=== PATIENT | female | born 1940 | race Caucasian/White ===

== ENCOUNTER → 2017-04-01 | Outpatient (CLI) | payer MEDICARE, BC ==
--- NOTE | 2017-04-01 12:46 | CT ---
EXAMINATION TYPE: CT chest wo con DATE OF EXAM: 04/01/2017 COMPARISON: NONE HISTORY: Interstitial lung disease per order. CT DLP: 749.7 mGycm. Automated Exposure Control for Dose Reduction was Utilized. TECHNIQUE: CT scan of the thorax is performed without IV contrast. High-resolution protocol with 10 mm sequences obtained in supine and prone technique. FINDINGS: LUNGS: There is peripheral reticulation and/or fibrosis bilaterally involving upper and lower lungs. Slightly more pronounced fibrotic changes are seen in the bases with additional linear fibrosis evide nt. Mosaic appearance is seen inferiorly in bilateral lungs. No pleural effusion or pneumothorax is s een. No suspicious bronchiectasis is identified. No worrisome focal groundglass opacity or consolidat ion is seen. Areas of subcentimeter nodularity are suspected, for reference 5 x 3 mm nodule and axial image 9 series 8. No suspicious pulmonary masses are identified. MEDIASTINUM: Lack of IV contrast is noted to limit evaluation for mediastinal and especially hilar ad enopathy. There are no definitive greater than 1 cm hilar or mediastinal lymph nodes. No pericardia l effusion is seen. Cardiomegaly is present. OTHER: Lateral left breast scar is noted on image 6 series 7. Multilevel spurring in the spine is see n. Cholecystectomy clips are noted. IMPRESSION: Moderate fibrotic changes bilaterally most pronounced in the lower lobes as detailed shama e. Consider IPF.
== END | disposition home or self-care (01) ==
LOC: RADCTMAIN 12:17
PROVIDERS: ATTEND Internal Medicine Critical Care Medicine
DX: J84.10 Pulmonary fibrosis, unspecified (principal); Z88.5 Allergy status to narcotic agent; Z88.2 Allergy status to sulfonamides
CPT/HCPCS: 71250

== ENCOUNTER → 2017-07-14 | Outpatient (CLI) | payer MEDICARE, BC ==
[2017-07-14 09:58] LABS: Anisocytosis Slight; CH 37.1; CHCM 32.8; HCT 38.1 % (34.0-46.0); HDW 3.24; HGB 12.9 gm/dL (11.4-16.0); Hypochromasia Slight; MCH 38.4 pg (25.0-35.0); MCHC 33.9 g/dL (31.0-37.0); MCV 113.5 fL (80.0-100.0); Macrocytosis Marked; Mean Platelet Volume 9.7; RBC 3.36 m/uL (3.80-5.40); WBC 7.8 k/uL (3.8-10.6)
[2017-07-14 10:31] LABS: ALT 38 U/L (9-52); AST 27 U/L (14-36); Alkaline Phosphatase 75 U/L (38-126); Anion Gap 11 mmol/L; Blood Urea Nitrogen 15 mg/dL (7-17); Calcium 9.6 mg/dL (8.4-10.2); Carbon Dioxide 26 mmol/L (22-30); Chloride 106 mmol/L (98-107); Glucose 101 mg/dL (74-99); Non-African American GFR(MDRD) 56 (>60 ml/min/1.73 sqM); Potassium 4.2 mmol/L (3.5-5.1); Sodium 143 mmol/L (137-145); Total Bilirubin 1.8 mg/dL (0.2-1.3); Total Protein 6.7 g/dL (6.3-8.2)
[2017-07-26 12:50] LABS: Large VLDL Particle Number,NMR 2.4 nmol/L (<=2.7)
== END | disposition home or self-care (01) ==
LOC: LABWHC1 09:17
PROVIDERS: ATTEND Internal Medicine Cardiovascular Disease
DX: I10 Essential (primary) hypertension (principal)
CPT/HCPCS: 36415; 80053; 83704; 85027

== ENCOUNTER → 2017-10-28 | Outpatient (CLI) | payer MEDICARE, BC ==
[2017-10-28 12:17] LABS: Anisocytosis Slight; Basophils # (A) 0.1 k/uL (0-0.2); Basophils % (A) 0 %; Eosinophils # (A) 0.1 k/uL (0-0.7); Eosinophils % (A) 1 %; HCT 41.1 % (34.0-46.0); Lymphocytes # (A) 1.9 k/uL (1.0-4.8); Lymphocytes % (A) 10 %; MCH 35.7 pg (25.0-35.0); MCHC 31.7 g/dL (31.0-37.0); MCV 112.7 fL (80.0-100.0); Macrocytosis Marked; Mean Platelet Volume 10.2; Monocytes # (A) 1.6 k/uL (0-1.0); Monocytes % (A) 8 %; Neutrophils # (A) 16.1 k/uL (1.3-7.7); Neutrophils % (A) 80 %; Platelet Count 232 k/uL (150-450); RBC 3.64 m/uL (3.80-5.40); RDW 17.5 % (11.5-15.5); WBC 20.1 k/uL (3.8-10.6)
[2017-10-28 12:24] LABS: Appearance,Urine Clear (Clear); Bilirubin,Urine Negative (Negative); Blood,Urine Negative (Negative); Color,Urine Yellow; Glucose,Urine (UA) Negative (Negative); Ketones,Urine Negative (Negative); Leukocyte Esterase,Urine Negative (Negative); Nitrite,Urine Negative (Negative); PH, Urine 6.5 (5.0-8.0); Protein,Urine Negative (Negative); Urobilinogen,Urine <2.0 mg/dL (<2.0)
[2017-10-28 12:45] LABS: Anion Gap 12 mmol/L; Blood Urea Nitrogen 26 mg/dL (7-17); Carbon Dioxide 30 mmol/L (22-30); Chloride 99 mmol/L (98-107); Potassium 4.6 mmol/L (3.5-5.1); Sodium 141 mmol/L (137-145)
== END | disposition home or self-care (01) ==
LOC: LABPAT 11:48
PROVIDERS: ATTEND Thoracic Surgery (Cardiothoracic Vascular Surgery)
DX: Z01.812 Encounter for preprocedural laboratory examination (principal); J84.9 Interstitial pulmonary disease, unspecified
CPT/HCPCS: 36415; 80051; 81003; 82565; 84520; 85025; 99204

== ENCOUNTER → 2017-11-01 | Outpatient (CLI) | payer MEDICARE, BC ==
[2017-11-01 15:21] LABS: Anisocytosis Slight; Basophils % (A) 0 %; Eosinophils % (A) 0 %; HCT 40.9 % (34.0-46.0); HGB 13.5 gm/dL (11.4-16.0); Lymphocytes # (A) 1.4 k/uL (1.0-4.8); Lymphocytes % (A) 8 %; MCH 37.4 pg (25.0-35.0); MCV 113.4 fL (80.0-100.0); Macrocytosis Marked; Mean Platelet Volume 9.8; Monocytes # (A) 1.1 k/uL (0-1.0); Monocytes % (A) 6 %; Neutrophils # (A) 14.7 k/uL (1.3-7.7); Neutrophils % (A) 84 %; Platelet Count 209 k/uL (150-450); WBC 17.5 k/uL (3.8-10.6)
[2017-11-01 15:28] LABS: Appearance,Urine Clear (Clear); Bacteria,Urine Rare /hpf; Bilirubin,Urine Negative (Negative); Blood,Urine Negative (Negative); Color,Urine Light Yellow; Glucose,Urine (UA) Negative (Negative); Ketones,Urine Negative (Negative); Leukocyte Esterase,Urine Trace (Negative); Nitrite,Urine Negative (Negative); PH, Urine 6.5 (5.0-8.0); Protein,Urine Negative (Negative); Specific Gravity,Urine 1.008 (1.001-1.035); Squamous Epithelial Cell,Urine 1 /hpf (0-4); Urobilinogen,Urine <2.0 mg/dL (<2.0); WBC,Urine 2 /hpf (0-5)
[2017-11-01 16:08] LABS: Polychromasia Present
== END | disposition home or self-care (01) ==
LOC: LABWHC1 14:19
PROVIDERS: ATTEND Nurse Practitioner Acute Care
DX: D72.829 Elevated white blood cell count, unspecified (principal)
CPT/HCPCS: 36415; 81001; 85025; 87077; 87086; 87186

== ENCOUNTER 2017-11-04 07:18 | Inpatient (IN) | payer MEDICARE, BC ==
[~2017-11-04 07:18] MED LIST: DEXAMETHASONE SOD PHOSPHATE 10 MG/ML 1 ML VIAL IV ONE; FAMOTIDINE 20 MG/2 ML VIAL IV PRN; HYDROmorphone 0.5 MG/0.5 ML SYRINGE IVP PRN; LACTATED RINGERS 1,000 ML IV SCH; LIDOCAINE 1% 20 ML VIAL (10MG/ML) FOR IV START INTRADERMA PRN; ONDANSETRON 4 MG/2 ML VIAL IVP PRN; Pre Op ABX Message 1 EACH MISC MISCELLANE ONE
[2017-11-04 08:02] LABS: Glucose,Whole Blood 109 mg/dL (75-99)
[2017-11-04] MEDS ORDERED: IPRATROPIUM-ALBUTEROL 3 ML NEB INHALATION STA (08:47)
[2017-11-04] MEDS ORDERED: HYDROCORTISONE SUCCINATE 100 MG/2 ML VIAL IV ONE (08:47)
[2017-11-04] MEDS ORDERED: SUCCINYLCHOLINE CHLORIDE 100 MG/5 ML SYR IV ONE (09:11)
[2017-11-04] MEDS ORDERED: NEOSTIGMINE 1 MG/ML 10 ML VIAL ONE (09:11)
[2017-11-04] MEDS ORDERED: LIDOCAINE 1% INJ 10MG/ML (20 ML MDV) ONE (09:11)
[2017-11-04] MEDS ORDERED: ePHEDrine SULFATE/0.9% NACL/PF 50 MG/5 ML SYRINGE IV ONE (09:11)
[2017-11-04] MEDS ORDERED: MIDAZOLAM 2 MG/2 ML VIAL ONE (09:11)
[2017-11-04] MEDS ORDERED: ROCURONIUM BROMIDE 10 MG/ML 10 ML VIAL IV ONE (09:11)
[2017-11-04] MEDS ORDERED: GLYCOPYRROLATE 0.2 MG/ML 2 ML VIAL ONE (09:11)
[2017-11-04] MEDS ORDERED: fentaNYL (PF) 50 MCG/ML 2 ML AMP ONE (09:11)
[2017-11-04] MEDS ORDERED: PHENYLEPHRINE-0.9% NACL SYG 1 MG/10 ML SYRINGE ONE (09:11)
[2017-11-04] MEDS ORDERED: SODIUM CHLORIDE 0.9% 50 ML with ceFAZolin 2,000 MG IV ONE ×2 (09:45)
[2017-11-04] MEDS ORDERED: BUPIVACAINE (PF) 0.5% 30 ML VIAL SQ ONE ×2 (09:45)
[2017-11-04] MEDS ORDERED: METOCLOPRAMIDE 5 MG/ML 2 ML VIAL IVP PRN (10:24)
[2017-11-04] MEDS ORDERED: DEXTROSE 5%-0.45% NACL 1,000 ML IV SCH (10:30)
[2017-11-04] MEDS ORDERED: traMADol-ACETAMINOP 37.5-325MG 1 EACH TAB PO PRN (10:31)
[2017-11-04] MEDS ORDERED: ALBUTEROL NEBULIZED 2.5 MG/3 ML INHALATION PRN (10:34)
[2017-11-04] MEDS ORDERED: HYDROmorphone 2 MG/ML 1 ML SYRINGE IVP ONE ×2 (10:37→10:57)
[2017-11-04] MEDS ORDERED: LACTATED RINGERS 1,000 ML IV ONE (11:06)
--- NOTE | 2017-11-04 11:07 | XR ---
EXAMINATION TYPE: XR chest 1V DATE OF EXAM: 11/04/2017 HISTORY: Postop right VATS with lung biopsy COMPARISON: 09/26/2017 TECHNIQUE: Single view of the chest is submitted. FINDINGS: Right-sided chest tube without pneumothorax. Scattered parenchymal infiltrates. Underlying fibrosis s uspected. Nodular density right midlung zone. The heart is stable. Hilar and mediastinal structures are within normal limits. Degenerative changes are seen of the dorsal spine. IMPRESSION: 1. Postoperative changes as discussed.
--- NOTE | 2017-11-04 11:31 | P.OP ---
Date of Procedure: 11/04/17 Preoperative Diagnosis: Bilateral pulmonary infiltrates Postoperative Diagnosis: Same Procedure(s) Performed: Right thoracoscopic lung biopsy Anesthesia: MARCUS Surgeon: Bryan Vega Lead Database Developer #1: Juan Banks Estimated Blood Loss (ml): 25 IV fluids (ml): 300 Urine output (ml): 0 Pathology: other (Biopsies of right upper, middle and lower lobes of the right long were sent for pathology, routine culture, acid-fast culture, fungal culture.) Condition: stable Disposition: PACU Indications for Procedure: 76-year-old female with progressive dyspnea and bilateral pulmonary interstitial infiltrates. Operative Findings: There were no intrapleural adhesions. The lung was pink with good compliance. There was a somewhat fibrotic and gritty consistency to the lung tissue in areas. Description of Procedure: The patient was brought to the operating room, placed supine on the operating table, anesthetized and intubated with a double-lumen endotracheal tube. Tube was positioned with fiberoptic bronchoscopy and secured. Patient was turned in the left lateral decubitus position and the right chest sterilely prepped and draped. 3 one-inch incisions were made in the right chest and carried down into the right pleural space. Single lung ventilation was initiated. The pleural space was explored with findings as noted above. Biopsies of the upper middle and lower lobe were obtained with multiple firings of the Endo NATIVID[place] stapler. Biopsy specimens were cut on the back table and a portion was sent for culture and the majority of each specimen was sent for pathology. A 28- Khmer chest tube was placed through separate stab incision anteriorly and positioned posterior apically. Was secured with 0 Ethibond suture. Rib blocks were performed at the level of the incisions. The lung was inflated under thoracoscopic guidance and the incisions closed with layers of Vicryl suture. Sterile dressings were applied the patient was turned supine and extubated and transferred to recovery in stable condition.
--- NOTE | 2017-11-04 12:59 | P.CNPUL ---
History of Present Illness Consult date: 11/04/17 Requesting physician: Bryan Vega Reason for consult: abnormal CXR/CT Chief complaint: Shortness of breath History of present illness: This is a very pleasant 76-year-old female patient who follows with Dr. Jovita Diaz as her primary care physician. She has a history of hypothyroidism, hyperlipidemia, hypertension, gastroesophageal reflux disease, degenerative joint disease, breast cancer status post lumpectomy and radiation. She also has a history of chronic bronchial asthma and suspected interstitial lung disease. She follows with Dr. Mujica in our office for the same. She has been maintained on Singulair, Advair, albuterol. She had been referred to Dr. Vega for a open lung biopsy to determine if she truly has interstitial lung disease. He was brought in today for the procedure. He is seen postoperatively on the selective care unit. She is currently awake and alert in no acute distress. Her pain is well controlled at this time. She is maintaining good O2 saturations in the upper 90s on 3 L/m per nasal cannula. She's been afebrile. Hemodynamically stable. Right-sided chest tube remains in place with minimal drainage at this point. As x-ray reveals no pneumothorax. Suspected underlying fibrosis. Review of Systems 14 point review of systems was conducted. All negative other than as mentioned in HPI. Past Medical History Past Medical History: Asthma, Cancer, GERD/Reflux, Hyperlipidemia, Hypertension , Thyroid Disorder Additional Past Medical History / Comment(s): Breast cancer WITH RADIATION. DO NOT USE LEFT Side, neuropathy History of Any Multi-Drug Resistant Organisms: None Reported Past Surgical History: Back Surgery, Breast Surgery, Cholecystectomy, Joint Replacement, Orthopedic Surgery Past Anesthesia/Blood Transfusion Reactions: Postoperative Nausea & Vomiting ( PONV) Past Psychological History: No Psychological Hx Reported Smoking Status: Never smoker Past Alcohol Use History: None Reported Past Drug Use History: None Reported - Past Family History Mother Family Medical History: No Reported History Medications and Allergies Home Medications Medication Instructions Recorded Confirmed Type Albuterol Inhaler [Ventolin Hfa 1 - 2 puff INHALATION RT-Q6H PRN 09/26/17 History Inhaler] Aspirin [Adult Low Dose Aspirin EC] 81 mg PO DAILY 09/26/17 11/04/17 History Atorvastatin [Lipitor] 10 mg PO HS 09/26/17 11/04/17 History Calcium Polycarbophil [Fiber-Lax] 625 mg PO DAILY 09/26/17 11/04/17 History Celecoxib [CeleBREX] 200 mg PO QAM 09/26/17 11/04/17 History Fluticasone/Salmeterol [Advair 1 puff INHALATION RT-BID 09/26/17 11/04/17 History 500-50 Diskus] Gabapentin 800 mg PO QID 09/26/17 11/04/17 History Levothyroxine Sodium [Synthroid] 175 mcg PO QAM 09/26/17 11/04/17 History Montelukast Sodium [Singulair] 10 mg PO HS 09/26/17 11/04/17 History Multivitamins, Thera [Multivitamin 1 tab PO DAILY 09/26/17 11/04/17 History (formulary)] Omeprazole 20 mg PO QAM 09/26/17 11/04/17 History amLODIPine BESYLATE/BENAZEPRIL 1 cap PO QAM 09/26/17 11/04/17 History [Lotrel 5-40 mg Capsule] Hydrochlorothiazide 25 mg PO QAM 10/29/17 11/04/17 History predniSONE [predniSONE] 1 tab PO DIRECTED 10/29/17 11/04/17 History Allergies Allergy/AdvReac Type Severity Reaction Status Date / Time meperidine [From Demerol] Allergy Unknown Verified 11/04/17 08:00 Childhood morphine Allergy Unknown Verified 11/04/17 08:00 Childhood Sulfa (Sulfonamide Allergy Unknown Verified 11/04/17 08:00 Antibiotics) Childhood Physical Exam Vitals: Vital Signs Temp Pulse Pulse Resp BP Pulse Ox 11/04/17 11:47 97.1 F L 51 L 16 104/53 99 11/04/17 11:15 62 16 112/54 97 11/04/17 11:00 56 L 16 103/50 11/04/17 10:45 62 16 106/53 98 11/04/17 10:30 80 16 100/57 95 11/04/17 10:22 97.1 F L 74 16 108/54 98 11/04/17 08:56 68 11/04/17 08:50 68 11/04/17 07:48 97 F L 67 16 113/57 98 Intake and Output 11/03/17 11/04/17 11/04/17 22:59 06:59 14:59 Intake Total 1250 Output Total 10 Balance 1240 Intake: IV 1250 Output: Estimated Blood Loss 10 GENERAL EXAM: Alert, active, comfortable in no apparent distress. HEAD: Normocephalic. EYES: Normal reaction of pupils, equal size. NOSE: Clear with pink turbinates. THROAT: No erythema or exudates. NECK: No masses, no JVD. CHEST: No chest wall deformity. Right sided chest tube in place. LUNGS: Equal air entry with crackles in the right lung base. CVS: S1 and S2 normal with no audible murmur, regular rhythm. ABDOMEN: No hepatosplenomegaly, normal bowel sounds, no guarding or rigidity. SPINE: No scoliosis or deformity SKIN: No rashes CENTRAL NERVOUS SYSTEM: No focal deficits, tone is normal in all 4 extremities. EXTREMITIES: There is no peripheral edema. No clubbing, no cyanosis. Peripheral pulses are intact. Results - Laboratory Findings Abnormal lab findings: Abnormal Labs 11/04/17 08:00 POC Glucose (mg/dL) 109 H - Diagnostic Findings Chest x-ray: image reviewed Assessment and Plan Assessment: Impression: #1 Bilateral pulmonary infiltrates, suspect interstitial lung disease, status post right thorascopic lung biopsy. Postoperative day #0. #2 Chronic moderate persistent bronchial asthma, currently inactive and stable. #3 Hypothyroidism. #4 Hyperlipidemia. #5 Hypertension. #6 Gastroesophageal reflux disease. #7 Degenerative joint disease with previous laminectomy and knee replacement. #8 History of lung breast cancer status post lumpectomy and radiation. Plan: The patient was seen and evaluated by Dr. Mujica. Her chest x-ray was reviewed. She is currently stable from the pulmonary standpoint. We will assure she utilizes the incentive spirometer and encourage cough and deep breathing exercises. We'll continue with her current pulmonary medications care will be Symbicort, Singulair and albuterol. We will increase her activity as tolerated. She remains on heparin for DVT prophylaxis. Protonix for GI prophylaxis. We'll continue to follow and make further recommendations based on her clinical status. I, the cosigning physician, performed a history & physical examination of the patient. Lungs sounds crackles in the right posterior base. Right-sided chest tube in place. Maintaining good O2 saturations in the 90s on 3 L/m per nasal cannula. I discussed the assessment and plan of care with my nurse practitioner , Barbara Wiggins. I attest to the above note as dictated by her. Time with Patient: Greater than 30
[2017-11-04] MEDS: KETOROLAC 30 MG/ML 1 ML VIAL IVP SCH ×2 (13:51→17:37)
[2017-11-04] MEDS: GABAPENTIN 400 MG CAP PO SCH ×3 (13:52→20:52)
[2017-11-04] MEDS: HEPARIN SODIUM,PORCINE 5,000 UNIT/ML 1 ML VIAL SQ SCH (17:37)
[2017-11-04] MEDS: SYMBICORT 160-4.5 MCG INHALER INHALATION SCH (20:20)
[2017-11-04] MEDS ORDERED: ATORVASTATIN 10 MG TAB PO SCH (21:00)
[2017-11-04] MEDS ORDERED: MONTELUKAST 10 MG TAB PO SCH (21:00)
--- NOTE | 2017-11-04 21:48 | P.CONS ---
History of Present Illness - Reason for Consult Consult date: 11/04/17 Medical management of hypertension and other multiple medical problems - Chief Complaint Admitted for lung biopsy due to worsening interstitial lung disease - History of Present Illness Patient is a 76-year-old female with a known history of hypertension, hyperlipidemia, hypothyroidism, GERD and history of breast cancer status post lumpectomy and radiation as well as chronic bronchial asthma both with worsening recent symptoms and suspected to have interstitial lung disease. Patient was seen by pulmonary and recommended lung biopsy. Patient had lung biopsy today by CT surgery. Currently patient denied any chest pain or worsening shortness of breath. No headache or dizziness or lightheadedness.She is currently awake and alert in no acute distress. Her pain is well controlled at this time. She is maintaining good O2 saturations in the upper 90s on 3 L/m per nasal cannula. She's been afebrile. Hemodynamically stable. Right-sided chest tube remains in place with minimal drainage at this point. Chest x-ray reveals no pneumothorax. Suspected underlying fibrosis. Review of Systems Constitutional: Patient denies any fever or chills . No generalized weakness or weight loss. Abdomen: Patient denied nausea vomiting and diarrhea and abdominal pain. Cardiovascular: Patient denies any chest pain or short of breath no palpitations. Respiratory: patient denied any cough is from production. No shortness of breath Neurologic: Patient denied any numbness or tingling headache. Musculoskeletal: Patient denies any complaints of joint swelling or deformity. Skin: Negative Psychiatric: Negative Endocrine: No heat or cold intolerance. No recent weight gain. Genitourinary: No dysuria or hematuria. All other 14 point ROS negative except the above Past Medical History Past Medical History: Asthma, Cancer, GERD/Reflux, Hyperlipidemia, Hypertension , Thyroid Disorder Additional Past Medical History / Comment(s): Breast cancer WITH RADIATION. DO NOT USE LEFT Side, neuropathy History of Any Multi-Drug Resistant Organisms: None Reported Past Surgical History: Back Surgery, Breast Surgery, Cholecystectomy, Joint Replacement, Orthopedic Surgery Past Anesthesia/Blood Transfusion Reactions: Postoperative Nausea & Vomiting ( PONV) Past Psychological History: No Psychological Hx Reported Smoking Status: Never smoker Past Alcohol Use History: None Reported Past Drug Use History: None Reported - Past Family History Mother Family Medical History: No Reported History Medications and Allergies Home Medications Medication Instructions Recorded Confirmed Type Albuterol Inhaler [Ventolin Hfa 1 - 2 puff INHALATION RT-Q6H PRN 09/26/17 History Inhaler] Aspirin [Adult Low Dose Aspirin EC] 81 mg PO DAILY 09/26/17 11/04/17 History Atorvastatin [Lipitor] 10 mg PO HS 09/26/17 11/04/17 History Calcium Polycarbophil [Fiber-Lax] 625 mg PO DAILY 09/26/17 11/04/17 History Celecoxib [CeleBREX] 200 mg PO QAM 09/26/17 11/04/17 History Fluticasone/Salmeterol [Advair 1 puff INHALATION RT-BID 09/26/17 11/04/17 History 500-50 Diskus] Gabapentin 800 mg PO QID 09/26/17 11/04/17 History Levothyroxine Sodium [Synthroid] 175 mcg PO QAM 09/26/17 11/04/17 History Montelukast Sodium [Singulair] 10 mg PO HS 09/26/17 11/04/17 History Multivitamins, Thera [Multivitamin 1 tab PO DAILY 09/26/17 11/04/17 History (formulary)] Omeprazole 20 mg PO QAM 09/26/17 11/04/17 History amLODIPine BESYLATE/BENAZEPRIL 1 cap PO QAM 09/26/17 11/04/17 History [Lotrel 5-40 mg Capsule] Hydrochlorothiazide 25 mg PO QAM 10/29/17 11/04/17 History predniSONE [predniSONE] 1 tab PO DIRECTED 10/29/17 11/04/17 History Allergies Allergy/AdvReac Type Severity Reaction Status Date / Time meperidine [From Demerol] Allergy Unknown Verified 11/04/17 08:00 Childhood morphine Allergy Unknown Verified 11/04/17 08:00 Childhood Sulfa (Sulfonamide Allergy Unknown Verified 11/04/17 08:00 Antibiotics) Childhood Physical Exam Vitals: Vital Signs Temp Pulse Pulse Resp BP Pulse Ox 11/04/17 11:47 97.1 F L 51 L 16 104/53 99 11/04/17 11:15 62 16 112/54 97 11/04/17 11:00 56 L 16 103/50 11/04/17 10:45 62 16 106/53 98 11/04/17 10:30 80 16 100/57 95 11/04/17 10:22 97.1 F L 74 16 108/54 98 11/04/17 08:56 68 11/04/17 08:50 68 11/04/17 07:48 97 F L 67 16 113/57 98 Intake and Output 11/03/17 11/04/17 11/04/17 22:59 06:59 14:59 Intake Total 1250 Output Total 10 Balance 1240 Intake: IV 1250 Output: Estimated Blood Loss 10 PHYSICAL EXAMINATION: Patient is lying in the bed comfortably, no acute distress, awake alert and oriented.. HEENT: Normocephalic. Neck is supple. Pupils reactive. Nostrils clear. Oral cavity is moist. Ears reveal no drainage. Neck reveals no JVD, carotid bruits, or thyromegaly. CHEST EXAMINATION: Trachea is central. Symmetrical expansion. Right-sided chest tube in place with right basal crackles positive. No wheezing CARDIAC: Normal S1, S2 with no gallops. No murmurs ABDOMEN: Soft. Bowel sounds normal. No organomegaly. No abdominal bruits. Extremities: reveal no edema. No clubbing or cyanosis Neurologically awake, alert, oriented x3 with well-coordinated movements. No focal deficits noted Skin: No rash or skin lesions. Psychiatric: Cooperative. Nonsuicidal Musculoskeletal: No joint swelling or deformity. Normal range of motion. Results Labs: Abnormal Lab Results - Last 24 Hours (Table) 11/04/17 Range/Units 08:00 POC Glucose (mg/dL) 109 H (75-99) mg/dL Assessment and Plan Assessment: Suspected interstitial lung disease due to chronic bilateral pulmonary infiltrates. Status post lung biopsy today on 11/04/2017 Chronic asthma stable Hypertension. Currently hypotensive Hyperlipidemia GERD Hypothyroidism Osteoarthritis of multiple joints History of breast cancer status post lumpectomy and radiation Plan: Patient be continued on breathing treatments with albuterol, Symbicort and Singulair. Oxygen therapy as needed. Continue the home medications. Blood pressure medications have been held due to hypotension. We'll start back as needed. Continue with GI and DVT prophylaxis. Further recommendations based on the clinical course. Pulmonary is on board. Thank you for your consult Time with Patient: Greater than 30
[2017-11-05] MEDS: HEPARIN SODIUM,PORCINE 5,000 UNIT/ML 1 ML VIAL SQ SCH ×2 (00:03→08:39)
[2017-11-05] MEDS: KETOROLAC 30 MG/ML 1 ML VIAL IVP SCH ×4 (04:16→12:20)
[2017-11-05 06:05] LABS: Anisocytosis Slight; Basophils # (A) 0.1 k/uL (0-0.2); Basophils % (A) 0 %; Eosinophils # (A) 0.2 k/uL (0-0.7); Eosinophils % (A) 2 %; HCT 34.8 % (34.0-46.0); HGB 11.3 gm/dL (11.4-16.0); Lymphocytes # (A) 2.3 k/uL (1.0-4.8); Lymphocytes % (A) 18 %; MCH 37.1 pg (25.0-35.0); MCHC 32.5 g/dL (31.0-37.0); Monocytes # (A) 1.1 k/uL (0-1.0); Monocytes % (A) 9 %; Neutrophils # (A) 8.8 k/uL (1.3-7.7); Neutrophils % (A) 70 %; Platelet Count 155 k/uL (150-450); RBC 3.05 m/uL (3.80-5.40); RDW 17.1 % (11.5-15.5); WBC 12.6 k/uL (3.8-10.6)
[2017-11-05 06:15] LABS: Macrocytosis Marked
[2017-11-05] MEDS: GABAPENTIN 400 MG CAP PO SCH ×2 (06:26→12:14)
[2017-11-05] MEDS ORDERED: LEVOTHYROXINE 75 MCG TAB PO SCH (06:30)
[2017-11-05] MEDS ORDERED: LEVOTHYROXINE 100 MCG TAB PO SCH (06:30)
[2017-11-05] MEDS ORDERED: PANTOPRAZOLE 40 MG TABLET PO SCH (07:30)
[2017-11-05] MEDS: SYMBICORT 160-4.5 MCG INHALER INHALATION SCH (07:30)
[2017-11-05 08:31] LABS: Calcium 9.5 mg/dL (8.4-10.2); Potassium 4.5 mmol/L (3.5-5.1); Total Bilirubin 2.5 mg/dL (0.2-1.3); Total Protein 5.3 g/dL (6.3-8.2)
--- NOTE | 2017-11-05 08:40 | XR ---
EXAMINATION TYPE: XR chest 1V portable DATE OF EXAM: 11/05/2017 Comparison: 11/04/2017 Clinical History: 76-year-old female post VATS with lung biopsy Findings: The heart is upper limits of normal in size. Patchy right basilar opacity. Right-sided chest tube in place with a trace lateral right-sided pneumothorax. Overall densities are unchanged. Impression: 1. Right-sided chest tube in place. There is a trace lateral right-sided pneumothorax. 2. Patchy right mid and lower lung consolidation is unchanged.
[2017-11-05] MEDS ORDERED: CALCIUM POLYCARBOPHIL 625 MG TAB PO SCH (09:00)
[2017-11-05] MEDS ORDERED: MELOXICAM 7.5 MG TAB PO SCH (09:00)
[2017-11-05] MEDS ORDERED: LISINOPRIL 20 MG TAB PO SCH (09:00)
[2017-11-05] MEDS ORDERED: amLODIPine 5 MG TAB PO SCH (09:00)
[2017-11-05] MEDS ORDERED: HYDROCHLOROTHIAZIDE 25 MG TAB PO SCH (09:00)
[2017-11-05] MEDS ORDERED: predniSONE 10 MG TAB PO SCH (09:00)
[2017-11-05] MEDS ORDERED: ASPIRIN 81 MG PO SCH (09:00)
[2017-11-05] MEDS ORDERED: MULTIVITAMINS, THERA 1 EACH TAB PO SCH (12:00)
--- NOTE | 2017-11-05 12:12 | XR ---
EXAMINATION TYPE: XR chest 2V DATE OF EXAM: 11/05/2017 COMPARISON: Earlier today HISTORY: 76 year-old female post chest tube removal TECHNIQUE: Frontal and lateral views FINDINGS: Patchy densities right mid and lower lung as well as peripheral left base are unchanged. Heart remain s upper limits of normal in size. Interval removal right-sided chest tube. Small right-sided pneumoth orax is redemonstrated with both apical and right lateral components, minimally larger but estimated at less than 10%. IMPRESSION: 1. Right-sided chest tube removal. The small right pneumothorax is minimally larger but still estimat ed at less than 10%. 2. Patchy infiltrates, right greater than left remain.
[2017-11-05 12:28] VITALS: BP 132/66; PULSE 85; RESP 18; TEMP 96.3
--- NOTE | 2017-11-05 14:02 | P.PN ---
Subjective Progress Note Date: 11/05/17 Principal diagnosis: Bilateral pulmonary infiltrates, interstitial lung disease with exertional dyspnea, hypertension, hypothyroidism, hypercholesterolemia, GERD, breast cancer and asthma. POD #1, right thoracoscopic lung biopsy. The patient is laying in bed with in no acute distress. She is alert and oriented 3. She rates her pain 4 out of 10 on the pain scale currently to her right chest tube insertion site. Her oxygen saturations are 96% on room air. Objective - Vital Signs Vital signs: Vital Signs Temp 96.3 F L 11/05/17 12:26 Pulse 85 11/05/17 12:26 Resp 18 11/05/17 12:26 BP 132/66 11/05/17 12:26 Pulse Ox 96 11/05/17 12:26 Intake & Output 11/04/17 11/05/17 11/05/17 18:59 06:59 18:59 Intake Total 1640 580 Output Total 30 162 Balance 1610 -162 580 Weight 104.7 kg Intake: IV 1250 Intake, IV Titration 50 Amount Lactated Ringers 1,000 ml 50 As IV .Appy Pie ONE Rx#: [id number] Oral 340 580 Output: Chest Tube Drainage 20 162 Chest Tube Right Lateral 20 162 Chest Estimated Blood Loss 10 Other: Voiding Method Toilet Toilet # Voids 1 1 - Constitutional General appearance: Present: cooperative, no acute distress, obese - EENT Eyes: Present: PERRLA ENT: Present: hearing grossly normal - Neck Details: No JVD, no lymphadenopathy. Neck is supple. Neck: Present: normal ROM - Respiratory Details: Lung sounds essentially clear to her bilateral upper lobes, few scattered crackles to her bilateral bases right greater than left. Respirations are symmetrical and nonlabored. Oxygen saturation are 96% on room air. Right pleural chest tube without air leak, 130 mL output in the last 8 hours, 300 mL output in the last 24 hours. Chest tube tube remains to low continuous wall suction at -20 cm H2O. Draining thin serosanguineous drainage. She is achieving 750 mL on her incentive spirometry. - Cardiovascular Details: Regular rhythm and rate. S1 and S2 present, negative for S3, gallop or murmur. Remote telemetry showing normal sinus rhythm heart rate 83. - Gastrointestinal Gastrointestinal Comment(s): Abdomen is soft, nontender nondistended. Active bowel sounds all 4 abdominal quadrants. Tolerating oral intake. No abdominal guarding or rigidity. - Genitourinary Genitourinary Comment(s): Adequate urine output. - Integumentary Integumentary Comment(s): Right lateral chest incisions clean dry and well approximated. No drainage noted. Skin is warm and dry. No clubbing or cyanosis. - Neurologic Neurologic: Present: CNII-XII intact - Musculoskeletal Musculoskeletal: Present: gait normal, strength equal bilaterally - Psychiatric Psychiatric: Present: A&O x's 3, appropriate affect, intact judgment & insight - Allied health notes Allied health notes reviewed: nursing - Labs CBC & Chem 7: 11/05/17 05:44 11/05/17 05:44 Labs: Abnormal Lab Results - Last 24 Hours (Table) 11/05/17 11/05/17 Range/Units 05:44 05:44 WBC 12.6 H (3.8-10.6) k/uL RBC 3.05 L (3.80-5.40) m/uL Hgb 11.3 L (11.4-16.0) gm/dL MCV 114.0 H (80.0-100.0) fL MCH 37.1 H (25.0-35.0) pg RDW 17.1 H (11.5-15.5) % Neutrophils # 8.8 H (1.3-7.7) k/uL Monocytes # 1.1 H (0-1.0) k/uL Carbon Dioxide 31 H (22-30) mmol/L BUN 27 H (7-17) mg/dL Creatinine 1.10 H (0.52-1.04) mg/dL Glucose 108 H (74-99) mg/dL Total Bilirubin 2.5 H (0.2-1.3) mg/dL Total Protein 5.3 L (6.3-8.2) g/dL Albumin 3.0 L (3.5-5.0) g/dL Microbiology - Last 24 Hours (Table) 11/04/17 10:16 Gram Stain - Preliminary Lung - Right Tissue Culture - Preliminary 11/04/17 10:16 Gram Stain - Preliminary Lung - Right Tissue Culture - Preliminary 11/04/17 10:16 Gram Stain - Preliminary Lung - Right Tissue Culture - Preliminary 11/04/17 10:16 Acid Fast Bacilli Smear - Final Lung - Right Acid Fast Bacilli Culture - Preliminary 11/04/17 10:16 Acid Fast Bacilli Smear - Final Lung - Right Acid Fast Bacilli Culture - Preliminary 11/04/17 10:16 Acid Fast Bacilli Smear - Final Lung - Right Acid Fast Bacilli Culture - Preliminary 11/04/17 10:16 Fungal Culture - Preliminary Lung - Right 11/04/17 10:16 Anaerobic Culture - Preliminary Lung - Right 11/04/17 10:16 Fungal Culture - Preliminary Lung - Right 11/04/17 10:16 Anaerobic Culture - Preliminary Lung - Right 11/04/17 10:16 Fungal Culture - Preliminary Lung - Right 11/04/17 10:16 Anaerobic Culture - Preliminary Lung - Right - Imaging and Cardiology Chest x-ray: report reviewed, image reviewed Assessment and Plan (1) Hypertension Current Visit: Yes Status: Acute Code(s): I10 - ESSENTIAL (PRIMARY) HYPERTENSION SNOMED Code(s): 38033266 (2) Hyperlipidemia Current Visit: Yes Status: Acute Code(s): E78.5 - HYPERLIPIDEMIA, UNSPECIFIED SNOMED Code(s): 12192292 (3) Hypothyroidism Current Visit: Yes Status: Acute Code(s): E03.9 - HYPOTHYROIDISM, UNSPECIFIED SNOMED Code(s): 20393439 (4) GERD (gastroesophageal reflux disease) Current Visit: Yes Status: Acute Code(s): K21.9 - GASTRO-ESOPHAGEAL REFLUX DISEASE WITHOUT ESOPHAGITIS SNOMED Code(s): 285441737 (5) Asthma Current Visit: Yes Status: Acute Code(s): J45.909 - UNSPECIFIED ASTHMA, UNCOMPLICATED SNOMED Code(s): 521962193 (6) Interstitial lung disease Current Visit: Yes Status: Acute Code(s): J84.9 - INTERSTITIAL PULMONARY DISEASE, UNSPECIFIED SNOMED Code(s): 539444989 Plan: 1. Her right pleural chest tube was removed without incident at 9:25 AM today. 2. Encourage use of her incentive spirometry every hour while awake. 3. Encourage ambulating as tolerated. 4. Discontinue IV fluids, saline lock IV. 5. Pathology results are pending and will be reviewed with the patient on postoperative follow-up in the office. 6. Discharge teaching completed with the patient and her and she will be discharged home today. Time with Patient: Greater than 30
--- NOTE | 2017-11-05 14:05 | P.PN ---
Subjective Progress Note Date: 11/05/17 Principal diagnosis: Bilateral pulmonary infiltrates, suspect interstitial lung disease, status post right thoracoscopic lung biopsy, postop day 1 This is a very pleasant 76-year-old female patient who follows with Dr. Jovita Diaz as her primary care physician. She has a history of hypothyroidism, hyperlipidemia, hypertension, gastroesophageal reflux disease, degenerative joint disease, breast cancer status post lumpectomy and radiation. She also has a history of chronic bronchial asthma and suspected interstitial lung disease. She follows with Dr. Mujica in our office for the same. She has been maintained on Singulair, Advair, albuterol. She had been referred to Dr. Vega for a open lung biopsy to determine if she truly has interstitial lung disease. He was brought in today for the procedure. He is seen postoperatively on the selective care unit. She is currently awake and alert in no acute distress. Her pain is well controlled at this time. She is maintaining good O2 saturations in the upper 90s on 3 L/m per nasal cannula. She's been afebrile. Hemodynamically stable. Right-sided chest tube remains in place with minimal drainage at this point. As x-ray reveals no pneumothorax. Suspected underlying fibrosis. On 11/05/2017 patient seen again on selective care unit. Sitting up on the edge of the bed, doing very well, her only complaint today is right posterior incisional pain, patient is receiving oral Ultracet for it. No acute distress. Denies any worsening shortness of breath, currently on room air with O2 sat at 96%. Afebrile, lung sounds are positive for crackles and rhonchi over right lower lobe, clear on the left. Incentive spirometer effort is 1000 today. Vital signs are stable. Today's chest x-ray shows right-sided chest tube removal, small right pneumothorax estimated at 10%, patchy infiltrates right greater than the left, stable from previous exams. Objective - Vital Signs Vital signs: Vital Signs Temp 96.3 F L 11/05/17 12:26 Pulse 85 11/05/17 12:26 Resp 18 11/05/17 12:26 BP 132/66 11/05/17 12:26 Pulse Ox 96 11/05/17 12:26 Intake & Output 11/04/17 11/05/17 11/05/17 18:59 06:59 18:59 Intake Total 1640 580 Output Total 30 162 Balance 1610 -162 580 Weight 104.7 kg Intake: IV 1250 Intake, IV Titration 50 Amount Lactated Ringers 1,000 ml 50 As IV .[facility] Rx#: [id number] Oral 340 580 Output: Chest Tube Drainage 20 162 Chest Tube Right Lateral 20 162 Chest Estimated Blood Loss 10 Other: Voiding Method Toilet Toilet # Voids 1 1 - Exam GENERAL EXAM: Alert, active, comfortable in no apparent distress. HEAD: Normocephalic. EYES: Normal reaction of pupils, equal size. NOSE: Clear with pink turbinates. THROAT: No erythema or exudates. NECK: No masses, no JVD. CHEST: No chest wall deformity. Right sided chest tube has been removed. The site is covered with a surgical dressing. LUNGS: Equal air entry with crackles in the right lung base. CVS: S1 and S2 normal with no audible murmur, regular rhythm. ABDOMEN: No hepatosplenomegaly, normal bowel sounds, no guarding or rigidity. SPINE: No scoliosis or deformity SKIN: No rashes CENTRAL NERVOUS SYSTEM: No focal deficits, tone is normal in all 4 extremities. EXTREMITIES: There is no peripheral edema. No clubbing, no cyanosis. Peripheral pulses are intact. - Labs CBC & Chem 7: 11/05/17 05:44 11/05/17 05:44 Labs: Abnormal Lab Results - Last 24 Hours (Table) 11/05/17 11/05/17 Range/Units 05:44 05:44 WBC 12.6 H (3.8-10.6) k/uL RBC 3.05 L (3.80-5.40) m/uL Hgb 11.3 L (11.4-16.0) gm/dL MCV 114.0 H (80.0-100.0) fL MCH 37.1 H (25.0-35.0) pg RDW 17.1 H (11.5-15.5) % Neutrophils # 8.8 H (1.3-7.7) k/uL Monocytes # 1.1 H (0-1.0) k/uL Carbon Dioxide 31 H (22-30) mmol/L BUN 27 H (7-17) mg/dL Creatinine 1.10 H (0.52-1.04) mg/dL Glucose 108 H (74-99) mg/dL Total Bilirubin 2.5 H (0.2-1.3) mg/dL Total Protein 5.3 L (6.3-8.2) g/dL Albumin 3.0 L (3.5-5.0) g/dL Microbiology - Last 24 Hours (Table) 11/04/17 10:16 Gram Stain - Preliminary Lung - Right Tissue Culture - Preliminary 11/04/17 10:16 Gram Stain - Preliminary Lung - Right Tissue Culture - Preliminary 11/04/17 10:16 Gram Stain - Preliminary Lung - Right Tissue Culture - Preliminary 11/04/17 10:16 Acid Fast Bacilli Smear - Final Lung - Right Acid Fast Bacilli Culture - Preliminary 11/04/17 10:16 Acid Fast Bacilli Smear - Final Lung - Right Acid Fast Bacilli Culture - Preliminary 11/04/17 10:16 Acid Fast Bacilli Smear - Final Lung - Right Acid Fast Bacilli Culture - Preliminary 11/04/17 10:16 Fungal Culture - Preliminary Lung - Right 11/04/17 10:16 Anaerobic Culture - Preliminary Lung - Right 11/04/17 10:16 Fungal Culture - Preliminary Lung - Right 11/04/17 10:16 Anaerobic Culture - Preliminary Lung - Right 11/04/17 10:16 Fungal Culture - Preliminary Lung - Right 11/04/17 10:16 Anaerobic Culture - Preliminary Lung - Right Assessment and Plan Plan: Assessment: #1 Bilateral pulmonary infiltrates, suspect interstitial lung disease, status post right thorascopic lung biopsy. Postoperative day #1. #2 Chronic moderate persistent bronchial asthma, currently inactive and stable. #3 Hypothyroidism. #4 Hyperlipidemia. #5 Hypertension. #6 Gastroesophageal reflux disease. #7 Degenerative joint disease with previous laminectomy and knee replacement. #8 History of lung breast cancer status post lumpectomy and radiation. Plan: Patient remains stable from pulmonary standpoint. Continue encouraging incentive spirometer, increase activity as tolerated. We discontinued prednisone, no evidence of any wheezing, there are some scattered rales and rhonchi over right posterior lower base. Denies any worsening dyspnea. Continue on current medical treatments. Patient is stable for discharge home today. She has a follow-up appointment with Dr. Mujica in the office on 2017. I performed a history & physical examination of the patient and discussed their management with my nurse practitioner, Claudia Catherine. I reviewed the nurse practitioner's note and agree with the documented findings and plan of care. Lung sounds are positive a few rales and rhonchi over right lower lobe . The findings and the impression was discussed with the patient. I attest to the documentation by the nurse practitioner. Time with Patient: Less than 30
--- NOTE | 2017-11-05 14:42 | P.DS ---
Providers Date of admission: 11/04/17 07:18 Expected date of discharge: 11/05/17 Attending physician: Bryan Vega Consults: 11/04/17 10:24 Consult Physician Routine Consulting Provider: Evie Morin Consult Reason/Comments: Medical management Do you want consulting provider notified?: Yes 11/04/17 10:30 Consult Physician Routine Consulting Provider: Ranjeet Mujica Consult Reason/Comments: Pulmonary management Do you want consulting provider notified?: Yes Primary care physician: Jovita Contreras - Discharge Diagnosis(es) (1) Hypertension Current Visit: Yes Status: Acute (2) Hyperlipidemia Current Visit: Yes Status: Acute (3) Hypothyroidism Current Visit: Yes Status: Acute (4) GERD (gastroesophageal reflux disease) Current Visit: Yes Status: Acute (5) Asthma Current Visit: Yes Status: Acute (6) Interstitial lung disease Current Visit: Yes Status: Acute Hospital Course: FINAL DIAGNOSIS: 1. Bilateral pulmonary infiltrates 2. Interstitial lung disease with exertional dyspnea 3. Hypertension 4. Hyperlipidemia 5. Hypothyroidism 6. Gastroesophageal reflux disorder 7. History of breast cancer 8. Asthma PRINCIPAL PROCEDURE: 1. Elective right thoracoscopic lung biopsy HISTORY OF PRESENT ILLNESS: This is 76-year-old female patient who is followed by Dr. Jovita contreras on a patient bases. Patient has a medical history significant for bilateral pulmonary infiltrates, interstitial lung disease with exertional dyspnea, hypertension, hyperlipidemia, hypothyroidism, GERD, and asthma. The patient has received complaints of progressive shortness of breath with multiple illnesses over the past several months and several courses of steroids. Subsequently the patient has had good response from steroid treatment , although once the steroids have been weaned off the patient's respiratory symptoms reoccur. The patient is followed by Dr. Mujica from pulmonary medicine and due to her progressive shortness of breath and symptomology a consult was placed for Dr. Bryan Vega from cardiothoracic surgery to evaluate the patient for possible thorascopic lung biopsy surgery. Dr. Vega met with the patient and her in his office and discussed the risks and benefits of surgery and the patient agreed and wanted to proceed with surgery. HOSPITAL COURSE: The patient was admitted to the hospital and after obtaining consent she was taken to the operating room where Dr. Vega performed an elective right thoracoscopic lung biopsy surgery. She was then transferred to recovery unit where she was hemodynamically monitored and subsequently transferred to [address] [place] [address] for further monitoring and rehabilitation. The patient's chest tube was discontinued, her oxygen was weaned off and she ambulated in the [facility] without difficulty. Verbal and written discharge instructions have been given to the patient and she will be discharged home today. COMPLICATIONS: There were no postoperative, locations. CONSULTATIONS: 1. Dr. Mujica for pulmonary management 2. Dr. Matute for medical management DISCHARGE INSTRUCTIONS: 1. No driving for 2 weeks, or until physician gives their ok. 2. The patient should sleep in their own bed, no medical bed needed. 3. Stairs are not an issue. If the bedroom is upstairs, it is advised that the patient go up at night and down in the morning for the first week. Go slowly, using handrail and take 1 step at a time. 4. TAVON hose are to be worn for 2 weeks or until physician discontinues. 5. Continue pain control per as needed orders. 6. Continue with incentive spirometry until otherwise directed by the physician. 7. She may remove her dressing to her chest tube site on 11/07/2017. She may shower and incision care with liquid antibacterial soap and clean white washcloth. 8. Please notify surgeon/nurse practitioner for temperature greater than 101F or purulent drainage from incision 9. Routine sternal incision care, no ointments, lotions or powders on the incisions. Plan - Discharge Summary Discharge Rx Participant: Yes New Discharge Prescriptions: New traMADol-ACETAMINOP 37.5-325MG [Ultracet] 1 each PO Q6HR PRN #30 tab PRN Reason: Pain Continue Fluticasone/Salmeterol [Advair 500-50 Diskus] 1 puff INHALATION RT-BID Celecoxib [CeleBREX] 200 mg PO QAM Omeprazole 20 mg PO QAM Albuterol Inhaler [Ventolin Hfa Inhaler] 1 - 2 puff INHALATION RT-Q6H PRN PRN Reason: Shortness Of Breath amLODIPine BESYLATE/BENAZEPRIL [Lotrel 5-40 mg Capsule] 1 cap PO QAM Multivitamins, Thera [Multivitamin (formulary)] 1 tab PO DAILY Levothyroxine Sodium [Synthroid] 175 mcg PO QAM Gabapentin 800 mg PO QID Calcium Polycarbophil [Fiber-Lax] 625 mg PO DAILY Aspirin [Adult Low Dose Aspirin EC] 81 mg PO DAILY Atorvastatin [Lipitor] 10 mg PO HS Montelukast Sodium [Singulair] 10 mg PO HS Hydrochlorothiazide 25 mg PO QAM Discontinued predniSONE [predniSONE] 1 tab PO DIRECTED Discharge Medication List Albuterol Inhaler [Ventolin Hfa Inhaler] 1 - 2 puff INHALATION RT-Q6H PRN [History] Aspirin [Adult Low Dose Aspirin EC] 81 mg PO DAILY 09/26/17 [History] Atorvastatin [Lipitor] 10 mg PO HS 09/26/17 [History] Calcium Polycarbophil [Fiber-Lax] 625 mg PO DAILY 09/26/17 [History] Celecoxib [CeleBREX] 200 mg PO QAM 09/26/17 [History] Fluticasone/Salmeterol [Advair 500-50 Diskus] 1 puff INHALATION RT-BID 09/26/17 [History] Gabapentin 800 mg PO QID 09/26/17 [History] Levothyroxine Sodium [Synthroid] 175 mcg PO QAM 09/26/17 [History] Montelukast Sodium [Singulair] 10 mg PO HS 09/26/17 [History] Multivitamins, Thera [Multivitamin (formulary)] 1 tab PO DAILY 09/26/17 [History ] Omeprazole 20 mg PO QAM 09/26/17 [History] amLODIPine BESYLATE/BENAZEPRIL [Lotrel 5-40 mg Capsule] 1 cap PO QAM 09/26/17 [ History] Hydrochlorothiazide 25 mg PO QAM 10/29/17 [History] traMADol-ACETAMINOP 37.5-325MG [Ultracet] 1 each PO Q6HR PRN #30 tab 11/05/17 [ Rx] Follow up Appointment(s)/Referral(s): Jovita Contreras MD [Primary Care Provider] - 11/09/17 1:00 pm Bryan Vega MD [STAFF PHYSICIAN] - 11/25/17 1:30 pm Ranjeet Mujica DO [Doctor of Osteopathic Medicine] - 11/16/17 10:15 am
--- NOTE | 2017-11-05 23:18 | P.PN ---
Subjective Progress Note Date: 11/05/17 Principal diagnosis: Status post lung biopsy suspected interstitial lung disease Patient is a 76-year-old female with a known history of hypertension, hyperlipidemia, hypothyroidism, GERD and history of breast cancer status post lumpectomy and radiation as well as chronic bronchial asthma both with worsening recent symptoms and suspected to have interstitial lung disease. Patient was seen by pulmonary and recommended lung biopsy. Patient had lung biopsy today by CT surgery. Currently patient denied any chest pain or worsening shortness of breath. No headache or dizziness or lightheadedness.She is currently awake and alert in no acute distress. Her pain is well controlled at this time. She is maintaining good O2 saturations in the upper 90s on 3 L/m per nasal cannula. She's been afebrile. Hemodynamically stable. Right-sided chest tube remains in place with minimal drainage at this point. Chest x-ray reveals no pneumothorax. Suspected underlying fibrosis. 11/05/2017 Patient denied any new complaints today. Chest tube was removed today. Repeat chest x-ray is being done now. Otherwise patient is stable to be discharged home and follow with pulmonary for biopsy reports. No other acute overnight issues. Current medications reviewed. Objective - Vital Signs Vital signs: Vital Signs Temp 96.3 F L 11/05/17 12:26 Pulse 85 11/05/17 12:26 Resp 18 11/05/17 12:26 BP 132/66 11/05/17 12:26 Pulse Ox 96 11/05/17 12:26 Intake & Output 11/04/17 11/05/17 11/05/17 18:59 06:59 18:59 Intake Total 1640 580 Output Total 30 162 Balance 1610 -162 580 Weight 104.7 kg Intake: IV 1250 Intake, IV Titration 50 Amount Lactated Ringers 1,000 ml 50 As IV .[facility] Rx#: [id number] Oral 340 580 Output: Chest Tube Drainage 20 162 Chest Tube Right Lateral 20 162 Chest Estimated Blood Loss 10 Other: Voiding Method Toilet Toilet # Voids 1 1 - Exam Patient is lying in the bed comfortably, no acute distress, awake alert and oriented.. HEENT: Normocephalic. Neck is supple. Pupils reactive. Nostrils clear. Oral cavity is moist. Ears reveal no drainage. Neck reveals no JVD, carotid bruits, or thyromegaly. CHEST EXAMINATION: Trachea is central. Symmetrical expansion. right basal crackles positive. No wheezing CARDIAC: Normal S1, S2 with no gallops. No murmurs ABDOMEN: Soft. Bowel sounds normal. No organomegaly. No abdominal bruits. Extremities: reveal no edema. No clubbing or cyanosis Neurologically awake, alert, oriented x3 with well-coordinated movements. No focal deficits noted Skin: No rash or skin lesions. Psychiatric: Cooperative. Nonsuicidal Musculoskeletal: No joint swelling or deformity. Normal range of motion. - Labs CBC & Chem 7: 11/05/17 05:44 11/05/17 05:44 Labs: Abnormal Lab Results - Last 24 Hours (Table) 11/05/17 11/05/17 Range/Units 05:44 05:44 WBC 12.6 H (3.8-10.6) k/uL RBC 3.05 L (3.80-5.40) m/uL Hgb 11.3 L (11.4-16.0) gm/dL MCV 114.0 H (80.0-100.0) fL MCH 37.1 H (25.0-35.0) pg RDW 17.1 H (11.5-15.5) % Neutrophils # 8.8 H (1.3-7.7) k/uL Monocytes # 1.1 H (0-1.0) k/uL Carbon Dioxide 31 H (22-30) mmol/L BUN 27 H (7-17) mg/dL Creatinine 1.10 H (0.52-1.04) mg/dL Glucose 108 H (74-99) mg/dL Total Bilirubin 2.5 H (0.2-1.3) mg/dL Total Protein 5.3 L (6.3-8.2) g/dL Albumin 3.0 L (3.5-5.0) g/dL Microbiology - Last 24 Hours (Table) 11/04/17 10:16 Gram Stain - Preliminary Lung - Right Tissue Culture - Preliminary 11/04/17 10:16 Gram Stain - Preliminary Lung - Right Tissue Culture - Preliminary 11/04/17 10:16 Gram Stain - Preliminary Lung - Right Tissue Culture - Preliminary 11/04/17 10:16 Acid Fast Bacilli Smear - Final Lung - Right Acid Fast Bacilli Culture - Preliminary 11/04/17 10:16 Acid Fast Bacilli Smear - Final Lung - Right Acid Fast Bacilli Culture - Preliminary 11/04/17 10:16 Acid Fast Bacilli Smear - Final Lung - Right Acid Fast Bacilli Culture - Preliminary 11/04/17 10:16 Fungal Culture - Preliminary Lung - Right 11/04/17 10:16 Anaerobic Culture - Preliminary Lung - Right 11/04/17 10:16 Fungal Culture - Preliminary Lung - Right 11/04/17 10:16 Anaerobic Culture - Preliminary Lung - Right 11/04/17 10:16 Fungal Culture - Preliminary Lung - Right 11/04/17 10:16 Anaerobic Culture - Preliminary Lung - Right Assessment and Plan Assessment: Suspected interstitial lung disease due to chronic bilateral pulmonary infiltrates. Status post lung biopsy on 11/04/2017 Chronic asthma stable Hypertension. Currently hypotensive Hyperlipidemia GERD Hypothyroidism Osteoarthritis of multiple joints History of breast cancer status post lumpectomy and radiation Plan: Patient be continued on breathing treatments with albuterol, Symbicort and Singulair. Oxygen therapy as needed. Continue the home medications. Blood pressure medications have been held due to hypotension. Can be started back up on discharge.. Continue with GI and DVT prophylaxis. Further recommendations based on the clinical course. Pulmonary is on board.
== END 2017-11-05 15:49 | disposition home or self-care (01) | DRG 168 ==
LOC: 2ORWHC 07:18 → 6SEL 10:20
PROVIDERS: ADMIT Thoracic Surgery (Cardiothoracic Vascular Surgery); ATTEND Thoracic Surgery (Cardiothoracic Vascular Surgery)
DX: J84.9 Interstitial pulmonary disease, unspecified (principal); E03.9 Hypothyroidism, unspecified; I10 Essential (primary) hypertension; Z96.659 Presence of unspecified artificial knee joint; K21.9 Gastro-esophageal reflux disease without esophagitis; J45.909 Unspecified asthma, uncomplicated; E78.00 Pure hypercholesterolemia, unspecified; R91.8 Other nonspecific abnormal finding of lung field; M15.9 Polyosteoarthritis, unspecified; Z79.51 Long term (current) use of inhaled steroids; Z82.49 Family history of ischemic heart disease and other diseases of the circulatory system; Z88.5 Allergy status to narcotic agent; Z88.2 Allergy status to sulfonamides; Z79.52 Long term (current) use of systemic steroids; Z79.899 Other long term (current) drug therapy; Z85.3 Personal history of malignant neoplasm of breast; Z92.3 Personal history of irradiation; Z79.82 Long term (current) use of aspirin
CPT/HCPCS: 36415; 71045; 71046; 80053; 81001; 85025; 87070; 87075; 87077; 87086; 87102; 87116; 87186; 87205; 87206; 88307; 94640; 94760

== ENCOUNTER → 2018-07-29 | Outpatient (CLI) | payer MEDICARE, BC ==
[2018-07-29 12:16] LABS: Albumin 3.9 g/dL (3.5-5.0); Calcium 9.8 mg/dL (8.4-10.2); Magnesium 1.7 mg/dL (1.6-2.3); Potassium 4.1 mmol/L (3.5-5.1); Total Bilirubin 2.4 mg/dL (0.2-1.3); Total Protein 6.8 g/dL (6.3-8.2)
== END | disposition home or self-care (01) ==
LOC: LABWHC1 11:21
PROVIDERS: ATTEND Internal Medicine Critical Care Medicine
DX: M62.89 Other specified disorders of muscle (principal); J84.112 Idiopathic pulmonary fibrosis
CPT/HCPCS: 36415; 80053; 83735

== ENCOUNTER → 2018-08-20 | Outpatient (CLI) | payer MEDICARE, BC ==
[2018-08-20 16:32] LABS: Albumin 4.2 g/dL (3.80-4.90); Albumin/Globulin Ratio 2.1 (1.20-2.10); Calcium 9.5 mg/dL (8.7-10.3); Potassium 4.2 mmol/L (3.5-5.5); Total Bilirubin 2.6 mg/dL (0.2-1.2); Total Protein 6.2 g/dL (6.2-8.2)
== END | disposition home or self-care (01) ==
LOC: LABWHC1 11:01
PROVIDERS: ATTEND Internal Medicine Critical Care Medicine
DX: K21.9 Gastro-esophageal reflux disease without esophagitis (principal); Z79.899 Other long term (current) drug therapy
CPT/HCPCS: 36415; 80053

== ENCOUNTER → 2018-09-22 | Outpatient (CLI) | payer MEDICARE, BC ==
[2018-09-22 17:44] LABS: Albumin 4.3 g/dL (3.80-4.90); Albumin/Globulin Ratio 2.39 (1.20-2.10); Bilirubin, Conjugated 0.8 mg/dL (0.20-0.40); Bilirubin,Unconjugated 1.6 mg/dL; Globulin 1.8 g/dL (2.1-3.7); Total Bilirubin 2.4 mg/dL (0.2-1.2); Total Protein 6.1 g/dL (6.2-8.2)
== END | disposition home or self-care (01) ==
LOC: LABWHC1 08:33
PROVIDERS: ATTEND Internal Medicine Critical Care Medicine
DX: E78.00 Pure hypercholesterolemia, unspecified (principal); E03.9 Hypothyroidism, unspecified; Z79.899 Other long term (current) drug therapy
CPT/HCPCS: 36415; 80061; 80076; 84443

== ENCOUNTER → 2018-11-28 | Outpatient (CLI) | payer MEDICARE, BC ==
[2018-11-28 22:02] LABS: Albumin/Globulin Ratio 2.35 (1.60-3.17); Bilirubin, Conjugated 0.7 mg/dL (0.20-0.40); Bilirubin,Unconjugated 1.8 mg/dL; Globulin 1.7 g/dL (1.6-3.3); Total Bilirubin 2.5 mg/dL (0.2-1.2); Total Protein 5.7 g/dL (6.2-8.2)
== END ==
LOC: LABWHC1 13:51
PROVIDERS: ATTEND Internal Medicine Critical Care Medicine
DX: Z51.81 Encounter for therapeutic drug level monitoring (principal); Z79.899 Other long term (current) drug therapy
CPT/HCPCS: 36415; 80076

== ENCOUNTER 2018-12-27 09:33 | Day surgery (SDC) | payer MEDICARE, BC ==
[2018-12-26 08:34] VITALS: BMI 35.6
[~2018-12-27 09:33] MED LIST changes: -DEXAMETHASONE SOD PHOSPHATE 10 MG/ML 1 ML VIAL IV ONE; -FAMOTIDINE 20 MG/2 ML VIAL IV PRN; -HYDROmorphone 0.5 MG/0.5 ML SYRINGE IVP PRN; -LIDOCAINE 1% 20 ML VIAL (10MG/ML) FOR IV START INTRADERMA PRN; -ONDANSETRON 4 MG/2 ML VIAL IVP PRN; -Pre Op ABX Message 1 EACH MISC MISCELLANE ONE
[2018-12-27 11:13] VITALS: TEMP 98.1
[2018-12-27] MEDS ORDERED: LIDOCAINE 1% 20 ML VIAL (10MG/ML) FOR IV START INTRADERMA ONE (11:22)
[2018-12-27] MEDS ORDERED: LIDOCAINE 1% INJ 10MG/ML (20 ML MDV) ONE (11:38)
[2018-12-27] MEDS ORDERED: PROPOFOL 10 MG/ML 20 ML VIAL IV ONE (11:38)
[2018-12-27 12:14] VITALS: RESP 16
--- NOTE | 2018-12-27 12:22 | P.PCN ---
Date of Procedure: 12/27/18 Procedure(s) Performed: Procedure: 1. Esophagogastroduodenoscopy and biopsy. 2. Colonoscopy and biopsy. Preoperative diagnosis: Chronic reflux and diarrhea. Postoperative diagnosis: 1. Eli esophagitis and mild gastritis. 2. Sigmoid diverticulosis. 3. Normal colon and terminal ileum. 4. Biopsies obtained from the duodenum, antrum, esophagus, terminal ileum and right colon. Preparation: HalfLytely prep. Sedation: Was provided by anesthesia. Brief clinical history: The patient is a 78-year-old female with history of pulmonary fibrosis who has been experiencing diarrhea for the last 2 years since she was started on ofev 150 mg capsules every 12 hours. She has diarrhea 3-4 times a day, 2-3 times a week. In addition, she has history of asthma and reflux and remote history of colitis. For the last 3 months she has been having issues with regurgitation and vomiting of small amounts. Procedure: With the patient on her left lateral decubitus position and after informed consent and adequate sedation, I passed the Olympus-GIF H 190 video upper endoscope through the cricopharyngeus down the esophagus. The esophagus with a background of erythema and there was numerous white sticky exudates consistent with Eli esophagitis. The endoscope was then passed into the stomach which was insufflated with air and inspected in detail including the retroflex view in the cardia. There was some mottling and erythema in the antrum but no ulcers or erosions. Pyloric channel, duodenal bulb, post bulbar area and descending duodenum appeared within normal limits. Because of her symptoms, I obtained biopsies from the duodenum, antrum and esophagus then the endoscope was withdrawn and I then proceeded to perform the colonoscopy. Perianal area did not show any fissures or fistulas. There were no masses felt on digital rectal examination. The Olympus CFH 190 L video colonoscope was then inserted in the rectum in the usual fashion and advanced to the cecum. I intubated the ileocecal valve and examined the terminal ileum. There were several diverticular orifices seen scattered in the sigmoid with no evidence of acute diverticulitis or strictures. The mucosa appeared healthy. No polyps or tumors were seen. I obtained biopsies from the terminal ileum and right colon then the endoscope was retroflexed in the rectum before it was withdrawn. The patient tolerated the procedure well. Plan: The patient was reassured. Will await biopsy results and make further recommendations regarding diarrhea. We will be starting her on Diflucan in the meantime for the Eli esophagitis. I will keep you updated on her progress.
[2018-12-27 13:15] VITALS: BP 121/70; PULSE 74
== END 2018-12-27 13:43 | disposition home or self-care (01) ==
LOC: ORWHC2ENDO 09:33
DX: B37.81 Candidal esophagitis (principal); J45.909 Unspecified asthma, uncomplicated; J84.10 Pulmonary fibrosis, unspecified; K29.50 Unspecified chronic gastritis without bleeding; K57.30 Diverticulosis of large intestine without perforation or abscess without bleeding; E07.9 Disorder of thyroid, unspecified; Z88.5 Allergy status to narcotic agent; Z88.2 Allergy status to sulfonamides; Z88.8 Allergy status to other drugs, medicaments and biological substances; I10 Essential (primary) hypertension; E78.5 Hyperlipidemia, unspecified; J84.112 Idiopathic pulmonary fibrosis; Z79.51 Long term (current) use of inhaled steroids; Z79.899 Other long term (current) drug therapy
CPT/HCPCS: 88305; 88312; 45378; 43239; J2001; J2704

== ENCOUNTER → 2018-12-29 | Outpatient (CLI) | payer MEDICARE, BC ==
[2018-12-29 18:05] LABS: Calcium 9.6 mg/dL (8.7-10.3); Magnesium 1.8 mg/dL (1.5-2.4)
== END | disposition home or self-care (01) ==
LOC: LABWHC1 14:39
PROVIDERS: ATTEND Psychiatry & Neurology Neurology
DX: E55.9 Vitamin D deficiency, unspecified (principal); Z87.81 Personal history of (healed) traumatic fracture
CPT/HCPCS: 36415; 82306; 82310; 83735

== ENCOUNTER 2019-03-12 11:56 | Observation (INO) | payer MEDICARE, BC ==
[2019-03-12] MEDS ORDERED: ALBUTEROL NEBULIZED 2.5 MG/3 ML INHALATION STA (12:07)
[2019-03-12] MEDS ORDERED: SODIUM CHLORIDE 0.9% 1,000 ML IV STA (12:07)
[2019-03-12] MEDS ORDERED: IPRATROPIUM 0.5 MG/2.5 ML NEBU INHALATION STA (12:07)
[2019-03-12] MEDS ORDERED: SODIUM CHLORIDE 0.9% 500 ML 500 ML IV STA (12:07)
[2019-03-12 12:36] LABS: Anisocytosis Slight; Basophils % (A) 0 %; Eosinophils # (A) 0.2 k/uL (0-0.7); Eosinophils % (A) 2 %; Lymphocytes % (A) 11 %; MCH 37.1 pg (25.0-35.0); MCHC 33.2 g/dL (31.0-37.0); MCV 111.6 fL (80.0-100.0); Macrocytosis Marked; Mean Platelet Volume 10.2; Monocytes # (A) 0.7 k/uL (0-1.0); Monocytes % (A) 8 %; Neutrophils # (A) 6.7 k/uL (1.3-7.7); Neutrophils % (A) 75 %; Platelet Count 162 k/uL (150-450); RDW 18.4 % (11.5-15.5); WBC 8.9 k/uL (3.8-10.6)
--- NOTE | 2019-03-12 12:38 | ED ---
SOB HPI - General Chief Complaint: Shortness of Breath Stated Complaint: POSS BRONCHITIS Time Seen by Provider: 03/12/19 12:07 Source: patient, RN notes reviewed, old records reviewed Mode of arrival: wheelchair Limitations: no limitations - History of Present Illness Initial Comments: This is a 78-year-old female the ER for evaluation. Patient has already fibrosis and COPD. No recent travel history, patient's has been sick denies fever or chest pain. Patient has not seen a geometry tutor recently, was playing all going on Wednesday but symptoms are progressively worsened. Patient having severe difficulty especially with exertion breathing today. Positive cough positive congestion MD Complaint: shortness of breath, cough -: days(s) Severity: moderate Consistency: constant Improves With: rest, bronchodilators Worsens With: movement Known History Of: COPD, asthma Context: recent URI Associated Symptoms: cough Treatments Prior to Arrival: none - Related Data Home Medications Medication Instructions Recorded Confirmed Albuterol Inhaler [Ventolin Hfa 1 - 2 puff INHALATION RT-Q6H PRN 09/26/17 12/26/18 Inhaler] Aspirin [Adult Low Dose Aspirin EC] 81 mg PO DAILY 09/26/17 12/26/18 Atorvastatin [Lipitor] 10 mg PO HS 09/26/17 12/26/18 Fluticasone/Salmeterol [Advair 1 puff INHALATION RT-BID 09/26/17 12/27/18 500-50 Diskus] Gabapentin 800 mg PO BID 09/26/17 12/27/18 Levothyroxine Sodium [Synthroid] 175 mcg PO QAM 09/26/17 12/27/18 Montelukast Sodium [Singulair] 10 mg PO HS 09/26/17 12/26/18 Multivitamins, Thera [Multivitamin 1 tab PO DAILY 09/26/17 12/26/18 (formulary)] Omeprazole 20 mg PO QAM PRN 09/26/17 12/27/18 amLODIPine BESYLATE/BENAZEPRIL 1 cap PO QAM 09/26/17 12/27/18 [Lotrel 5-40 MG] Hydrochlorothiazide 25 mg PO QAM 10/29/17 12/26/18 Acetaminophen [Tylenol Extra 1,000 mg PO BID PRN 12/26/18 12/27/18 Strength] Ascorbic Acid [Vitamin C] 500 mg PO DAILY 12/26/18 12/27/18 Cholecalciferol [Vitamin D3] 2,000 unit PO DAILY 12/26/18 12/27/18 Cyclobenzaprine HCl 5 mg PO HS PRN 12/26/18 12/27/18 Nintedanib Esylate [Ofev] 150 mg PO BID 12/26/18 12/26/18 Vitamin B Complex 1 each PO DAILY 12/26/18 12/27/18 Allergies Allergy/AdvReac Type Severity Reaction Status Date / Time meperidine [From Demerol] Allergy Unknown Verified 12/27/18 10:47 Childhood morphine Allergy Unknown Verified 12/27/18 10:47 Childhood Sulfa (Sulfonamide Allergy Unknown Verified 12/27/18 10:47 Antibiotics) Childhood Review of Systems ROS Statement: Those systems with pertinent positive or pertinent negative responses have been documented in the HPI. ROS Other: All systems not noted in ROS Statement are negative. Past Medical History Past Medical History: Asthma, Cancer, GERD/Reflux, Hyperlipidemia, Hypertension, Thyroid Disorder Additional Past Medical History / Comment(s): freq diarrhea-states "SE to Ofev", freq nausea,ideopathic pulmonary fibrosis,Predinisone December 2018,Breast cancer WITH 36 tx's RADIATION 2004-DO NOT USE LEFT Side, neuropathy maye legs and feet,chronic back pain History of Any Multi-Drug Resistant Organisms: None Reported Past Surgical History: Back Surgery, Breast Surgery, Cholecystectomy, Joint Replacement, Orthopedic Surgery Additional Past Surgical History / Comment(s): left breast lumpectomy,laminectomies x2,rt knee replaced lung biopsy Past Anesthesia/Blood Transfusion Reactions: Motion Sickness, Postoperative Nausea & Vomiting (PONV) Past Psychological History: No Psychological Hx Reported Smoking Status: Never smoker Past Alcohol Use History: None Reported Past Drug Use History: None Reported - Past Family History Mother Family Medical History: No Reported History General Exam Limitations: no limitations General appearance: alert, in no apparent distress Head exam: Present: atraumatic, normocephalic, normal inspection Eye exam: Present: normal appearance, PERRL, EOMI. Absent: scleral icterus, conjunctival injection, periorbital swelling ENT exam: Present: normal exam, mucous membranes moist Neck exam: Present: normal inspection. Absent: tenderness, meningismus, lymphadenopathy Respiratory exam: Present: respiratory distress, wheezes, accessory muscle use, decreased breath sounds, prolonged expiratory. Absent: rales, rhonchi, stridor Cardiovascular Exam: Present: regular rate, normal rhythm, normal heart sounds. Absent: systolic murmur, diastolic murmur, rubs, gallop, clicks GI/Abdominal exam: Present: soft, normal bowel sounds. Absent: distended, tende rness, guarding, rebound, rigid Extremities exam: Present: normal inspection, full ROM, normal capillary refill. Absent: tenderness, pedal edema, joint swelling, calf tenderness Back exam: Present: normal inspection Neurological exam: Present: alert, oriented X3, CN II-XII intact Psychiatric exam: Present: normal affect, normal mood Skin exam: Present: warm, dry, intact, normal color. Absent: rash Course Vital Signs 03/12/19 03/12/19 03/12/19 12:01 12:19 12:31 Temperature 99.4 F Pulse Rate 78 78 80 Respiratory 18 Rate Blood Pressure 115/75 O2 Sat by Pulse 100 Oximetry 03/12/19 12:42 Temperature Pulse Rate 88 Respiratory Rate Blood Pressure O2 Sat by Pulse Oximetry - Reevaluation(s) Reevaluation #1: 03/12/19 13:02 Medical record reviewed Reevaluation #2: 03/12/19 13:02 No improvement with breathing treatment Medical Decision Making - Medical Decision Making 78 showed female the ER for evaluation of COPD and acute bronchitis. Acute COPD exacerbation, no significant distress, patient be admitted for breathing treatments, fluid replacement steroids and monitoring of pulmonary status - Lab Data Result diagrams: 03/12/19 12:23 03/12/19 12:23 Lab Results 03/12/19 03/12/19 03/12/19 Range/Units 12:23 12:23 12:23 WBC 8.9 (3.8-10.6) k/uL RBC 3.50 L (3.80-5.40) m/uL Hgb 13.0 (11.4-16.0) gm/dL Hct 39.0 (34.0-46.0) % MCV 111.6 H (80.0-100.0) fL MCH 37.1 H (25.0-35.0) pg MCHC 33.2 (31.0-37.0) g/dL RDW 18.4 H (11.5-15.5) % Plt Count 162 (150-450) k/uL Anisocytosis Slight Macrocytosis Marked A PT 10.3 (9.0-12.0) sec INR 1.0 (<1.2) APTT 25.1 (22.0-30.0) sec Sodium 137 (137-145) mmol/L Potassium 4.1 (3.5-5.1) mmol/L Chloride 100 (98-107) mmol/L Carbon Dioxide 29 (22-30) mmol/L Anion Gap 8 mmol/L BUN 10 (7-17) mg/dL Creatinine 0.76 (0.52-1.04) mg/dL Est GFR (CKD-EPI)AfAm 89 (>60 ml/min/1.73 sqM) Est GFR (CKD-EPI)NonAf 77 (>60 ml/min/1.73 sqM) Glucose 104 H (74-99) mg/dL Calcium 9.8 (8.4-10.2) mg/dL Magnesium 1.6 (1.6-2.3) mg/dL Total Bilirubin 3.3 H (0.2-1.3) mg/dL AST 30 (14-36) U/L ALT 27 (9-52) U/L Alkaline Phosphatase 59 (38-126) U/L Total Protein 6.6 (6.3-8.2) g/dL Albumin 4.1 (3.5-5.0) g/dL - EKG Data -: EKG Interpreted by Me (EKG shows sinus rhythm rate of 86, MI 156, QRS 92, QTc 440) Interpretation: pericarditis - Radiology Data Radiology results: report reviewed (Chest x-rays negative for acute disease), image reviewed Disposition Clinical Impression: Acute exacerbation of chronic obstructive airways disease Disposition: ADMITTED IP TO THIS HOSP Condition: Fair Is patient prescribed a controlled substance at d/c from ED?: No Referrals: Jovita Diaz MD [Primary Care Provider] - 1-2 days
[2019-03-12 12:46] LABS: Albumin 4.1 g/dL (3.5-5.0); Calcium 9.8 mg/dL (8.4-10.2); Magnesium 1.6 mg/dL (1.6-2.3); Partial Thromboplastin Time 25.1 sec (22.0-30.0); Potassium 4.1 mmol/L (3.5-5.1); Prothrombin Time 10.3 sec (9.0-12.0); Total Bilirubin 3.3 mg/dL (0.2-1.3); Total Protein 6.6 g/dL (6.3-8.2)
[2019-03-12] MEDS ORDERED: methylPREDNISolone SOD SUCCI 125 MG/2 ML VIAL IV STA (13:00)
[2019-03-12] MEDS ORDERED: SODIUM CHLORIDE 0.9% 1,000 ML IV SCH (13:00)
[2019-03-12] MEDS ORDERED: ALBUTEROL NEBULIZED 2.5 MG/3 ML INHALATION PRN (13:00)
[2019-03-12 13:11] LABS: Poikilocytosis (M) Present
[2019-03-12] MEDS: LEVOFLOXACIN 500 MG TAB PO SCH (13:27)
--- NOTE | 2019-03-12 14:13 | XR ---
EXAMINATION TYPE: XR chest 2V DATE OF EXAM: 03/12/2019 COMPARISON: 11/05/2017 INDICATION: Difficulty breathing, short of breath TECHNIQUE: Frontal and lateral views of the chest are obtained. FINDINGS: The heart size is normal. The pulmonary vasculature is upper limits of normal. Some patchy infiltrate is at the lung bases, greater at the right. Correlate for atelectasis or pneum onia. Follow-up is recommended. IMPRESSION: 1. Mild bibasilar infiltrates greater at the right. Correlate for atelectasis and pneumonia. Follow-u p exams are recommended.
[2019-03-12 14:45] VITALS: BMI 31.4
--- NOTE | 2019-03-12 15:03 | P.HPIM ---
History of Present Illness Patient is a 76-year-old female with a known history of hypertension, hyperlipidemia, hypothyroidism, GERD and history of breast cancer status post lumpectomy and radiation, patient had lung biopsy on October 2018 which shows interstitial lung disease, and patient was diagnosed with idiopathic pulmonary fibrosis. He presents this time with cough and sore throat, of 2 days' duration. Her is sick with coming call for the last 2 weeks and she started getting some cough with greenish yellow phlegm that was severe enough to bother her and decided to come to the emergency room. She denies dyspnea, she has no chest pain except when coughing. No fever. Patient was not eating and drinking well for the last couple days. Also she got diarrhea all fully from 0FEV medicine for her idiopathic pulmonary fibrosis, last dose of ofev was yesterday, and the last bout of diarrhea was about 2 days ago. On the presentation vitals are stable and she is saturating 100%. Labs showing normal WBC, hemoglobin 13.0. INR 1.0. BMP was unremarkable Review of Systems CONSTITUTIONAL: No fever, no malaise, no fatigue. HEENT: No recent visual problems or hearing problems. Denied any sore throat. CARDIOVASCULAR: No orthopnea, PND, no palpitations, no syncope. PULMONARY: no hemoptysis. GASTROINTESTINAL: No diarrhea, no nausea, no vomiting, no abdominal pain. Normoactive bowel sounds. NEUROLOGICAL: No headaches, no weakness, no numbness. HEMATOLOGICAL: Denies any bleeding or petechiae. GENITOURINARY: Denies any burning micturition, frequency, or urgency. MUSCULOSKELETAL/RHEUMATOLOGICAL: Denies any joint pain, swelling, or any muscle pain. ENDOCRINE: Denies any polyuria or polydipsia. Past Medical History Past Medical History: Asthma, Cancer, GERD/Reflux, Hyperlipidemia, Hypertension, Thyroid Disorder Additional Past Medical History / Comment(s): freq diarrhea-states "SE to Ofev", freq nausea,ideopathic pulmonary fibrosis,Predinisone December 2018,Breast cancer WITH 36 tx's RADIATION 2004-DO NOT USE LEFT Side, neuropathy maye legs and feet,chronic back pain History of Any Multi-Drug Resistant Organisms: None Reported Past Surgical History: Back Surgery, Breast Surgery, Cholecystectomy, Joint Replacement, Orthopedic Surgery Additional Past Surgical History / Comment(s): left breast lumpectomy,laminectomies x2,rt knee replaced lung biopsy Past Anesthesia/Blood Transfusion Reactions: Motion Sickness, Postoperative Nausea & Vomiting (PONV) Past Psychological History: No Psychological Hx Reported Smoking Status: Never smoker Past Alcohol Use History: None Reported Past Drug Use History: None Reported - Past Family History Mother Family Medical History: No Reported History Medications and Allergies Home Medications Medication Instructions Recorded Confirmed Type Albuterol Inhaler [Ventolin Hfa 1 - 2 puff INHALATION RT-Q6H PRN 09/26/17 03/12/19 History Inhaler] Aspirin [Adult Low Dose Aspirin EC] 81 mg PO DAILY 09/26/17 03/12/19 History Atorvastatin [Lipitor] 10 mg PO HS 09/26/17 03/12/19 History Fluticasone/Salmeterol [Advair 1 puff INHALATION RT-BID 09/26/17 03/12/19 History 500-50 Diskus] Gabapentin 800 mg PO BID 09/26/17 03/12/19 History Montelukast Sodium [Singulair] 10 mg PO HS 09/26/17 03/12/19 History Multivitamins, Thera [Multivitamin 1 tab PO DAILY 09/26/17 03/12/19 History (formulary)] Omeprazole 20 mg PO QAM PRN 09/26/17 03/12/19 History amLODIPine BESYLATE/BENAZEPRIL 1 cap PO QAM 09/26/17 03/12/19 History [Lotrel 5-40 MG] Hydrochlorothiazide 25 mg PO QAM 10/29/17 03/12/19 History Ascorbic Acid [Vitamin C] 500 mg PO DAILY 12/26/18 03/12/19 History Cholecalciferol [Vitamin D3] 2,000 unit PO DAILY 12/26/18 03/12/19 History Vitamin B Complex 1 each PO DAILY 12/26/18 03/12/19 History Celecoxib [CeleBREX] 200 mg PO DAILY PRN 03/12/19 03/12/19 History Cyanocobalamin (Vitamin B-12) 1,000 mcg PO DAILY 03/12/19 03/12/19 History [Vitamin B-12] EPINEPHrine [Epipen 2-Shin] 0.3 mg IM DAILY PRN 03/12/19 03/12/19 History Levothyroxine Sodium [Synthroid] 150 mg PO DAILY 03/12/19 03/12/19 History Loperamide [Imodium] 2 mg PO QID PRN 03/12/19 03/12/19 History Nintedanib Esylate [Ofev] 100 mg PO DAILY 03/12/19 03/12/19 History Nintedanib Esylate [Ofev] 150 mg PO DAILY 03/12/19 03/12/19 History Allergies Allergy/AdvReac Type Severity Reaction Status Date / Time meperidine [From Demerol] Allergy Unknown Verified 03/12/19 13:57 Childhood morphine Allergy Unknown Verified 03/12/19 13:57 Childhood Sulfa (Sulfonamide Allergy Unknown Verified 03/12/19 13:57 Antibiotics) Childhood Physical Exam Vitals: Vital Signs Temp Pulse Resp BP Pulse Ox 03/12/19 13:30 98.2 F 86 20 127/68 98 03/12/19 13:00 22 135/78 97 03/12/19 12:42 88 03/12/19 12:31 80 03/12/19 12:19 78 03/12/19 12:01 99.4 F 78 18 115/75 100 Intake and Output 03/11/19 03/12/19 03/12/19 22:59 06:59 14:59 Other: Weight 79.379 kg GENERAL: The patient is alert and oriented x3, not in any acute distress. Well developed, well nourished. -HEENT: Pupils are round and equally reacting to light. EOMI. No scleral icterus. No conjunctival pallor. Normocephalic, atraumatic. No pharyngeal erythema. No thyromegaly. Mild pharyngitis. Dry mucous membrane CARDIOVASCULAR: S1 and S2 present. No murmurs, rubs, or gallops. PULMONARY: Chest is clear to auscultation, lateral scattered wheezing and crackles. ABDOMEN: Soft, nontender, nondistended, normoactive bowel sounds. No palpable organomegaly. MUSCULOSKELETAL: No joint swelling or deformity. EXTREMITIES: No cyanosis, clubbing, or pedal edema. NEUROLOGICAL: Gross neurological examination did not reveal any focal deficits. SKIN: No rashes. Results CBC & Chem 7: 03/12/19 12:23 03/12/19 12:23 Labs: Abnormal Lab Results - Last 24 Hours (Table) 03/12/19 03/12/19 Range/Units 12:23 12:23 RBC 3.50 L (3.80-5.40) m/uL MCV 111.6 H (80.0-100.0) fL MCH 37.1 H (25.0-35.0) pg RDW 18.4 H (11.5-15.5) % Macrocytosis Marked A Glucose 104 H (74-99) mg/dL Total Bilirubin 3.3 H (0.2-1.3) mg/dL Assessment and Plan Assessment: Signs of severe upper respiratory tract infection Dehydration History of Idiopathic pulmonary fibrosis Hypertension Hyperlipidemia Hypothyroidism history of breast cancer status post lumpectomy History of GERD Plan: This is a pleasant 78 years old female who presents with upper respiratory infection with sore throat and cough. Also she is dehydrated. Continue with breathing treatment, continue with parenteral hydration. Patient follow up with Dr. Mujica and she wants to see somebody from pulmonary team which will be consulted.Labs and medication were reviewed.. Continue same treatment. Continue with symptomatic treatment. Resume home medication. Monitor lytes and vitals. DVT and GI prophylaxis. Further recommendations of the clinical course of the patient DVT prophylaxis: Subcutaneous heparin GI Prophylaxis: Pepcid Prognosis is guarded
[2019-03-12] MEDS ORDERED: NICOTINE 21MG/24HR PATCH TRANSDERM SCH (15:15)
[2019-03-12] MEDS: IPRATROPIUM-ALBUTEROL 3 ML NEB INHALATION SCH ×2 (16:28→20:02)
[2019-03-12] MEDS: methylPREDNISolone SOD SUCCI 125 MG/2 ML VIAL IV SCH ×2 (17:48→23:45)
[2019-03-12] MEDS: SYMBICORT 160-4.5 MCG INHALER INHALATION SCH (20:03)
[2019-03-12] MEDS: GABAPENTIN 400 MG CAP PO SCH (22:08)
[2019-03-12] MEDS: ATORVASTATIN 10 MG TAB PO SCH (22:11)
[2019-03-12] MEDS: MONTELUKAST 10 MG TAB PO SCH (22:11)
[2019-03-13] MEDS: LEVOTHYROXINE 75 MCG TAB PO SCH (06:22)
[2019-03-13] MEDS: IPRATROPIUM-ALBUTEROL 3 ML NEB INHALATION SCH ×4 (07:09→19:22)
[2019-03-13] MEDS: SYMBICORT 160-4.5 MCG INHALER INHALATION SCH ×2 (07:10→19:22)
[2019-03-13 08:02] LABS: ALT 27 U/L (9-52); AST 33 U/L (14-36); Alkaline Phosphatase 57 U/L (38-126); Anion Gap 10 mmol/L; Blood Urea Nitrogen 14 mg/dL (7-17); Calcium 9.6 mg/dL (8.4-10.2); Carbon Dioxide 26 mmol/L (22-30); Chloride 105 mmol/L (98-107); Glucose 151 mg/dL (74-99); Potassium 4.5 mmol/L (3.5-5.1); Sodium 141 mmol/L (137-145); Total Bilirubin 2.3 mg/dL (0.2-1.3); Total Protein 6.7 g/dL (6.3-8.2)
[2019-03-13] MEDS ORDERED: amLODIPine 5 MG TAB PO SCH (09:00)
[2019-03-13] MEDS ORDERED: HYDROCHLOROTHIAZIDE 25 MG TAB PO SCH (09:00)
[2019-03-13] MEDS: CYANOCOBALAMIN 500 MCG TAB PO SCH (09:31)
[2019-03-13] MEDS: ASPIRIN 81 MG PO SCH (09:31)
[2019-03-13] MEDS: CHOLECALCIFEROL 1,000 UNIT TAB PO SCH (09:32)
[2019-03-13] MEDS: HEPARIN SODIUM,PORCINE 5,000 UNIT/ML 1 ML VIAL SQ SCH ×2 (09:32→21:23)
[2019-03-13] MEDS: GABAPENTIN 400 MG CAP PO SCH ×2 (09:32→21:23)
[2019-03-13] MEDS: FAMOTIDINE 20 MG/2 ML VIAL IV SCH ×2 (09:32→21:23)
[2019-03-13] MEDS: methylPREDNISolone SOD SUCCI 125 MG/2 ML VIAL IV SCH ×2 (09:43→21:24)
[2019-03-13] MEDS: LISINOPRIL 20 MG TAB PO SCH (11:08)
[2019-03-13] MEDS: LEVOFLOXACIN 500 MG TAB PO SCH (11:08)
--- NOTE | 2019-03-13 13:09 | P.CNPUL ---
History of Present Illness Consult date: 03/13/19 Reason for consult: dyspnea History of present illness: 77-year-old female with history of COPD, pulmonary fibrosis, GERD, hypothyroidism, hyperlipidemia, essential hypertension and mild chronic bronchial asthma. Her primary care physician is Dr. Jovita Diaz. She is currently on OFEV for her pulmonary fibrosis. She takes 150 mg twice a day. The patient has an FVC of 69% and TLC of 71% and DLCO of 39%. The patient came into the hospital because of increased dyspnea cough congestion and some increased shortness of breath. Apparently, her was having an upper respiratory tract infection. Subsequently she started getting ill. No fever. No chills. Chest x-ray showed pulmonary fibrosis with some limited infiltration of the righ t lung base. The patient was given Levaquin. The patient started on IV Solu- Medrol. Clinically feeling better today. She is currently on room air. He is ambulating. She is not fully recovered. She is on Symbicort regarding her COPD. She is taking DuoNeb nebulized treatments around the clock. She is on oral Levaquin. She is on IV Solu Medrol 40 mg every 12 hours. No altered mentation. No hemoptysis. No pleurisy. No chest pain. No leukocytosis. Review of Systems Constitutional: Denies chills, Denies fever Eyes: denies blurred vision, denies bulging eye, denies decreased vision Ears: deny: decreased hearing, ear discharge, earache, tinnitus Ears, nose, mouth and throat: Denies headache, Denies sore throat Cardiovascular: Reports decreased exercise tolerance, Reports dyspnea on exertion, Reports shortness of breath Respiratory: Reports as per HPI, Reports congestion, Reports cough, Reports dyspnea Gastrointestinal: Denies abdominal pain, Denies diarrhea, Denies nausea, Denies vomiting Genitourinary: Reports as per HPI Menstruation: Reports as per HPI Musculoskeletal: Reports as per HPI Musculoskeletal: absent: ankle pain, ankle stiffness, ankle swelling Integumentary: Reports as per HPI Neurological: Reports as per HPI Psychiatric: Reports as per HPI Endocrine: Reports as per HPI Hematologic/Lymphatic: Reports as per HPI Allergic/Immunologic: Reports as per HPI Past Medical History Past Medical History: Asthma, Cancer, GERD/Reflux, Hyperlipidemia, Hypertension, Thyroid Disorder Additional Past Medical History / Comment(s): COPD, IPF and the patient is curr ently on treatment with Ofev , freq diarrhea-states "SE to Ofev", freq nausea,idiopathic pulmonary fibrosis, Breast cancer WITH 36 tx's RADIATION 2004- DO NOT USE LEFT Side, neuropathy maye legs and feet,chronic back pain History of Any Multi-Drug Resistant Organisms: None Reported Past Surgical History: Back Surgery, Breast Surgery, Cholecystectomy, Joint Replacement, Orthopedic Surgery Additional Past Surgical History / Comment(s): left breast lumpectomy,laminectomies x2,rt knee replaced lung biopsy Past Anesthesia/Blood Transfusion Reactions: Motion Sickness, Postoperative Nausea & Vomiting (PONV) Past Psychological History: No Psychological Hx Reported Smoking Status: Never smoker Past Alcohol Use History: None Reported Past Drug Use History: None Reported - Past Family History Mother Family Medical History: No Reported History Medications and Allergies Home Medications Medication Instructions Recorded Confirmed Type Albuterol Inhaler [Ventolin Hfa 1 - 2 puff INHALATION RT-Q6H PRN 09/26/17 03/12/19 History Inhaler] Aspirin [Adult Low Dose Aspirin EC] 81 mg PO DAILY 09/26/17 03/12/19 History Atorvastatin [Lipitor] 10 mg PO HS 09/26/17 03/12/19 History Fluticasone/Salmeterol [Advair 1 puff INHALATION RT-BID 09/26/17 03/12/19 History 500-50 Diskus] Gabapentin 800 mg PO BID 09/26/17 03/12/19 History Montelukast Sodium [Singulair] 10 mg PO HS 09/26/17 03/12/19 History Multivitamins, Thera [Multivitamin 1 tab PO DAILY 09/26/17 03/12/19 History (formulary)] Omeprazole 20 mg PO QAM PRN 09/26/17 03/12/19 History amLODIPine BESYLATE/BENAZEPRIL 1 cap PO QAM 09/26/17 03/12/19 History [Lotrel 5-40 MG] Hydrochlorothiazide 25 mg PO QAM 10/29/17 03/12/19 History Ascorbic Acid [Vitamin C] 500 mg PO DAILY 12/26/18 03/12/19 History Cholecalciferol [Vitamin D3] 2,000 unit PO DAILY 12/26/18 03/12/19 History Vitamin B Complex 1 each PO DAILY 12/26/18 03/12/19 History Celecoxib [CeleBREX] 200 mg PO DAILY PRN 03/12/19 03/12/19 History Cyanocobalamin (Vitamin B-12) 1,000 mcg PO DAILY 03/12/19 03/12/19 History [Vitamin B-12] EPINEPHrine [Epipen 2-Shin] 0.3 mg IM DAILY PRN 03/12/19 03/12/19 History Levothyroxine Sodium [Synthroid] 150 mg PO DAILY 03/12/19 03/12/19 History Loperamide [Imodium] 2 mg PO QID PRN 03/12/19 03/12/19 History Nintedanib Esylate [Ofev] 100 mg PO DAILY 03/12/19 03/12/19 History Nintedanib Esylate [Ofev] 150 mg PO DAILY 03/12/19 03/12/19 History Allergies Allergy/AdvReac Type Severity Reaction Status Date / Time meperidine [From Demerol] Allergy Unknown Verified 03/12/19 13:57 Childhood morphine Allergy Unknown Verified 03/12/19 13:57 Childhood Sulfa (Sulfonamide Allergy Unknown Verified 03/12/19 13:57 Antibiotics) Childhood Physical Exam Vitals: Vital Signs Temp Pulse Pulse Resp BP BP Pulse Ox 03/13/19 07:20 66 03/13/19 07:10 66 03/13/19 05:00 98.2 F 69 16 104/59 94 L 03/12/19 21:00 98.1 F 82 18 119/68 96 03/12/19 20:14 72 16 03/12/19 20:03 77 16 03/12/19 16:43 74 16 03/12/19 16:31 75 16 94 L 03/12/19 15:15 17 03/12/19 14:37 98.9 F 90 22 92/55 96 03/12/19 13:30 98.2 F 86 20 127/68 98 03/12/19 13:00 22 135/78 97 03/12/19 12:42 88 03/12/19 12:31 80 03/12/19 12:19 78 03/12/19 12:01 99.4 F 78 18 115/75 100 Intake and Output 03/12/19 03/13/19 03/13/19 22:59 06:59 14:59 Intake Total 400 590 Balance 400 590 Intake: Oral 400 590 Other: Voiding Method Toilet # Voids 1 No acute distress, oriented 3. No respiratory distress. No use of accessory muscles. Head exam was generally normal. There was no scleral icterus or corneal arcus. Mucous membranes were moist. HEENT examination is grossly unremarkable. Posterior oropharynx is very erythema tous. Membranes are moist. No exudate. TMs and EACs are normal. Nasal mucosa is normal. Neck supple. Full range of motion. No adenopathy thyromegaly or neck vein distention. Cardiac exam revealed the PMI to be normally situated and sized. The rhythm was regular and no extrasystoles were noted during several minutes of auscultation. The first and second heart sounds were normal and physiologic splitting of the second heart sound was noted. There were no murmurs, rubs, clicks, or gallops. Lungs reveal bibasilar Velcro crackles. She is mildly restricted in her breathing. No rhonchi or wheezes. Breath sounds are equal bilaterally. Breath sounds are equal bilaterally. Abdomen soft bowel sounds are heard. No masses or tenderness. Extremities are intact. No cyanosis clubbing or edema. Skin is without rash or lesion.Examination of the skin revealed no evidence of significant rashes, suspicious appearing nevi or other concerning lesions. Neurologic examination is brief but nonfocal. Results - Laboratory Findings CBC and BMP: 03/12/19 12:23 03/13/19 06:51 PT/INR, D-dimer PT 10.3 sec (9.0-12.0) 03/12/19 12:23 INR 1.0 (<1.2) 03/12/19 12:23 Abnormal lab findings: Abnormal Labs 03/12/19 03/12/19 03/13/19 12:23 12:23 06:51 RBC 3.50 L MCV 111.6 H MCH 37.1 H RDW 18.4 H Macrocytosis Marked A Glucose 104 H 151 H Total Bilirubin 3.3 H 2.3 H - Diagnostic Findings Chest x-ray: image reviewed Assessment and Plan Plan: 1 acute dyspnea with suspected right lower lobe pneumonia 2 COPD 3 pulmonary fibrosis/IPF, treated with Ofev on outpatient basis 4 history of breast cancer, previous lumpectomy radiation therapy 5 chronic back pain Plan Agree on Levaquin. Repeat chest x-ray in the morning. Switch this patient a prednisone burst taper in a.m. Doing well. His emanating. She is on room air oxygen. No signs of any septicemia. We'll follow.
--- NOTE | 2019-03-13 14:12 | P.PN ---
Subjective Patient is a 76-year-old female with a known history of hypertension, hyperlipidemia, hypothyroidism, GERD and history of breast cancer status post lumpectomy and radiation, patient had lung biopsy on October 2018 which shows interstitial lung disease, and patient was diagnosed with idiopathic pulmonary fibrosis. He presents this time with cough and sore throat, of 2 days' duration. Her is sick with coming call for the last 2 weeks and she started getting some cough with greenish yellow phlegm that was severe enough to bother her and decided to come to the emergency room. She denies dyspnea, she has no chest pain except when coughing. No fever. Patient was not eating and drinking well for the last couple days. Also she got diarrhea all fully from 0FEV medicine for her idiopathic pulmonary fibrosis, last dose of ofev was ye , and the last bout of diarrhea was about 2 days ago. On the presentation vitals are stable and she is saturating 100%. Labs showing normal WBC, hemoglobin 13.0. INR 1.0. BMP was unremarkable 03/13/2019 She is fully awake and oriented, she feels comfortable. This is at times with bouts of cough. Patient today she still have coughing however its feels a little bit better with no phlegm area she says that her sore throat has gone now. Patient felt some exertional dyspnea when she walks. Also her blood pressure was on the low side probably in the view of the loose bowel movement she has it over the last few days, related to her medicine ofev. We going to hold Norvasc and hydrochlorothiazide. Continue with lisinopril. Patient on Levaquin also for possible pneumonia. We'll follow-up chest x-ray tomorrow morning. BMP looks normal., Bilirubin is coming down. review of systems CONSTITUTIONAL: No fever, no malaise, no fatigue. HEENT: No recent visual problems or hearing problems. Denied any sore throat. CARDIOVASCULAR: No orthopnea, PND, no palpitations, no syncope. PULMONARY: no hemoptysis. GASTROINTESTINAL: no nausea, no vomiting, no abdominal pain. Normoactive bowel sounds. NEUROLOGICAL: No headaches, no weakness, no numbness. HEMATOLOGICAL: Denies any bleeding or petechiae. GENITOURINARY: Denies any burning micturition, frequency, or urgency. MUSCULOSKELETAL/RHEUMATOLOGICAL: Denies any joint pain, swelling, or any muscle pain. ENDOCRINE: Denies any polyuria or polydipsia. Indication: Albuterol 2.5 mg, aspirin 81 mg Lipitor 10 mg Symbicort 2 puffs, vitamin D 2000 units, vitamin B12 1000 g, Pepcid 20 mg, Neurontin 800 mg, heparin 5000 units, Levaquin 500 mg, levothyroxine 150 g, lisinopril 40 mg, Solu-Medrol 40 mg, Singulair 10 mg. Objective - Vital Signs Vital signs: Vital Signs Temp 98 F 03/13/19 11:55 Pulse 83 03/13/19 11:55 Resp 20 03/13/19 11:55 BP 137/66 03/13/19 11:55 Pulse Ox 93 L 03/13/19 11:55 Intake & Output 03/12/19 03/13/19 03/13/19 18:59 06:59 18:59 Intake Total 450 990 Balance 450 990 Weight 79.379 kg Intake: Intake, IV Titration 150 Amount Sodium Chloride 0.9% 1, 150 000 ml @ 100 mls/hr IV . Q10H MARTHA Rx#:[id number] Oral 300 990 Other: Voiding Method Toilet Toilet # Voids 1 - Labs CBC & Chem 7: 03/12/19 12:23 03/13/19 06:51 Labs: Abnormal Lab Results - Last 24 Hours (Table) 03/13/19 Range/Units 06:51 Glucose 151 H (74-99) mg/dL Total Bilirubin 2.3 H (0.2-1.3) mg/dL Assessment and Plan Assessment: Signs of severe upper respiratory tract infection Community-acquired pneumonia. Dehydration History of Idiopathic pulmonary fibrosis Hypertension Hyperlipidemia Hypothyroidism history of breast cancer status post lumpectomy History of GERD Plan: This is a pleasant 78 years old female who presents with upper respiratory infection with sore throat and cough. Also she is dehydrated. Continue with breathing treatment, continue with parenteral hydration. Patient follow up with Dr. Mujica and she wants to see somebody from pulmonary team which will be consulted.Labs and medication were reviewed.. Continue same treatment. Continue with symptomatic treatment. Resume home medication. Monitor lytes and vitals. DVT and GI prophylaxis. Further recommendations of the clinical course of the patient DVT prophylaxis: Subcutaneous heparin GI Prophylaxis: Pepcid Prognosis is guarded
[2019-03-13] MEDS: ATORVASTATIN 10 MG TAB PO SCH (21:23)
[2019-03-13] MEDS: MONTELUKAST 10 MG TAB PO SCH (21:24)
[2019-03-14] MEDS: LEVOTHYROXINE 75 MCG TAB PO SCH (05:45)
[2019-03-14] MEDS: GABAPENTIN 400 MG CAP PO SCH (08:03)
[2019-03-14] MEDS: CYANOCOBALAMIN 500 MCG TAB PO SCH (08:04)
[2019-03-14] MEDS: FAMOTIDINE 20 MG/2 ML VIAL IV SCH (08:04)
[2019-03-14] MEDS: ASPIRIN 81 MG PO SCH (08:04)
[2019-03-14] MEDS: LISINOPRIL 20 MG TAB PO SCH (08:04)
[2019-03-14] MEDS: CHOLECALCIFEROL 1,000 UNIT TAB PO SCH (08:04)
[2019-03-14] MEDS: HEPARIN SODIUM,PORCINE 5,000 UNIT/ML 1 ML VIAL SQ SCH (08:05)
[2019-03-14] MEDS: LEVOFLOXACIN 500 MG TAB PO SCH (08:05)
[2019-03-14] MEDS: methylPREDNISolone SOD SUCCI 125 MG/2 ML VIAL IV SCH (08:06)
[2019-03-14 08:09] LABS: ALT 30 U/L (9-52); AST 35 U/L (14-36); Albumin 3.5 g/dL (3.5-5.0); Alkaline Phosphatase 50 U/L (38-126); Anion Gap 9 mmol/L; Blood Urea Nitrogen 20 mg/dL (7-17); Calcium 9.7 mg/dL (8.4-10.2); Carbon Dioxide 27 mmol/L (22-30); Chloride 106 mmol/L (98-107); Glucose 140 mg/dL (74-99); Potassium 4.5 mmol/L (3.5-5.1); Sodium 142 mmol/L (137-145); Total Bilirubin 1.4 mg/dL (0.2-1.3)
--- NOTE | 2019-03-14 08:33 | XR ---
EXAMINATION TYPE: XR chest 2V DATE OF EXAM: 03/14/2019 COMPARISON: Chest x-ray 2 days ago. HISTORY: History of bronchitis and pneumonia TECHNIQUE: Frontal and lateral views of the chest are obtained. FINDINGS: There is background chronic parenchymal change bilaterally most prominent in the periphery. There is no new suspicious focal air space opacity, pleural effusion, or pneumothorax seen. The car diac silhouette size is stable and upper limits of normal. The osseous structures are intact. IMPRESSION: Bilateral chronic peripheral fibrotic changes, suspect underlying pulmonary fibrosis suc h as IPF. No suspicious acute infiltrate.
[2019-03-14] MEDS: IPRATROPIUM-ALBUTEROL 3 ML NEB INHALATION SCH ×3 (09:20→15:26)
[2019-03-14] MEDS: SYMBICORT 160-4.5 MCG INHALER INHALATION SCH (09:20)
[2019-03-14 12:09] VITALS: BP 118/70; RESP 17; TEMP 97.6
[2019-03-14 12:57] VITALS: PULSE 76
--- NOTE | 2019-03-14 17:00 | P.PN ---
Subjective Progress Note Date: 03/14/19 Principal diagnosis: shortness of breath secondary to interstitial lung disease/primary fibrosis, COPD, and possible right lower lobe pneumonia community-acquired. 77-year-old female with history of COPD, pulmonary fibrosis, GERD, hypothyroidism, hyperlipidemia, essential hypertension and mild chronic bronchial asthma. Her primary care physician is Dr. Jovita Diaz. She is curr ently on OFEV for her pulmonary fibrosis. She takes 150 mg twice a day. The patient has an FVC of 69% and TLC of 71% and DLCO of 39%. The patient came into the hospital because of increased dyspnea cough congestion and some increased shortness of breath. Apparently, her was having an upper respiratory tract infection. Subsequently she started getting ill. No fever. No chills. Chest x-ray showed pulmonary fibrosis with some limited infiltration of the right lung base. The patient was given Levaquin. The patient started on IV Solu-Medrol. Clinically feeling better today. She is currently on room air. He is ambulating. She is not fully recovered. She is on Symbicort regarding her COPD. She is taking DuoNeb nebulized treatments around the clock. She is on oral Levaquin. She is on IV Solu Medrol 40 mg every 12 hours. No altered mentation. No hemoptysis. No pleurisy. No chest pain. No leukocytosis. Patient was reevaluated today on 03/14/2019, feeling much better, breathing a lot easier, patient is asking to be discharged home.follow-up chest x-ray today shows mostly fibrosis consistent with IPF, it is quite difficult to rule out underlying pneumonia. Nonetheless, patient is feeling better breathing easier and would like to be discharged home. Objective - Vital Signs Vital signs: Vital Signs Temp 97.6 F 03/14/19 11:30 Pulse 76 03/14/19 12:56 Resp 17 03/14/19 11:30 BP 118/70 03/14/19 11:30 Pulse Ox 95 03/14/19 11:30 Intake & Output 03/13/19 03/14/19 03/14/19 18:59 06:59 18:59 Intake Total 650 1080 1100 Balance 650 1080 1100 Intake: Oral 650 1080 1100 Other: Voiding Method Toilet Toilet Toilet # Voids 3 1 2 - Exam Physical Exam: Revealed a 78-year-old female in no distress. Head: Atraumatic, normocephalic. HEENT:[PERRLA, EOMI, neck supple, no neck masses, no JVD, no stridor. Moist mucous membranes Chest: [minimal fine crackles at the bases bilaterally, no rhonchi and no wheezes..] Cardiac Exam: [Normal S1 and S2, no S3 gallop, no murmur.] Abdomen: [Soft, nontender, no megaly, no rebound, no guarding, normal bowel sounds.] Extremities: [No clubbing, no edema, no cyanosis.] Neurological Exam: [No focal neurologic deficit.] psychiatric: Normal mood affect and mental status examination. Lymphatics: No lymphadenopathy. - Labs CBC & Chem 7: 03/12/19 12:23 03/14/19 07:12 Labs: Abnormal Lab Results - Last 24 Hours (Table) 03/14/19 Range/Units 07:12 BUN 20 H (7-17) mg/dL Glucose 140 H (74-99) mg/dL Total Bilirubin 1.4 H (0.2-1.3) mg/dL Total Protein 6.0 L (6.3-8.2) g/dL Assessment and Plan Assessment: impression: Acute dyspnea secondary to interstitial lung disease, idiopathic pulmonary fibrosis, COPD, and possible community-acquired right lower lobe pneumonia. History of interstitial lung disease/pulmonary fibrosis History of breast cancer and previous lumpectomy followed by radiation therapy. Chronic back pain Recommendation: Agree with discharge planning, continue the patient on prednisone burst and taper, continue antibiotics in the form of Levaquin, follow up with Dr. Mujica in 2 weeks. Cleared for discharge today. Time with Patient: Less than 30
== END 2019-03-14 15:53 | disposition home or self-care (01) ==
LOC: EC 11:56 → 3NMEDONC 13:00
PROVIDERS: ADMIT Hospitalist; ATTEND Hospitalist
DX: J84.112 Idiopathic pulmonary fibrosis (principal); J44.1 Chronic obstructive pulmonary disease with (acute) exacerbation; E86.0 Dehydration; K21.9 Gastro-esophageal reflux disease without esophagitis; E03.9 Hypothyroidism, unspecified; E78.5 Hyperlipidemia, unspecified; I10 Essential (primary) hypertension; Z85.3 Personal history of malignant neoplasm of breast; G62.9 Polyneuropathy, unspecified; M54.9 Dorsalgia, unspecified; G89.29 Other chronic pain; Z79.51 Long term (current) use of inhaled steroids; Z90.49 Acquired absence of other specified parts of digestive tract; Z79.82 Long term (current) use of aspirin; Z79.899 Other long term (current) drug therapy; Z79.890 Hormone replacement therapy; Z88.5 Allergy status to narcotic agent; Z88.2 Allergy status to sulfonamides; Z20.89 Contact with and (suspected) exposure to other communicable diseases; Z79.1 Long term (current) use of non-steroidal anti-inflammatories (NSAID); Z92.3 Personal history of irradiation
CPT/HCPCS: 96376 ×3; 96361 ×2; 96372; 96375; 96374; 99285; 36415; 94640 ×6; 94760; 94644; 93005; 83880; 80053 ×3; 83735; 84484; 85025; 85610; 85730; 87502; 71046 ×2; G0378 ×3; J2930 ×3

== ENCOUNTER → 2019-05-25 | Outpatient (CLI) | payer MEDICARE, BC ==
[2019-05-25 23:37] LABS: T4, Free (Free Thyroxine) 1.7 ng/dL (0.80-1.80)
== END | disposition home or self-care (01) ==
LOC: LABWHC1 14:41
PROVIDERS: ATTEND Internal Medicine
DX: E03.9 Hypothyroidism, unspecified (principal)
CPT/HCPCS: 36415; 84439; 84443

== ENCOUNTER → 2019-08-05 | Outpatient (CLI) | payer MEDICARE, BC ==
[2019-08-05 16:00] LABS: Albumin/Globulin Ratio 2.11 (1.60-3.17); Bilirubin, Conjugated 0.6 mg/dL (0.20-0.40); Bilirubin,Unconjugated 1.3 mg/dL; Globulin 1.9 g/dL (1.6-3.3); Total Bilirubin 1.9 mg/dL (0.3-1.2); Total Protein 5.9 g/dL (6.2-8.2)
== END | disposition home or self-care (01) ==
LOC: LABWHC1 10:34
PROVIDERS: ATTEND Internal Medicine Critical Care Medicine
DX: Z51.81 Encounter for therapeutic drug level monitoring (principal); Z79.899 Other long term (current) drug therapy
CPT/HCPCS: 36415; 80076

== ENCOUNTER → 2019-08-29 | Outpatient (CLI) | payer MEDICARE, BC | END | disposition home or self-care (01) | LOC: LABWHC1 15:31 | PROVIDERS: ATTEND Psychiatry & Neurology Pain Medicine | DX: Z51.81 Encounter for therapeutic drug level monitoring (principal); Z79.899 Other long term (current) drug therapy | CPT/HCPCS: 36415; 82310 ==

== ENCOUNTER → 2019-09-25 | Outpatient (CLI) | payer MEDICARE, BC ==
[2019-09-26 00:48] LABS: T4, Free (Free Thyroxine) 1.3 ng/dL (0.80-1.80)
== END | disposition home or self-care (01) ==
LOC: LABWHC1 16:05
PROVIDERS: ATTEND Internal Medicine
DX: E03.9 Hypothyroidism, unspecified (principal)
CPT/HCPCS: 36415; 84439; 84443

== ENCOUNTER → 2019-10-09 | Outpatient (CLI) | payer MEDICARE, BC ==
[2019-10-09 12:06] LABS: Anisocytosis Slight; Basophils % (A) 1 %; Eosinophils # (A) 0.3 k/uL (0-0.7); Eosinophils % (A) 4 %; HCT 39.4 % (34.0-46.0); HGB 12.9 gm/dL (11.4-16.0); Hypochromasia Slight; Lymphocytes # (A) 1.8 k/uL (1.0-4.8); Lymphocytes % (A) 23 %; MCH 36.9 pg (25.0-35.0); MCHC 32.8 g/dL (31.0-37.0); MCV 112.4 fL (80.0-100.0); Macrocytosis Marked; Monocytes # (A) 0.8 k/uL (0-1.0); Monocytes % (A) 10 %; Neutrophils # (A) 4.8 k/uL (1.3-7.7); Neutrophils % (A) 61 %; Platelet Count 177 k/uL (150-450); RBC 3.51 m/uL (3.80-5.40); RDW 18.2 % (11.5-15.5); WBC 7.8 k/uL (3.8-10.6)
[2019-10-09 12:29] LABS: Large Platelets Present; Poikilocytosis (M) Present
[2019-10-09 16:56] LABS: Albumin 3.7 g/dL (3.80-4.90); Albumin/Globulin Ratio 2.18 (1.60-3.17); Anion Gap 5.6 mmol/L (4.00-12.00); BUN/Creat Ratio 14.44 Ratio (12.00-20.00); Calcium 8.3 mg/dL (8.7-10.3); Carbon Dioxide 29.4 mmol/L (21.6-31.8); Chol/HDL Ratio 2.73; Globulin 1.7 g/dL (1.6-3.3); LDL Cholesterol,Calculated 74.8 mg/dL (0.0-131.0); Non-African American GFR(CKD) 62.1 (60.0-200.0); Potassium 4.4 mmol/L (3.5-5.5); Total Bilirubin 2.5 mg/dL (0.2-1.2); Total Protein 5.4 g/dL (6.2-8.2); VLDL Calculation 13.2 mg/dL (5.00-40.00)
== END ==
LOC: LABWHC1 09:48
PROVIDERS: ATTEND Family Medicine
DX: I10 Essential (primary) hypertension (principal); E78.00 Pure hypercholesterolemia, unspecified
CPT/HCPCS: 36415; 80053; 80061; 85025

== ENCOUNTER → 2019-12-26 | Outpatient (CLI) | payer MEDICARE ==
--- NOTE | 2019-12-26 13:49 | CT ---
EXAMINATION TYPE: CT chest wo con DATE OF EXAM: 12/26/2019 COMPARISON: 01/27/2018 HISTORY: Follow up for pulmonary fibrosis. Known interstitial lung disease. CT DLP: 741.9 mGycm. Automated Exposure Control for Dose Reduction was Utilized. TECHNIQUE: Contiguous high-resolution axial scanning of the chest without contrast. 1 mm slice thick ness with 1 cm gap was utilized. Both supine and prone imaging was performed per HRCT protocol. Limit ed evaluation for pulmonary nodule given noncontiguous slices. FINDINGS: LUNGS: The degree of subpleural reticulation predominating within the lower lobes in comparison the p rior of 01/27/2018 is unchanged. Scattered areas of mild honeycombing at the lung bases. No new focal consolidation or pleural effusion. Cylindrical bibasilar bronchiectasis is similar. Punctate granulom a at the right lung base on image 25 is benign. Other scattered punctate benign granulomas are also s een. Possible pulmonary nodule posteriorly in the right lower lobe on series 8 image 18 measuring 8 m m although partially obscured by surrounding fibrosis. This is not definitively seen on the prior alt stu noncontiguous slices limit evaluation for pulmonary nodule. Mild background centrilobular emphy sema. The main tracheobronchial tree is patent. MEDIASTINUM: Lack of IV contrast is noted to limit evaluation for mediastinal and especially hilar ad enopathy. There are no definitive greater than 1 cm hilar or mediastinal lymph nodes. The heart is ag ain upper limits of normal size with no gross evidence of pericardial. OTHER: Gallbladder is surgically absent. Moderate atheromatous changes of the visualized portions of the thoracic aorta. Left cervical rib fusing with the left first rib is again seen with mild to moder ate multilevel degenerative disc disease of the thoracic spine. Correlate for prior lumpectomy of the left breast. No prior mammograms done at this institution. IMPRESSION: 1. Similar degree of pulmonary fibrosis with possible 8 mm right basilar pulmonary nodule partially o bscured by surrounding fibrosis and seen on only one image given noncontiguous slices. CT thorax with contrast could be performed for further evaluation. 2. Correlate for left breast lumpectomy. No prior surgical intervention findings would represent a hi ghly suspicious left breast mass with retraction. No prior mammograms performed at this institution f or comparison. Ensure recent mammogram. 3. Stable bibasilar cylindrical bronchiectasis, most commonly postinfectious.
== END | disposition home or self-care (01) ==
LOC: RADCTMAIN 12:35
PROVIDERS: ATTEND Internal Medicine Critical Care Medicine
DX: J84.10 Pulmonary fibrosis, unspecified (principal); J47.9 Bronchiectasis, uncomplicated
CPT/HCPCS: 71250

== ENCOUNTER → 2020-04-09 | Outpatient (CLI) | payer MEDICARE ==
[2020-04-09 20:43] LABS: African American GFR (CKD) 71.5 (60.0-200.0); Albumin 3.9 g/dL (3.80-4.90); Albumin/Globulin Ratio 1.86 (1.60-3.17); Anion Gap 8.3 mmol/L (4.00-12.00); BUN/Creat Ratio 17.78 Ratio (12.00-20.00); Calcium 8.9 mg/dL (8.7-10.3); Carbon Dioxide 27.7 mmol/L (21.6-31.8); Globulin 2.1 g/dL (1.6-3.3); Non-African American GFR(CKD) 61.7 (60.0-200.0); Potassium 3.8 mmol/L (3.5-5.5); Total Bilirubin 1.4 mg/dL (0.3-1.2)
== END | disposition home or self-care (01) ==
LOC: LABWHC1 14:06
PROVIDERS: ATTEND Internal Medicine Critical Care Medicine
DX: J84.10 Pulmonary fibrosis, unspecified (principal)
CPT/HCPCS: 36415; 80053

== ENCOUNTER → 2020-04-10 | Outpatient (CLI) | payer MEDICARE | END | disposition home or self-care (01) | LOC: CPPFTMAIN 11:54 | PROVIDERS: ATTEND Internal Medicine Critical Care Medicine | DX: J44.9 Chronic obstructive pulmonary disease, unspecified (principal); R94.2 Abnormal results of pulmonary function studies | CPT/HCPCS: 94060; 94726; 94729 ==

== ENCOUNTER 2020-11-16 09:02 | Emergency (ER) | payer MEDICARE ==
[2020-11-16 09:11] VITALS: TEMP 99
[2020-11-16] MEDS ORDERED: SODIUM CHLORIDE 0.9% 1,000 ML IV STA (09:38)
--- NOTE | 2020-11-16 09:38 | ED ---
Headache HPI - General Chief Complaint: Headache Stated Complaint: Vision/face issues Time Seen by Provider: 11/16/20 09:16 Source: patient, RN notes reviewed, old records reviewed Mode of arrival: wheelchair Limitations: no limitations - History of Present Illness Initial Comments: This is a 79-year-old female who is being treated for an eye infection at this time for the past 2 weeks she currently is on prednisone drops 4 times a day who was sent in for evaluation because of persistent right-sided headache is been going on for the past 2 weeks also some tenderness to palpation she states over the lower jaw and neck line bilaterally more so on the right and she also states she started developing some double vision yesterday while reading only no double vision without reading with any type of eye movement and currently does not have any at this time. The headache is been unchanged it was suspected that she may have a sinus infection but has not been started on antibiotics at this point. Patient was sent over for evaluation. She denies any blurry vision at this time if called he was speech difficulty with cognition no focal deficits to the upper lower extremity she does have interstitial lung disease and states she was having a little bit of wheezing today. Also no fevers chills or sweats reported MD Complaint: headache - Related Data Home Medications Medication Instructions Recorded Confirmed Gabapentin 800 mg PO TID 09/26/17 11/16/20 Montelukast Sodium [Singulair] 10 mg PO HS 09/26/17 11/16/20 Multivitamins, Thera [Multivitamin 1 tab PO DAILY 09/26/17 11/16/20 (formulary)] Omeprazole 20 mg PO QAM 09/26/17 11/16/20 amLODIPine BESYLATE/BENAZEPRIL 1 cap PO HS 09/26/17 11/16/20 [Lotrel 5-40 MG] Cyanocobalamin (Vitamin B-12) 1,000 mcg PO DAILY 03/12/19 11/16/20 [Vitamin B-12] EPINEPHrine [Epipen 2-Shin] 0.3 mg IM ONCE PRN 03/12/19 11/16/20 Loperamide [Imodium] 2 mg PO QID PRN 03/12/19 11/16/20 Nintedanib Esylate [Ofev] 100 mg PO BID 03/12/19 11/16/20 Ascorbic Acid [Vitamin C] 1,000 mg PO DAILY 11/16/20 11/16/20 Aspirin EC [Ecotrin Low Dose] 81 mg PO DAILY 11/16/20 11/16/20 Biotin 10,000 mcg PO DAILY 11/16/20 11/16/20 Ergocalciferol (Vitamin D2) 1,250 mcg PO Q14D 11/16/20 11/16/20 [Drisdol (50,000 Iu)] Fluticasone Propion/Salmeterol 1 puff INHALATION RT-BID 11/16/20 11/16/20 [Fluticasone-Salmeterol 500-50] Levothyroxine Sodium [Synthroid] 175 mcg PO DAILY 11/16/20 11/16/20 Pravastatin Sodium [Pravachol] 20 mg PO DAILY 11/16/20 11/16/20 hydroCHLOROthiazide [Hydrodiuril] 25 mg PO DAILY 11/16/20 11/16/20 prednisoLONE ACETATE [Pred Forte 1 drop RIGHT EYE QID 11/16/20 11/16/20 1%] Previous Rx's Medication Instructions Recorded Amoxicillin/Potassium Clav 1 tab PO Q12HR 1 Days #20 tab 11/16/20 [Augmentin 875-125 Tablet] Ibuprofen [Motrin] 600 mg PO Q6HR PRN #20 tab 11/16/20 Allergies Allergy/AdvReac Type Severity Reaction Status Date / Time meperidine [From Demerol] Allergy Unknown Verified 11/16/20 09:11 Childhood morphine Allergy Unknown Verified 11/16/20 09:11 Childhood Sulfa (Sulfonamide Allergy Unknown Verified 11/16/20 09:11 Antibiotics) Childhood Review of Systems ROS Statement: Those systems with pertinent positive or pertinent negative responses have been documented in the HPI. ROS Other: All systems not noted in ROS Statement are negative. Past Medical History Past Medical History: Asthma, Cancer, GERD/Reflux, Hyperlipidemia, Hypertension, Thyroid Disorder Additional Past Medical History / Comment(s): COPD, IPF and the patient is currently on treatment with Ofev , freq diarrhea-states "SE to Ofev", freq nausea,idiopathic pulmonary fibrosis, Breast cancer WITH 36 tx's RADIATION 2004- DO NOT USE LEFT Side, neuropathy maye legs and feet,chronic back pain History of Any Multi-Drug Resistant Organisms: None Reported Past Surgical History: Back Surgery, Breast Surgery, Cholecystectomy, Joint Replacement, Orthopedic Surgery Additional Past Surgical History / Comment(s): left breast lumpectomy,laminectomies x2,rt knee replaced lung biopsy Past Anesthesia/Blood Transfusion Reactions: Motion Sickness, Postoperative Nausea & Vomiting (PONV) Past Psychological History: No Psychological Hx Reported Smoking Status: Never smoker Past Alcohol Use History: None Reported Past Drug Use History: None Reported - Past Family History Mother Family Medical History: No Reported History General Exam - General Exam Comments Initial Comments: This is a well-developed well-nourished awake alert oriented 3 female Limitations: no limitations General appearance: alert, in no apparent distress Head exam: Present: atraumatic, normocephalic, normal inspection Eye exam: Present: PERRL, EOMI, other (Eyegrounds poorly visualized). Absent: scleral icterus, conjunctival injection, periorbital swelling ENT exam: Present: mucous membranes dry, other (Some mild tenderness to percussion over the maxillary sinuses no overt nasal discharge at this time.) Neck exam: Present: normal inspection, full ROM, other (No stridor JVD or bruits). Absent: tenderness, meningismus, lymphadenopathy Respiratory exam: Present: other (Occasional crepitus in the bases consistent with interstitial lung disease no wheezes at this time). Absent: respiratory distress, wheezes, rales, rhonchi, stridor Cardiovascular Exam: Present: regular rate, normal rhythm, normal heart sounds. Absent: systolic murmur, diastolic murmur, rubs, gallop, clicks GI/Abdominal exam: Present: soft, normal bowel sounds. Absent: distended, tenderness, guarding, rebound, rigid Extremities exam: Present: normal inspection, full ROM, normal capillary refill. Absent: tenderness, pedal edema, joint swelling, calf tenderness Back exam: Present: normal inspection Neurological exam: Present: alert, oriented X3, CN II-XII intact Psychiatric exam: Present: normal affect, normal mood Skin exam: Present: warm, dry, intact, normal color. Absent: rash Course Vital Signs 11/16/20 11/16/20 11/16/20 09:06 10:11 11:00 Temperature 99 F Pulse Rate 83 75 71 Respiratory 16 18 18 Rate Blood Pressure 146/80 113/68 O2 Sat by Pulse 97 99 99 Oximetry 11/16/20 12:00 Temperature Pulse Rate 73 Respiratory 18 Rate Blood Pressure 133/87 O2 Sat by Pulse 99 Oximetry Medical Decision Making - Medical Decision Making I did discuss findings with the patient family patient will be discharged she will keep her follow-up with ophthalmology as planned currently she does them straight evidence of sinusitis will be placed on appropriate antibiotics.also no further evidence of double vision. - Lab Data Result diagrams: 11/16/20 09:50 11/16/20 09:50 Lab Results 11/16/20 11/16/20 11/16/20 Range/Units 09:50 09:50 09:50 WBC 13.7 H (3.8-10.6) k/uL RBC 3.38 L (3.80-5.40) m/uL Hgb 12.4 (11.4-16.0) gm/dL Hct 38.0 (34.0-46.0) % MCV 112.5 H (80.0-100.0) fL MCH 36.8 H (25.0-35.0) pg MCHC 32.7 (31.0-37.0) g/dL RDW 18.3 H (11.5-15.5) % Plt Count 250 (150-450) k/uL MPV 10.3 Neutrophils % 83 % Lymphocytes % 9 % Monocytes % 6 % Eosinophils % 1 % Basophils % 0 % Neutrophils # 11.3 H (1.3-7.7) k/uL Lymphocytes # 1.2 (1.0-4.8) k/uL Monocytes # 0.8 (0-1.0) k/uL Eosinophils # 0.2 (0-0.7) k/uL Basophils # 0.0 (0-0.2) k/uL Manual Slide Review Performed Toxic Granulation Present Anisocytosis Slight Macrocytosis Marked A PT 10.3 (9.0-12.0) sec INR 1.0 (<1.2) APTT 23.7 (22.0-30.0) sec Sodium 137 (137-145) mmol/L Potassium 3.6 (3.5-5.1) mmol/L Chloride 102 (98-107) mmol/L Carbon Dioxide 28 (22-30) mmol/L Anion Gap 7 mmol/L BUN 13 (7-17) mg/dL Creatinine 0.70 (0.52-1.04) mg/dL Est GFR (CKD-EPI)AfAm >90 (>60 ml/min/1.73 sqM) Est GFR (CKD-EPI)NonAf 84 (>60 ml/min/1.73 sqM) Glucose 127 H (74-99) mg/dL Calcium 9.1 (8.4-10.2) mg/dL Magnesium 1.6 (1.6-2.3) mg/dL Total Bilirubin 1.7 H (0.2-1.3) mg/dL AST 24 (14-36) U/L ALT 21 (4-34) U/L Alkaline Phosphatase 69 (38-126) U/L Creatine Kinase 28 L (30-135) U/L Troponin I (0.000-0.034) ng/mL C-Reactive Protein 30.9 H (<10.0) mg/L Total Protein 6.0 L (6.3-8.2) g/dL Albumin 3.2 L (3.5-5.0) g/dL 11/16/20 Range/Units 09:50 WBC (3.8-10.6) k/uL RBC (3.80-5.40) m/uL Hgb (11.4-16.0) gm/dL Hct (34.0-46.0) % MCV (80.0-100.0) fL MCH (25.0-35.0) pg MCHC (31.0-37.0) g/dL RDW (11.5-15.5) % Plt Count (150-450) k/uL MPV Neutrophils % % Lymphocytes % % Monocytes % % Eosinophils % % Basophils % % Neutrophils # (1.3-7.7) k/uL Lymphocytes # (1.0-4.8) k/uL Monocytes # (0-1.0) k/uL Eosinophils # (0-0.7) k/uL Basophils # (0-0.2) k/uL Manual Slide Review Toxic Granulation Anisocytosis Macrocytosis PT (9.0-12.0) sec INR (<1.2) APTT (22.0-30.0) sec Sodium (137-145) mmol/L Potassium (3.5-5.1) mmol/L Chloride (98-107) mmol/L Carbon Dioxide (22-30) mmol/L Anion Gap mmol/L BUN (7-17) mg/dL Creatinine (0.52-1.04) mg/dL Est GFR (CKD-EPI)AfAm (>60 ml/min/1.73 sqM) Est GFR (CKD-EPI)NonAf (>60 ml/min/1.73 sqM) Glucose (74-99) mg/dL Calcium (8.4-10.2) mg/dL Magnesium (1.6-2.3) mg/dL Total Bilirubin (0.2-1.3) mg/dL AST (14-36) U/L ALT (4-34) U/L Alkaline Phosphatase (38-126) U/L Creatine Kinase (30-135) U/L Troponin I <0.012 (0.000-0.034) ng/mL C-Reactive Protein (<10.0) mg/L Total Protein (6.3-8.2) g/dL Albumin (3.5-5.0) g/dL - EKG Data -: EKG Interpreted by Me EKG Comments: Sinus rhythm with sinus arrhythmia rate 85 WI interval 158 QRS 90 QT since QTC 362/4:30 moderate voltage criteria for LVH - Radiology Data Radiology results: report reviewed (I did review the imaging and reports derrick dence of sinusitis no acute findings otherwise. Please see the complete report), image reviewed Disposition Clinical Impression: Cephalgia, Sinusitis, Myofascial pain Disposition: HOME SELF-CARE Condition: Good Instructions (If sedation given, give patient instructions): Acute Headache (ED), Sinusitis (ED) Prescriptions: Amoxicillin/Potassium Clav [Augmentin 875-125 Tablet] 1 tab PO Q12HR 1 Days #20 tab Ibuprofen [Motrin] 600 mg PO Q6HR PRN #20 tab PRN Reason: Pain Is patient prescribed a controlled substance at d/c from ED?: No Referrals: Jovita Diaz MD [Primary Care Provider] - 1-2 days
--- NOTE | 2020-11-16 10:17 | XR ---
EXAMINATION TYPE: XR chest 2V DATE OF EXAM: 11/16/2020 COMPARISON: Chest x-ray 03/14/2019 CT chest 12/26/2019 HISTORY: Altered mental status TECHNIQUE: Frontal and lateral views of the chest are obtained. FINDINGS: Patient is rotated. Interstitium is increased. There is no evident pneumothorax or pleural effusion. Cardiac mediastinal silhouette is within normal limits. Thoracic spondylosis is present. IMPRESSION: Consistent with interstitial lung disease.
[2020-11-16 10:40] LABS: Anisocytosis Slight; Basophils % (A) 0 %; Eosinophils # (A) 0.2 k/uL (0-0.7); Eosinophils % (A) 1 %; HGB 12.4 gm/dL (11.4-16.0); Lymphocytes # (A) 1.2 k/uL (1.0-4.8); Lymphocytes % (A) 9 %; MCH 36.8 pg (25.0-35.0); MCHC 32.7 g/dL (31.0-37.0); MCV 112.5 fL (80.0-100.0); Macrocytosis Marked; Mean Platelet Volume 10.3; Monocytes # (A) 0.8 k/uL (0-1.0); Monocytes % (A) 6 %; Neutrophils # (A) 11.3 k/uL (1.3-7.7); Neutrophils % (A) 83 %; Platelet Count 250 k/uL (150-450); RBC 3.38 m/uL (3.80-5.40); RDW 18.3 % (11.5-15.5); WBC 13.7 k/uL (3.8-10.6)
[2020-11-16 10:42] VITALS: RESP 18
[2020-11-16 10:43] LABS: Partial Thromboplastin Time 23.7 sec (22.0-30.0); Prothrombin Time 10.3 sec (9.0-12.0)
[2020-11-16 10:48] LABS: ALT 21 U/L (4-34); AST 24 U/L (14-36); African American GFR (CKD) >90 (>60 ml/min/1.73 sqM); Albumin 3.2 g/dL (3.5-5.0); Alkaline Phosphatase 69 U/L (38-126); Anion Gap 7 mmol/L; Blood Urea Nitrogen 13 mg/dL (7-17); C Reactive Protein 30.9 mg/L (<10.0); Calcium 9.1 mg/dL (8.4-10.2); Carbon Dioxide 28 mmol/L (22-30); Chloride 102 mmol/L (98-107); Creatine Kinase 28 U/L (30-135); Glucose 127 mg/dL (74-99); Magnesium 1.6 mg/dL (1.6-2.3); Non-African American GFR(CKD) 84 (>60 ml/min/1.73 sqM); Potassium 3.6 mmol/L (3.5-5.1); Sodium 137 mmol/L (137-145); Total Bilirubin 1.7 mg/dL (0.2-1.3)
[2020-11-16 11:03] LABS: Toxic Granulation Present
--- NOTE | 2020-11-16 11:40 | CT ---
EXAMINATION TYPE: CT brain wo con DATE OF EXAM: 11/16/2020 COMPARISON: None HISTORY: patient complains of right side facial pain, sinus infection, right eye infection CT DLP: 1083 mGycm Automated exposure control for dose reduction was used. Helical imaging through the brain FINDINGS: There is opacification of right-sided ethmoid air cells, frontal sinus is atrophic. Brain shows corti reginaldo atrophy. Periventricular white matter shows patchy low attenuation. There is no hemorrhage or hyd rocephalus. Cerebral vascular calcifications are present. No mass effect. No midline shift. Calvarium is intact. Mastoid air cells are well aerated. Visualized portions of the orbits are symmetric. IMPRESSION: SINUS DISEASE, AGE-RELATED CHANGES OF ATROPHY AND CHRONIC SMALL VESSEL ISCHEMIA.
--- NOTE | 2020-11-16 11:59 | CT ---
EXAMINATION TYPE: CT angio head neck DATE OF EXAM: 11/16/2020 HISTORY: patient complains of right side facial pain, sinus infection, right eye infection COMPARISON: CT brain same date CT DLP: 504.3 mGycm. Automated Exposure Control for Dose Reduction was Utilized. TECHNIQUE: CTA scan of the neck is performed with IV Contrast, patient injected with 65 mL of Isovue 370, axial images are obtained, coronal and sagittal reformatted images are reviewed. Three-D recons tructed images are created on an independent workstation and reviewed. FINDINGS: Carotid/Vascular Structures: The transverse aorta, innominate artery, left and right common carotid a rtery, left and right subclavian arteries, left and right vertebral arteries are patent, vertebral ar teries are codominant. Some atheromatous change present in the proximal internal carotid artery on th e left, there is no significant stenosis evident by NASCET criteria of the internal carotid arteries, internal and external carotid arteries are patent. Within the brain the anterior posterior circulati on is intact. No evident aneurysm, dissection, or embolus. Other: Upper lobes of the lungs show interstitial changes. Thyroid gland is not seen with certainty. Dental amalgam causes some streak artifact over portions of the exam. Degenerative disc changes are p resent in the visualized spine, there is facet arthropathy. IMPRESSION: No significant abnormality is seen.
[2020-11-16] MEDS ORDERED: KETOROLAC 15 MG/ML 1 ML VIAL IVP STA (12:20)
[2020-11-16] MEDS ORDERED: cefTRIAXone IN SWFI 1,000 MG/10 ML SYRINGE IVP STA (12:21)
[2020-11-16 12:32] VITALS: BP 133/87; PULSE 73
--- NOTE | 2020-11-16 12:51 | ED ---
Medical Decision Making - Lab Data Result diagrams: 11/16/20 09:50 11/16/20 09:50 Lab Results 11/16/20 11/16/20 11/16/20 Range/Units 09:50 09:50 09:50 WBC 13.7 H (3.8-10.6) k/uL RBC 3.38 L (3.80-5.40) m/uL Hgb 12.4 (11.4-16.0) gm/dL Hct 38.0 (34.0-46.0) % MCV 112.5 H (80.0-100.0) fL MCH 36.8 H (25.0-35.0) pg MCHC 32.7 (31.0-37.0) g/dL RDW 18.3 H (11.5-15.5) % Plt Count 250 (150-450) k/uL MPV 10.3 Neutrophils % 83 % Lymphocytes % 9 % Monocytes % 6 % Eosinophils % 1 % Basophils % 0 % Neutrophils # 11.3 H (1.3-7.7) k/uL Lymphocytes # 1.2 (1.0-4.8) k/uL Monocytes # 0.8 (0-1.0) k/uL Eosinophils # 0.2 (0-0.7) k/uL Basophils # 0.0 (0-0.2) k/uL Manual Slide Review Performed Toxic Granulation Present Anisocytosis Slight Macrocytosis Marked A PT 10.3 (9.0-12.0) sec INR 1.0 (<1.2) APTT 23.7 (22.0-30.0) sec Sodium 137 (137-145) mmol/L Potassium 3.6 (3.5-5.1) mmol/L Chloride 102 (98-107) mmol/L Carbon Dioxide 28 (22-30) mmol/L Anion Gap 7 mmol/L BUN 13 (7-17) mg/dL Creatinine 0.70 (0.52-1.04) mg/dL Est GFR (CKD-EPI)AfAm >90 (>60 ml/min/1.73 sqM) Est GFR (CKD-EPI)NonAf 84 (>60 ml/min/1.73 sqM) Glucose 127 H (74-99) mg/dL Calcium 9.1 (8.4-10.2) mg/dL Magnesium 1.6 (1.6-2.3) mg/dL Total Bilirubin 1.7 H (0.2-1.3) mg/dL AST 24 (14-36) U/L ALT 21 (4-34) U/L Alkaline Phosphatase 69 (38-126) U/L Creatine Kinase 28 L (30-135) U/L Troponin I (0.000-0.034) ng/mL C-Reactive Protein 30.9 H (<10.0) mg/L Total Protein 6.0 L (6.3-8.2) g/dL Albumin 3.2 L (3.5-5.0) g/dL 11/16/20 Range/Units 09:50 WBC (3.8-10.6) k/uL RBC (3.80-5.40) m/uL Hgb (11.4-16.0) gm/dL Hct (34.0-46.0) % MCV (80.0-100.0) fL MCH (25.0-35.0) pg MCHC (31.0-37.0) g/dL RDW (11.5-15.5) % Plt Count (150-450) k/uL MPV Neutrophils % % Lymphocytes % % Monocytes % % Eosinophils % % Basophils % % Neutrophils # (1.3-7.7) k/uL Lymphocytes # (1.0-4.8) k/uL Monocytes # (0-1.0) k/uL Eosinophils # (0-0.7) k/uL Basophils # (0-0.2) k/uL Manual Slide Review Toxic Granulation Anisocytosis Macrocytosis PT (9.0-12.0) sec INR (<1.2) APTT (22.0-30.0) sec Sodium (137-145) mmol/L Potassium (3.5-5.1) mmol/L Chloride (98-107) mmol/L Carbon Dioxide (22-30) mmol/L Anion Gap mmol/L BUN (7-17) mg/dL Creatinine (0.52-1.04) mg/dL Est GFR (CKD-EPI)AfAm (>60 ml/min/1.73 sqM) Est GFR (CKD-EPI)NonAf (>60 ml/min/1.73 sqM) Glucose (74-99) mg/dL Calcium (8.4-10.2) mg/dL Magnesium (1.6-2.3) mg/dL Total Bilirubin (0.2-1.3) mg/dL AST (14-36) U/L ALT (4-34) U/L Alkaline Phosphatase (38-126) U/L Creatine Kinase (30-135) U/L Troponin I <0.012 (0.000-0.034) ng/mL C-Reactive Protein (<10.0) mg/L Total Protein (6.3-8.2) g/dL Albumin (3.5-5.0) g/dL Disposition Clinical Impression: Cephalgia, Sinusitis, Myofascial pain Disposition: HOME SELF-CARE Condition: Good Instructions (If sedation given, give patient instructions): Sinusitis (ED), Acute Headache (ED) Prescriptions: Amoxicillin/Potassium Clav [Augmentin 875-125 Tablet] 1 tab PO Q12HR 1 Days #20 tab predniSONE [Deltasone] 20 mg PO BID #10 tab Ibuprofen [Motrin] 600 mg PO Q6HR PRN #20 tab PRN Reason: Pain Is patient prescribed a controlled substance at d/c from ED?: No Referrals: Jovita Diaz MD [Primary Care Provider] - 1-2 days
== END 2020-11-16 12:52 | disposition home or self-care (01) ==
LOC: EC 09:02
DX: J32.9 Chronic sinusitis, unspecified (principal); M79.18 Myalgia, other site; K21.9 Gastro-esophageal reflux disease without esophagitis; E78.5 Hyperlipidemia, unspecified; I10 Essential (primary) hypertension; J44.9 Chronic obstructive pulmonary disease, unspecified; E07.9 Disorder of thyroid, unspecified; Z79.51 Long term (current) use of inhaled steroids; Z79.82 Long term (current) use of aspirin; Z79.890 Hormone replacement therapy; Z79.899 Other long term (current) drug therapy; Z88.2 Allergy status to sulfonamides; Z88.5 Allergy status to narcotic agent; Z85.3 Personal history of malignant neoplasm of breast; Z90.49 Acquired absence of other specified parts of digestive tract; Z92.3 Personal history of irradiation
CPT/HCPCS: 36415; 93005; 80053; 82550; 83735; 84484; 85025; 85610; 85730; 86140; 87040; 71046; 70496; 70450; 70498; 99285; 96374; 96375; 96361 ×3; J0696; J1885; Q9967

== ENCOUNTER 2021-02-19 12:51 | Inpatient (IN) | payer MEDICARE ==
[2021-02-19] MEDS ORDERED: IPRATROPIUM-ALBUTEROL 3 ML NEB INHALATION STA (13:20)
[2021-02-19] MEDS ORDERED: methylPREDNISolone SOD SUCCI 125 MG/2 ML VIAL IV STA (13:20)
--- NOTE | 2021-02-19 13:27 | ED ---
SOB HPI - General Chief Complaint: Shortness of Breath Stated Complaint: SOB Time Seen by Provider: 02/19/21 13:05 Source: patient, RN notes reviewed, old records reviewed Mode of arrival: wheelchair Limitations: no limitations - History of Present Illness Initial Comments: This is a 72-year-old female history of COPD and interstitial pulmonary fibrosis moan other medical issues who presents with complaints of shortness of breath which is gotten progressively worse over last month or so. She had some chills this morning he has exertional dyspnea which is got really bad over last couple days. No overt chest pain no phlegm production with cough. He has had Covid Vaccines with last one being in December of this year. MD Complaint: shortness of breath - Related Data Home Medications Medication Instructions Recorded Confirmed Gabapentin 800 mg PO TID 09/26/17 02/19/21 Montelukast Sodium [Singulair] 10 mg PO HS 09/26/17 02/19/21 Multivitamins, Thera [Multivitamin 1 tab PO DAILY 09/26/17 02/19/21 (formulary)] Omeprazole 20 mg PO DAILY 09/26/17 02/19/21 amLODIPine BESYLATE/BENAZEPRIL 1 cap PO HS 09/26/17 02/19/21 [Lotrel 5-40 MG] Cyanocobalamin (Vitamin B-12) 1,000 mcg PO DAILY 03/12/19 02/19/21 [Vitamin B-12] EPINEPHrine [Epipen 2-Shin] 0.3 mg IM ONCE PRN 03/12/19 02/19/21 Loperamide [Imodium] 2 mg PO QID PRN 03/12/19 02/19/21 Nintedanib Esylate [Ofev] 100 mg PO BID 03/12/19 02/19/21 Aspirin EC [Ecotrin Low Dose] 81 mg PO DAILY 11/16/20 02/19/21 Biotin 10,000 mcg PO DAILY 11/16/20 02/19/21 Ergocalciferol (Vitamin D2) 1,250 mcg PO Q14D 11/16/20 02/19/21 [Drisdol (50,000 Iu)] Fluticasone Propion/Salmeterol 1 puff INHALATION RT-BID 11/16/20 02/19/21 [Fluticasone-Salmeterol 500-50] Levothyroxine Sodium [Synthroid] 175 mcg PO DAILY 11/16/20 02/19/21 Pravastatin Sodium [Pravachol] 20 mg PO DAILY 11/16/20 02/19/21 hydroCHLOROthiazide [Hydrodiuril] 25 mg PO DAILY 11/16/20 02/19/21 Albuterol Nebulized [Ventolin 2.5 mg INHALATION RT-QID PRN 02/19/21 02/19/21 Nebulized] Albuterol Sulfate [Ventolin HFA] 2 puff INHALATION RT-QID PRN 02/19/21 02/19/21 Vitamin C 2500mcg 2,500 mcg PO DAILY 02/19/21 02/19/21 predniSONE 10 mg PO DAILY 02/19/21 02/19/21 Allergies Allergy/AdvReac Type Severity Reaction Status Date / Time meperidine [From Demerol] Allergy Unknown Verified 02/19/21 14:07 Childhood morphine Allergy Unknown Verified 02/19/21 14:07 Childhood Sulfa (Sulfonamide Allergy Unknown Verified 02/19/21 14:07 Antibiotics) Childhood Review of Systems ROS Statement: Those systems with pertinent positive or pertinent negative responses have been documented in the HPI. ROS Other: All systems not noted in ROS Statement are negative. Past Medical History Past Medical History: Asthma, Cancer, GERD/Reflux, Hyperlipidemia, Hypertension, Thyroid Disorder Additional Past Medical History / Comment(s): COPD, IPF and the patient is currently on treatment with Ofev , freq diarrhea-states "SE to Ofev", freq nausea,idiopathic pulmonary fibrosis, Breast cancer WITH 36 tx's RADIATION 2004- DO NOT USE LEFT Side, neuropathy maye legs and feet,chronic back pain History of Any Multi-Drug Resistant Organisms: None Reported Past Surgical History: Back Surgery, Breast Surgery, Cholecystectomy, Joint Replacement, Orthopedic Surgery Additional Past Surgical History / Comment(s): left breast lumpectomy,laminectomies x2,rt knee replaced lung biopsy Past Anesthesia/Blood Transfusion Reactions: Motion Sickness, Postoperative Nausea & Vomiting (PONV) Past Psychological History: No Psychological Hx Reported Smoking Status: Never smoker Past Alcohol Use History: None Reported Past Drug Use History: None Reported - Past Family History Mother Family Medical History: No Reported History General Exam - General Exam Comments Initial Comments: Is a well-developed well-nourished awake alert oriented 3 female Limitations: no limitations General appearance: alert, in no apparent distress Head exam: Present: atraumatic, normocephalic, normal inspection Eye exam: Present: normal appearance, PERRL, EOMI. Absent: scleral icterus, conjunctival injection, periorbital swelling ENT exam: Present: normal exam, mucous membranes moist Neck exam: Present: normal inspection. Absent: tenderness, meningismus, lymphadenopathy Respiratory exam: Present: rales, decreased breath sounds. Absent: respiratory distress, wheezes, rhonchi, stridor Cardiovascular Exam: Present: regular rate, normal rhythm, normal heart sounds. Absent: systolic murmur, diastolic murmur, rubs, gallop, clicks GI/Abdominal exam: Present: soft, normal bowel sounds. Absent: distended, tenderness, guarding, rebound, rigid Extremities exam: Present: normal inspection, full ROM, normal capillary refill. Absent: tenderness, pedal edema, joint swelling, calf tenderness Back exam: Present: normal inspection Neurological exam: Present: alert, oriented X3, CN II-XII intact Psychiatric exam: Present: normal affect, normal mood Skin exam: Present: warm, dry, intact, normal color. Absent: rash Course Vital Signs 02/19/21 02/19/21 02/19/21 13:00 14:03 14:14 Temperature 98.3 F Pulse Rate 97 96 92 Respiratory 22 Rate Blood Pressure 133/71 O2 Sat by Pulse 95 Oximetry - Reevaluation(s) Reevaluation #1: 02/19/21 16:10 I did reevaluate the patient she is feeling somewhat improved she does however show evidence of pneumonia and COPD exacerbation. She also does have elevated d-dimer CAT scans were ordered. I did discuss the case with Dr. Matute. Patient be admitted with pulmonology consultation also does have a hypomagnesemia. Medical Decision Making - Medical Decision Making Patient be admitted with consultation and pulmonary medicine. CT pending - Lab Data Result diagrams: 02/19/21 13:22 02/19/21 13:22 Lab Results 02/19/21 02/19/21 02/19/21 Range/Units 13:22 13:22 13:22 WBC 16.0 H (3.8-10.6) k/uL RBC 3.46 L (3.80-5.40) m/uL Hgb 12.5 (11.4-16.0) gm/dL Hct 37.5 (34.0-46.0) % MCV 108.5 H (80.0-100.0) fL MCH 36.2 H (25.0-35.0) pg MCHC 33.3 (31.0-37.0) g/dL RDW 18.2 H (11.5-15.5) % Plt Count 221 (150-450) k/uL MPV 9.7 Neutrophils % 85 % Lymphocytes % 7 % Monocytes % 5 % Eosinophils % 2 % Basophils % 1 % Neutrophils # 13.6 H (1.3-7.7) k/uL Lymphocytes # 1.1 (1.0-4.8) k/uL Monocytes # 0.8 (0-1.0) k/uL Eosinophils # 0.3 (0-0.7) k/uL Basophils # 0.1 (0-0.2) k/uL Manual Slide Review Performed Toxic Vacuolation Present Anisocytosis Slight Macrocytosis Marked A PT 10.7 (9.0-12.0) sec INR 1.0 (<1.2) APTT 22.5 (22.0-30.0) sec D-Dimer 0.72 H (<0.60) mg/L FEU Sodium 137 (137-145) mmol/L Potassium 4.0 (3.5-5.1) mmol/L Chloride 102 (98-107) mmol/L Carbon Dioxide 29 (22-30) mmol/L Anion Gap 6 mmol/L BUN 15 (7-17) mg/dL Creatinine 0.70 (0.52-1.04) mg/dL Est GFR (CKD-EPI)AfAm >90 (>60 ml/min/1.73 sqM) Est GFR (CKD-EPI)NonAf 83 (>60 ml/min/1.73 sqM) Glucose 102 H (74-99) mg/dL Lactic Ac Sepsis Rflx Plasma Lactic Acid Rodney (0.7-2.0) mmol/L Calcium 9.1 (8.4-10.2) mg/dL Magnesium 1.4 L (1.6-2.3) mg/dL Total Bilirubin 1.3 (0.2-1.3) mg/dL AST 32 (14-36) U/L ALT 23 (4-34) U/L Alkaline Phosphatase 77 (38-126) U/L Creatine Kinase 50 (30-135) U/L Troponin I (0.000-0.034) ng/mL NT-Pro-B Natriuret Pep pg/mL Total Protein 6.1 L (6.3-8.2) g/dL Albumin 3.3 L (3.5-5.0) g/dL 02/19/21 02/19/21 02/19/21 Range/Units 13:22 13:22 13:22 WBC (3.8-10.6) k/uL RBC (3.80-5.40) m/uL Hgb (11.4-16.0) gm/dL Hct (34.0-46.0) % MCV (80.0-100.0) fL MCH (25.0-35.0) pg MCHC (31.0-37.0) g/dL RDW (11.5-15.5) % Plt Count (150-450) k/uL MPV Neutrophils % % Lymphocytes % % Monocytes % % Eosinophils % % Basophils % % Neutrophils # (1.3-7.7) k/uL Lymphocytes # (1.0-4.8) k/uL Monocytes # (0-1.0) k/uL Eosinophils # (0-0.7) k/uL Basophils # (0-0.2) k/uL Manual Slide Review Toxic Vacuolation Anisocytosis Macrocytosis PT (9.0-12.0) sec INR (<1.2) APTT (22.0-30.0) sec D-Dimer (<0.60) mg/L FEU Sodium (137-145) mmol/L Potassium (3.5-5.1) mmol/L Chloride (98-107) mmol/L Carbon Dioxide (22-30) mmol/L Anion Gap mmol/L BUN (7-17) mg/dL Creatinine (0.52-1.04) mg/dL Est GFR (CKD-EPI)AfAm (>60 ml/min/1.73 sqM) Est GFR (CKD-EPI)NonAf (>60 ml/min/1.73 sqM) Glucose (74-99) mg/dL Lactic Ac Sepsis Rflx Plasma Lactic Acid Rodney 2.5 H* (0.7-2.0) mmol/L Calcium (8.4-10.2) mg/dL Magnesium (1.6-2.3) mg/dL Total Bilirubin (0.2-1.3) mg/dL AST (14-36) U/L ALT (4-34) U/L Alkaline Phosphatase (38-126) U/L Creatine Kinase (30-135) U/L Troponin I <0.012 (0.000-0.034) ng/mL NT-Pro-B Natriuret Pep 134 pg/mL Total Protein (6.3-8.2) g/dL Albumin (3.5-5.0) g/dL 02/19/21 Range/Units 14:09 WBC (3.8-10.6) k/uL RBC (3.80-5.40) m/uL Hgb (11.4-16.0) gm/dL Hct (34.0-46.0) % MCV (80.0-100.0) fL MCH (25.0-35.0) pg MCHC (31.0-37.0) g/dL RDW (11.5-15.5) % Plt Count (150-450) k/uL MPV Neutrophils % % Lymphocytes % % Monocytes % % Eosinophils % % Basophils % % Neutrophils # (1.3-7.7) k/uL Lymphocytes # (1.0-4.8) k/uL Monocytes # (0-1.0) k/uL Eosinophils # (0-0.7) k/uL Basophils # (0-0.2) k/uL Manual Slide Review Toxic Vacuolation Anisocytosis Macrocytosis PT (9.0-12.0) sec INR (<1.2) APTT (22.0-30.0) sec D-Dimer (<0.60) mg/L FEU Sodium (137-145) mmol/L Potassium (3.5-5.1) mmol/L Chloride (98-107) mmol/L Carbon Dioxide (22-30) mmol/L Anion Gap mmol/L BUN (7-17) mg/dL Creatinine (0.52-1.04) mg/dL Est GFR (CKD-EPI)AfAm (>60 ml/min/1.73 sqM) Est GFR (CKD-EPI)NonAf (>60 ml/min/1.73 sqM) Glucose (74-99) mg/dL Lactic Ac Sepsis Rflx Y Plasma Lactic Acid Rodney (0.7-2.0) mmol/L Calcium (8.4-10.2) mg/dL Magnesium (1.6-2.3) mg/dL Total Bilirubin (0.2-1.3) mg/dL AST (14-36) U/L ALT (4-34) U/L Alkaline Phosphatase (38-126) U/L Creatine Kinase (30-135) U/L Troponin I (0.000-0.034) ng/mL NT-Pro-B Natriuret Pep pg/mL Total Protein (6.3-8.2) g/dL Albumin (3.5-5.0) g/dL - EKG Data -: EKG Interpreted by Me EKG shows normal: sinus rhythm EKG Comments: EKG shows a sinus rhythm with sinus rhythm a rate 99. Interval 146 QRS duration 94 QT since QTC 338/433 - Radiology Data Radiology results: report reviewed (Initial imaging reviewed evidence of perihilar right basilar infiltrate.), image reviewed Critical Care Time Critical Care Time: Yes Total Critical Care Time: 31 Critical Care Time: Critical care time including initial presentation with history physical labs x- rays reevaluation the patient response to therapy review of old charts I will discuss with the patient and her regarding the findings discussed with the admitting physician admission orders and documentation of the above Disposition Clinical Impression: Acute exacerbation of chronic obstructive pulmonary disease, Acute respiratory distress syndrome in adult, Pneumonia, Hypomagnesemia syndrome, Dehydration, Elevated d-dimer Disposition: ADMITTED IP TO THIS HOSP Condition: Fair Referrals: Jovita Diaz MD [Primary Care Provider] - 1-2 days
[2021-02-19 13:51] LABS: Anisocytosis Slight; Basophils # (A) 0.1 k/uL (0-0.2); Basophils % (A) 1 %; Eosinophils # (A) 0.3 k/uL (0-0.7); Eosinophils % (A) 2 %; HCT 37.5 % (34.0-46.0); HGB 12.5 gm/dL (11.4-16.0); Lymphocytes # (A) 1.1 k/uL (1.0-4.8); Lymphocytes % (A) 7 %; MCH 36.2 pg (25.0-35.0); MCHC 33.3 g/dL (31.0-37.0); MCV 108.5 fL (80.0-100.0); Macrocytosis Marked; Mean Platelet Volume 9.7; Monocytes # (A) 0.8 k/uL (0-1.0); Monocytes % (A) 5 %; Neutrophils # (A) 13.6 k/uL (1.3-7.7); Neutrophils % (A) 85 %; Platelet Count 221 k/uL (150-450); RBC 3.46 m/uL (3.80-5.40); RDW 18.2 % (11.5-15.5)
[2021-02-19 14:02] LABS: ALT 23 U/L (4-34); AST 32 U/L (14-36); African American GFR (CKD) >90 (>60 ml/min/1.73 sqM); Albumin 3.3 g/dL (3.5-5.0); Alkaline Phosphatase 77 U/L (38-126); Anion Gap 6 mmol/L; Blood Urea Nitrogen 15 mg/dL (7-17); Calcium 9.1 mg/dL (8.4-10.2); Carbon Dioxide 29 mmol/L (22-30); Chloride 102 mmol/L (98-107); Creatine Kinase 50 U/L (30-135); Glucose 102 mg/dL (74-99); Magnesium 1.4 mg/dL (1.6-2.3); Non-African American GFR(CKD) 83 (>60 ml/min/1.73 sqM); Partial Thromboplastin Time 22.5 sec (22.0-30.0); Prothrombin Time 10.7 sec (9.0-12.0); Sodium 137 mmol/L (137-145); Total Bilirubin 1.3 mg/dL (0.2-1.3); Total Protein 6.1 g/dL (6.3-8.2)
--- NOTE | 2021-02-19 14:05 | XR ---
EXAMINATION TYPE: XR chest 2V DATE OF EXAM: 02/19/2021 COMPARISON: 11/16/2020 HISTORY: Shortness of breath TECHNIQUE: Frontal and lateral views of the chest are obtained. FINDINGS: Scattered senescent parenchymal changes noted. Hyperinflation compatible with COPD. There appears to be a component of underlying fibrosis. Patchy infiltrate right perihilar and right basilar region noted. Correlate for developing pneumonia. Heart size is stable. Mediastinal structures are stable and grossly unremarkable. No evidence for hilar prominence. Degenerative changes dorsal spine. IMPRESSION: 1. There appears to be a component of underlying fibrosis. Patchy infiltrate right perihilar and right basilar region noted. Correlate for developing pneumonia.
[2021-02-19 14:16] LABS: D-Dimer 0.72 mg/L FEU (<0.60)
[2021-02-19 14:33] LABS: Toxic Vacuolation Present
[2021-02-19] MEDS ORDERED: MAGNESIUM SULFATE-D5W PMX 1 GM in DEXTROSE/WATER 1 100ML.BAG IVPB ONE (15:22)
[2021-02-19] MEDS ORDERED: cefTRIAXone IN SWFI 1,000 MG/10 ML SYRINGE IVP STA (15:27)
[2021-02-19] MEDS ORDERED: LOPERAMIDE 2 MG CAP PO PRN (16:17)
[2021-02-19] MEDS ORDERED: ERGOCALCIFEROL 1,250 MCG (50,000 IU) CAPSULE PO SCH (16:30)
--- NOTE | 2021-02-19 17:22 | CT ---
EXAM: CT Angiography Chest With Intravenous Contrast CLINICAL HISTORY: ITS.REASON CT Reason: PE suspected, intermediate probability, positive d TECHNIQUE: Axial computed tomographic angiography images of the chest with intravenous contrast. CTDI is 12.07 mGy and DLP is 251.1 mGy-cm. This CT exam was performed using one or more of the following dose reduction techniques: automated exposure control, adjustment of the mA and/or kV according to patient size, and/or use of iterative reconstruction technique. MIP reconstructed images were created and reviewed. COMPARISON: Chest radiograph on 02/19/2021 FINDINGS: Pulmonary arteries: No definite pulmonary embolus identified. Aorta: Mild atherosclerotic changes of the aorta. No aortic aneurysm or dissection. Lungs: Peripherally predominant reticular densities and small cystic changes, concerning for chronic interstitial lung disease. Patchy groundglass opacities suggest superimposed component of infectious/inflammatory process and/or edema. Probable suture lines in the right lung. Pleural space: Unremarkable. No significant effusion. No pneumothorax. Heart: Mild cardiomegaly. No significant pericardial effusion. No evidence of RV dysfunction. Mediastinum: Nonspecific enlarged mediastinal and hilar lymph nodes. Bones/joints: Degenerative changes of the spine. No acute fracture. No dislocation. Soft tissues: Scarring and calcifications in the left breast. Lymph nodes: See above. Stomach and bowel: Evaluation of the stomach is limited by underdistention. IMPRESSION: 1. No definite pulmonary embolus identified. 2. Mild atherosclerotic changes of the aorta. No aortic aneurysm or dissection. 3. Peripherally predominant reticular densities and small cystic changes, concerning for chronic interstitial lung disease. Patchy groundglass opacities suggest superimposed component of infectious/inflammatory process and/or edema. 4. Nonspecific enlarged mediastinal and hilar lymph nodes.
[2021-02-19] MEDS: SODIUM CHLORIDE 0.9% 1,000 ML IV SCH (17:54)
[2021-02-19] MEDS: methylPREDNISolone SOD SUCCI 125 MG/2 ML VIAL IV SCH (18:27)
[2021-02-19] MEDS: lisinopriL 20 MG TAB PO SCH (21:06)
[2021-02-19] MEDS: MONTELUKAST 10 MG TAB PO SCH (21:06)
[2021-02-19] MEDS: amLODIPine 5 MG TAB PO SCH (21:06)
[2021-02-19] MEDS: GABAPENTIN 400 MG CAP PO SCH (21:06)
[2021-02-19] MEDS: IPRATROPIUM-ALBUTEROL 3 ML NEB INHALATION SCH (21:55)
[2021-02-19] MEDS: SYMBICORT 160-4.5 MCG INHALER INHALATION SCH (21:55)
[2021-02-19] MEDS: NINTEDANIB ESYLATE 100 MG PO SCH (22:44)
--- NOTE | 2021-02-19 23:33 | P.HPIM ---
History of Present Illness H&P Date: 02/19/21 Chief Complaint: SOB Patient is a 80-year-old male with a known history of idiopathic pulmonary fibrosis currently Ofev treatment, hypertension, hyperlipidemia, hypothyroidism, history of breast cancer status post radiation, bilateral peripheral neuropathy, chronic back pain presents to ER with complaints of worsening shortness of breath and cough for the past 1 to 2 days. Denies any fever. But patient felt chills and cold and clammy at home. Denies any sputum production. No complaints of chest pain. Chest x-ray showed appears to be a component of underlying fibrosis. Patchy infiltrate right perihilar and right basilar lesion noted. Correlate for developing pneumonia. EKG showed normal sinus rhythm with sinus arrhythmia CT angiogram of the chest showed no definitive pulmonary embolism identified. Mild induced lytic changes of the aorta. No aortic aneurysm or dissection. Peripherally predominant reticular densities and small cystic changes concerning for chronic interstitial lung disease. Patchy groundglass opacities suggest superimposed component of infectious/inflammatory process or edema Nonspecific enlarged mediastinal and hilar lymph nodes. Laboratory data showed WBC 16.0 hemoglobin 12.5 and MCV 108.5 platelets 221 D-dimer 0.72 Sodium 137 potassium 4.0 chloride 102 BUN 15 creatinine 0.7 proBNP 134 and troponin x1 - Coronavirus PCR not detected. Review of Systems Constitutional: Patient denies any fever. +chills . No generalized weakness or weight loss. Abdomen: Patient denied nausea vomiting and diarrhea and abdominal pain. Cardiovascular: Patient denies any chest pain or short of breath no palpitati ons. Respiratory: Patient does have cough without sputum production and shortness of breath Neurologic: Patient denied any numbness or tingling headache. Musculoskeletal: Patient denies any complaints of joint swelling or deformity. Skin: Negative Psychiatric: Negative Endocrine: No heat or cold intolerance. No recent weight gain. Genitourinary: No dysuria or hematuria. All other 14 point ROS negative except the above Past Medical History Past Medical History: Asthma, Cancer, GERD/Reflux, Hyperlipidemia, Hypertension, Thyroid Disorder Additional Past Medical History / Comment(s): COPD, IPF and the patient is currently on treatment with Ofev , freq diarrhea-states "SE to Ofev", freq nausea,idiopathic pulmonary fibrosis, Breast cancer WITH 36 tx's RADIATION 2004- DO NOT USE LEFT Side, neuropathy maye legs and feet,chronic back pain History of Any Multi-Drug Resistant Organisms: None Reported Past Surgical History: Back Surgery, Breast Surgery, Cholecystectomy, Joint Replacement, Orthopedic Surgery Additional Past Surgical History / Comment(s): left breast lumpectomy,laminectomies x2,rt knee replaced lung biopsy Past Anesthesia/Blood Transfusion Reactions: Motion Sickness, Postoperative Nausea & Vomiting (PONV) Past Psychological History: No Psychological Hx Reported Smoking Status: Never smoker Past Alcohol Use History: None Reported Past Drug Use History: None Reported - Past Family History Mother Family Medical History: No Reported History Medications and Allergies Home Medications Medication Instructions Recorded Confirmed Type Gabapentin 800 mg PO TID 09/26/17 02/19/21 History Montelukast Sodium [Singulair] 10 mg PO HS 09/26/17 02/19/21 History Multivitamins, Thera [Multivitamin 1 tab PO DAILY 09/26/17 02/19/21 History (formulary)] Omeprazole 20 mg PO DAILY 09/26/17 02/19/21 History amLODIPine BESYLATE/BENAZEPRIL 1 cap PO HS 09/26/17 02/19/21 History [Lotrel 5-40 MG] Cyanocobalamin (Vitamin B-12) 1,000 mcg PO DAILY 03/12/19 02/19/21 History [Vitamin B-12] EPINEPHrine [Epipen 2-Shin] 0.3 mg IM ONCE PRN 03/12/19 02/19/21 History Loperamide [Imodium] 2 mg PO QID PRN 03/12/19 02/19/21 History Nintedanib Esylate [Ofev] 100 mg PO BID 03/12/19 02/19/21 History Aspirin EC [Ecotrin Low Dose] 81 mg PO DAILY 11/16/20 02/19/21 History Biotin 10,000 mcg PO DAILY 11/16/20 02/19/21 History Ergocalciferol (Vitamin D2) 1,250 mcg PO Q14D 11/16/20 02/19/21 History [Drisdol (50,000 Iu)] Fluticasone Propion/Salmeterol 1 puff INHALATION RT-BID 11/16/20 02/19/21 History [Fluticasone-Salmeterol 500-50] Levothyroxine Sodium [Synthroid] 175 mcg PO DAILY 11/16/20 02/19/21 History Pravastatin Sodium [Pravachol] 20 mg PO DAILY 11/16/20 02/19/21 History hydroCHLOROthiazide [Hydrodiuril] 25 mg PO DAILY 11/16/20 02/19/21 History Albuterol Nebulized [Ventolin 2.5 mg INHALATION RT-QID PRN 02/19/21 02/19/21 History Nebulized] Albuterol Sulfate [Ventolin HFA] 2 puff INHALATION RT-QID PRN 02/19/21 02/19/21 History Vitamin C 2500mcg 2,500 mcg PO DAILY 02/19/21 02/19/21 History predniSONE 10 mg PO DAILY 02/19/21 02/19/21 History Allergies Allergy/AdvReac Type Severity Reaction Status Date / Time meperidine [From Demerol] Allergy Unknown Verified 02/19/21 14:07 Childhood morphine Allergy Unknown Verified 02/19/21 14:07 Childhood Sulfa (Sulfonamide Allergy Unknown Verified 02/19/21 14:07 Antibiotics) Childhood Physical Exam Vitals: Vital Signs Temp Pulse Resp BP BP Pulse Ox 02/19/21 19:28 98.1 F 18 110/60 97 02/19/21 17:50 82 18 112/63 95 02/19/21 16:53 81 18 121/56 94 L 02/19/21 14:14 92 02/19/21 14:03 96 02/19/21 13:00 98.3 F 97 22 133/71 95 Intake and Output 02/19/21 02/19/21 02/19/21 06:59 14:59 22:59 Other: Weight 79.379 kg PHYSICAL EXAMINATION: Patient is lying in the bed comfortably, no acute distress, awake alert and oriented.. HEENT: Normocephalic. Neck is supple. Pupils reactive. Nostrils clear. Oral cavity is moist. Ears reveal no drainage. Neck reveals no JVD, carotid bruits, or thyromegaly. CHEST EXAMINATION: Trachea is central. Symmetrical expansion. bilateral diffuse crackles and scattered coarse sounds. No wheezing. Nonlabored breathing.. CARDIAC: Normal S1, S2 with no gallops. No murmurs ABDOMEN: Soft. Bowel sounds normal. No organomegaly. No abdominal bruits. Extremities: reveal no edema. No clubbing or cyanosis Neurologically awake, alert, oriented x3 with well-coordinated movements. No focal deficits noted Skin: No rash or skin lesions. Psychiatric: Coperative. Nonsuicidal Musculoskeletal: No joint swelling or deformity. Normal range of motion. Results CBC & Chem 7: 02/19/21 13:22 02/19/21 13:22 Labs: Abnormal Lab Results - Last 24 Hours (Table) 02/19/21 02/19/21 02/19/21 Range/Units 13:22 13:22 13:22 WBC 16.0 H (3.8-10.6) k/uL RBC 3.46 L (3.80-5.40) m/uL MCV 108.5 H (80.0-100.0) fL MCH 36.2 H (25.0-35.0) pg RDW 18.2 H (11.5-15.5) % Neutrophils # 13.6 H (1.3-7.7) k/uL Macrocytosis Marked A D-Dimer 0.72 H (<0.60) mg/L FEU Glucose 102 H (74-99) mg/dL Plasma Lactic Acid Rodney (0.7-2.0) mmol/L Magnesium 1.4 L (1.6-2.3) mg/dL Total Protein 6.1 L (6.3-8.2) g/dL Albumin 3.3 L (3.5-5.0) g/dL 02/19/21 Range/Units 13:22 WBC (3.8-10.6) k/uL RBC (3.80-5.40) m/uL MCV (80.0-100.0) fL MCH (25.0-35.0) pg RDW (11.5-15.5) % Neutrophils # (1.3-7.7) k/uL Macrocytosis D-Dimer (<0.60) mg/L FEU Glucose (74-99) mg/dL Plasma Lactic Acid Rodney 2.5 H* (0.7-2.0) mmol/L Magnesium (1.6-2.3) mg/dL Total Protein (6.3-8.2) g/dL Albumin (3.5-5.0) g/dL Thrombosis Risk Factor Assmnt - DVT/VTE Prophylaxis DVT/VTE Prophylaxis: Pharmacologic Prophylaxis ordered Assessment and Plan Assessment: Worsening shortness of breath due to right perihilar/basilar infiltrate with pneumonia. Idiopathic pulmonary fibrosis. Currently on treatment withOfev Lactic acidosis Hypertension Hypothyroidism Hyperlipidemia GERD History of breast cancer status post radiation treatments Running back pain DVT prophylaxis with heparin subcu Plan: Patient will be continued antibiotics in the form of ceftriaxone and azithromycin. Continue with IV steroids methylprednisolone 60 mg every 6 hourly and oxygen supplementation as needed. Continue with her home medications and pulmonary will be consulted. Continue with duo nebs and Symbicort and follow-up closely. Time with Patient: Greater than 30
[2021-02-20] MEDS: HEPARIN SODIUM,PORCINE/PF 5,000 UNIT/0.5 ML SYRINGE SQ SCH ×3 (00:11→15:01)
[2021-02-20] MEDS: methylPREDNISolone SOD SUCCI 125 MG/2 ML VIAL IV SCH ×4 (00:11→16:33)
[2021-02-20] MEDS: IPRATROPIUM-ALBUTEROL 3 ML NEB INHALATION SCH ×7 (01:21→23:44)
[2021-02-20] MEDS: LEVOTHYROXINE 50 MCG TAB PO SCH (06:24)
[2021-02-20] MEDS: SODIUM CHLORIDE 0.9% 1,000 ML IV SCH ×2 (06:31→08:07)
[2021-02-20] MEDS: GABAPENTIN 400 MG CAP PO SCH ×3 (08:07→21:32)
[2021-02-20] MEDS: MULTIVITAMINS, THERA 1 EACH TAB PO SCH (08:07)
[2021-02-20] MEDS: NINTEDANIB ESYLATE 100 MG PO SCH ×2 (08:07→21:33)
[2021-02-20] MEDS: hydroCHLOROthiazide 25 MG TAB PO SCH (08:07)
[2021-02-20] MEDS: ASPIRIN 81 MG PO SCH (08:07)
[2021-02-20] MEDS: ASCORBIC ACID 500 MG TAB PO SCH (08:07)
[2021-02-20] MEDS: PRAVASTATIN SODIUM 20 MG TAB PO SCH (08:07)
[2021-02-20] MEDS: PANTOPRAZOLE 40 MG TABLET PO SCH (08:07)
[2021-02-20] MEDS: AZITHROMYCIN 500 MG TAB PO SCH (08:07)
[2021-02-20] MEDS: CYANOCOBALAMIN 500 MCG TAB PO SCH (08:07)
[2021-02-20] MEDS: SYMBICORT 160-4.5 MCG INHALER INHALATION SCH ×2 (08:23→19:24)
[2021-02-20] MEDS ORDERED: NON FORMULARY DRUG (Biotin [Biotin] 10,000 MCG Capsule) PO SCH (09:00)
[2021-02-20 09:20] LABS: Basophils # (A) 0 X 10*3/uL (0.00-0.10); Basophils % (A) 0 %; Eosinophils # (A) 0 X 10*3/uL (0.04-0.35); Eosinophils % (A) 0 %; HCT 33.9 % (37.2-46.3); Lymphocytes # (A) 0.58 X 10*3/uL (0.90-5.00); Lymphocytes % (A) 6.1 %; MCH 35.5 pg (27.0-32.0); MCHC 32.4 g/dL (32.0-37.0); MCV 109.4 fL (80.0-97.0); Mean Platelet Volume 12.7 fL (9.5-12.2); Monocytes # (A) 0.32 X 10*3/uL (0.20-1.00); Monocytes % (A) 3.4 %; Neutrophils # (A) 8.56 X 10*3/uL (1.80-7.70); Neutrophils % (A) 89.9 %; Platelet Count 224 X 10*3/uL (140-440); RDW 16.9 % (11.5-14.5); WBC 9.52 X 10*3/uL (4.50-10.00)
[2021-02-20 11:35] LABS: African American GFR (CKD) 96.2 (60.0-200.0); Anion Gap 8.6 mmol/L (4.00-12.00); BUN/Creat Ratio 21.43 Ratio (12.00-20.00); Calcium 8.5 mg/dL (8.7-10.3); Carbon Dioxide 26.4 mmol/L (21.6-31.8)
--- NOTE | 2021-02-20 15:17 | P.CNPUL ---
History of Present Illness Consult date: 02/20/21 Reason for consult: dyspnea History of present illness: 80-year-old female patient with known history of IPF [facility] for the past 23 years. Last PFT from 2018 showed an FVC of 69% of predicted, lung capacity of 71% of predicted, diffusion capacity of 39% of predicted. According to her, she has not been on oxygen. She also has obstructive sleep apnea. She has AHI of 18 and the patient is currently on a CPAP pressure of 8 cm of water. She has hypertension, hyperlipidemia, hypothyroidism. The patient is presenting to the hospital because of worsening shortness of breath. There is subacute worsening in her dyspnea. She had some cough. Most of his sputum production. No fever. No chills. No exposures COVID-19. Her COVID-19 testing by PCR came back negative. D-dimer is at 0.7. Lactic acid level was at 2.5 dropped down to 1.2. White cell count was 9.4 with a hemoglobin of 11 and a platelet count of 224. Electrolytes are all within normal limits. Chest x-ray was consistent with pulmonary fibrosis. CT angiogram showed no evidence of any pulmonary embolism. Nonspecific enlarged mediastinal and hilar lymph nodes. Interstitial fibrosis involving the peripheries in the lung bases along with patchy areas of groundglass pulmonary infiltrates suspicious for any superimposed infection/edema. She has a cardiac murmur. No previous history of cardio myopathy. No history of any coronary art tej disease and no history of any cardiac arrhythmias. The patient has been fully vaccinated for COVID-19 which completed the vaccination in November 2020. Review of Systems Constitutional: Reports fatigue Eyes: denies as per HPI, denies blurred vision, denies bulging eye, denies decreased vision, denies diplopia, denies discharge, denies dry eye, denies irritation, denies itching, denies pain, denies photophobia, denies loss of p eripheral vision, denies loss of vision, denies tunnel vision/blind spots Ears: deny: decreased hearing, ear discharge, earache, tinnitus Ears, nose, mouth and throat: Reports as per HPI Breasts: absent: as per HPI, change in shape, gynecomastia, masses, nipple discharge, pain, skin changes, swelling Cardiovascular: Reports decreased exercise tolerance, Reports dyspnea on exertion Respiratory: Reports cough, Reports dyspnea Gastrointestinal: Reports as per HPI Genitourinary: Reports as per HPI Menstruation: Reports as per HPI Musculoskeletal: Reports as per HPI Musculoskeletal: absent: ankle pain, ankle stiffness, ankle swelling, as per HPI, elbow pain, elbow stiffness, elbow swelling, foot pain, foot stiffness, foot swelling, hand pain, hand stiffness, hand swelling, hip pain, hip stiffness, hip swelling, knee pain, knee stiffness, knee swelling, shoulder pain, shoulder stiffness, shoulder swelling, wrist pain, wrist stiffness, wrist swelling Integumentary: Reports as per HPI Neurological: Reports as per HPI Psychiatric: Reports as per HPI Endocrine: Reports as per HPI Hematologic/Lymphatic: Reports as per HPI Allergic/Immunologic: Reports as per HPI Past Medical History Past Medical History: Asthma, Cancer, GERD/Reflux, Hyperlipidemia, Hypertension, Thyroid Disorder Additional Past Medical History / Comment(s): COPD, IPF and the patient is currently on treatment with Ofev , freq diarrhea-states "SE to Ofev", freq nausea,idiopathic pulmonary fibrosis, Breast cancer WITH 36 tx's RADIATION 2004- DO NOT USE LEFT Side, neuropathy maye legs and feet,chronic back pain History of Any Multi-Drug Resistant Organisms: None Reported Past Surgical History: Back Surgery, Breast Surgery, Cholecystectomy, Joint Replacement, Orthopedic Surgery Additional Past Surgical History / Comment(s): left breast lumpectomy,laminectomies x2,rt knee replaced lung biopsy Past Anesthesia/Blood Transfusion Reactions: Motion Sickness, Postoperative Nausea & Vomiting (PONV) Past Psychological History: No Psychological Hx Reported Smoking Status: Never smoker Past Alcohol Use History: None Reported Past Drug Use History: None Reported - Past Family History Mother Family Medical History: No Reported History Medications and Allergies Home Medications Medication Instructions Recorded Confirmed Type Gabapentin 800 mg PO TID 09/26/17 02/19/21 History Montelukast Sodium [Singulair] 10 mg PO HS 09/26/17 02/19/21 History Multivitamins, Thera [Multivitamin 1 tab PO DAILY 09/26/17 02/19/21 History (formulary)] Omeprazole 20 mg PO DAILY 09/26/17 02/19/21 History amLODIPine BESYLATE/BENAZEPRIL 1 cap PO HS 09/26/17 02/19/21 History [Lotrel 5-40 MG] Cyanocobalamin (Vitamin B-12) 1,000 mcg PO DAILY 03/12/19 02/19/21 History [Vitamin B-12] EPINEPHrine [Epipen 2-Shin] 0.3 mg IM ONCE PRN 03/12/19 02/19/21 History Loperamide [Imodium] 2 mg PO QID PRN 03/12/19 02/19/21 History Nintedanib Esylate [Ofev] 100 mg PO BID 03/12/19 02/19/21 History Aspirin EC [Ecotrin Low Dose] 81 mg PO DAILY 11/16/20 02/19/21 History Biotin 10,000 mcg PO DAILY 11/16/20 02/19/21 History Ergocalciferol (Vitamin D2) 1,250 mcg PO Q14D 11/16/20 02/19/21 History [Drisdol (50,000 Iu)] Fluticasone Propion/Salmeterol 1 puff INHALATION RT-BID 11/16/20 02/19/21 History [Fluticasone-Salmeterol 500-50] Levothyroxine Sodium [Synthroid] 175 mcg PO DAILY 11/16/20 02/19/21 History Pravastatin Sodium [Pravachol] 20 mg PO DAILY 11/16/20 02/19/21 History hydroCHLOROthiazide [Hydrodiuril] 25 mg PO DAILY 11/16/20 02/19/21 History Albuterol Nebulized [Ventolin 2.5 mg INHALATION RT-QID PRN 02/19/21 02/19/21 History Nebulized] Albuterol Sulfate [Ventolin HFA] 2 puff INHALATION RT-QID PRN 02/19/21 02/19/21 History Vitamin C 2500mcg 2,500 mcg PO DAILY 02/19/21 02/19/21 History predniSONE 10 mg PO DAILY 02/19/21 02/19/21 History Allergies Allergy/AdvReac Type Severity Reaction Status Date / Time meperidine [From Demerol] Allergy Unknown Verified 02/19/21 14:07 Childhood morphine Allergy Unknown Verified 02/19/21 14:07 Childhood Sulfa (Sulfonamide Allergy Unknown Verified 02/19/21 14:07 Antibiotics) Childhood Physical Exam Vitals: Vital Signs Temp Pulse Pulse Resp BP BP Pulse Ox 02/20/21 14:00 98.0 F 83 20 114/58 95 02/20/21 11:58 77 02/20/21 11:40 76 02/20/21 08:35 74 02/20/21 08:24 72 02/20/21 07:56 98.0 F 74 20 127/69 93 L 02/20/21 04:00 78 02/20/21 03:54 78 02/20/21 01:19 97.9 F 71 16 122/53 95 02/19/21 22:06 76 02/19/21 21:56 71 96 02/19/21 19:28 98.1 F 18 110/60 97 02/19/21 17:50 82 18 112/63 95 02/19/21 16:53 81 18 121/56 94 L Intake and Output 02/20/21 02/20/21 02/20/21 06:59 14:59 22:59 Other: # Voids 3 Gen. appearance the patient is calm and comfortable and currently she is on 3 L of oxygen nasal cannula. Not using excessive muscle breathing. Head exam was generally normal. There was no scleral icterus or corneal arcus. Mucous membranes were moist. Neck was supple and without jugular venous distension, thyromegaly, or carotid bruits. Carotids were easily palpable bilaterally. There was no adenopathy. Lungs sounds are diminished and the patient has coarse crackles in lung bases bilaterally. Cardiac exam revealed the PMI to be normally situated and sized. The rhythm was regular and no extrasystoles were noted during several minutes of auscultation. The first and second heart sounds were normal and physiologic splitting of the second heart sound was noted. There were systolic ejection murmur at the rate to over 6 murmurs, rubs, clicks, or gallops. Abdominal exam revealed normal bowel sounds. The abdomen was soft, non-tender, and without masses, organomegaly, or appreciable enlargement of the abdominal aorta. Examination of the extremities revealed easily palpable radial, femoral and pedal pulses. There was no cyanosis, clubbing or edema. Examination of the skin revealed no evidence of significant rashes, suspicious appearing nevi or other concerning lesions. Neurologically, the patient is awake and alert and the patient does not have any focal neurological deficit. Cranial nerves are essentially intact. Results - Laboratory Findings CBC and BMP: 02/20/21 05:54 02/20/21 05:54 PT/INR, D-dimer PT 10.7 sec (9.0-12.0) 02/19/21 13:22 INR 1.0 (<1.2) 02/19/21 13:22 D-Dimer 0.72 mg/L FEU (<0.60) H 02/19/21 13:22 Abnormal lab findings: Abnormal Labs 02/19/21 02/19/21 02/19/21 13:22 13:22 13:22 WBC 16.0 H RBC 3.46 L Hgb Hct MCV 108.5 H MCH 36.2 H RDW 18.2 H MPV Absolute Nucleated RBC Immature Gran # Neutrophils # 13.6 H Lymphocytes # Eosinophils # NRBC/100 WBC Diff Macrocytosis Marked A D-Dimer 0.72 H BUN/Creatinine Ratio Glucose 102 H Plasma Lactic Acid Rodney Calcium Magnesium 1.4 L Total Protein 6.1 L Albumin 3.3 L 02/19/21 02/20/21 02/20/21 13:22 05:54 05:54 WBC RBC 3.10 L Hgb 11.0 L Hct 33.9 L MCV 109.4 H MCH 35.5 H RDW 16.9 H MPV 12.7 H Absolute Nucleated RBC 0.02 H Immature Gran # 0.06 H Neutrophils # 8.56 H Lymphocytes # 0.58 L Eosinophils # 0 L NRBC/100 WBC Diff 0.2 H Macrocytosis D-Dimer BUN/Creatinine Ratio 21.43 H Glucose 179 H Plasma Lactic Acid Rodney 2.5 H* Calcium 8.5 L Magnesium Total Protein Albumin - Diagnostic Findings Chest x-ray: image reviewed CT scan - chest: image reviewed Assessment and Plan Plan: 1 acute exacerbation of IPF likely. Consider other possibilities including superinfection/interstitial edema contiguity to her shortness of breath. The patient is subacute worsening in her chronic dyspnea. She is currently under investigation. 2 IPF with mild to moderate restrictive lung disease and FVC of 69% of predicted based on a previous spirometry that was done in 2019. The patient has been maintained on Ofev over the past few years regarding her IPF. 3 shortness of breath secondary to above 4 acute hypoxic respiratory failure secondary to above contemplated about 2 by nasal cannula. COVID-19 is been essentially ruled out and the patient is fully vaccinated 5 history of breast cancer with a previous lumpectomy followed by radiation therapy back in 2014 and the patient is been disease-free 6 hypertension 7 hypothyroidism 8 hyperlipidemia 9 chronic acid reflux 10 chronic back pain Plan Check pro calcitonin level Check proBNP level Obtain a 2-D echocardiogram Continue Rocephin and Zithromax as an empiric antibiotic coverage Continue IV Solu-Medrol Monitor oxygenation and titrate the flow to maintain a saturation above 90% We'll continue to follow.
[2021-02-20] MEDS: MONTELUKAST 10 MG TAB PO SCH (21:33)
[2021-02-20] MEDS: lisinopriL 20 MG TAB PO SCH (21:33)
[2021-02-20] MEDS: amLODIPine 5 MG TAB PO SCH (21:33)
[2021-02-21] MEDS: SODIUM CHLORIDE 0.9% 1,000 ML IV SCH ×2 (01:12→07:56)
[2021-02-21] MEDS: HEPARIN SODIUM,PORCINE/PF 5,000 UNIT/0.5 ML SYRINGE SQ SCH ×4 (01:12→23:01)
[2021-02-21] MEDS: methylPREDNISolone SOD SUCCI 125 MG/2 ML VIAL IV SCH ×5 (01:15→23:01)
[2021-02-21 02:49] LABS: Anisocytosis Slight; Basophils % (A) 0 %; Eosinophils % (A) 0 %; HCT 33.5 % (34.0-46.0); HGB 11.2 gm/dL (11.4-16.0); Hypochromasia Slight; Lymphocytes # (A) 0.8 k/uL (1.0-4.8); Lymphocytes % (A) 3 %; MCH 36.7 pg (25.0-35.0); MCHC 33.5 g/dL (31.0-37.0); Macrocytosis Marked; Mean Platelet Volume 9.7; Monocytes # (A) 0.9 k/uL (0-1.0); Monocytes % (A) 3 %; Neutrophils # (A) 28.7 k/uL (1.3-7.7); Neutrophils % (A) 94 %; Platelet Count 237 k/uL (150-450); RBC 3.06 m/uL (3.80-5.40); WBC 30.6 k/uL (3.8-10.6)
[2021-02-21 02:52] LABS: MCV 109.6 fL (80.0-100.0)
[2021-02-21] MEDS: IPRATROPIUM-ALBUTEROL 3 ML NEB INHALATION SCH ×6 (05:29→23:52)
[2021-02-21] MEDS: LEVOTHYROXINE 50 MCG TAB PO SCH (06:08)
[2021-02-21] MEDS: SYMBICORT 160-4.5 MCG INHALER INHALATION SCH ×2 (07:40→19:08)
[2021-02-21] MEDS: PRAVASTATIN SODIUM 20 MG TAB PO SCH (07:52)
[2021-02-21] MEDS: MULTIVITAMINS, THERA 1 EACH TAB PO SCH (07:52)
[2021-02-21] MEDS: hydroCHLOROthiazide 25 MG TAB PO SCH (07:52)
[2021-02-21] MEDS: GABAPENTIN 400 MG CAP PO SCH ×3 (07:52→20:34)
[2021-02-21] MEDS: PANTOPRAZOLE 40 MG TABLET PO SCH (07:52)
[2021-02-21] MEDS: ASPIRIN 81 MG PO SCH (07:52)
[2021-02-21] MEDS: AZITHROMYCIN 500 MG TAB PO SCH (07:53)
[2021-02-21] MEDS: CYANOCOBALAMIN 500 MCG TAB PO SCH (07:53)
[2021-02-21] MEDS: ASCORBIC ACID 500 MG TAB PO SCH (07:53)
[2021-02-21] MEDS: NINTEDANIB ESYLATE 100 MG PO SCH ×2 (07:56→20:34)
--- NOTE | 2021-02-21 09:04 | ECHOF ---
Referral Reason:dyspnea MEASUREMENTS -------- HEIGHT: 157.5 cm WEIGHT: 79.4 kg BP: 133/70 RVIDd: 3.1 cm (< 3.3) IVSd: 1.0 cm (0.6 - 1.1) LVIDd: 4.2 cm (3.9 - 5.3) LVPWd: 1.1 cm (0.6 - 1.1) IVSs: 2.0 cm LVIDs: 1.7 cm LVPWs: 1.6 cm LAESV Index (A-L): 41.22 ml/m Ao Diam: 2.2 cm (2.0 - 3.7) AV Cusp: 1.9 cm (1.5 - 2.6) MV EXCURSION: 13.117 mm (> 18.000) MV EF SLOPE: 88 mm/s (70 - 150) EPSS: 0.1 cm MV E Jose: 0.99 m/s MV DecT: 167 ms MV A Jose: 1.27 m/s MV E/A Ratio: 0.78 AR PHT: 441 ms RAP: 5.00 mmHg RVSP: 57.14 mmHg FINDINGS -------- Sinus rhythm. This was a technically adequate study. The left ventricular size is normal. Left ventricular wall thickness is normal. Overall left vent ricular systolic function is normal with, an EF between 55 - 60 %. Diastolic function is indetermin ate. The right ventricle is normal in size. LA is moderately dilated 34-39 ml/m2 The right atrial size is normal. Interatrial and interventricular septum intact. The aortic valve is trileaflet and appears structurally normal. There is mild to moderate aortic va lve sclerosis. There is mild aortic regurgitation. Mild mitral regurgitation is present. Moderate tricuspid regurgitation present. There is moderate to severe pulmonary hypertension. The right ventricular systolic pressure, as measured by Doppler, is 57.14mmHg. There is no pulmonic regurgitation present. The aortic root size is normal. The inferior vena cava is mildly dilated. There is no pericardial effusion. CONCLUSIONS -------- 1. The left ventricular size is normal. 2. Left ventricular wall thickness is normal. 3. Overall left ventricular systolic function is normal with, an EF between 55 - 60 %. 4. LA is moderately dilated 34-39 ml/m2 5. There is mild to moderate aortic valve sclerosis. 6. There is mild aortic regurgitation. 7. Mild mitral regurgitation is present. 8. Moderate tricuspid regurgitation present. 9. There is moderate to severe pulmonary hypertension. 10. The right ventricular systolic pressure, as measured by Doppler, is 57.14mmHg. COATING MANAGER: Maral Donald RDCS
[2021-02-21] MEDS ORDERED: FUROSEMIDE 10 MG/ML 4 ML VIAL IV STA (15:59)
--- NOTE | 2021-02-21 16:18 | P.PN ---
Subjective Progress Note Date: 02/21/21 Principal diagnosis: dyspnea, hypoxia 80-year-old female patient with known history of IPF currently on [facility] [facility] no treatment for the past 23 years. Last PFT from 2019 showed an FVC of 69% of predicted, lung capacity of 71% of predicted, diffusion capacity of 39% of predicted. According to her, she has not been on oxygen. She also has obstructive sleep apnea. She has AHI of 18 and the patient is currently on a CPAP pressure of 8 cm of water. She has hypertension, hyperlipidemia, hypothyroidism. The patient is presenting to the hospital because of worsening shortness of breath. There is subacute worsening in her dyspnea. She had some cough. Most of his sputum production. No fever. No chills. No exposures COVID-19. Her COVID-19 testing by PCR came back negative. D-dimer is at 0.7. Lactic acid level was at 2.5 dropped down to 1.2. White cell count was 9.4 with a hemoglobin of 11 and a platelet count of 224. Electrolytes are all within normal limits. Chest x-ray was consistent with pulmonary fibrosis. CT angiogram showed no evidence of any pulmonary embolism. Nonspecific enlarged mediastinal and hilar lymph nodes. Interstitial fibrosis involving the peripheries in the lung bases along with patchy areas of groundglass pulmonary infiltrates suspicious for any superimposed infection/edema. She has a cardiac murmur. No previous history of cardio myopathy. No history of any coronary artery disease and no history of any cardiac arrhythmias. The patient has been fully vaccinated for COVID-19 which completed the vaccination in November 2020. On 02/21/2021 patient seen in follow-up on medical surgical floor, last night she was up to the bathroom, and desaturated quite low, she was placed on 15 L high flow and currently her pulse ox is 96%, she states that she had an episode of cough, which was mostly dry, but subsequently she started coughing up some small amount of phlegm with some blood-tinged material. No massive hemoptysis, no complaints of chest pain, no fever overnight, vital signs have been stable she continues on Solu-Medrol at 60 mg every 6 hours, she continues on IV azithromycin and Rocephin. The signs otherwise have been stable other than requiring more oxygen on today's exam, her CTA chest did not show evidence of pulmonary embolism, and show predominant reticular densities and small cystic changes characteristic of chronic interstitial lung disease with patchy groundglass opacities superimposed, with the consideration of infectious/inflammatory etiology or pulmonary edema, echocardiogram shows preserved LV function with EF of 55-60%, mild to moderate aortic valve sclerosis, mitral regurgitation, severe tricuspid regurgitation and severe pulmonary hypertension with right-sided pressure of 57.1 mmHg. Today's lab show acute elevation of white blood cell count and white blood cell count is up to 30.6, hemoglobin is 11.2, d-dimer is 0.65, Pro calcitonin level was negative at 0.10, and patient tested negative for influenza, coronavirus, and RSV. Currently she is sitting up in the bed, remains on high flow oxygen which can probably be weaned back down. She feels more short of breath on today's e valuation. Objective - Vital Signs Vital signs: Vital Signs Temp 98.3 F 02/21/21 06:30 Pulse 95 02/21/21 11:42 Resp 24 02/21/21 06:30 BP 145/68 02/21/21 06:30 Pulse Ox 96 02/21/21 07:40 Intake & Output 02/20/21 02/21/21 02/21/21 18:59 06:59 18:59 Other: Voiding Method Toilet Toilet # Voids 2 3 - Exam GENERAL EXAM: Alert, a pleasant, 80-year-old white female, currently on 15 L of oxygen satting 91% patient is more dyspneic on today's evaluation but is in no acute distress HEAD: Normocephalic/atraumatic. EYES: Normal reaction of pupils, equal size. Conjunctiva pink, sclera white. NOSE: Clear with pink turbinates. THROAT: No erythema or exudates. NECK: No masses, no JVD, no thyroid enlargement, no adenopathy. CHEST: No chest wall deformity. Symmetrical expansion. LUNGS: Equal air entry with coarse bibasilar crackles CVS: Regular rate and rhythm, normal S1 and S2, no gallops, no murmurs, no rubs ABDOMEN: Soft, nontender. No hepatosplenomegaly, normal bowel sounds, no guarding or rigidity. EXTREMITIES: No clubbing, no edema, no cyanosis, 2+ pulses and upper and lower extremities. MUSCULOSKELETAL: Muscle strength and tone normal. SPINE: No scoliosis or deformity SKIN: No rashes CENTRAL NERVOUS SYSTEM: Alert and oriented -3. No focal deficits, tone is normal in all 4 extremities. PSYCHIATRIC: Alert and oriented -3. Appropriate affect. Intact judgment and insight. - Labs CBC & Chem 7: 02/21/21 02:23 02/20/21 05:54 Labs: Abnormal Lab Results - Last 24 Hours (Table) 02/20/21 02/21/21 02/21/21 Range/Units 05:54 02:23 02:23 WBC 30.6 H (3.8-10.6) k/uL RBC 3.06 L (3.80-5.40) m/uL Hgb 11.2 L (11.4-16.0) gm/dL Hct 33.5 L (34.0-46.0) % MCV 109.6 H (80.0-100.0) fL MCH 36.7 H (25.0-35.0) pg RDW 18.0 H (11.5-15.5) % Neutrophils # 28.7 H (1.3-7.7) k/uL Lymphocytes # 0.8 L (1.0-4.8) k/uL Macrocytosis Marked A D-Dimer 0.65 H (<0.60) mg/L FEU Procalcitonin 0.10 H (0.02-0.09) ng/mL Assessment and Plan Plan: Assessment: 1 acute exacerbation of IPF likely. Consider other possibilities including superinfection/interstitial edema contiguity to her shortness of breath. The patient is subacute worsening in her chronic dyspnea. She is currently under investigation.Pro calcitonin level was low at 0.10 making possibility of infection less likely 2 IPF with mild to moderate restrictive lung disease and FVC of 69% of predicted based on a previous spirometry that was done in 2019. The patient has been maintained on Ofev over the past few years regarding her IPF. 3 shortness of breath secondary to above 4 acute hypoxic respiratory failure secondary to above contemplated about 2 by nasal cannula. COVID-19 is been essentially ruled out and the patient is fully vaccinated 5 history of breast cancer with a previous lumpectomy followed by radiation therapy back in 2014 and the patient is been disease-free 6 hypertension 7 hypothyroidism 8 hyperlipidemia 9 chronic acid reflux 10 chronic back pain 11 severe pulmonary hypertension, with severe tricuspid regurgitation 12 Leucocytosis, rule out possibility of underlying pulmonary infection, antibiotics will be switched to cefepime and Levaquin plan: Continue antibiotics Continue with steroids Procalcitonin level is low, however her white blood cell count is increased, we will switch the antibiotics to cefepime and Levaquin Send sputum culture Add Mucinex Echoardiogram was noted showing preserved LV function but severe pulmonary hypertension with tricuspid regurgitation IV fluids to KVO We'll get a dose of diuretics, follow-up chest x-ray and lab work tomorrow I performed a history & physical examination of the patient and discussed their management with my nurse practitioner, Claudia Catherine. I reviewed the nurse practitioner's note and agree with the documented findings and plan of care. Lung sounds are positive for diminished breath sounds. The findings and the impression was discussed with the patient. I attest to the documentation by the nurse practitioner. Time with Patient: Less than 30
[2021-02-21] MEDS: LEVOFLOXACIN 500 MG TAB PO SCH (17:09)
[2021-02-21] MEDS: CEFEPIME 1 GM in SODIUM CHLORIDE 0.9% 50 ML IVPB SCH (20:34)
[2021-02-21] MEDS: guaiFENesin-DM 600/30MG 1 EACH TAB.ER.12H PO SCH (20:34)
[2021-02-21] MEDS: amLODIPine 5 MG TAB PO SCH (20:34)
[2021-02-21] MEDS: lisinopriL 20 MG TAB PO SCH (20:34)
[2021-02-21] MEDS: MONTELUKAST 10 MG TAB PO SCH (20:36)
[2021-02-22] MEDS: IPRATROPIUM-ALBUTEROL 3 ML NEB INHALATION SCH ×6 (03:48→23:32)
[2021-02-22] MEDS: LEVOTHYROXINE 50 MCG TAB PO SCH (05:32)
[2021-02-22] MEDS: methylPREDNISolone SOD SUCCI 125 MG/2 ML VIAL IV SCH ×4 (05:32→23:33)
[2021-02-22] MEDS: SYMBICORT 160-4.5 MCG INHALER INHALATION SCH ×2 (07:46→19:22)
--- NOTE | 2021-02-22 08:46 | XR ---
EXAMINATION TYPE: XR chest 1V portable DATE OF EXAM: 02/22/2021 COMPARISON: 02/19/2021 INDICATION: Dyspnea TECHNIQUE: Single frontal view of the chest is obtained. FINDINGS: The heart size is mildly prominent. The pulmonary vasculature is indistinct. Diffuse increased lung markings are present bilaterally. Findings the worsened over the interval. IMPRESSION: 1. Worsening diffuse increased lung markings bilaterally. Correlate for ARDS and atypical pneumonia.
[2021-02-22] MEDS: PRAVASTATIN SODIUM 20 MG TAB PO SCH (09:21)
[2021-02-22] MEDS: ASPIRIN 81 MG PO SCH (09:21)
[2021-02-22] MEDS: CYANOCOBALAMIN 500 MCG TAB PO SCH (09:21)
[2021-02-22] MEDS: GABAPENTIN 400 MG CAP PO SCH ×3 (09:21→20:28)
[2021-02-22] MEDS: hydroCHLOROthiazide 25 MG TAB PO SCH (09:21)
[2021-02-22] MEDS: MULTIVITAMINS, THERA 1 EACH TAB PO SCH (09:21)
[2021-02-22] MEDS: CEFEPIME 1 GM in SODIUM CHLORIDE 0.9% 50 ML IVPB SCH ×2 (09:22→20:28)
[2021-02-22] MEDS: ASCORBIC ACID 500 MG TAB PO SCH (09:22)
[2021-02-22] MEDS: HEPARIN SODIUM,PORCINE/PF 5,000 UNIT/0.5 ML SYRINGE SQ SCH ×3 (09:22→23:33)
[2021-02-22] MEDS: PANTOPRAZOLE 40 MG TABLET PO SCH (09:22)
[2021-02-22] MEDS: NINTEDANIB ESYLATE 100 MG PO SCH ×2 (09:23→20:28)
[2021-02-22] MEDS: guaiFENesin-DM 600/30MG 1 EACH TAB.ER.12H PO SCH ×2 (09:23→20:30)
[2021-02-22] MEDS ORDERED: ALPRAZolam 0.25 MG TAB PO STA (09:39)
[2021-02-22] MEDS ORDERED: FUROSEMIDE 10 MG/ML 4 ML VIAL IV STA (11:09)
--- NOTE | 2021-02-22 11:09 | P.PN ---
Subjective Progress Note Date: 02/22/21 80-year-old female patient with known history of IPF currently on [facility] no treatment for the past 23 years. Last PFT from 2019 showed an FVC of 69% of predicted, lung capacity of 71% of predicted, diffusion capacity of 39% of predicted. According to her, she has not been on oxygen. She also has obstructive sleep apnea. She has AHI of 18 and the patient is currently on a CPAP pressure of 8 cm of water. She has hypertension, hyperlipidemia, hypothyroidism. The patient is presenting to the hospital because of worsening shortness of breath. There is subacute worsening in her dyspnea. She had some cough. Most of his sputum production. No fever. No chills. No exposures COVID-19. Her COVID-19 testing by PCR came back negative. D-dimer is at 0.7. Lactic acid level was at 2.5 dropped down to 1.2. White cell count was 9.4 with a hemoglobin of 11 and a platelet count of 224. Electrolytes are all within normal limits. Chest x-ray was consistent with pulmonary fibrosis. CT martina ogram showed no evidence of any pulmonary embolism. Nonspecific enlarged mediastinal and hilar lymph nodes. Interstitial fibrosis involving the peripheries in the lung bases along with patchy areas of groundglass pulmonary infiltrates suspicious for any superimposed infection/edema. She has a cardiac murmur. No previous history of cardio myopathy. No history of any coronary artery disease and no history of any cardiac arrhythmias. The patient has been fully vaccinated for COVID-19 which completed the vaccination in November 2020. On 02/21/2021 patient seen in follow-up on medical surgical floor, last night she was up to the bathroom, and desaturated quite low, she was placed on 15 L h igh flow and currently her pulse ox is 96%, she states that she had an episode of cough, which was mostly dry, but subsequently she started coughing up some small amount of phlegm with some blood-tinged material. No massive hemoptysis, no complaints of chest pain, no fever overnight, vital signs have been stable she continues on Solu-Medrol at 60 mg every 6 hours, she continues on IV azithromycin and Rocephin. The signs otherwise have been stable other than requiring more oxygen on today's exam, her CTA chest did not show evidence of pulmonary embolism, and show predominant reticular densities and small cystic changes characteristic of chronic interstitial lung disease with patchy groundgl ass opacities superimposed, with the consideration of infectious/inflammatory etiology or pulmonary edema, echocardiogram shows preserved LV function with EF of 55-60%, mild to moderate aortic valve sclerosis, mitral regurgitation, severe tricuspid regurgitation and severe pulmonary hypertension with right-sided pressure of 57.1 mmHg. Today's lab show acute elevation of white blood cell count and white blood cell count is up to 30.6, hemoglobin is 11.2, d-dimer is 0.65, Pro calcitonin level was negative at 0.10, and patient tested negative for influenza, coronavirus, and RSV. Currently she is sitting up in the bed, remains on high flow oxygen which can probably be weaned back down. She feels more short of breath on today's evaluation. On 02/22/2021, the patient remains on 15 L oxygen high flow with a pulse ox of 90%. Her oxygen requirements went up progressively yesterday. Based on that, repeat chest x-ray was done and showed new infiltration of the left upper lobe and some interval worsening in the right. She has underlying baseline pulmonary fibrosis. 2 that was concerned about the superinfection. There was a rise in her white cell count up to 30.6. That hemoglobin was 11.2. Cipro calcitonin level was at 0.1 and the lactic acid level was 1.2. D-dimer was at 0.65. As mentioned earlier, COVID-19 testing was negative. She was kept on IV Solu- Medrol and I will broaden her antibiotic coverage to include a combination of cefepime and Levaquin. She remains on IV Solu Medrol 60 mg every 6 hours features on DuoNeb nebulized treatments around the clock. Received a dose of Lasix 40 mg IV push 1 4:00 yesterday. On today's evaluation of her breathing remains labored. She did reduce good amount of urine output following Lasix administration. No chest pain. No fever. No chills. No other complaints otherwise for now. Objective - Vital Signs Vital signs: Vital Signs Temp 98.0 F 02/22/21 07:15 Pulse 95 02/22/21 07:59 Resp 18 02/22/21 07:59 BP 161/77 02/22/21 07:15 Pulse Ox 90 L 02/22/21 07:58 Intake & Output 02/21/21 02/22/2102/22/21 18:59 06:59 18:59 Intake Total 200 Balance 200 Intake: Oral 200 Other: Voiding Method Toilet Toilet # Voids 5 2 # Bowel Movements 1 1 - Exam Gen. appearance the patient is calm and comfortable and currently she is on 15 L of oxygen nasal cannula. Not using excessive muscle breathing. Head exam was generally normal. There was no scleral icterus or corneal arcus. Mucous membranes were moist. Neck was supple and without jugular venous distension, thyromegaly, or carotid bruits. Carotids were easily palpable bilaterally. There was no adenopathy. Lungs sounds are diminished and the patient has coarse crackles in lung bases bilaterally. Cardiac exam revealed the PMI to be normally situated and sized. The rhythm was regular and no extrasystoles were noted during several minutes of auscultation. The first and second heart sounds were normal and physiologic splitting of the second heart sound was noted. There were systolic ejection murmur at the rate to over 6 murmurs, rubs, clicks, or gallops. Abdominal exam revealed normal bowel sounds. The abdomen was soft, non-tender, and without masses, organomegaly, or appreciable enlargement of the abdominal aorta. Examination of the extremities revealed easily palpable radial, femoral and pedal pulses. There was no cyanosis, clubbing or edema. Examination of the skin revealed no evidence of significant rashes, suspicious appearing nevi or other concerning lesions. Neurologically, the patient is awake and alert and the patient does not have any focal neurological deficit. Cranial nerves are essentially intact. - Labs CBC & Chem 7: 02/21/21 02:23 02/20/21 05:54 Assessment and Plan Plan: 1 acute exacerbation of IPF likely. The possibility of a superinfection is felt to be less likely. Interstitial edema/CHF, is felt to be less likely. For calcitonin level has been low. The patient is oxygen requirements went up as high as 15 L per minute nasal cannula. Based on some increase in the white cell count, and based on the abnormalities seen on chest x-ray with worsening diffuse interstitial markings, I proceeded with closing the patient antibiotic coverage. 2 IPF with mild to moderate restrictive lung disease and FVC of 69% of predicted based on a previous spirometry that was done in 2019. The patient has been maintained on Ofev over the past few years regarding her IPF. 3 shortness of breath secondary to above 4 acute hypoxic respiratory failure secondary to above contemplated about 2 by nasal cannula. COVID-19 is been essentially ruled out and the patient is fully vaccinated 5 history of breast cancer with a previous lumpectomy followed by radiation therapy back in 2014 and the patient is been disease-free 6 hypertension 7 hypothyroidism 8 hyperlipidemia 9 chronic acid reflux 10 chronic back pain Plan Repeat COVID-19 testings by PCR Legionella urine antigen Recheck pro calcitonin level Check proBNP level Obtain a 2-D echocardiogram Continue Levaquin and cefepime Echocardiogram shows a preserved LV function Given another dose of Lasix 40 mg IV Repeat chest x-ray in the morning Continue IV Solu-Medrol Monitor oxygenation and titrate the flow to maintain a saturation above 90% We'll continue to follow.
[2021-02-22 12:08] LABS: HCT 34.2 % (37.2-46.3); HGB 11.1 g/dL (12.0-15.0); MCH 35.9 pg (27.0-32.0); MCHC 32.5 g/dL (32.0-37.0); MCV 110.7 fL (80.0-97.0); Mean Platelet Volume 12.7 fL (9.5-12.2); Platelet Count 241 X 10*3/uL (140-440); RBC 3.09 X 10*6/uL (4.10-5.20); RDW 17.2 % (11.5-14.5)
[2021-02-22 12:27] LABS: African American GFR (CKD) 101.2 (60.0-200.0); Anion Gap 10.5 mmol/L (4.00-12.00); BUN/Creat Ratio 36.67 Ratio (12.00-20.00); Calcium 8.4 mg/dL (8.7-10.3); Carbon Dioxide 27.5 mmol/L (21.6-31.8); Non-African American GFR(CKD) 87.3 (60.0-200.0); Potassium 3.6 mmol/L (3.5-5.5)
[2021-02-22 13:59] LABS: Basophils # (A) 0.04 X 10*3/uL (0.00-0.10); Basophils % (A) 0.2 %; Eosinophils # (A) 0 X 10*3/uL (0.04-0.35); Eosinophils % (A) 0 %; Lymphocytes # (A) 0.81 X 10*3/uL (0.90-5.00); Lymphocytes % (A) 3.1 %; Macrocytosis (M) 2+; Monocytes # (A) 0.99 X 10*3/uL (0.20-1.00); Monocytes % (A) 3.8 %; Neutrophils # (A) 23.97 X 10*3/uL (1.80-7.70); Neutrophils % (A) 90.7 %
--- NOTE | 2021-02-22 15:06 | P.PN ---
Subjective Progress Note Date: 02/20/21 Principal diagnosis: right perihilar/basilar infiltrate with pneumonia. IPF Patient is a 80-year-old male with a known history of idiopathic pulmonary fibrosis currently Ofev treatment, hypertension, hyperlipidemia, hypothyroidism, history of breast cancer status post radiation, bilateral peripheral neuropathy, chronic back pain presents to ER with complaints of worsening shortness of breath and cough for the past 1 to 2 days. Denies any fever. But patient felt chills and cold and clammy at home. Denies any sputum production. No complaints of chest pain. Chest x-ray showed appears to be a component of underlying fibrosis. Patchy infiltrate right perihilar and right basilar lesion noted. Correlate for developing pneumonia. EKG showed normal sinus rhythm with sinus arrhythmia CT angiogram of the chest showed no definitive pulmonary embolism identified. Mild induced lytic changes of the aorta. No aortic aneurysm or dissection. Peripherally predominant reticular densities and small cystic changes concerning for chronic interstitial lung disease. Patchy groundglass opacities suggest superimposed component of infectious/inflammatory process or edema Nonspecific enlarged mediastinal and hilar lymph nodes. Laboratory data showed WBC 16.0 hemoglobin 12.5 and MCV 108.5 platelets 221 D-dimer 0.72 Sodium 137 potassium 4.0 chloride 102 BUN 15 creatinine 0.7 proBNP 134 and troponin x1 - Coronavirus PCR not detected. 02/20/2021 Patient is currently resting in the bed. Awake alert oriented 3. On oxygen with another cannula, requiring 4 L and saturating at 94%. Patient is on room air at home. Patient is being continued on antibiotics and IV steroids and breathing treatments. Pulmonary is following. Patient has been afebrile. No sputum production or cough. No nausea vomiting or abdominal pain or diarrhea. No dysuria or hematuria. Current medications reviewed. Objective - Vital Signs Vital signs: Vital Signs Temp 98.0 F 02/20/21 07:56 Pulse 77 02/20/21 11:58 Resp 20 02/20/21 07:56 BP 127/69 02/20/21 07:56 Pulse Ox 93 L 02/20/21 07:56 Intake & Output 02/19/21 02/20/21 02/20/21 18:59 06:59 18:59 Weight 79.379 kg Other: # Voids 3 - Exam PHYSICAL EXAMINATION: Patient is lying in the bed comfortably, no acute distress, awake alert and oriented.. HEENT: Normocephalic. Neck is supple. Pupils reactive. Nostrils clear. Oral cavity is moist. Ears reveal no drainage. Neck reveals no JVD, carotid bruits, or thyromegaly. CHEST EXAMINATION: Trachea is central. Symmetrical expansion. bilateral diffuse crackles and scattered coarse sounds. No wheezing. Nonlabored breathing.. CARDIAC: Normal S1, S2 with no gallops. No murmurs ABDOMEN: Soft. Bowel sounds normal. No organomegaly. No abdominal bruits. Extremities: reveal no edema. No clubbing or cyanosis Neurologically awake, alert, oriented x3 with well-coordinated movements. No focal deficits noted Skin: No rash or skin lesions. Psychiatric: Coperative. Nonsuicidal Musculoskeletal: No joint swelling or deformity. Normal range of motion. - Labs CBC & Chem 7: 02/22/21 06:25 02/22/21 06:25 Labs: Abnormal Lab Results - Last 24 Hours (Table) 02/19/21 02/19/21 02/19/21 Range/Units 13:22 13:22 13:22 WBC 16.0 H (3.8-10.6) k/uL RBC 3.46 L (3.80-5.40) m/uL Hgb (12.0-15.0) g/dL Hct (37.2-46.3) % MCV 108.5 H (80.0-100.0) fL MCH 36.2 H (25.0-35.0) pg RDW 18.2 H (11.5-15.5) % MPV (9.5-12.2) fL Absolute Nucleated RBC (0.00-0.00) X 10*3/uL Immature Gran # (0.00-0.04) X 10*3/uL Neutrophils # 13.6 H (1.3-7.7) k/uL Lymphocytes # (0.90-5.00) X 10*3/uL Eosinophils # (0.04-0.35) X 10*3/uL NRBC/100 WBC Diff (0.0-0.0) /100 WBCS Macrocytosis Marked A D-Dimer 0.72 H (<0.60) mg/L FEU BUN/Creatinine Ratio (12.00-20.00) Ratio Glucose 102 H (74-99) mg/dL Plasma Lactic Acid Rodney (0.7-2.0) mmol/L Calcium (8.7-10.3) mg/dL Magnesium 1.4 L (1.6-2.3) mg/dL Total Protein 6.1 L (6.3-8.2) g/dL Albumin 3.3 L (3.5-5.0) g/dL 02/19/21 02/20/21 02/20/21 Range/Units 13:22 05:54 05:54 WBC (3.8-10.6) k/uL RBC 3.10 L (3.80-5.40) m/uL Hgb 11.0 L (12.0-15.0) g/dL Hct 33.9 L (37.2-46.3) % MCV 109.4 H (80.0-100.0) fL MCH 35.5 H (25.0-35.0) pg RDW 16.9 H (11.5-15.5) % MPV 12.7 H (9.5-12.2) fL Absolute Nucleated RBC 0.02 H (0.00-0.00) X 10*3/uL Immature Gran # 0.06 H (0.00-0.04) X 10*3/uL Neutrophils # 8.56 H (1.3-7.7) k/uL Lymphocytes # 0.58 L (0.90-5.00) X 10*3/uL Eosinophils # 0 L (0.04-0.35) X 10*3/uL NRBC/100 WBC Diff 0.2 H (0.0-0.0) /100 WBCS Macrocytosis D-Dimer (<0.60) mg/L FEU BUN/Creatinine Ratio 21.43 H (12.00-20.00) Ratio Glucose 179 H (74-99) mg/dL Plasma Lactic Acid Rodney 2.5 H* (0.7-2.0) mmol/L Calcium 8.5 L (8.7-10.3) mg/dL Magnesium (1.6-2.3) mg/dL Total Protein (6.3-8.2) g/dL Albumin (3.5-5.0) g/dL Assessment and Plan Assessment: Worsening shortness of breath due to right perihilar/basilar infiltrate with pneumonia. Acute exacerbation of Idiopathic pulmonary fibrosis. Continue with IV steroids.on treatment with Ofev Lactic acidosis Hypertension Hypothyroidism Hyperlipidemia GERD History of breast cancer status post radiation treatments Running back pain DVT prophylaxis with heparin subcu Plan: Patient will be continued antibiotics in the form of ceftriaxone and a zithromycin. Continue with IV steroids methylprednisolone 60 mg every 6 hourly and oxygen supplementation as needed. Continue with her home medications and pulmonary is on board. Continue with duo nebs and Symbicort and follow-up closely. Time with Patient: Greater than 30
--- NOTE | 2021-02-22 15:11 | P.PN ---
Subjective Progress Note Date: 02/21/21 Principal diagnosis: right perihilar/basilar infiltrate with pneumonia. IPF Patient is a 80-year-old male with a known history of idiopathic pulmonary fibrosis currently Ofev treatment, hypertension, hyperlipidemia, hypothyroidism, history of breast cancer status post radiation, bilateral peripheral neuropathy, chronic back pain presents to ER with complaints of worsening shortness of breath and cough for the past 1 to 2 days. Denies any fever. But patient felt chills and cold and clammy at home. Denies any sputum production. No complaints of chest pain. Chest x-ray showed appears to be a component of underlying fibrosis. Patchy infiltrate right perihilar and right basilar lesion noted. Correlate for developing pneumonia. EKG showed normal sinus rhythm with sinus arrhythmia CT angiogram of the chest showed no definitive pulmonary embolism identified. Mild induced lytic changes of the aorta. No aortic aneurysm or dissection. Peripherally predominant reticular densities and small cystic changes concerning for chronic interstitial lung disease. Patchy groundglass opacities suggest superimposed component of infectious/inflammatory process or edema Nonspecific enlarged mediastinal and hilar lymph nodes. Laboratory data showed WBC 16.0 hemoglobin 12.5 and MCV 108.5 platelets 221 D-dimer 0.72 Sodium 137 potassium 4.0 chloride 102 BUN 15 creatinine 0.7 proBNP 134 and troponin x1 - Coronavirus PCR not detected. 02/20/2021 Patient is currently resting in the bed. Awake alert oriented 3. On oxygen with another cannula, requiring 4 L and saturating at 94%. Patient is on room air at home. Patient is being continued on antibiotics and IV steroids and breathing treatments. Pulmonary is following. Patient has been afebrile. No sputum production or cough. No nausea vomiting or abdominal pain or diarrhea. No dysuria or hematuria. 02/21/2021 Patient is currently resting in the bed. Awake alert and oriented 3. Patient says that she did cough up blood clot last night. also desaturating while she was walking to the bathroom. Patient was placed on 15 L high flow oxygen with bubbler. Patient Antivert and form of ceftriaxone and azithromycin. On IV steroids with a prednisone every 6 hourly. 2-D echocardiogram showed ejection fraction 55-60%, LAD is moderately dilated and moderate TR and moderate to severe pulmonary hypertension with RVSP 57.14 mmHg. Patient has been afebrile. Laboratory data showed WBC 30.6, hemoglobin 11.2 and platelets 237 D-dimer 0.65. Patient is more congested today. IV fluids on hold and patient was given a dose of IV Lasix. Pulmonary is on board. Antibiotics were changed to cefepime and Levaquin. Current medications reviewed. Objective - Vital Signs Vital signs: Vital Signs Temp 98.8 F 02/21/21 19:12 Pulse 84 02/21/21 19:32 Resp 18 02/21/21 19:12 BP 122/74 02/21/21 19:12 Pulse Ox 96 02/21/21 19:21 Intake & Output 02/21/21 02/21/21 02/22/21 06:59 18:59 06:59 Other: Voiding Method Toilet Toilet Toilet # Voids 3 5 # Bowel Movements 1 - Exam PHYSICAL EXAMINATION: Patient is lying in the bed comfortably, no acute distress, awake alert and or iented.. HEENT: Normocephalic. Neck is supple. Pupils reactive. Nostrils clear. Oral cavity is moist. Ears reveal no drainage. Neck reveals no JVD, carotid bruits, or thyromegaly. CHEST EXAMINATION: Trachea is central. Symmetrical expansion. bilateral diffuse crackles and scattered coarse sounds. No wheezing. Nonlabored breathing.. CARDIAC: Normal S1, S2 with no gallops. No murmurs ABDOMEN: Soft. Bowel sounds normal. No organomegaly. No abdominal bruits. Extremities: reveal no edema. No clubbing or cyanosis Neurologically awake, alert, oriented x3 with well-coordinated movements. No focal deficits noted Skin: No rash or skin lesions. Psychiatric: Coperative. Nonsuicidal Musculoskeletal: No joint swelling or deformity. Normal range of motion. - Labs CBC & Chem 7: 02/22/21 06:25 02/22/21 06:25 Labs: Abnormal Lab Results - Last 24 Hours (Table) 02/21/21 02/21/21 Range/Units 02:23 02:23 WBC 30.6 H (3.8-10.6) k/uL RBC 3.06 L (3.80-5.40) m/uL Hgb 11.2 L (11.4-16.0) gm/dL Hct 33.5 L (34.0-46.0) % MCV 109.6 H (80.0-100.0) fL MCH 36.7 H (25.0-35.0) pg RDW 18.0 H (11.5-15.5) % Neutrophils # 28.7 H (1.3-7.7) k/uL Lymphocytes # 0.8 L (1.0-4.8) k/uL Macrocytosis Marked A D-Dimer 0.65 H (<0.60) mg/L FEU Assessment and Plan Assessment: Worsening shortness of breath due to right perihilar/basilar infiltrate with pneumonia. Acute exacerbation of Idiopathic pulmonary fibrosis. Continue with IV steroids.on treatment with Ofev Lactic acidosis . Improved Hypertension Hypothyroidism Hyperlipidemia GERD History of breast cancer status post radiation treatments Running back pain DVT prophylaxis with heparin subcu Plan: Patient will be continued on high proximal and with Sudafed. Antibiotics were changed to cefepime and Levaquin.. Continue with IV steroids methylprednisolone 60 mg every 6 hourly and oxygen supplementation as needed. Continue with her home medications and pulmonary is on board. IV fluids on hold and patient was given a dose of Lasix. Continue with duo nebs and Symbicort and follow-up closely. Prognosis is guarded at this time. Time with Patient: Greater than 30
--- NOTE | 2021-02-22 15:18 | P.PN ---
Subjective Progress Note Date: 02/22/21 Principal diagnosis: right perihilar/basilar infiltrate with pneumonia. IPF Patient is a 80-year-old male with a known history of idiopathic pulmonary fibrosis currently Ofev treatment, hypertension, hyperlipidemia, hypothyroidism, history of breast cancer status post radiation, bilateral peripheral neuropathy, chronic back pain presents to ER with complaints of worsening shortness of breath and cough for the past 1 to 2 days. Denies any fever. But patient felt chills and cold and clammy at home. Denies any sputum production. No complaints of chest pain. Chest x-ray showed appears to be a component of underlying fibrosis. Patchy infiltrate right perihilar and right basilar lesion noted. Correlate for developing pneumonia. EKG showed normal sinus rhythm with sinus arrhythmia CT angiogram of the chest showed no definitive pulmonary embolism identified. Mild induced lytic changes of the aorta. No aortic aneurysm or dissection. Peripherally predominant reticular densities and small cystic changes concerning for chronic interstitial lung disease. Patchy groundglass opacities suggest superimposed component of infectious/inflammatory process or edema Nonspecific enlarged mediastinal and hilar lymph nodes. Laboratory data showed WBC 16.0 hemoglobin 12.5 and MCV 108.5 platelets 221 D-dimer 0.72 Sodium 137 potassium 4.0 chloride 102 BUN 15 creatinine 0.7 proBNP 134 and troponin x1 - Coronavirus PCR not detected. 02/20/2021 Patient is currently resting in the bed. Awake alert oriented 3. On oxygen with another cannula, requiring 4 L and saturating at 94%. Patient is on room air at home. Patient is being continued on antibiotics and IV steroids and breathing treatments. Pulmonary is following. Patient has been afebrile. No sputum production or cough. No nausea vomiting or abdominal pain or diarrhea. No dysuria or hematuria. 02/21/2021 Patient is currently resting in the bed. Awake alert and oriented 3. Patient says that she did cough up blood clot last night. also desaturating while she was walking to the bathroom. Patient was placed on 15 L high flow oxygen with bubbler. Patient Antivert and form of ceftriaxone and azithromycin. On IV steroids with a prednisone every 6 hourly. 2-D echocardiogram showed ejection fraction 55-60%, LAD is moderately dilated and moderate TR and moderate to severe pulmonary hypertension with RVSP 57.14 mmHg. Patient has been afebrile. Laboratory data showed WBC 30.6, hemoglobin 11.2 and platelets 237 D-dimer 0.65. Patient is more congested today. IV fluids on hold and patient was given a dose of IV Lasix. Pulmonary is on board. Antibiotics were changed to cefepime and Levaquin. 02/22/2021 Patient is on medical floor. Awake alert and oriented. Patient was very anxious and is requiring 15 L oxygen via nasal cannula. Continued on antibiotics in the form of cefepime and Levaquin. Continued on IV steroids. Patient was given a dose of Xanax. Anxiety. Chest x-ray showed new infiltrate of the left upper lobe and some interval worsening in the right. Suspected superimposed infection. Pro-calcitonin was 0.1 Patient was given an extra dose of IV Lasix 40 mg as once. Laboratory data showed WBC count 6.4, hemoglobin 11.1 and platelets 241, sodium 144 potassium 3.6 chloride 106 BUN 22 and creatinine 0.6 Current medications reviewed. Objective - Vital Signs Vital signs: Vital Signs Temp 98.4 F 02/22/21 14:00 Pulse 91 02/22/21 14:00 Resp 22 02/22/21 14:00 BP 135/79 02/22/21 14:00 Pulse Ox 86 L 02/22/21 14:00 Intake & Output 02/21/21 02/22/21 02/22/21 18:59 06:59 18:59 Intake Total 200 Balance 200 Intake: Oral 200 Other: Voiding Method Toilet Toilet # Voids 5 2 # Bowel Movements 1 1 - Exam PHYSICAL EXAMINATION: Patient is lying in the bed comfortably, no acute distress, awake alert and oriented.. HEENT: Normocephalic. Neck is supple. Pupils reactive. Nostrils clear. Oral cavity is moist. Ears reveal no drainage. Neck reveals no JVD, carotid bruits, or thyromegaly. CHEST EXAMINATION: Trachea is central. Symmetrical expansion. bilateral diffuse crackles and scattered coarse sounds. No wheezing. Nonlabored breathing.. CARDIAC: Normal S1, S2 with no gallops. No murmurs ABDOMEN: Soft. Bowel sounds normal. No organomegaly. No abdominal bruits. Extremities: reveal no edema. No clubbing or cyanosis Neurologically awake, alert, oriented x3 with well-coordinated movements. No focal deficits noted Skin: No rash or skin lesions. Psychiatric: Coperative. Nonsuicidal Musculoskeletal: No joint swelling or deformity. Normal range of motion. - Labs CBC & Chem 7: 02/22/21 06:25 02/22/21 06:25 Labs: Abnormal Lab Results - Last 24 Hours (Table) 02/22/21 02/22/21 Range/Units 06:25 06:25 WBC 26.40 H (4.50-10.00) X 10*3/uL RBC 3.09 L (4.10-5.20) X 10*6/uL Hgb 11.1 L (12.0-15.0) g/dL Hct 34.2 L (37.2-46.3) % MCV 110.7 H (80.0-97.0) fL MCH 35.9 H (27.0-32.0) pg RDW 17.2 H (11.5-14.5) % MPV 12.7 H (9.5-12.2) fL Absolute Nucleated RBC 0.04 H (0.00-0.00) X 10*3/uL Immature Gran # 0.59 H (0.00-0.04) X 10*3/uL Neutrophils # 23.97 H (1.80-7.70) X 10*3/uL Lymphocytes # 0.81 L (0.90-5.00) X 10*3/uL Eosinophils # 0 L (0.04-0.35) X 10*3/uL NRBC/100 WBC Diff 0.2 H (0.0-0.0) /100 WBCS BUN/Creatinine Ratio 36.67 H (12.00-20.00) Ratio Glucose 118 H (70-110) mg/dL Calcium 8.4 L (8.7-10.3) mg/dL Assessment and Plan Assessment: Worsening shortness of breath due to right perihilar/basilar infiltrate with pneumonia. Acute exacerbation of Idiopathic pulmonary fibrosis. Continue with IV steroids.on treatment with Ofev Lactic acidosis . Improved Hypertension Hypothyroidism Hyperlipidemia GERD History of breast cancer status post radiation treatments Running back pain DVT prophylaxis with heparin subcu Plan: Patient will be continued on high proximal and with Sudafed. Antibiotics were changed to cefepime and Levaquin.. Continue with IV steroids methylprednisolone 60 mg every 6 hourly and oxygen supplementation as needed. Continue with her home medications and pulmonary is on board. IV fluids on hold and patient was given a dose of Lasix. Repeat COVID-19 testings by PCR Legionella urine antigen was ordered. Continue with duo nebs and Symbicort and follow-up closely. Prognosis is guarded at this time. Time with Patient: Greater than 30
[2021-02-22] MEDS: LEVOFLOXACIN 500 MG TAB PO SCH (16:51)
[2021-02-22] MEDS: MONTELUKAST 10 MG TAB PO SCH (20:27)
[2021-02-22] MEDS: lisinopriL 20 MG TAB PO SCH (20:28)
[2021-02-22] MEDS: amLODIPine 5 MG TAB PO SCH (20:28)
[2021-02-23] MEDS: IPRATROPIUM-ALBUTEROL 3 ML NEB INHALATION SCH ×5 (04:06→20:20)
[2021-02-23] MEDS: LEVOTHYROXINE 50 MCG TAB PO SCH (05:26)
[2021-02-23] MEDS: methylPREDNISolone SOD SUCCI 125 MG/2 ML VIAL IV SCH ×4 (05:28→23:28)
[2021-02-23] MEDS: SYMBICORT 160-4.5 MCG INHALER INHALATION SCH ×2 (07:20→20:20)
[2021-02-23] MEDS: HEPARIN SODIUM,PORCINE/PF 5,000 UNIT/0.5 ML SYRINGE SQ SCH ×3 (07:45→23:28)
[2021-02-23] MEDS: CEFEPIME 1 GM in SODIUM CHLORIDE 0.9% 50 ML IVPB SCH ×2 (07:45→20:18)
[2021-02-23] MEDS: hydroCHLOROthiazide 25 MG TAB PO SCH (07:46)
[2021-02-23] MEDS: CYANOCOBALAMIN 500 MCG TAB PO SCH (07:46)
[2021-02-23] MEDS: ALPRAZolam 0.25 MG TAB PO PRN ×2 (07:46→20:18)
[2021-02-23] MEDS: GABAPENTIN 400 MG CAP PO SCH ×3 (07:46→20:18)
[2021-02-23] MEDS: PRAVASTATIN SODIUM 20 MG TAB PO SCH (07:46)
[2021-02-23] MEDS: ASPIRIN 81 MG PO SCH (07:46)
[2021-02-23] MEDS: PANTOPRAZOLE 40 MG TABLET PO SCH (07:46)
[2021-02-23] MEDS: MULTIVITAMINS, THERA 1 EACH TAB PO SCH (07:46)
[2021-02-23] MEDS: NINTEDANIB ESYLATE 100 MG PO SCH ×2 (07:46→20:18)
[2021-02-23] MEDS: ASCORBIC ACID 500 MG TAB PO SCH (07:46)
[2021-02-23] MEDS: guaiFENesin-DM 600/30MG 1 EACH TAB.ER.12H PO SCH ×2 (07:47→20:18)
--- NOTE | 2021-02-23 08:10 | XR ---
EXAMINATION TYPE: XR chest 1V portable DATE OF EXAM: 02/23/2021 COMPARISON: 02/22/2021 INDICATION: Idiopathic lung disease, pneumonia TECHNIQUE: Single frontal view of the chest is obtained. FINDINGS: The heart size is mildly prominent. The pulmonary vasculature is indistinct. There is diffuse increased lung markings bilaterally. Findings are nonspecific. Consider atypical pne umonia. On the lordosis through the thoracic spine. IMPRESSION: 1. Diffuse increased lung markings which are nonspecific. Consider atypical pneumonia.
[2021-02-23 09:04] LABS: Basophils # (A) 0.08 X 10*3/uL (0.00-0.10); Basophils % (A) 0.4 %; Eosinophils # (A) 0 X 10*3/uL (0.04-0.35); Eosinophils % (A) 0 %; HCT 35.5 % (37.2-46.3); HGB 11.6 g/dL (12.0-15.0); Lymphocytes # (A) 0.98 X 10*3/uL (0.90-5.00); Lymphocytes % (A) 4.8 %; MCH 35.9 pg (27.0-32.0); MCHC 32.7 g/dL (32.0-37.0); MCV 109.9 fL (80.0-97.0); Mean Platelet Volume 12.4 fL (9.5-12.2); Monocytes # (A) 1.12 X 10*3/uL (0.20-1.00); Monocytes % (A) 5.5 %; Neutrophils # (A) 17.46 X 10*3/uL (1.80-7.70); Platelet Count 245 X 10*3/uL (140-440); RBC 3.23 X 10*6/uL (4.10-5.20); RDW 16.6 % (11.5-14.5); WBC 20.52 X 10*3/uL (4.50-10.00)
[2021-02-23 09:46] LABS: African American GFR (CKD) 96.2 (60.0-200.0); Albumin 3.5 g/dL (3.80-4.90); Albumin/Globulin Ratio 1.84 (1.60-3.17); Anion Gap 12.4 mmol/L (4.00-12.00); BUN/Creat Ratio 41.43 Ratio (12.00-20.00); Calcium 8.6 mg/dL (8.7-10.3); Carbon Dioxide 27.6 mmol/L (21.6-31.8); Globulin 1.9 g/dL (1.6-3.3); Potassium 3.4 mmol/L (3.5-5.5); Total Bilirubin 1.6 mg/dL (0.2-1.2); Total Protein 5.4 g/dL (6.2-8.2)
[2021-02-23] MEDS ORDERED: FUROSEMIDE 10 MG/ML 4 ML VIAL IV STA (10:28)
--- NOTE | 2021-02-23 10:32 | P.PN ---
Subjective Progress Note Date: 02/23/21 80-year-old female patient with known history of IPF currently on [id number] [facility] no treatment for the past 23 years. Last PFT from 2019 showed an FVC of 69% of predicted, lung capacity of 71% of predicted, diffusion capacity of 39% of predicted. According to her, she has not been on oxygen. She also has obstructive sleep apnea. She has AHI of 18 and the patient is currently on a CPAP pressure of 8 cm of water. She has hypertension, hyperlipidemia, hypothyroidism. The patient is presenting to the hospital because of worsening shortness of breath. There is subacute worsening in her dyspnea. She had some cough. Most of his sputum production. No fever. No chills. No exposures COVID-19. Her COVID-19 testing by PCR came back negative. D-dimer is at 0.7. Lactic acid level was at 2.5 dropped down to 1.2. White cell count was 9.4 with a hemoglobin of 11 and a platelet count of 224. Electrolytes are all within normal limits. Chest x-ray was consistent with pulmonary fibrosis. CT martina ogram showed no evidence of any pulmonary embolism. Nonspecific enlarged mediastinal and hilar lymph nodes. Interstitial fibrosis involving the peripheries in the lung bases along with patchy areas of groundglass pulmonary infiltrates suspicious for any superimposed infection/edema. She has a cardiac murmur. No previous history of cardio myopathy. No history of any coronary artery disease and no history of any cardiac arrhythmias. The patient has been fully vaccinated for COVID-19 which completed the vaccination in November 2020. On 02/21/2021 patient seen in follow-up on medical surgical floor, last night she was up to the bathroom, and desaturated quite low, she was placed on 15 L h igh flow and currently her pulse ox is 96%, she states that she had an episode of cough, which was mostly dry, but subsequently she started coughing up some small amount of phlegm with some blood-tinged material. No massive hemoptysis, no complaints of chest pain, no fever overnight, vital signs have been stable she continues on Solu-Medrol at 60 mg every 6 hours, she continues on IV azithromycin and Rocephin. The signs otherwise have been stable other than requiring more oxygen on today's exam, her CTA chest did not show evidence of pulmonary embolism, and show predominant reticular densities and small cystic changes characteristic of chronic interstitial lung disease with patchy groundgl ass opacities superimposed, with the consideration of infectious/inflammatory etiology or pulmonary edema, echocardiogram shows preserved LV function with EF of 55-60%, mild to moderate aortic valve sclerosis, mitral regurgitation, severe tricuspid regurgitation and severe pulmonary hypertension with right-sided pressure of 57.1 mmHg. Today's lab show acute elevation of white blood cell count and white blood cell count is up to 30.6, hemoglobin is 11.2, d-dimer is 0.65, Pro calcitonin level was negative at 0.10, and patient tested negative for influenza, coronavirus, and RSV. Currently she is sitting up in the bed, remains on high flow oxygen which can probably be weaned back down. She feels more short of breath on today's evaluation. On 02/22/2021, the patient remains on 15 L oxygen high flow with a pulse ox of 90%. Her oxygen requirements went up progressively yesterday. Based on that, repeat chest x-ray was done and showed new infiltration of the left upper lobe and some interval worsening in the right. She has underlying baseline pulmonary fibrosis. 2 that was concerned about the superinfection. There was a rise in her white cell count up to 30.6. That hemoglobin was 11.2. Cipro calcitonin level was at 0.1 and the lactic acid level was 1.2. D-dimer was at 0.65. As mentioned earlier, COVID-19 testing was negative. She was kept on IV Solu- Medrol and I will broaden her antibiotic coverage to include a combination of cefepime and Levaquin. She remains on IV Solu Medrol 60 mg every 6 hours features on DuoNeb nebulized treatments around the clock. Received a dose of Lasix 40 mg IV push 1 4:00 yesterday. On today's evaluation of her breathing remains labored. She did reduce good amount of urine output following Lasix administration. No chest pain. No fever. No chills. No other complaints otherwise for now. 2020, the patient is feeling slightly better and she is currently down to 13 L of oxygen by nasal cannula. We will provide much concerned about this situation yesterday. She was having more trouble breathing. She was investigated furth er. She was given a broader antibiotic coverage and she was given a combination of cefepime and Levaquin. The white cell count dropped down to 20 and a repeat chest x-ray was done that showed essentially stable pulmonary fibrosis with diffuse but the pulmonary infiltrates. Findings are essentially stable. The superinfection is hard to rule out at this point in time. Nevertheless, her white cell count has dropped. Pro calcitonin level was at 0.1. Legionella urine antigen was negative. COVID-19 testing was negative. Electrolytes were normal. She was given a dose of Lasix 40 mg IV push and she produced excellent urine output following that. She is currently in a negative fluid balance. She remains on bronchodilators. She remains on IV Solu Medrol 60 mg every 6 hours. No other changes in her medications for now. Objective - Vital Signs Vital signs: Vital Signs Temp 98.0 F 02/23/21 07:33 Pulse 82 02/23/21 07:34 Resp 20 02/23/21 07:33 BP 153/82 02/23/21 07:33 Pulse Ox 89 L 02/23/21 07:33 Intake & Output 02/22/21 02/23/21 02/23/21 18:59 06:59 18:59 Intake Total 550 Output Total 1000 Balance -1000 550 Intake: Intake, IV Titration 50 Amount Cefepime 1 gm In Sodium 50 Chloride 0.9% 50 ml @ 12. 5 mls/hr IVPB Q12HR [facility] Rx#:[id number] Oral 500 Output: Urine 1000 Other: Voiding Method Toilet - Exam Gen. appearance the patient is calm and comfortable and currently she is on 15 L of oxygen nasal cannula. Not using excessive muscle breathing. Head exam was generally normal. There was no scleral icterus or corneal arcus. Mucous membranes were moist. Neck was supple and without jugular venous distension, thyromegaly, or carotid bruits. Carotids were easily palpable bilaterally. There was no adenopathy. Lungs sounds are diminished and the patient has coarse crackles in lung bases bilaterally. Cardiac exam revealed the PMI to be normally situated and sized. The rhythm was regular and no extrasystoles were noted during several minutes of auscultation. The first and second heart sounds were normal and physiologic splitting of the second heart sound was noted. There were systolic ejection murmur at the rate to over 6 murmurs, rubs, clicks, or gallops. Abdominal exam revealed normal bowel sounds. The abdomen was soft, non-tender, and without masses, organomegaly, or appreciable enlargement of the abdominal aorta. Examination of the extremities revealed easily palpable radial, femoral and pedal pulses. There was no cyanosis, clubbing or edema. Examination of the skin revealed no evidence of significant rashes, suspicious appearing nevi or other concerning lesions. Neurologically, the patient is awake and alert and the patient does not have any focal neurological deficit. Cranial nerves are essentially intact. - Labs CBC & Chem 7: 02/23/21 05:48 02/23/21 05:48 Labs: Abnormal Lab Results - Last 24 Hours (Table) 02/22/21 02/22/21 02/23/21 Range/Units 06:25 06:25 05:48 WBC 26.40 H 20.52 H (4.50-10.00) X 10*3/uL RBC 3.09 L 3.23 L (4.10-5.20) X 10*6/uL Hgb 11.1 L 11.6 L (12.0-15.0) g/dL Hct 34.2 L 35.5 L (37.2-46.3) % MCV 110.7 H 109.9 H (80.0-97.0) fL MCH 35.9 H 35.9 H (27.0-32.0) pg RDW 17.2 H 16.6 H (11.5-14.5) % MPV 12.7 H 12.4 H (9.5-12.2) fL Absolute Nucleated RBC 0.04 H 0.07 H (0.00-0.00) X 10*3/uL Immature Gran # 0.59 H 0.88 H (0.00-0.04) X 10*3/uL Neutrophils # 23.97 H 17.46 H (1.80-7.70) X 10*3/uL Lymphocytes # 0.81 L (0.90-5.00) X 10*3/uL Monocytes # 1.12 H (0.20-1.00) X 10*3/uL Eosinophils # 0 L 0 L (0.04-0.35) X 10*3/uL NRBC/100 WBC Diff 0.2 H 0.3 H (0.0-0.0) /100 WBCS Potassium (3.5-5.5) mmol/L Anion Gap (4.00-12.00) mmol/L BUN (9.0-27.0) mg/dL BUN/Creatinine Ratio 36.67 H (12.00-20.00) Ratio Glucose 118 H (70-110) mg/dL Calcium 8.4 L (8.7-10.3) mg/dL Total Bilirubin (0.2-1.2) mg/dL AST (13-35) U/L Total Protein (6.2-8.2) g/dL Albumin (3.80-4.90) g/dL 02/23/21 Range/Units 05:48 WBC (4.50-10.00) X 10*3/uL RBC (4.10-5.20) X 10*6/uL Hgb (12.0-15.0) g/dL Hct (37.2-46.3) % MCV (80.0-97.0) fL MCH (27.0-32.0) pg RDW (11.5-14.5) % MPV (9.5-12.2) fL Absolute Nucleated RBC (0.00-0.00) X 10*3/uL Immature Gran # (0.00-0.04) X 10*3/uL Neutrophils # (1.80-7.70) X 10*3/uL Lymphocytes # (0.90-5.00) X 10*3/uL Monocytes # (0.20-1.00) X 10*3/uL Eosinophils # (0.04-0.35) X 10*3/uL NRBC/100 WBC Diff (0.0-0.0) /100 WBCS Potassium 3.4 L (3.5-5.5) mmol/L Anion Gap 12.40 H (4.00-12.00) mmol/L BUN 29.0 H (9.0-27.0) mg/dL BUN/Creatinine Ratio 41.43 H (12.00-20.00) Ratio Glucose 131 H (70-110) mg/dL Calcium 8.6 L (8.7-10.3) mg/dL Total Bilirubin 1.6 H (0.2-1.2) mg/dL AST 37 H (13-35) U/L Total Protein 5.4 L (6.2-8.2) g/dL Albumin 3.50 L (3.80-4.90) g/dL Assessment and Plan Plan: 1 acute exacerbation of IPF likely. The possibility of a superinfection is felt to be less likely. Interstitial edema/CHF, is felt to be less likely. For calcitonin level has been low. The patient is oxygen requirements went up as high as 15 L per minute nasal cannula. Based on some increase in the white cell count, and based on the abnormalities seen on chest x-ray with worsening diffuse interstitial markings, I proceeded with broad antibiotic coverage. The patient is feeling slightly better on today's evaluation. She is currently down to 13 L by nasal cannula. Her white cell count is down to 20. Chest x-ray findings and essentially unchanged and stable. Superinfection is possible although doubtful in my opinion. We'll continue to follow. The COVID-19 by PCR was negative. Legionella urine antigen was negative. The pro calcitonin level is at 0.08 and infection is off at this stage. 2 IPF with mild to moderate restrictive lung disease and FVC of 69% of predicted based on a previous spirometry that was done in 2019. The patient has been maintained on Ofev over the past few years regarding her IPF. 3 shortness of breath secondary to above 4 acute hypoxic respiratory failure secondary to above contemplated about 2 by nasal cannula. COVID-19 is been essentially ruled out and the patient is fully vaccinated 5 history of breast cancer with a previous lumpectomy followed by radiation therapy back in 2014 and the patient is been disease-free 6 hypertension 7 hypothyroidism 8 hyperlipidemia 9 chronic acid reflux 10 chronic back pain Plan Continue Levaquin and cefepime Echocardiogram shows a preserved LV function Given another dose of Lasix 40 mg IV Repeat chest x-ray in the morning Continue IV Solu-Medrol Monitor oxygenation and titrate the flow to maintain a saturation above 90% We'll continue to follow.
[2021-02-23] MEDS: LEVOFLOXACIN 500 MG TAB PO SCH (17:39)
[2021-02-23] MEDS: MONTELUKAST 10 MG TAB PO SCH (20:18)
[2021-02-23] MEDS: lisinopriL 20 MG TAB PO SCH (20:18)
[2021-02-23] MEDS: amLODIPine 5 MG TAB PO SCH (20:19)
--- NOTE | 2021-02-24 00:29 | P.PN ---
Subjective Progress Note Date: 02/23/21 Principal diagnosis: right perihilar/basilar infiltrate with pneumonia. IPF Patient is a 80-year-old male with a known history of idiopathic pulmonary fibrosis currently Ofev treatment, hypertension, hyperlipidemia, hypothyroidism, history of breast cancer status post radiation, bilateral peripheral neuropathy, chronic back pain presents to ER with complaints of worsening shortness of breath and cough for the past 1 to 2 days. Denies any fever. But patient felt chills and cold and clammy at home. Denies any sputum production. No complaints of chest pain. Chest x-ray showed appears to be a component of underlying fibrosis. Patchy infiltrate right perihilar and right basilar lesion noted. Correlate for developing pneumonia. EKG showed normal sinus rhythm with sinus arrhythmia CT angiogram of the chest showed no definitive pulmonary embolism identified. Mild induced lytic changes of the aorta. No aortic aneurysm or dissection. Peripherally predominant reticular densities and small cystic changes concerning for chronic interstitial lung disease. Patchy groundglass opacities suggest superimposed component of infectious/inflammatory process or edema Nonspecific enlarged mediastinal and hilar lymph nodes. Laboratory data showed WBC 16.0 hemoglobin 12.5 and MCV 108.5 platelets 221 D-dimer 0.72 Sodium 137 potassium 4.0 chloride 102 BUN 15 creatinine 0.7 proBNP 134 and troponin x1 - Coronavirus PCR not detected. 02/20/2021 Patient is currently resting in the bed. Awake alert oriented 3. On oxygen with another cannula, requiring 4 L and saturating at 94%. Patient is on room air at home. Patient is being continued on antibiotics and IV steroids and breathing treatments. Pulmonary is following. Patient has been afebrile. No sputum production or cough. No nausea vomiting or abdominal pain or diarrhea. No dysuria or hematuria. 02/21/2021 Patient is currently resting in the bed. Awake alert and oriented 3. Patient says that she did cough up blood clot last night. also desaturating while she was walking to the bathroom. Patient was placed on 15 L high flow oxygen with bubbler. Patient Antivert and form of ceftriaxone and azithromycin. On IV steroids with a prednisone every 6 hourly. 2-D echocardiogram showed ejection fraction 55-60%, LAD is moderately dilated and moderate TR and moderate to severe pulmonary hypertension with RVSP 57.14 mmHg. Patient has been afebrile. Laboratory data showed WBC 30.6, hemoglobin 11.2 and platelets 237 D-dimer 0.65. Patient is more congested today. IV fluids on hold and patient was given a dose of IV Lasix. Pulmonary is on board. Antibiotics were changed to cefepime and Levaquin. 02/22/2021 Patient is on medical floor. Awake alert and oriented. Patient was very anxious and is requiring 15 L oxygen via nasal cannula. Continued on antibiotics in the form of cefepime and Levaquin. Continued on IV steroids. Patient was given a dose of Xanax. Anxiety. Chest x-ray showed new infiltrate of the left upper lobe and some interval worsening in the right. Suspected superimposed infection. Pro-calcitonin was 0.1 Patient was given an extra dose of IV Lasix 40 mg as once. Laboratory data showed WBC count 6.4, hemoglobin 11.1 and platelets 241, sodium 144 potassium 3.6 chloride 106 BUN 22 and creatinine 0.6 02/23/2021 Patient states that she is feeling better today. Anxiety is also much improved with Xanax. Currently on high flow oxygen 30 L via nasal cannula. Patient is less anxious while walking to the bathroom. Otherwise patient is being continued antibiotics in the form of cefepime and Levaquin. Patient was given a dose of IV Lasix today. Also on IV Solu-Medrol 60 mg every 6 hourly. Laboratory data showed WBC trending down to 20.52, hemoglobin 11.6 and platelets 245 sodium 143 potassium 3.4 BUN 29 creatinine 0.7 calcium 8.6 procalcitonin level was 0.08 Pulmonary is on board. Urine Legionella antigen is negative. Repeat COVID-19 PCR is also negative. Current medications reviewed. Objective - Vital Signs Vital signs: Vital Signs Temp 98.0 F 02/23/21 19:59 Pulse 84 02/23/21 20:37 Resp 19 02/23/21 19:59 BP 129/69 02/23/21 19:59 Pulse Ox 93 L 02/23/21 19:59 Intake & Output 02/23/21 02/23/21 02/24/21 06:59 18:59 06:59 Intake Total 550 300 Balance 550 300 Intake: Intake, IV Titration 50 Amount Cefepime 1 gm In Sodium 50 Chloride 0.9% 50 ml @ 12. 5 mls/hr IVPB Q12HR [facility] Rx#:[id number] Oral 500 300 Other: Voiding Method Toilet Toilet # Voids 5 # Bowel Movements 1 - Exam PHYSICAL EXAMINATION: Patient is lying in the bed comfortably, no acute distress, awake alert and oriented.. HEENT: Normocephalic. Neck is supple. Pupils reactive. Nostrils clear. Oral cavity is moist. Ears reveal no drainage. Neck reveals no JVD, carotid bruits, or thyromegaly. CHEST EXAMINATION: Trachea is central. Symmetrical expansion. bilateral diffuse crackles and scattered coarse sounds. No wheezing. Nonlabored breathing.. CARDIAC: Normal S1, S2 with no gallops. No murmurs ABDOMEN: Soft. Bowel sounds normal. No organomegaly. No abdominal bruits. Extremities: reveal no edema. No clubbing or cyanosis Neurologically awake, alert, oriented x3 with well-coordinated movements. No focal deficits noted Skin: No rash or skin lesions. Psychiatric: Coperative. Nonsuicidal Musculoskeletal: No joint swelling or deformity. Normal range of motion. - Labs CBC & Chem 7: 02/23/21 05:48 02/23/21 05:48 Labs: Abnormal Lab Results - Last 24 Hours (Table) 02/23/21 02/23/21 Range/Units 05:48 05:48 WBC 20.52 H (4.50-10.00) X 10*3/uL RBC 3.23 L (4.10-5.20) X 10*6/uL Hgb 11.6 L (12.0-15.0) g/dL Hct 35.5 L (37.2-46.3) % MCV 109.9 H (80.0-97.0) fL MCH 35.9 H (27.0-32.0) pg RDW 16.6 H (11.5-14.5) % MPV 12.4 H (9.5-12.2) fL Absolute Nucleated RBC 0.07 H (0.00-0.00) X 10*3/uL Immature Gran # 0.88 H (0.00-0.04) X 10*3/uL Neutrophils # 17.46 H (1.80-7.70) X 10*3/uL Monocytes # 1.12 H (0.20-1.00) X 10*3/uL Eosinophils # 0 L (0.04-0.35) X 10*3/uL NRBC/100 WBC Diff 0.3 H (0.0-0.0) /100 WBCS Potassium 3.4 L (3.5-5.5) mmol/L Anion Gap 12.40 H (4.00-12.00) mmol/L BUN 29.0 H (9.0-27.0) mg/dL BUN/Creatinine Ratio 41.43 H (12.00-20.00) Ratio Glucose 131 H (70-110) mg/dL Calcium 8.6 L (8.7-10.3) mg/dL Total Bilirubin 1.6 H (0.2-1.2) mg/dL AST 37 H (13-35) U/L Total Protein 5.4 L (6.2-8.2) g/dL Albumin 3.50 L (3.80-4.90) g/dL Assessment and Plan Assessment: Worsening shortness of breath due to right perihilar/basilar infiltrate with pneumonia. Acute exacerbation of Idiopathic pulmonary fibrosis. Continue with IV steroids.on treatment with Ofev Acute hypoxic respiratory failure secondary to above. Currently requiring 13 L oxygen via nasal cannula. Lactic acidosis . Improved Hypertension Hypothyroidism Hyperlipidemia GERD History of breast cancer status post radiation treatments Running back pain Anxiety DVT prophylaxis with heparin subcu Plan: Patient will be continued on cough syrupl and with Sudafed. Antibiotics were changed to cefepime and Levaquin.. Continue with IV steroids methylprednisolone 60 mg every 6 hourly and oxygen supplementation as needed. Continue with her home medications and pulmonary is on board. IV fluids on hold and patient was given a dose of Lasix. Repeat COVID-19 testings by PCR Legionella urine antigen was ordered. Continue with duo nebs and Symbicort and follow-up closely. Prognosis is guarded at this time. Time with Patient: Greater than 30
[2021-02-24] MEDS: IPRATROPIUM-ALBUTEROL 3 ML NEB INHALATION SCH ×6 (02:00→19:54)
[2021-02-24] MEDS: methylPREDNISolone SOD SUCCI 125 MG/2 ML VIAL IV SCH ×4 (05:59→23:34)
[2021-02-24] MEDS: LEVOTHYROXINE 50 MCG TAB PO SCH (05:59)
[2021-02-24] MEDS: SYMBICORT 160-4.5 MCG INHALER INHALATION SCH ×2 (07:38→19:54)
[2021-02-24] MEDS: PANTOPRAZOLE 40 MG TABLET PO SCH (08:10)
[2021-02-24] MEDS: ASPIRIN 81 MG PO SCH (08:10)
[2021-02-24] MEDS: GABAPENTIN 400 MG CAP PO SCH ×3 (08:10→19:45)
[2021-02-24] MEDS: ASCORBIC ACID 500 MG TAB PO SCH (08:10)
[2021-02-24] MEDS: HEPARIN SODIUM,PORCINE/PF 5,000 UNIT/0.5 ML SYRINGE SQ SCH ×3 (08:10→23:34)
[2021-02-24] MEDS: MULTIVITAMINS, THERA 1 EACH TAB PO SCH (08:11)
[2021-02-24] MEDS: CYANOCOBALAMIN 500 MCG TAB PO SCH (08:11)
[2021-02-24] MEDS: PRAVASTATIN SODIUM 20 MG TAB PO SCH (08:11)
[2021-02-24] MEDS: hydroCHLOROthiazide 25 MG TAB PO SCH (08:12)
[2021-02-24] MEDS: CEFEPIME 1 GM in SODIUM CHLORIDE 0.9% 50 ML IVPB SCH ×2 (08:13→19:44)
[2021-02-24] MEDS: NINTEDANIB ESYLATE 100 MG PO SCH ×2 (08:14→19:45)
[2021-02-24] MEDS: guaiFENesin-DM 600/30MG 1 EACH TAB.ER.12H PO SCH ×2 (08:16→19:47)
[2021-02-24 09:08] LABS: HCT 34.5 % (37.2-46.3); HGB 11.1 g/dL (12.0-15.0); MCH 35.5 pg (27.0-32.0); MCHC 32.2 g/dL (32.0-37.0); MCV 110.2 fL (80.0-97.0); Mean Platelet Volume 12.7 fL (9.5-12.2); Platelet Count 230 X 10*3/uL (140-440); RBC 3.13 X 10*6/uL (4.10-5.20); RDW 16.6 % (11.5-14.5); WBC 15.06 X 10*3/uL (4.50-10.00)
[2021-02-24 09:23] LABS: African American GFR (CKD) 96.2 (60.0-200.0); Anion Gap 8.7 mmol/L (4.00-12.00); BUN/Creat Ratio 45.71 Ratio (12.00-20.00); Calcium 8.4 mg/dL (8.7-10.3); Carbon Dioxide 33.3 mmol/L (21.6-31.8); Potassium 3.5 mmol/L (3.5-5.5)
[2021-02-24 10:19] LABS: Basophils # (M) 0 X 10*3/uL (0.00-0.10); Eosinophils # (M) 0 X 10*3/uL (0.04-0.35); Macrocytosis (M) 2+; Metamyelocytes % 2 % (0-0); Monocytes # (M) 0.75 X 10*3/uL (0.20-1.00); Myelocytes % 2 % (0-0); Neutrophils % (M) 89 %
[2021-02-24] MEDS: LEVOFLOXACIN 500 MG TAB PO SCH (16:21)
--- NOTE | 2021-02-24 18:39 | P.PN ---
Subjective Progress Note Date: 02/24/21 Principal diagnosis: Acute exacerbation of IPF and acute hypoxic respiratory failure secondary to IPF exacerbation. 80-year-old female patient with known history of IPF currently on Ofev ridges no treatment for the past 23 years. Last PFT from 2018 showed an FVC of 69% of predicted, lung capacity of 71% of predicted, diffusion capacity of 39% of predicted. According to her, she has not been on oxygen. She also has obstructive sleep apnea. She has AHI of 18 and the patient is currently on a CPAP pressure of 8 cm of water. She has hypertension, hyperlipidemia, hypothyro idism. The patient is presenting to the hospital because of worsening shortness of breath. There is subacute worsening in her dyspnea. She had some cough. Most of his sputum production. No fever. No chills. No exposures COVID-19. Her COVID-19 testing by PCR came back negative. D-dimer is at 0.7. Lactic acid level was at 2.5 dropped down to 1.2. White cell count was 9.4 with a hemoglobin of 11 and a platelet count of 224. Electrolytes are all within normal limits. Chest x-ray was consistent with pulmonary fibrosis. CT angiogram showed no evidence of any pulmonary embolism. Nonspecific enlarged mediastinal and hilar lymph nodes. Interstitial fibrosis involving the peripheries in the lung bases along with patchy areas of groundglass pulmonary infiltrates suspicious for any superimposed infection/edema. She has a cardiac murmur. No previous history of cardio myopathy. No history of any coronary artery disease and no history of any cardiac arrhythmias. The patient has been fully vaccinated for COVID-19 which completed the vaccination in November 2020. On 02/21/2021 patient seen in follow-up on medical surgical floor, last night she was up to the bathroom, and desaturated quite low, she was placed on 15 L high flow and currently her pulse ox is 96%, she states that she had an episode of cough, which was mostly dry, but subsequently she started coughing up some sm all amount of phlegm with some blood-tinged material. No massive hemoptysis, no complaints of chest pain, no fever overnight, vital signs have been stable she continues on Solu-Medrol at 60 mg every 6 hours, she continues on IV azithromycin and Rocephin. The signs otherwise have been stable other than requiring more oxygen on today's exam, her CTA chest did not show evidence of pulmonary embolism, and show predominant reticular densities and small cystic changes characteristic of chronic interstitial lung disease with patchy groundglass opacities superimposed, with the consideration of infec tious/inflammatory etiology or pulmonary edema, echocardiogram shows preserved LV function with EF of 55-60%, mild to moderate aortic valve sclerosis, mitral regurgitation, severe tricuspid regurgitation and severe pulmonary hypertension with right-sided pressure of 57.1 mmHg. Today's lab show acute elevation of white blood cell count and white blood cell count is up to 30.6, hemoglobin is 11.2, d-dimer is 0.65, Pro calcitonin level was negative at 0.10, and patient tested negative for influenza, coronavirus, and RSV. Currently she is sitting up in the bed, remains on high flow oxygen which can probably be weaned back down. She feels more short of breath on today's evaluation. On 02/22/2021, the patient remains on 15 L oxygen high flow with a pulse ox of 90%. Her oxygen requirements went up progressively yesterday. Based on that, repeat chest x-ray was done and showed new infiltration of the left upper lobe and some interval worsening in the right. She has underlying baseline pulmonary fibrosis. 2 that was concerned about the superinfection. There was a rise in her white cell count up to 30.6. That hemoglobin was 11.2. Cipro calcitonin level was at 0.1 and the lactic acid level was 1.2. D-dimer was at 0.65. As mentioned earlier, COVID-19 testing was negative. She was kept on IV Solu- Medrol and I will broaden her antibiotic coverage to include a combination of cefepime and Levaquin. She remains on IV Solu Medrol 60 mg every 6 hours features on DuoNeb nebulized treatments around the clock. Received a dose of Lasix 40 mg IV push 1 4:00 yesterday. On today's evaluation of her breathing remains labored. She did reduce good amount of urine output following Lasix administration. No chest pain. No fever. No chills. No other complaints otherwise for now. 2020, the patient is feeling slightly better and she is currently down to 13 L of oxygen by nasal cannula. We will provide much concerned about this situation yesterday. She was having more trouble breathing. She was investigated further. She was given a broader antibiotic coverage and she was given a combination of cefepime and Levaquin. The white cell count dropped down to 20 and a repeat chest x-ray was done that showed essentially stable pulmonary fibrosis with diffuse but the pulmonary infiltrates. Findings are essentially stable. The superinfection is hard to rule out at this point in time. Nevertheless, her white cell count has dropped. Pro calcitonin level was at 0.1. Legionella urine antigen was negative. COVID-19 testing was negative. Electrolytes were normal. She was given a dose of Lasix 40 mg IV push and she produced excellent urine output following that. She is currently in a negative fluid balance. She remains on bronchodilators. She remains on IV Solu Medrol 60 mg every 6 hours. No other changes in her medications for now. Patient was reevaluated today on 02/24/2021, remains on high flow oxygen, she is presently anywhere between 9-10 L, O2 sats saturation is in the low 90s. Overall however the patient is feeling better, breathing easier, remains empirically on antibiotics, remains empirically on steroids. Patient had pulmonary fibrosis for the last 3 years, based on her chest x-ray, this is consistent with IPF. Pro calcitonin was noted to be low, Legionella antigen was negative, COVID-19 testing was negative. Hence my recommendation is to continue bronchodilators, antibiotics, and steroids until we are able to cut down her oxygen level requirement to 5 L or less, and then she could be discharged home. Labs and chest x-ray were all reviewed. Objective - Vital Signs Vital signs: Vital Signs Temp 97.8 F 02/24/21 14:00 Pulse 79 02/24/21 16:20 Resp 18 02/24/21 14:00 BP 135/76 02/24/21 14:00 Pulse Ox 91 L 02/24/21 16:09 Intake & Output 02/23/21 02/24/21 02/24/21 18:59 06:59 18:59 Intake Total 800 200 Balance 800 200 Intake: Oral 800 200 Other: Voiding Method Toilet Toilet # Voids 5 2 2 # Bowel Movements 1 - Exam Physical Exam: Revealed a 80-year-old female on high flow oxygen, in no distress, very pleasant. is at bedside. Head: Atraumatic, normocephalic HEENT:[Neck is supple.] [No neck masses.] [No thyromegaly.] [No JVD.] Chest: [Symmetrical chest expansion, Velcro crackles and rales noted at the bases bilaterally. Cardiac Exam: [Normal S1 and S2, no S3 gallop, no murmur.] Abdomen: [Soft, nontender, no megaly, no rebound, no guarding, normal bowel sounds.] Extremities: [No clubbing, no edema, no cyanosis.] Neurological Exam: [No focal neurologic deficit.] Alert and oriented 3. Psychiatric: Normal mood affect and normal mental status examination. Musculoskeletal: No limitation in range of motion no deformities - Labs CBC & Chem 7: 02/24/21 05:36 02/24/21 05:36 Labs: Abnormal Lab Results - Last 24 Hours (Table) 02/24/21 02/24/21 Range/Units 05:36 05:36 WBC 15.06 H (4.50-10.00) X 10*3/uL RBC 3.13 L (4.10-5.20) X 10*6/uL Hgb 11.1 L (12.0-15.0) g/dL Hct 34.5 L (37.2-46.3) % MCV 110.2 H (80.0-97.0) fL MCH 35.5 H (27.0-32.0) pg RDW 16.6 H (11.5-14.5) % MPV 12.7 H (9.5-12.2) fL Absolute Nucleated RBC 0.05 H (0.00-0.00) X 10*3/uL Metamyelocytes % 2 H (0-0) % Myelocytes % 2 H (0-0) % Neutrophils # (Manual) 13.40 H (2.00-8.90) X 10*3/uL Lymphocytes # (Manual) 0.30 L (0.90-5.00) X 10*3/uL Eosinophils # (Manual) 0 L (0.04-0.35) X 10*3/uL NRBC/100 WBC Diff 0.3 H (0.0-0.0) /100 WBCS Carbon Dioxide 33.3 H (21.6-31.8) mmol/L BUN 32.0 H (9.0-27.0) mg/dL BUN/Creatinine Ratio 45.71 H (12.00-20.00) Ratio Glucose 128 H (70-110) mg/dL Calcium 8.4 L (8.7-10.3) mg/dL Assessment and Plan Assessment: Impression: Acute hypoxic respiratory failure secondary to acute exacerbation of idiopathic pulmonary fibrosis. Underlying infection is not entirely ruled out but felt to be less likely Moderate restrictive lung disease, secondary to IPF. Shortness of breath secondary to above. History of breast cancer and previous lumpectomy followed by radiation in 2015. Hypothyroidism. Hypertension. Dyslipidemia. GERD without esophagitis. Chronic back pain. Recommendation: Continue present course of treatment including antibiotics, steroids, Gentle diuresis although this is a picture of IPF not picture of congestive heart failure. Continue IV Solu-Medrol. Continue to titrate oxygen as tolerated and maintain O2 session of 90%. We'll continue to follow. Prognosis in the long run is definitely poor and guarded. I had a long discussion with the patient and her as what to expect in the jail and prognosis of IPF patients. Time with Patient: Less than 30
[2021-02-24] MEDS: MONTELUKAST 10 MG TAB PO SCH (19:46)
[2021-02-24] MEDS: amLODIPine 5 MG TAB PO SCH (19:46)
[2021-02-24] MEDS: lisinopriL 20 MG TAB PO SCH (19:46)
[2021-02-24 19:49] LABS: Glucose,Whole Blood 146 mg/dL (75-99)
[2021-02-25] MEDS: IPRATROPIUM-ALBUTEROL 3 ML NEB INHALATION SCH ×6 (01:41→19:44)
[2021-02-25] MEDS: LEVOTHYROXINE 50 MCG TAB PO SCH (05:43)
[2021-02-25] MEDS: methylPREDNISolone SOD SUCCI 125 MG/2 ML VIAL IV SCH ×4 (05:44→23:22)
[2021-02-25] MEDS: SYMBICORT 160-4.5 MCG INHALER INHALATION SCH ×2 (07:30→19:44)
[2021-02-25] MEDS: ALPRAZolam 0.25 MG TAB PO PRN (08:35)
[2021-02-25] MEDS: NINTEDANIB ESYLATE 100 MG PO SCH ×2 (08:35→20:18)
[2021-02-25] MEDS: guaiFENesin-DM 600/30MG 1 EACH TAB.ER.12H PO SCH ×2 (08:36→20:18)
[2021-02-25] MEDS: hydroCHLOROthiazide 25 MG TAB PO SCH (08:36)
[2021-02-25] MEDS: HEPARIN SODIUM,PORCINE/PF 5,000 UNIT/0.5 ML SYRINGE SQ SCH ×3 (08:36→23:22)
[2021-02-25] MEDS: ASPIRIN 81 MG PO SCH (08:36)
[2021-02-25] MEDS: PANTOPRAZOLE 40 MG TABLET PO SCH (08:36)
[2021-02-25] MEDS: MULTIVITAMINS, THERA 1 EACH TAB PO SCH (08:36)
[2021-02-25] MEDS: CYANOCOBALAMIN 500 MCG TAB PO SCH (08:36)
[2021-02-25] MEDS: GABAPENTIN 400 MG CAP PO SCH ×3 (08:36→20:17)
[2021-02-25] MEDS: ASCORBIC ACID 500 MG TAB PO SCH (08:36)
[2021-02-25] MEDS: PRAVASTATIN SODIUM 20 MG TAB PO SCH (08:36)
[2021-02-25] MEDS: CEFEPIME 1 GM in SODIUM CHLORIDE 0.9% 50 ML IVPB SCH ×2 (12:44→20:17)
[2021-02-25 13:36] VITALS: BMI 32.0
[2021-02-25] MEDS: NYSTATIN 100,000 UNIT/ML SUSP 500,000 UNIT/5 ML CUP PO SCH ×2 (14:54→20:18)
[2021-02-25] MEDS: LEVOFLOXACIN 500 MG TAB PO SCH (15:17)
--- NOTE | 2021-02-25 15:57 | P.PN ---
Subjective Progress Note Date: 02/25/21 Principal diagnosis: Acute exacerbation of IPF and acute hypoxic respiratory failure secondary to IPF exacerbation. 80-year-old female patient with known history of IPF currently on Ofev ridges no treatment for the past 23 years. Last PFT from 2019 showed an FVC of 69% of predicted, lung capacity of 71% of predicted, diffusion capacity of 39% of predicted. According to her, she has not been on oxygen. She also has obstructive sleep apnea. She has AHI of 18 and the patient is currently on a CPAP pressure of 8 cm of water. She has hypertension, hyperlipidemia, hypothyro idism. The patient is presenting to the hospital because of worsening shortness of breath. There is subacute worsening in her dyspnea. She had some cough. Most of his sputum production. No fever. No chills. No exposures COVID-19. Her COVID-19 testing by PCR came back negative. D-dimer is at 0.7. Lactic acid level was at 2.5 dropped down to 1.2. White cell count was 9.4 with a hemoglobin of 11 and a platelet count of 224. Electrolytes are all within normal limits. Chest x-ray was consistent with pulmonary fibrosis. CT angiogram showed no evidence of any pulmonary embolism. Nonspecific enlarged mediastinal and hilar lymph nodes. Interstitial fibrosis involving the peripheries in the lung bases along with patchy areas of groundglass pulmonary infiltrates suspicious for any superimposed infection/edema. She has a cardiac murmur. No previous history of cardio myopathy. No history of any coronary artery disease and no history of any cardiac arrhythmias. The patient has been fully vaccinated for COVID-19 which completed the vaccination in November 2020. On 02/21/2021 patient seen in follow-up on medical surgical floor, last night she was up to the bathroom, and desaturated quite low, she was placed on 15 L high flow and currently her pulse ox is 96%, she states that she had an episode of cough, which was mostly dry, but subsequently she started coughing up some sm all amount of phlegm with some blood-tinged material. No massive hemoptysis, no complaints of chest pain, no fever overnight, vital signs have been stable she continues on Solu-Medrol at 60 mg every 6 hours, she continues on IV azithromycin and Rocephin. The signs otherwise have been stable other than requiring more oxygen on today's exam, her CTA chest did not show evidence of pulmonary embolism, and show predominant reticular densities and small cystic changes characteristic of chronic interstitial lung disease with patchy groundglass opacities superimposed, with the consideration of infec tious/inflammatory etiology or pulmonary edema, echocardiogram shows preserved LV function with EF of 55-60%, mild to moderate aortic valve sclerosis, mitral regurgitation, severe tricuspid regurgitation and severe pulmonary hypertension with right-sided pressure of 57.1 mmHg. Today's lab show acute elevation of white blood cell count and white blood cell count is up to 30.6, hemoglobin is 11.2, d-dimer is 0.65, Pro calcitonin level was negative at 0.10, and patient tested negative for influenza, coronavirus, and RSV. Currently she is sitting up in the bed, remains on high flow oxygen which can probably be weaned back down. She feels more short of breath on today's evaluation. On 02/22/2021, the patient remains on 15 L oxygen high flow with a pulse ox of 90%. Her oxygen requirements went up progressively yesterday. Based on that, repeat chest x-ray was done and showed new infiltration of the left upper lobe and some interval worsening in the right. She has underlying baseline pulmonary fibrosis. 2 that was concerned about the superinfection. There was a rise in her white cell count up to 30.6. That hemoglobin was 11.2. Cipro calcitonin level was at 0.1 and the lactic acid level was 1.2. D-dimer was at 0.65. As mentioned earlier, COVID-19 testing was negative. She was kept on IV Solu- Medrol and I will broaden her antibiotic coverage to include a combination of cefepime and Levaquin. She remains on IV Solu Medrol 60 mg every 6 hours features on DuoNeb nebulized treatments around the clock. Received a dose of Lasix 40 mg IV push 1 4:00 yesterday. On today's evaluation of her breathing remains labored. She did reduce good amount of urine output following Lasix administration. No chest pain. No fever. No chills. No other complaints otherwise for now. 2020, the patient is feeling slightly better and she is currently down to 13 L of oxygen by nasal cannula. We will provide much concerned about this situation yesterday. She was having more trouble breathing. She was investigated further. She was given a broader antibiotic coverage and she was given a combination of cefepime and Levaquin. The white cell count dropped down to 20 and a repeat chest x-ray was done that showed essentially stable pulmonary fibrosis with diffuse but the pulmonary infiltrates. Findings are essentially stable. The superinfection is hard to rule out at this point in time. Nevertheless, her white cell count has dropped. Pro calcitonin level was at 0.1. Legionella urine antigen was negative. COVID-19 testing was negative. Electrolytes were normal. She was given a dose of Lasix 40 mg IV push and she produced excellent urine output following that. She is currently in a negative fluid balance. She remains on bronchodilators. She remains on IV Solu Medrol 60 mg every 6 hours. No other changes in her medications for now. Patient was reevaluated today on 02/24/2021, remains on high flow oxygen, she is presently anywhere between 9-10 L, O2 sats saturation is in the low 90s. Overall however the patient is feeling better, breathing easier, remains empirically on antibiotics, remains empirically on steroids. Patient had pulmonary fibrosis for the last 3 years, based on her chest x-ray, this is consistent with IPF. Pro calcitonin was noted to be low, Legionella antigen was negative, COVID-19 testing was negative. Hence my recommendation is to continue bronchodilators, antibiotics, and steroids until we are able to cut down her oxygen level requirement to 5 L or less, and then she could be discharged home. Labs and chest x-ray were all reviewed. Patient was reevaluated today on 02/25/2021, remains on high flow oxygen, she is now on 7 L/m, feeling a bit better, breathing easier, O2 saturation is in the low 90s intermittent cough, no shortness of breath, but dyspnea with any exertion. Her WBC count is improving, down to 15.06. Patient remains on antibiotics and steroids. Objective - Vital Signs Vital signs: Vital Signs Temp 97.8 F 02/25/21 14:00 Pulse 72 02/25/21 15:43 Resp 16 02/25/21 14:00 BP 102/73 02/25/21 14:00 Pulse Ox 94 L 02/25/21 14:00 Intake & Output 02/24/21 02/25/21 02/25/21 18:59 06:59 18:59 Intake Total 200 550 Balance 200 550 Weight 79.379 kg Intake: Intake, IV Titration 50 Amount Cefepime 1 gm In Sodium 50 Chloride 0.9% 50 ml @ 12. 5 mls/hr IVPB Q12HR [facility] Rx#:[id number] Oral 200 500 Other: Voiding Method Toilet Toilet # Voids 2 3 - Exam Physical Exam: Revealed a 80-year-old female on high flow oxygen, in no distress Head: Atraumatic, normocephalic HEENT:[Neck is supple.] [No neck masses.] [No thyromegaly.] [No JVD.] Chest: [Symmetrical chest expansion, Velcro crackles and rales noted at the bases bilaterally. Cardiac Exam: [Normal S1 and S2, no S3 gallop, no murmur.] Abdomen: [Soft, nontender, no megaly, no rebound, no guarding, normal bowel sounds.] Extremities: [No clubbing, no edema, no cyanosis.] Neurological Exam: [No focal neurologic deficit.] Alert and oriented 3. Psychiatric: Normal mood affect and normal mental status examination. Musculoskeletal: No limitation in range of motion no deformities - Labs CBC & Chem 7: 02/24/21 05:36 02/24/21 05:36 Labs: Abnormal Lab Results - Last 24 Hours (Table) 02/24/21 Range/Units 19:47 POC Glucose (mg/dL) 146 H (75-99) mg/dL Assessment and Plan Assessment: Impression: Acute hypoxic respiratory failure secondary to acute exacerbation of idiopathic pulmonary fibrosis. Underlying infection is not entirely ruled out but felt to be less likely Moderate restrictive lung disease, secondary to IPF. Shortness of breath secondary to above. History of breast cancer and previous lumpectomy followed by radiation in 2015. Hypothyroidism. Hypertension. Dyslipidemia. GERD without esophagitis. Chronic back pain. Recommendation: Will order a d-dimer, and if elevated may consider a CT angiogram of the chest on this patient. Continue present course of treatment including antibiotics, steroids, Continue IV Solu-Medrol. Continue to titrate oxygen as tolerated and maintain O2 session of 90%. Prognosis in the long run is definitely poor and guarded. We'll continue to follow Time with Patient: Less than 30
[2021-02-25] MEDS: lisinopriL 20 MG TAB PO SCH (20:17)
[2021-02-25] MEDS: amLODIPine 5 MG TAB PO SCH (20:17)
[2021-02-25] MEDS: MONTELUKAST 10 MG TAB PO SCH (20:17)
--- NOTE | 2021-02-26 00:33 | P.PN ---
Subjective Progress Note Date: 02/25/21 Principal diagnosis: right perihilar/basilar infiltrate with pneumonia. IPF Patient is a 80-year-old male with a known history of idiopathic pulmonary fibrosis currently Ofev treatment, hypertension, hyperlipidemia, hypothyroidism, history of breast cancer status post radiation, bilateral peripheral neuropathy, chronic back pain presents to ER with complaints of worsening shortness of breath and cough for the past 1 to 2 days. Denies any fever. But patient felt chills and cold and clammy at home. Denies any sputum production. No complaints of chest pain. Chest x-ray showed appears to be a component of underlying fibrosis. Patchy infiltrate right perihilar and right basilar lesion noted. Correlate for developing pneumonia. EKG showed normal sinus rhythm with sinus arrhythmia CT angiogram of the chest showed no definitive pulmonary embolism identified. Mild induced lytic changes of the aorta. No aortic aneurysm or dissection. Peripherally predominant reticular densities and small cystic changes concerning for chronic interstitial lung disease. Patchy groundglass opacities suggest superimposed component of infectious/inflammatory process or edema Nonspecific enlarged mediastinal and hilar lymph nodes. Laboratory data showed WBC 16.0 hemoglobin 12.5 and MCV 108.5 platelets 221 D-dimer 0.72 Sodium 137 potassium 4.0 chloride 102 BUN 15 creatinine 0.7 proBNP 134 and troponin x1 - Coronavirus PCR not detected. 02/20/2021 Patient is currently resting in the bed. Awake alert oriented 3. On oxygen with another cannula, requiring 4 L and saturating at 94%. Patient is on room air at home. Patient is being continued on antibiotics and IV steroids and breathing treatments. Pulmonary is following. Patient has been afebrile. No sputum production or cough. No nausea vomiting or abdominal pain or diarrhea. No dysuria or hematuria. 02/21/2021 Patient is currently resting in the bed. Awake alert and oriented 3. Patient says that she did cough up blood clot last night. also desaturating while she was walking to the bathroom. Patient was placed on 15 L high flow oxygen with bubbler. Patient Antivert and form of ceftriaxone and azithromycin. On IV steroids with a prednisone every 6 hourly. 2-D echocardiogram showed ejection fraction 55-60%, LAD is moderately dilated and moderate TR and moderate to severe pulmonary hypertension with RVSP 57.14 mmHg. Patient has been afebrile. Laboratory data showed WBC 30.6, hemoglobin 11.2 and platelets 237 D-dimer 0.65. Patient is more congested today. IV fluids on hold and patient was given a dose of IV Lasix. Pulmonary is on board. Antibiotics were changed to cefepime and Levaquin. 02/24/2021 Patient is currently resting in the bed comfortably. Breathing status is improving. Currently on 8 L oxygen via nasal cannula. Patient states that she is feeling much better. Continued on IV steroids and antibiotics in the form of cefepime and Levaquin. Laboratory data showed WBC trending down to 15.06, hemoglobin 11.1 and platelets 230 Sodium 143 potassium 3.5 BUN 32 and creatinine 0.7 Urine Legionella antigen is negative. Pulmonary is on board. 02/25/2021 Patient is currently resting in the bed comfortably. Awake alert oriented x3. Oxygen requirement is trending down to 7 L via nasal cannula now. No complaints of chest pain or shortness of breath. Patient states that she is feeling better. Continue to titrate down oxygen. Continue IV steroids and antibiotics the form of Levaquin and cefepime. No fever no chills. No nausea vomiting abdominal pain or diarrhea. Anxiety is improved with Xanax. Current medications reviewed. Objective - Vital Signs Vital signs: Vital Signs Temp 97.7 F 02/25/21 19:25 Pulse 74 02/25/21 20:00 Resp 18 02/25/21 19:25 BP 113/66 02/25/21 19:25 Pulse Ox 96 02/25/21 19:25 Intake & Output 02/25/21 02/25/21 02/26/21 06:59 18:59 06:59 Intake Total 550 Balance 550 Weight 79.379 kg Intake: Intake, IV Titration 50 Amount Cefepime 1 gm In Sodium 50 Chloride 0.9% 50 ml @ 12. 5 mls/hr IVPB Q12HR [facility] Rx#:[id number] Oral 500 Other: Voiding Method Toilet # Voids 3 2 - Exam PHYSICAL EXAMINATION: Patient is lying in the bed comfortably, no acute distress, awake alert and oriented.. HEENT: Normocephalic. Neck is supple. Pupils reactive. Nostrils clear. Oral cavity is moist. Ears reveal no drainage. Neck reveals no JVD, carotid bruits, or thyromegaly. CHEST EXAMINATION: Trachea is central. Symmetrical expansion. bilateral diffuse crackles and scattered coarse sounds. No wheezing. Nonlabored breathing.. CARDIAC: Normal S1, S2 with no gallops. No murmurs ABDOMEN: Soft. Bowel sounds normal. No organomegaly. No abdominal bruits. Extremities: reveal no edema. No clubbing or cyanosis Neurologically awake, alert, oriented x3 with well-coordinated movements. No focal deficits noted Skin: No rash or skin lesions. Psychiatric: Coperative. Nonsuicidal Musculoskeletal: No joint swelling or deformity. Normal range of motion. - Labs CBC & Chem 7: 02/24/21 05:36 02/24/21 05:36 Labs: Abnormal Lab Results - Last 24 Hours (Table) 02/25/21 Range/Units 16:03 D-Dimer 0.61 H (<0.60) mg/L FEU Assessment and Plan Assessment: Worsening shortness of breath due to right perihilar/basilar infiltrate with pneumonia. Acute exacerbation of Idiopathic pulmonary fibrosis. Continue with IV steroids .on treatment with Ofev Acute hypoxic respiratory failure secondary to above. Lactic acidosis . Improved Hypertension Hypothyroidism Hyperlipidemia GERD History of breast cancer status post radiation treatments Running back pain DVT prophylaxis with heparin subcu Plan: Patient will be continued on high proximal and with Sudafed. Antibiotics were changed to cefepime and Levaquin.. Continue with IV steroids methylprednisolone 60 mg every 6 hourly and oxygen supplementation as needed. Continue with her home medications and pulmonary is on board. IV fluids on hold and patient was given a dose of Lasix. Continue with duo nebs and Symbicort and follow-up closely. Prognosis is guarded at this time. Time with Patient: Greater than 30
[2021-02-26] MEDS: IPRATROPIUM-ALBUTEROL 3 ML NEB INHALATION SCH ×6 (01:20→19:33)
[2021-02-26] MEDS: methylPREDNISolone SOD SUCCI 125 MG/2 ML VIAL IV SCH ×4 (05:46→23:05)
[2021-02-26] MEDS: LEVOTHYROXINE 50 MCG TAB PO SCH (05:46)
[2021-02-26 07:12] LABS: Anisocytosis Slight; Basophils % (A) 0 %; Eosinophils % (A) 0 %; HCT 36.2 % (34.0-46.0); HGB 11.6 gm/dL (11.4-16.0); Lymphocytes # (A) 0.5 k/uL (1.0-4.8); Lymphocytes % (A) 3 %; MCH 35.4 pg (25.0-35.0); MCHC 32.1 g/dL (31.0-37.0); MCV 110.3 fL (80.0-100.0); Macrocytosis Marked; Mean Platelet Volume 10.7; Monocytes # (A) 0.7 k/uL (0-1.0); Monocytes % (A) 4 %; Neutrophils # (A) 16.9 k/uL (1.3-7.7); Neutrophils % (A) 93 %; Platelet Count 200 k/uL (150-450); RBC 3.28 m/uL (3.80-5.40); RDW 17.7 % (11.5-15.5); WBC 18.3 k/uL (3.8-10.6)
[2021-02-26 07:52] LABS: African American GFR (CKD) 88 (>60 ml/min/1.73 sqM); Anion Gap 5 mmol/L; Blood Urea Nitrogen 29 mg/dL (7-17); Calcium 8.4 mg/dL (8.4-10.2); Carbon Dioxide 33 mmol/L (22-30); Chloride 101 mmol/L (98-107); Glucose 172 mg/dL (74-99); Non-African American GFR(CKD) 77 (>60 ml/min/1.73 sqM); Potassium 3.9 mmol/L (3.5-5.1); Sodium 139 mmol/L (137-145)
[2021-02-26] MEDS: ASCORBIC ACID 500 MG TAB PO SCH (08:25)
[2021-02-26] MEDS: ASPIRIN 81 MG PO SCH (08:25)
[2021-02-26] MEDS: hydroCHLOROthiazide 25 MG TAB PO SCH (08:25)
[2021-02-26] MEDS: CYANOCOBALAMIN 500 MCG TAB PO SCH (08:25)
[2021-02-26] MEDS: MULTIVITAMINS, THERA 1 EACH TAB PO SCH (08:25)
[2021-02-26] MEDS: GABAPENTIN 400 MG CAP PO SCH ×3 (08:25→20:00)
[2021-02-26] MEDS: PRAVASTATIN SODIUM 20 MG TAB PO SCH (08:25)
[2021-02-26] MEDS: HEPARIN SODIUM,PORCINE/PF 5,000 UNIT/0.5 ML SYRINGE SQ SCH ×3 (08:26→23:05)
[2021-02-26] MEDS: PANTOPRAZOLE 40 MG TABLET PO SCH (08:26)
[2021-02-26] MEDS: NINTEDANIB ESYLATE 100 MG PO SCH ×2 (08:26→20:00)
[2021-02-26] MEDS: NYSTATIN 100,000 UNIT/ML SUSP 500,000 UNIT/5 ML CUP PO SCH ×4 (08:27→20:00)
[2021-02-26] MEDS: guaiFENesin-DM 600/30MG 1 EACH TAB.ER.12H PO SCH ×2 (08:27→20:00)
[2021-02-26] MEDS: CEFEPIME 1 GM in SODIUM CHLORIDE 0.9% 50 ML IVPB SCH ×2 (10:14→19:59)
[2021-02-26] MEDS: SYMBICORT 160-4.5 MCG INHALER INHALATION SCH ×2 (10:51→19:33)
--- NOTE | 2021-02-26 14:18 | P.PN ---
Subjective Progress Note Date: 02/26/21 Principal diagnosis: dyspnea, hypoxia 80-year-old female patient with known history of IPF currently on OfShoppilot ridges no treatment for the past 23 years. Last PFT from 2019 showed an FVC of 69% of predicted, lung capacity of 71% of predicted, diffusion capacity of 39% of predicted. According to her, she has not been on oxygen. She also has obstructive sleep apnea. She has AHI of 18 and the patient is currently on a CPAP pressure of 8 cm of water. She has hypertension, hyperlipidemia, hypothyroidism. The patient is presenting to the hospital because of worsening shortness of breath. There is subacute worsening in her dyspnea. She had some cough. Most of his sputum production. No fever. No chills. No exposures COVID-19. Her COVID-19 testing by PCR came back negative. D-dimer is at 0.7. Lactic acid level was at 2.5 dropped down to 1.2. White cell count was 9.4 with a hemoglobin of 11 and a platelet count of 224. Electrolytes are all within normal limits. Chest x-ray was consistent with pulmonary fibrosis. CT angiogram showed no evidence of any pulmonary embolism. Nonspecific enlarged mediastinal and hilar lymph nodes. Interstitial fibrosis involving the peripheries in the lung bases along with patchy areas of groundglass pulmonary infiltrates suspicious for any superimposed infection/edema. She has a cardiac murmur. No previous history of cardio myopathy. No history of any coronary artery disease and no history of any cardiac arrhythmias. The patient has been fully vaccinated for COVID-19 which completed the vaccination in November 2020. On 02/21/2021 patient seen in follow-up on medical surgical floor, last night she was up to the bathroom, and desaturated quite low, she was placed on 15 L high flow and currently her pulse ox is 96%, she states that she had an episode of cough, which was mostly dry, but subsequently she started coughing up some small amount of phlegm with some blood-tinged material. No massive hemoptysis, no complaints of chest pain, no fever overnight, vital signs have been stable she continues on Solu-Medrol at 60 mg every 6 hours, she continues on IV azithromycin and Rocephin. The signs otherwise have been stable other than requiring more oxygen on today's exam, her CTA chest did not show evidence of pulmonary embolism, and show predominant reticular densities and small cystic changes characteristic of chronic interstitial lung disease with patchy groundglass opacities superimposed, with the consideration of infectious/inflammatory etiology or pulmonary edema, echocardiogram shows preserved LV function with EF of 55-60%, mild to moderate aortic valve sclerosis, mitral regurgitation, severe tricuspid regurgitation and severe pulmonary hypertension with right-sided pressure of 57.1 mmHg. Today's lab show acute elevation of white blood cell count and white blood cell count is up to 30.6, hemoglobin is 11.2, d-dimer is 0.65, Pro calcitonin level was negative at 0.10, and patient tested negative for influenza, coronavirus, and RSV. Currently she is sitting up in the bed, remains on high flow oxygen which can probably be weaned back down. She feels more short of breath on today's e valuation. 02/26/2021 patient seen in follow-up on medical surgical floor, she is currently down to 6 L of oxygen her pulse ox is 92-94%, she states she is doing better, breathing easier, appears to be in no acute distress, her vital signs have been stable overnight, no fever or chills, denies chest discomfort, vital signs have been stable, hemoptysis. Remains on antibiotics and steroids, her labs today have been reviewed showing white blood cell count of 18.3, hemoglobin of 11.6, d-dimer of 0.61, sodium of 139, potassium is 3.9, chloride is 101, CO2 is 33, BUN of 29, creatinine 0.75. Patient remains on cefepime and Levaquin for empiric antibody coverage, she is on Solu-Medrol 60 mg every 6 hours. Objective - Vital Signs Vital signs: Vital Signs Temp 98.2 F 02/26/21 14:00 Pulse 83 02/26/21 14:00 Resp 18 02/26/21 14:00 BP 156/75 02/26/21 14:00 Pulse Ox 91 L 02/26/21 14:00 Intake & Output 02/25/21 02/26/21 02/26/21 18:59 06:59 18:59 Weight 79.379 kg Other: Voiding Method Toilet # Voids 2 3 - Exam GENERAL EXAM: Alert, a pleasant, 80-year-old white female, currently on 6 L of oxygen satting 92% patient is in no acute distress HEAD: Normocephalic/atraumatic. EYES: Normal reaction of pupils, equal size. Conjunctiva pink, sclera white. NOSE: Clear with pink turbinates. THROAT: No erythema or exudates. NECK: No masses, no JVD, no thyroid enlargement, no adenopathy. CHEST: No chest wall deformity. Symmetrical expansion. LUNGS: Equal air entry with coarse bibasilar crackles CVS: Regular rate and rhythm, normal S1 and S2, no gallops, no murmurs, no rubs ABDOMEN: Soft, nontender. No hepatosplenomegaly, normal bowel sounds, no guarding or rigidity. EXTREMITIES: No clubbing, no edema, no cyanosis, 2+ pulses and upper and lower extremities. MUSCULOSKELETAL: Muscle strength and tone normal. SPINE: No scoliosis or deformity SKIN: No rashes CENTRAL NERVOUS SYSTEM: Alert and oriented -3. No focal deficits, tone is normal in all 4 extremities. PSYCHIATRIC: Alert and oriented -3. Appropriate affect. Intact judgment and i nsight. - Labs CBC & Chem 7: 02/26/21 05:33 02/26/21 05:33 Labs: Abnormal Lab Results - Last 24 Hours (Table) 02/25/21 02/26/21 02/26/21 Range/Units 16:03 05:33 05:33 WBC 18.3 H (3.8-10.6) k/uL RBC 3.28 L (3.80-5.40) m/uL MCV 110.3 H (80.0-100.0) fL MCH 35.4 H (25.0-35.0) pg RDW 17.7 H (11.5-15.5) % Neutrophils # 16.9 H (1.3-7.7) k/uL Lymphocytes # 0.5 L (1.0-4.8) k/uL Macrocytosis Marked A D-Dimer 0.61 H (<0.60) mg/L FEU Carbon Dioxide 33 H (22-30) mmol/L BUN 29 H (7-17) mg/dL Glucose 172 H (74-99) mg/dL Assessment and Plan Plan: Assessment: 1 acute exacerbation of IPF likely. Consider other possibilities including superinfection/interstitial edema contiguity to her shortness of breath. The patient is subacute worsening in her chronic dyspnea. She is currently under investigation.Pro calcitonin level was low at 0.10 making possibility of infection less likely 2 IPF with mild to moderate restrictive lung disease and FVC of 69% of predicted based on a previous spirometry that was done in 2019. The patient has been maintained on Ofev over the past few years regarding her IPF. 3 shortness of breath secondary to above 4 acute hypoxic respiratory failure secondary to above contemplated about 2 by nasal cannula. COVID-19 is been essentially ruled out and the patient is fully vaccinated 5 history of breast cancer with a previous lumpectomy [facility] and the patient is been disease-free 6 hypertension 7 hypothyroidism 8 hyperlipidemia 9 chronic acid reflux 10 chronic back pain 11 severe pulmonary hypertension, with severe tricuspid regurgitation 12 Leucocytosis, rule out possibility of underlying pulmonary infection, ant ibiotics will be switched to cefepime and Levaquin plan: Continue weaning FiO2 to keep O2 sats ration is at 89% and above, patient is currently down to 5 L Continue antibiotics and steroids Today's labs have been noted Continue Mucinex Continue breathing treatments and inhalers Patient seems to be improving, if continues to be stable and continues to come down on FiO2 she may be considered for discharge home in the next 24-48 hours on home oxygen Follow-up chest x-ray in the morning, Follow-up Pro calcitonin I performed a history & physical examination of the patient and discussed their management with my nurse practitioner, Claudia Catherine. I reviewed the nurse practitioner's note and agree with the documented findings and plan of care. Lung sounds are positive for diminished breath sounds. The findings and the impression was discussed with the patient. I attest to the documentation by the nurse practitioner. Time with Patient: Less than 30
[2021-02-26] MEDS: LEVOFLOXACIN 500 MG TAB PO SCH (17:04)
[2021-02-26] MEDS: MONTELUKAST 10 MG TAB PO SCH (20:00)
[2021-02-26] MEDS: amLODIPine 5 MG TAB PO SCH (20:00)
[2021-02-26] MEDS: lisinopriL 20 MG TAB PO SCH (20:00)
[2021-02-27] MEDS: IPRATROPIUM-ALBUTEROL 3 ML NEB INHALATION SCH ×5 (01:36→16:21)
[2021-02-27] MEDS: ALPRAZolam 0.25 MG TAB PO PRN (01:45)
[2021-02-27] MEDS: methylPREDNISolone SOD SUCCI 125 MG/2 ML VIAL IV SCH ×2 (05:36→12:33)
[2021-02-27] MEDS: LEVOTHYROXINE 50 MCG TAB PO SCH (05:36)
--- NOTE | 2021-02-27 06:49 | XR ---
EXAMINATION TYPE: XR chest 1V portable DATE OF EXAM: 02/27/2021 COMPARISON: 02/23/2021 HISTORY: Shortness of breath. TECHNIQUE: Single frontal view of the chest is obtained. FINDINGS: There is redemonstration of multifocal airspace opacities. Interstitial markings bilateral ly. The appearance is slightly improved particularly on the left side compared to prior examination. There is no large pleural effusion. There is minor atelectasis at the right lung base. Heart and mediastinum appear prominent as seen before. IMPRESSION: Slight improvement compared to few days ago.
[2021-02-27] MEDS: SYMBICORT 160-4.5 MCG INHALER INHALATION SCH (07:25)
[2021-02-27] MEDS: ASPIRIN 81 MG PO SCH (07:53)
[2021-02-27] MEDS: MULTIVITAMINS, THERA 1 EACH TAB PO SCH (07:53)
[2021-02-27] MEDS: ASCORBIC ACID 500 MG TAB PO SCH (07:53)
[2021-02-27] MEDS: GABAPENTIN 400 MG CAP PO SCH (07:53)
[2021-02-27] MEDS: hydroCHLOROthiazide 25 MG TAB PO SCH (07:53)
[2021-02-27] MEDS: guaiFENesin-DM 600/30MG 1 EACH TAB.ER.12H PO SCH (07:54)
[2021-02-27] MEDS: CYANOCOBALAMIN 500 MCG TAB PO SCH (07:54)
[2021-02-27] MEDS: PRAVASTATIN SODIUM 20 MG TAB PO SCH (07:54)
[2021-02-27] MEDS: NYSTATIN 100,000 UNIT/ML SUSP 500,000 UNIT/5 ML CUP PO SCH ×2 (07:54→12:35)
[2021-02-27] MEDS: HEPARIN SODIUM,PORCINE/PF 5,000 UNIT/0.5 ML SYRINGE SQ SCH (07:54)
[2021-02-27] MEDS: NINTEDANIB ESYLATE 100 MG PO SCH (07:54)
[2021-02-27] MEDS: PANTOPRAZOLE 40 MG TABLET PO SCH (07:54)
[2021-02-27 08:08] VITALS: BP 134/76; TEMP 97.8
[2021-02-27 09:37] VITALS: RESP 20
[2021-02-27] MEDS: CEFEPIME 1 GM in SODIUM CHLORIDE 0.9% 50 ML IVPB SCH (09:44)
[2021-02-27 11:34] VITALS: PULSE 82
--- NOTE | 2021-02-27 13:11 | P.PN ---
Subjective Progress Note Date: 02/27/21 80-year-old female patient with known history of IPF currently on [place] no treatment for the past 23 years. Last PFT from 2019 showed an FVC of 69% of predicted, lung capacity of 71% of predicted, diffusion capacity of 39% of predicted. According to her, she has not been on oxygen. She also has o bstructive sleep apnea. She has AHI of 18 and the patient is currently on a CPAP pressure of 8 cm of water. She has hypertension, hyperlipidemia, hypothyroidism. The patient is presenting to the hospital because of worsening shortness of breath. There is subacute worsening in her dyspnea. She had some cough. Most of his sputum production. No fever. No chills. No exposures COVID-19. Her COVID-19 testing by PCR came back negative. D-dimer is at 0.7. Lactic acid level was at 2.5 dropped down to 1.2. White cell count was 9.4 with a hemoglobin of 11 and a platelet count of 224. Electrolytes are all within normal limits. Chest x-ray was consistent with pulmonary fibrosis. CT angiog adelina showed no evidence of any pulmonary embolism. Nonspecific enlarged mediastinal and hilar lymph nodes. Interstitial fibrosis involving the peripheries in the lung bases along with patchy areas of groundglass pulmonary infiltrates suspicious for any superimposed infection/edema. She has a cardiac murmur. No previous history of cardio myopathy. No history of any coronary artery disease and no history of any cardiac arrhythmias. The patient has been fully vaccinated for COVID-19 which completed the vaccination in November 2020. On 02/21/2021 patient seen in follow-up on medical surgical floor, last night she was up to the bathroom, and desaturated quite low, she was placed on 15 L high flow and currently her pulse ox is 96%, she states that she had an episode of cough, which was mostly dry, but subsequently she started coughing up some small amount of phlegm with some blood-tinged material. No massive hemoptysis, no complaints of chest pain, no fever overnight, vital signs have been stable she continues on Solu-Medrol at 60 mg every 6 hours, she continues on IV azithromycin and Rocephin. The signs otherwise have been stable other than requiring more oxygen on today's exam, her CTA chest did not show evidence of pulmonary embolism, and show predominant reticular densities and small cystic changes characteristic of chronic interstitial lung disease with patchy groundglass opacities superimposed, with the consideration of infectious/inflammatory etiology or pulmonary edema, echocardiogram shows preserved LV function with EF of 55-60%, mild to moderate aortic valve scl erosis, mitral regurgitation, severe tricuspid regurgitation and severe pulmonary hypertension with right-sided pressure of 57.1 mmHg. Today's lab show acute elevation of white blood cell count and white blood cell count is up to 30.6, hemoglobin is 11.2, d-dimer is 0.65, Pro calcitonin level was negative at 0.10, and patient tested negative for influenza, coronavirus, and RSV. Currently she is sitting up in the bed, remains on high flow oxygen which can probably be weaned back down. She feels more short of breath on today's evaluation. 02/26/2021 patient seen in follow-up on medical surgical floor, she is currently down to 6 L of oxygen her pulse ox is 92-94%, she states she is doing better, breathing easier, appears to be in no acute distress, her vital signs have been stable overnight, no fever or chills, denies chest discomfort, vital signs have been stable, hemoptysis. Remains on antibiotics and steroids, her labs today have been reviewed showing white blood cell count of 18.3, hemoglobin of 11.6, d-dimer of 0.61, sodium of 139, potassium is 3.9, chloride is 101, CO2 is 33, BUN of 29, creatinine 0.75. Patient remains on cefepime and Levaquin for empiric antibody coverage, she is on Solu-Medrol 60 mg every 6 hours. Patient is seen today 02/27/2021 in follow-up on the regular medical floor. She is currently sitting up in bed. Awake and alert in no acute distress. Breathing quite a bit easier today compared to yesterday. Nearly back to her baseline. She is down to 4 L high flow nasal cannula to maintain O2 saturation 93%. O2 saturation 77% on room air. She continues with coarse Velcro crackles in the posterior bases. Pro calcitonin 0.06. She is continued on Symbicort, Singulair, DuoNeb inhalations in the IV Solu-Medrol. Empiric antibiotics in form of Levaquin and cefepime. She remains on her Ofev. Objective - Vital Signs Vital signs: Vital Signs Temp 97.8 F 05/13/21 07:07 Pulse 82 02/27/21 11:43 Resp 20 02/27/21 09:38 BP 134/76 02/27/21 07:07 Pulse Ox 93 L 02/27/21 09:38 Intake & Output 02/26/21 02/27/21 02/27/21 18:59 06:59 18:59 Other: Voiding Method Toilet Bedside Commode # Voids 4 1 - Exam GENERAL EXAM: Alert, very pleasant 80-year-old female patient, on 4 L nasal cannula with O2 saturation 93%, comfortable in no apparent distress. HEAD: Normocephalic. EYES: Normal reaction of pupils, equal size. NOSE: Clear with pink turbinates. THROAT: No erythema or exudates. NECK: No masses, no JVD. CHEST: No chest wall deformity. LUNGS: Equal air entry with coarse Velcro crackles in the bilateral bases. CVS: S1 and S2 normal with no audible murmur, regular rhythm. ABDOMEN: No hepatosplenomegaly, normal bowel sounds, no guarding or rigidity. SPINE: No scoliosis or deformity SKIN: No rashes CENTRAL NERVOUS SYSTEM: No focal deficits, tone is normal in all 4 extremities. EXTREMITIES: There is no peripheral edema. No clubbing, no cyanosis. Peripheral pulses are intact. - Labs CBC & Chem 7: 02/26/21 05:33 02/26/21 05:33 Assessment and Plan Assessment: 1 Acute exacerbation of IPF likely. Consider other possibilities including superinfection/interstitial edema contributing to her shortness of breath. 2 IPF with mild to moderate restrictive lung disease and FVC of 69% of predicted based on a previous spirometry that was done in 2019. The patient has been maintained on Ofev over the past few years regarding her IPF. 3 Shortness of breath secondary to above 4 Acute hypoxic respiratory failure secondary to above currently on 4 Liters by nasal cannula. COVID-19 is been essentially ruled out and the patient is fully vaccinated 5 History of breast cancer with a previous lumpectomy followed by radiation therapy back in 2014 and the patient is been disease-free 6 Hypertension 7 Hypothyroidism 8 Hyperlipidemia 9 Gastroesophageal reflux disease 10 Chronic back pain 11 Severe pulmonary hypertension, with severe tricuspid regurgitation 12 Leucocytosis, rule out possibility of underlying pulmonary infection, antibiotics include cefepime and Levaquin Plan: The patient was seen and evaluated by Dr. Ford Chest x-ray showing slight improvement in the multifocal airspace opacities Cleared for discharge from the pulmonary standpoint Complete a prednisone taper No need for further antibiotics, Pro calcitonin 0.06 Will require home oxygen, possibly for life Follow up with Dr. Mujiac in our office in 1-2 weeks Encouraged to call sooner with any recurrence of symptoms or other questions or concerns I, the cosigning physician, performed a history & physical examination of the patient. Lungs sounds are coarse Velcro crackles in the bilateral bases. Maintaining good O2 saturations in the 90s on 4 L/m per nasal cannula. I discussed the assessment and plan of care with my nurse practitioner, Barbara Wiggins. I attest to the above note as dictated by her.
[2021-02-27] MEDS ORDERED: predniSONE 50 MG TAB PO STA (14:02)
== END 2021-02-27 16:32 | disposition home health service (06) | DRG 193 ==
LOC: EC 12:51 → 4SSUR 16:27
PROVIDERS: ADMIT Internal Medicine; ATTEND Internal Medicine
PROC: 5A0945A Assistance with Respiratory Ventilation, 24-96 Consecutive Hours, High Flow/Velocity Cannula (ICD-10-PCS; principal; 2021-02-21)
DX: J18.9 Pneumonia, unspecified organism (principal); J80 Acute respiratory distress syndrome; J44.1 Chronic obstructive pulmonary disease with (acute) exacerbation; J44.0 Chronic obstructive pulmonary disease with (acute) lower respiratory infection; E87.2 Acidosis; J84.112 Idiopathic pulmonary fibrosis; Z20.822 Contact with and (suspected) exposure to COVID-19; E86.0 Dehydration; E83.42 Hypomagnesemia; E78.5 Hyperlipidemia, unspecified; I10 Essential (primary) hypertension; G47.33 Obstructive sleep apnea (adult) (pediatric); R01.1 Cardiac murmur, unspecified; K21.9 Gastro-esophageal reflux disease without esophagitis; M54.9 Dorsalgia, unspecified; G89.29 Other chronic pain; G62.9 Polyneuropathy, unspecified; E03.9 Hypothyroidism, unspecified; Z90.49 Acquired absence of other specified parts of digestive tract; Z98.890 Other specified postprocedural states; Z96.651 Presence of right artificial knee joint; Z88.5 Allergy status to narcotic agent; Z88.2 Allergy status to sulfonamides; Z88.8 Allergy status to other drugs, medicaments and biological substances; Z79.899 Other long term (current) drug therapy; Z79.82 Long term (current) use of aspirin; Z79.890 Hormone replacement therapy; Z79.51 Long term (current) use of inhaled steroids; Z79.52 Long term (current) use of systemic steroids; Z85.3 Personal history of malignant neoplasm of breast; Z92.3 Personal history of irradiation; I27.20 Pulmonary hypertension, unspecified; F41.9 Anxiety disorder, unspecified; I07.1 Rheumatic tricuspid insufficiency; J98.4 Other disorders of lung
CPT/HCPCS: 36410; 36415; 71045; 71046; 71275; 76937; 80048; 80053; 82550; 83605; 83735; 83880; 84145; 84484; 85025; 85379; 85610; 85730; 87449; 87635; 87636; 93005; 93306; 94640; 94760; 96374; 99285; 99291

== ENCOUNTER 2021-03-16 15:18 | Inpatient (IN) | payer MEDICARE ==
[2021-03-16 16:58] LABS: Anisocytosis Slight; Basophils % (A) 0 %; Eosinophils # (A) 0.1 k/uL (0-0.7); Eosinophils % (A) 0 %; HGB 12.4 gm/dL (11.4-16.0); Lymphocytes # (A) 0.4 k/uL (1.0-4.8); Lymphocytes % (A) 2 %; MCH 34.6 pg (25.0-35.0); MCV 111.6 fL (80.0-100.0); Macrocytosis Marked; Monocytes # (A) 0.7 k/uL (0-1.0); Monocytes % (A) 4 %; Neutrophils # (A) 16.4 k/uL (1.3-7.7); Neutrophils % (A) 92 %; Platelet Count 251 k/uL (150-450); RBC 3.58 m/uL (3.80-5.40); WBC 17.7 k/uL (3.8-10.6)
[2021-03-16 17:08] LABS: ALT 27 U/L (4-34); AST 31 U/L (14-36); African American GFR (CKD) >90 (>60 ml/min/1.73 sqM); Albumin 3.8 g/dL (3.5-5.0); Alkaline Phosphatase 81 U/L (38-126); Anion Gap 9 mmol/L; Blood Urea Nitrogen 24 mg/dL (7-17); Calcium 10.2 mg/dL (8.4-10.2); Carbon Dioxide 29 mmol/L (22-30); Chloride 98 mmol/L (98-107); Glucose 196 mg/dL (74-99); Magnesium 1.6 mg/dL (1.6-2.3); Non-African American GFR(CKD) 79 (>60 ml/min/1.73 sqM); Potassium 4.4 mmol/L (3.5-5.1); Sodium 136 mmol/L (137-145); Total Bilirubin 2.7 mg/dL (0.2-1.3); Total Protein 6.5 g/dL (6.3-8.2)
--- NOTE | 2021-03-16 17:09 | XR ---
EXAMINATION TYPE: XR chest 2V DATE OF EXAM: 03/16/2021 COMPARISON: 02/27/2021 HISTORY: Short of breath TECHNIQUE: 2 views FINDINGS: There is extensive interstitial infiltrates throughout both lungs. There is some coalescent density and some degree of airspace disease also. There are chest leads. Heart is enlarged. There is no pleural effusion. IMPRESSION: Extensive chronic pulmonary infiltrates consistent with advanced pulmonary fibrosis. No p leural fluid seen to suggest heart failure. Heart and lungs overall not significantly different than last exam.
[2021-03-16 17:13] LABS: INR 0.9 (<1.2); Partial Thromboplastin Time 20.6 sec (22.0-30.0); Prothrombin Time 10.1 sec (9.0-12.0)
[2021-03-16] MEDS ORDERED: SODIUM CHLORIDE 0.9% 500 ML 500 ML IV STA (17:25)
[2021-03-16 17:34] LABS: D-Dimer 0.85 mg/L FEU (<0.60)
[2021-03-16] MEDS ORDERED: LOPERAMIDE 2 MG CAP PO PRN (18:24)
[2021-03-16] MEDS ORDERED: ALBUTEROL HFA INHALER INHALATION PRN (18:24)
[2021-03-16] MEDS ORDERED: ALBUTEROL NEBULIZED 2.5 MG/3 ML INHALATION PRN (18:24)
[2021-03-16] MEDS: SYMBICORT 160-4.5 MCG INHALER INHALATION SCH (19:51)
[2021-03-16] MEDS: SODIUM CHLORIDE 0.9% 1,000 ML IV SCH (20:46)
[2021-03-16] MEDS: lisinopriL 20 MG TAB PO SCH (20:48)
[2021-03-16] MEDS ORDERED: IPRATROPIUM-ALBUTEROL 3 ML NEB INHALATION PRN (20:48)
[2021-03-16] MEDS: amLODIPine 5 MG TAB PO SCH (20:48)
[2021-03-16] MEDS: GABAPENTIN 400 MG CAP PO SCH (20:49)
[2021-03-16] MEDS: MONTELUKAST 10 MG TAB PO SCH (20:49)
[2021-03-16] MEDS: NINTEDANIB ESYLATE 100 MG PO SCH (20:52)
[2021-03-16] MEDS ORDERED: BENZONATATE 100 MG CAP PO PRN (21:00)
[2021-03-16 21:05] LABS: Glucose,Whole Blood 115 mg/dL (75-99)
[2021-03-16] MEDS: INSULIN ASPART (NovoLOG) 100 UNIT/ML VIAL SQ SCH (21:06)
[2021-03-16] MEDS: methylPREDNISolone SOD SUCCI 125 MG/2 ML VIAL IV SCH (21:07)
[2021-03-16] MEDS: HEPARIN SODIUM,PORCINE/PF 5,000 UNIT/0.5 ML SYRINGE SQ SCH (21:07)
--- NOTE | 2021-03-16 23:12 | HP ---
HISTORY AND PHYSICAL DATE OF SERVICE: 03/16/2021 CHIEF COMPLAINT: Shortness of breath. HISTORY OF PRESENT ILLNESS: This 80-year-old woman with a past medical history of multiple medical problems, including interstitial pulmonary fibrosis, history of asthma, COPD, GERD, hypertension, hyperlipidemia, was recently admitted with shortness of breath and possible suppurative pneumonia. The patient treated with antibiotics. Patient sent home. Currently the patient has increased shortness of breath and because of increasing difficulty, the patient came to [facility] and was admitted for evaluation and treatment. A chest x-ray showed extensive bilateral shadows and the patient is saturating on room air. There is no history of fever, rigors, chills. No history of headache, loss of consciousness, seizures. The patient followed by Dr. Jovita Diaz in the outpatient setting. PAST MEDICAL HISTORY: History of recent pneumonia, asthma, COPD, GERD, hypertension, hyperlipidemia. History of back surgery. MEDICATIONS: Prior to admission, home medications are: Singulair, Drisdol, EpiPen, Tessalon, Ventolin, Xanax, prednisone, multivitamins, B12, Norvasc. ALLERGIES: MEPERIDINE, MORPHINE, SULFA. FAMILY HISTORY: No history of heart disease or strokes in the family. SOCIAL HISTORY: No history of smoking. No history of alcohol. REVIEW OF SYSTEMS: ENT: No diminished vision. No diminished hearing. CARDIOVASCULAR: No angina. RESPIRATORY: As mentioned earlier. GI as mentioned earlier. no dysuria. NERVOUS SYSTEM: No numbness, weakness. ALLERGY/IMMUNOLOGY: No asthma, hayfever. MUSCULOSKELETAL: As mentioned earlier. HEMATOLOGY/ONCOLOGY: No history of anemia. ENDOCRINE: No history of diabetes or hypothyroid. CONSTITUTIONAL: As mentioned earlier. DERMATOLOGY: Negative. RHEUMATOLOGY: Negative. PSYCHIATRY as mentioned earlier. PHYSICAL EXAMINATION: Alert and oriented times three. Pulse 89, blood pressure 110/65, respiration 18. Temperature 97.4, pulse ox 92% on 6 L. HEENT: Conjunctivae normal. NECK: No JVD. CARDIOVASCULAR: S1, S2 muffled. RESPIRATION: Breath sounds diminished in the bases. A few scattered rhonchi and coarse crackles in the bases. Also suggestive of idiopathic pulmonary fibrosis. ABDOMEN: Soft, nontender. No mass palpable. LEGS: No edema. No swelling. NERVOUS SYSTEM: Higher functions as mentioned earlier. Moves all 4 limbs. No focal motor or sensory deficits. LYMPHATICS: No lymph nodes palpable in the neck, axilla or groin. JOINTS: No active deforming arthropathy. LABS: WBC 17.7 and sodium is 136 and lactic acid is 3.6. ASSESSMENT: 1. Possible asthma, chronic obstructive pulmonary disease acute exacerbation as well as idiopathic pulmonary fibrosis acute exacerbation. 2. Rule out pneumonia. 3. History of recent pneumonia. 4. History of gastroesophageal reflux disease. 5. Hypertension. 6. Hyperlipidemia. 7. Hypothyroidism. 8. History of frequent diarrhea. 9. History of back surgery, degenerative joint disease. 10.History of cholecystectomy. 11.History of postoperative nausea, vomiting. 12.Increased WBC. 13.Elevated D-dimer. 14.Hyponatremia. 15.Elevated plasma lactic acid. RECOMMENDATIONS AND DISCUSSION: In this 80-year-old woman who presented with multiple complex medical issues, we will monitor the patient closely. Continue the current medications, management and symptomatic treatment. We will initiate broad-spectrum IV antibiotics. I would also recommend bronchodilators and short course of steroids as well. Cultures will be obtained. Dr. Myers will be consulted. The prognosis guarded because of multiple complex medical issues. Further recommendations to follow. A copy of dictation being forwarded to Dr. Jovita Diaz who is the primary physician. MMODL / IJN: [id number] /
[2021-03-17] MEDS: methylPREDNISolone SOD SUCCI 125 MG/2 ML VIAL IV SCH ×4 (03:28→20:54)
[2021-03-17] MEDS: LEVOTHYROXINE 100 MCG TAB PO SCH (05:26)
[2021-03-17] MEDS: LEVOTHYROXINE 75 MCG TAB PO SCH (05:26)
[2021-03-17 05:45] LABS: Appearance,Urine Clear (Clear); Bilirubin,Urine Negative (Negative); Blood,Urine Negative (Negative); Color,Urine Yellow; Glucose,Urine (UA) Negative (Negative); Ketones,Urine Negative (Negative); Leukocyte Esterase,Urine Negative (Negative); Nitrite,Urine Negative (Negative); PH, Urine 6.5 (5.0-8.0); Protein,Urine Negative (Negative); Specific Gravity,Urine 1.012 (1.001-1.035)
[2021-03-17 07:11] LABS: Glucose,Whole Blood 155 mg/dL (75-99)
[2021-03-17] MEDS: IPRATROPIUM-ALBUTEROL 3 ML NEB INHALATION SCH ×3 (08:03→18:58)
[2021-03-17] MEDS: SYMBICORT 160-4.5 MCG INHALER INHALATION SCH ×2 (08:03→18:58)
[2021-03-17] MEDS: INSULIN ASPART (NovoLOG) 100 UNIT/ML VIAL SQ SCH ×4 (08:47→20:56)
[2021-03-17] MEDS: PANTOPRAZOLE 40 MG TABLET PO SCH (08:49)
[2021-03-17] MEDS: ASPIRIN 81 MG PO SCH (08:49)
[2021-03-17] MEDS: hydroCHLOROthiazide 25 MG TAB PO SCH (08:49)
[2021-03-17] MEDS: HEPARIN SODIUM,PORCINE/PF 5,000 UNIT/0.5 ML SYRINGE SQ SCH ×2 (08:49→20:54)
[2021-03-17] MEDS: MULTIVITAMINS, THERA 1 EACH TAB PO SCH (08:49)
[2021-03-17] MEDS: GABAPENTIN 400 MG CAP PO SCH ×3 (08:50→20:55)
[2021-03-17] MEDS: NINTEDANIB ESYLATE 100 MG PO SCH ×2 (08:51→20:56)
[2021-03-17] MEDS ORDERED: VITAMIN C PO SCH (09:00)
[2021-03-17] MEDS ORDERED: NON FORMULARY DRUG (Biotin [Biotin] 10,000 MCG Capsule) PO SCH (09:00)
[2021-03-17 09:32] LABS: Basophils # (A) 0.01 X 10*3/uL (0.00-0.10); Basophils % (A) 0.1 %; Eosinophils # (A) 0 X 10*3/uL (0.04-0.35); Eosinophils % (A) 0 %; HCT 33.8 % (37.2-46.3); Lymphocytes # (A) 0.41 X 10*3/uL (0.90-5.00); MCH 36.1 pg (27.0-32.0); MCHC 32.5 g/dL (32.0-37.0); MCV 110.8 fL (80.0-97.0); Mean Platelet Volume 12.3 fL (9.5-12.2); Monocytes # (A) 0.13 X 10*3/uL (0.20-1.00); Monocytes % (A) 1.6 %; Neutrophils # (A) 7.63 X 10*3/uL (1.80-7.70); Neutrophils % (A) 92.7 %; Platelet Count 185 X 10*3/uL (140-440); RBC 3.05 X 10*6/uL (4.10-5.20); WBC 8.23 X 10*3/uL (4.50-10.00)
[2021-03-17 09:52] LABS: African American GFR (CKD) 107.4 (60.0-200.0); Anion Gap 11.1 mmol/L (4.00-12.00); Calcium 8.9 mg/dL (8.7-10.3); Carbon Dioxide 25.9 mmol/L (21.6-31.8); Non-African American GFR(CKD) 92.7 (60.0-200.0); Potassium 4.3 mmol/L (3.5-5.5)
[2021-03-17] MEDS: PRAVASTATIN SODIUM 20 MG TAB PO SCH (11:13)
--- NOTE | 2021-03-17 11:16 | P.CNPUL ---
History of Present Illness Consult date: 03/17/21 Reason for consult: dyspnea, pulmonary fibrosis History of present illness: This is a 80-year-old female patient with known history of pulmonary fibrosis was just hospitalized for acute exacerbation of chronic IPF and the patient is worsening her oxygenation with progression of fibrosis. She was treated and she was discharged home to be readmitted within 2-3 weeks for the same. He is having worsening shortness of breath and currently is on 6 L of oxygen by nasal cannula just x-ray showing diffuse but the pulmonary fibrotic changes. The patient with known history of IPF currently on Ofev . Last PFT from 2019 showed an FVC of 69% of predicted, lung capacity of 71% of predicted, diffusion capacity of 39% of predicted. She ended up being on 02 recently. She also has obstructive sleep apnea. She has AHI of 18 and the patient is currently on a CPAP pressure of 8 cm of water. She has hypertension, hyperlipidemia, hypothyroidism. The patient is presenting to the hospital because of worsening shortness of breath. She has cough. Most of his sputum production. No fever. No chills. No exposures COVID-19. Her COVID-19 testing by PCR came back negative. Chest x-ray was consistent with pulmonary fibrosis. CT angiogram that was done during early February 2021 showed no evidence of any pulmonary embolism. Nonspecific enlarged mediastinal and hilar lymph nodes. Interstitial fibrosis involving the peripheries in the lung bases along with patchy areas of groundglass pulmonary infiltrates suspicious for any superimposed infection/edema. She has a cardiac murmur. No previous history of cardio myopathy. No history of any coronary artery disease and no history of any cardiac arrhythmias. The patient has been fully vaccinated for COVID-19 which completed the vaccination in November 2020. Review of Systems Constitutional: Reports fatigue Eyes: denies as per HPI, denies blurred vision, denies bulging eye, denies decreased vision, denies diplopia, denies discharge, denies dry eye, denies irritation, denies itching, denies pain, denies photophobia, denies loss of peripheral vision, denies loss of vision, denies tunnel vision/blind spots Ears: deny: decreased hearing, ear discharge, earache, tinnitus Ears, nose, mouth and throat: Reports as per HPI Breasts: absent: as per HPI, change in shape, gynecomastia, masses, nipple discharge, pain, skin changes, swelling Cardiovascular: Reports decreased exercise tolerance, Reports dyspnea on exertion Respiratory: Reports cough, Reports dyspnea Gastrointestinal: Reports as per HPI Genitourinary: Reports as per HPI Menstruation: Reports as per HPI Musculoskeletal: Reports as per HPI Musculoskeletal: absent: ankle pain, ankle stiffness, ankle swelling, as per HPI, elbow pain, elbow stiffness, elbow swelling, foot pain, foot stiffness, foot swelling, hand pain, hand stiffness, hand swelling, hip pain, hip stiffness, hip swelling, knee pain, knee stiffness, knee swelling, shoulder pain, shoulder stiffness, shoulder swelling, wrist pain, wrist stiffness, wrist swelling Integumentary: Reports as per HPI Neurological: Reports as per HPI Psychiatric: Reports as per HPI Endocrine: Reports as per HPI Hematologic/Lymphatic: Reports as per HPI Allergic/Immunologic: Reports as per HPI Past Medical History Past Medical History: Asthma, Cancer, COPD, GERD/Reflux, Hyperlipidemia, Hypertension, Thyroid Disorder Additional Past Medical History / Comment(s): COPD, IPF and the patient is currently on treatment with Ofev , freq diarrhea-states "SE to Ofev", freq nausea,idiopathic pulmonary fibrosis, Breast cancer WITH 36 tx's RADIATION 2004- DO NOT USE LEFT Side, neuropathy maye legs and feet,chronic back pain History of Any Multi-Drug Resistant Organisms: None Reported Past Surgical History: Back Surgery, Breast Surgery, Cholecystectomy, Joint Replacement, Orthopedic Surgery Additional Past Surgical History / Comment(s): left breast lumpectomy,laminectomies x2,rt knee replaced lung biopsy Past Anesthesia/Blood Transfusion Reactions: Motion Sickness, Postoperative Nausea & Vomiting (PONV) Past Psychological History: No Psychological Hx Reported Smoking Status: Never smoker Past Alcohol Use History: None Reported Past Drug Use History: None Reported - Past Family History Mother Family Medical History: No Reported History Medications and Allergies Home Medications Medication Instructions Recorded Confirmed Type Gabapentin 800 mg PO TID 09/26/17 03/16/21 History Montelukast Sodium [Singulair] 10 mg PO HS 09/26/17 03/16/21 History Multivitamins, Thera [Multivitamin 1 tab PO DAILY 09/26/17 03/16/21 History (formulary)] Omeprazole 20 mg PO DAILY 09/26/17 03/16/21 History amLODIPine BESYLATE/BENAZEPRIL 1 cap PO DAILY 09/26/17 03/16/21 History [Lotrel 5-40 MG] Cyanocobalamin (Vitamin B-12) 1,000 mcg PO DAILY 03/12/19 03/16/21 History [Vitamin B-12] EPINEPHrine [Epipen 2-Shin] 0.3 mg IM ONCE PRN 03/12/19 03/16/21 History Loperamide [Imodium] 2 mg PO QID PRN 03/12/19 03/16/21 History Nintedanib Esylate [Ofev] 100 mg PO BID 03/12/19 03/16/21 History Aspirin EC [Ecotrin Low Dose] 81 mg PO DAILY 11/16/20 03/16/21 History Biotin 10,000 mcg PO DAILY 11/16/20 03/16/21 History Ergocalciferol (Vitamin D2) 1,250 mcg PO Q14D 11/16/20 03/16/21 History [Drisdol (50,000 Iu)] Fluticasone Propion/Salmeterol 1 puff INHALATION RT-BID 11/16/20 03/16/21 History [Fluticasone-Salmeterol 500-50] Levothyroxine Sodium [Synthroid] 175 mcg PO DAILY 11/16/20 03/16/21 History Pravastatin Sodium [Pravachol] 20 mg PO DAILY 11/16/20 03/16/21 History hydroCHLOROthiazide [Hydrodiuril] 25 mg PO DAILY 11/16/20 03/16/21 History Albuterol Sulfate [Ventolin HFA] 2 puff INHALATION RT-QID PRN 02/19/21 03/16/21 History Vitamin C 2500mcg 2,500 mcg PO DAILY 02/19/21 03/16/21 History predniSONE 10 mg PO DIRECTED 02/19/21 03/16/21 History ALPRAZolam [Xanax] 0.25 mg PO TID PRN #12 tab 02/27/21 03/16/21 Rx predniSONE See Taper PO DIRECTED #55 tab 02/27/21 03/16/21 Rx Benzonatate [Tessalon Perles] 200 mg PO TID PRN 03/16/21 03/16/21 History Budesonide/Formoterol Fumarate 2 puff INHALATION RT-BID 03/16/21 03/16/21 History [Symbicort 160-4.5 Mcg Inhaler] Allergies Allergy/AdvReac Type Severity Reaction Status Date / Time meperidine [From Demerol] Allergy Unknown Verified 03/16/21 18:51 Childhood morphine Allergy Unknown Verified 03/16/21 18:51 Childhood Sulfa (Sulfonamide Allergy Unknown Verified 03/16/21 18:51 Antibiotics) Childhood Physical Exam Vitals: Vital Signs Temp Pulse Pulse Resp BP BP Pulse Ox 03/17/21 08:18 97 03/17/21 08:05 95 95 03/17/21 07:00 97.6 F 84 16 120/76 94 L 03/17/21 05:49 84 03/17/21 05:39 80 03/17/21 02:00 97.6 F 78 17 123/72 96 03/16/21 20:20 89 03/16/21 20:00 97.9 F 89 18 110/65 92 L 03/16/21 19:38 93 L 03/16/21 18:33 87 22 118/65 95 03/16/21 17:50 98.4 F 92 18 112/70 92 L 03/16/21 15:40 30 H 03/16/21 15:21 98.3 F 102 H 25 H 104/59 90 L Intake and Output 03/16/21 03/17/21 03/17/21 22:59 06:59 14:59 Output Total 425 Balance -425 Output: Urine 425 Other: Voiding Method Bedside Commode Bedside Commode Bedside Commode Diaper Diaper Diaper Incontinent Incontinent Incontinent # Voids 1 1 # Bowel Movements 1 Weight 76.657 kg Gen. appearance the patient is calm and comfortable and currently she is on 6L of oxygen nasal cannula. Not using excessive muscle breathing. Head exam was generally normal. There was no scleral icterus or corneal arcus. Mucous membranes were moist. Neck was supple and without jugular venous distension, thyromegaly, or carotid bruits. Carotids were easily palpable bilaterally. There was no adenopathy. Lungs sounds are diminished and the patient has coarse crackles in lung bases bilaterally. Cardiac exam revealed the PMI to be normally situated and sized. The rhythm was regular and no extrasystoles were noted during several minutes of auscultation. The first and second heart sounds were normal and physiologic splitting of the second heart sound was noted. There were systolic ejection murmur at the rate to over 6 murmurs, rubs, clicks, or gallops. Abdominal exam revealed normal bowel sounds. The abdomen was soft, non-tender, and without masses, organomegaly, or appreciable enlargement of the abdominal aorta. Examination of the extremities revealed easily palpable radial, femoral and pedal pulses. There was no cyanosis, clubbing or edema. Examination of the skin revealed no evidence of significant rashes, suspicious appearing nevi or other concerning lesions. Neurologically, the patient is awake and alert and the patient does not have any focal neurological deficit. Cranial nerves are essentially intact. Results - Laboratory Findings CBC and BMP: 03/17/21 05:36 03/17/21 05:36 PT/INR, D-dimer PT 10.1 sec (9.0-12.0) 03/16/21 16:45 INR 0.9 (<1.2) 03/16/21 16:45 D-Dimer 0.85 mg/L FEU (<0.60) H 03/16/21 16:45 Abnormal lab findings: Abnormal Labs 03/16/21 03/16/21 03/16/21 16:45 16:45 16:45 WBC 17.7 H RBC 3.58 L Hgb Hct MCV 111.6 H MCH RDW 19.0 H MPV Absolute Nucleated RBC Immature Gran # Neutrophils # 16.4 H Lymphocytes # 0.4 L Monocytes # Eosinophils # NRBC/100 WBC Diff Macrocytosis Marked A APTT 20.6 L D-Dimer 0.85 H Sodium 136 L BUN 24 H Creatinine BUN/Creatinine Ratio Glucose 196 H POC Glucose (mg/dL) Plasma Lactic Acid Rodney Total Bilirubin 2.7 H Procalcitonin 03/16/21 03/16/21 03/16/21 16:45 17:35 21:04 WBC RBC Hgb Hct MCV MCH RDW MPV Absolute Nucleated RBC Immature Gran # Neutrophils # Lymphocytes # Monocytes # Eosinophils # NRBC/100 WBC Diff Macrocytosis APTT D-Dimer Sodium BUN Creatinine BUN/Creatinine Ratio Glucose POC Glucose (mg/dL) 115 H Plasma Lactic Acid Rodney 3.6 H* Total Bilirubin Procalcitonin 0.13 H 03/17/21 03/17/21 03/17/21 05:36 05:36 07:00 WBC RBC 3.05 L Hgb 11.0 L Hct 33.8 L MCV 110.8 H MCH 36.1 H RDW 17.0 H MPV 12.3 H Absolute Nucleated RBC 0.02 H Immature Gran # 0.05 H Neutrophils # Lymphocytes # 0.41 L Monocytes # 0.13 L Eosinophils # 0 L NRBC/100 WBC Diff 0.2 H Macrocytosis APTT D-Dimer Sodium BUN Creatinine 0.5 L BUN/Creatinine Ratio 34.00 H Glucose 160 H POC Glucose (mg/dL) 155 H Plasma Lactic Acid Rodney Total Bilirubin Procalcitonin - Diagnostic Findings Chest x-ray: image reviewed Assessment and Plan Plan: 1 shortness of breaths with secondary hypoxic respiratory failure currently on 6 L of oxygen by nasal cannula. Presentation is consistent with progression of IPF with development of diffuse but the fibrotic changes. Superinfection is felt to be unlikely. So his other cardiac possibilities. Patient was in the hospital about 3 weeks ago and she was discharged home on oxygen and she is coming in for the same. Chest x-ray showing diffuse bilateral pulmonary fibrotic changes. 2 IPF with mild to moderate restrictive lung disease and FVC of 69% of predicted based on a previous spirometry that was done in 2019. The patient has been maintained on Ofev over the past few years regarding her IPF. 3 shortness of breath secondary to above 4 acute hypoxic respiratory failure secondary to above 5 history of breast cancer with a previous lumpectomy followed by radiation therapy back in 2015 and the patient is been disease-free 6 hypertension 7 hypothyroidism 8 hyperlipidemia 9 chronic acid reflux 10 chronic back pain Plan Check pro calcitonin level to make sure there is no infectious complications Repeat a CT angiogram of the chest to rule out any other possibilities contributing to hypoxic respiratory failure Restart there are therapy also evaluated the steroid therapy is questionable and this case Oxygen therapy Prognosis poor baseline above-mentioned comorbidities
[2021-03-17 11:58] LABS: Glucose,Whole Blood 161 mg/dL (75-99)
[2021-03-17 17:20] LABS: Glucose,Whole Blood 151 mg/dL (75-99)
[2021-03-17] MEDS: SODIUM CHLORIDE 0.9% 1,000 ML IV SCH (17:43)
--- NOTE | 2021-03-17 18:57 | PN ---
PROGRESS NOTE DATE OF SERVICE: 03/17/2021 INTERVAL HISTORY: This is a 80-year-old woman who was admitted with shortness of breath and asthma, COPD exacerbation, also being evaluated for possible pneumonia. Dr. Myers has seen the patient and thought superinfection to be unlikely. No chest pain. No palpitations. No fever. PHYSICAL EXAMINATION: GENERAL: Patient is alert and oriented times two. VITAL SIGNS: Pulse 101, blood pressure 130/68, respirations 16, temperature 97.6, pulse ox 93% on 6 liters. HEENT: Conjunctivae normal. . NECK: No jugular venous distention. RESPIRATORY: Breath sounds diminished at the bases. Bilateral scattered rhonchi and basal crackles. HEART: S1 and S2, muffled. ABDOMEN: Soft, no tenderness. No masses palpable. EXTREMITIES: No edema, no swelling. NERVOUS: No focal deficits. LABS: Hemoglobin 11, MCV 110, and glucose is 160. ASSESSMENT: 1. Possible asthma and chronic obstructive pulmonary disease acute exacerbation as well as idiopathic pulmonary fibrosis acute exacerbation with acute on chronic hypoxic respiratory failure. 2. Superinfection unlikely per Pulmonary. 3. History of recent pneumonia. 4. Gastroesophageal reflux disease. 5. Hypertension. 6. Hyperlipidemia. 7. Hypothyroidism. 8. History of frequent diarrhea. 9. History of back surgery. 10.Degenerative joint disease. 11.History of cholecystectomy. 12.History of postoperative nausea and vomiting. 13.Increased WBC. 14.Elevated D-dimer. 15.Hyponatremia. 16.Elevated plasma lactic acid. 17.Elevated serum for procalcitonin. RECOMMENDATIONS AND DISCUSSION: I recommend to continue current management and continue symptomatic treatment. Otherwise at this time I would recommend continue the current medications including bronchodilators and steroids. His serum procalcitonin is slightly elevated. We will employ a short course of antibiotics and further recommendations to follow. MMODL / IJN: [id number] /
[2021-03-17 20:45] LABS: Glucose,Whole Blood 175 mg/dL (75-99)
[2021-03-17] MEDS: amLODIPine 5 MG TAB PO SCH (20:55)
[2021-03-17] MEDS: MONTELUKAST 10 MG TAB PO SCH (20:55)
[2021-03-17] MEDS: lisinopriL 20 MG TAB PO SCH (20:55)
[2021-03-18] MEDS: methylPREDNISolone SOD SUCCI 125 MG/2 ML VIAL IV SCH ×4 (03:29→20:19)
[2021-03-18] MEDS: LEVOTHYROXINE 75 MCG TAB PO SCH (05:40)
[2021-03-18] MEDS: LEVOTHYROXINE 100 MCG TAB PO SCH (05:40)
[2021-03-18 07:19] LABS: Glucose,Whole Blood 153 mg/dL (75-99)
[2021-03-18] MEDS: IPRATROPIUM-ALBUTEROL 3 ML NEB INHALATION SCH ×3 (07:53→19:23)
[2021-03-18] MEDS: SYMBICORT 160-4.5 MCG INHALER INHALATION SCH ×2 (07:53→19:23)
[2021-03-18] MEDS: ASPIRIN 81 MG PO SCH (08:53)
[2021-03-18] MEDS: PANTOPRAZOLE 40 MG TABLET PO SCH (08:53)
[2021-03-18] MEDS: INSULIN ASPART (NovoLOG) 100 UNIT/ML VIAL SQ SCH ×4 (08:53→21:04)
[2021-03-18] MEDS: hydroCHLOROthiazide 25 MG TAB PO SCH (08:53)
[2021-03-18] MEDS: MULTIVITAMINS, THERA 1 EACH TAB PO SCH (08:53)
[2021-03-18] MEDS: PRAVASTATIN SODIUM 20 MG TAB PO SCH (08:55)
[2021-03-18] MEDS: HEPARIN SODIUM,PORCINE/PF 5,000 UNIT/0.5 ML SYRINGE SQ SCH ×2 (08:55→20:19)
[2021-03-18] MEDS: NINTEDANIB ESYLATE 100 MG PO SCH ×2 (08:59→20:20)
[2021-03-18] MEDS ORDERED: ERGOCALCIFEROL 1,250 MCG (50,000 IU) CAPSULE PO SCH (09:00)
[2021-03-18] MEDS: GABAPENTIN 400 MG CAP PO SCH ×3 (09:04→20:18)
[2021-03-18 10:20] LABS: Basophils # (A) 0.01 X 10*3/uL (0.00-0.10); Basophils % (A) 0.1 %; Eosinophils # (A) 0 X 10*3/uL (0.04-0.35); Eosinophils % (A) 0 %; HCT 31.1 % (37.2-46.3); HGB 10.2 g/dL (12.0-15.0); Lymphocytes % (A) 4.3 %; MCH 36.2 pg (27.0-32.0); MCHC 32.8 g/dL (32.0-37.0); MCV 110.3 fL (80.0-97.0); Mean Platelet Volume 12.2 fL (9.5-12.2); Monocytes # (A) 0.52 X 10*3/uL (0.20-1.00); Monocytes % (A) 3.2 %; Neutrophils # (A) 15.05 X 10*3/uL (1.80-7.70); Neutrophils % (A) 91.7 %; Platelet Count 210 X 10*3/uL (140-440); RBC 2.82 X 10*6/uL (4.10-5.20); RDW 16.7 % (11.5-14.5)
[2021-03-18 10:35] VITALS: BMI 30.9
[2021-03-18 10:51] LABS: African American GFR (CKD) 81.8 (60.0-200.0); Anion Gap 9.6 mmol/L (4.00-12.00); Calcium 8.9 mg/dL (8.7-10.3); Carbon Dioxide 26.4 mmol/L (21.6-31.8); Non-African American GFR(CKD) 70.6 (60.0-200.0)
[2021-03-18 12:21] LABS: Glucose,Whole Blood 158 mg/dL (75-99)
--- NOTE | 2021-03-18 13:39 | P.PN ---
Subjective Progress Note Date: 03/18/21 Principal diagnosis: Dyspnea, pulmonary fibrosis This is a 80-year-old female patient with known history of pulmonary fibrosis was just hospitalized for acute exacerbation of chronic IPF and the patient is worsening her oxygenation with progression of fibrosis. She was treated and she was discharged home to be readmitted within 2-3 weeks for the same. He is having worsening shortness of breath and currently is on 6 L of oxygen by nasal cannula just x-ray showing diffuse but the pulmonary fibrotic changes. The patient with known history of IPF currently on Ofev . Last PFT from 2019 showed an FVC of 69% of predicted, lung capacity of 71% of predicted, diffusion capacit y of 39% of predicted. She ended up being on 02 recently. She also has obstructive sleep apnea. She has AHI of 18 and the patient is currently on a CPAP pressure of 8 cm of water. She has hypertension, hyperlipidemia, hypothyroidism. The patient is presenting to the hospital because of worsening shortness of breath. She has cough. Most of his sputum production. No fever. No chills. No exposures COVID-19. Her COVID-19 testing by PCR came back negative. Chest x-ray was consistent with pulmonary fibrosis. CT angiogram that was done during early February 2021 showed no evidence of any p ulmonary embolism. Nonspecific enlarged mediastinal and hilar lymph nodes. Interstitial fibrosis involving the peripheries in the lung bases along with patchy areas of groundglass pulmonary infiltrates suspicious for any superimposed infection/edema. She has a cardiac murmur. No previous history of cardio myopathy. No history of any coronary artery disease and no history of any cardiac arrhythmias. The patient has been fully vaccinated for COVID-19 which completed the vaccination in November 2020. On 03/18/2021 patient seen in follow-up on medical surgical floor, she is currently on 6 L of oxygen with a pulse ox of 91-93%, she's been afebrile overnight, lateral signs have been stable, she is short of breath with conversation and with any exertion, but appears to be in no acute distress. This had no acute events overnight, she tested negative for COVID-19, her CTA chest is pending to rule out possibility of pulmonary embolism. She remains on IV steroids at 60 mg every 6 hours of Solu-Medrol, she is on Rocephin for empiric antibiotic coverage, Symbicort and DuoNeb nebulized treatments. Today's labs have been reviewed showing white blood cell count is 16.4, hemoglobin of 10.2, electrolytes and renal profile unremarkable, urinalysis is negative, potassium level came back negative at 0.13, LFTs were within normal limits, proBNP was 157, troponin was negative at less than 0.012. Objective - Vital Signs Vital signs: Vital Signs Temp 97.7 F 03/18/21 07:00 Pulse 89 03/18/21 12:08 Resp 16 03/18/21 07:00 BP 126/74 03/18/21 07:00 Pulse Ox 91 L 03/18/21 07:54 Intake & Output 03/17/21 03/18/21 03/18/21 18:59 06:59 18:59 Intake Total 1000 Output Total 400 Balance 1000 -400 Weight 76.657 kg Intake: Oral 1000 Output: Urine 400 Other: Voiding Method Bedside Commode Bedside Commode Diaper Diaper Incontinent Incontinent External Catheter External Catheter # Voids 2 # Bowel Movements 0 - Exam GENERAL EXAM: Alert, very pleasant, 80-year-old white female, 6 L of oxygen and pulse ox of 91-93% mildly short of breath with conversation and exertion, comfortable in no apparent distress. HEAD: Normocephalic/atraumatic. EYES: Normal reaction of pupils, equal size. Conjunctiva pink, sclera white. NOSE: Clear with pink turbinates. THROAT: No erythema or exudates. NECK: No masses, no JVD, no thyroid enlargement, no adenopathy. CHEST: No chest wall deformity. Symmetrical expansion. LUNGS: Equal air entry with diffuse coarse crackles CVS: Regular rate and rhythm, normal S1 and S2, no gallops, no murmurs, no rubs ABDOMEN: Soft, nontender. No hepatosplenomegaly, normal bowel sounds, no guarding or rigidity. EXTREMITIES: No clubbing, no edema, no cyanosis, 2+ pulses and upper and lower extremities. MUSCULOSKELETAL: Muscle strength and tone normal. SPINE: No scoliosis or deformity SKIN: No rashes CENTRAL NERVOUS SYSTEM: Alert and oriented -3. No focal deficits, tone is normal in all 4 extremities. PSYCHIATRIC: Alert and oriented -3. Appropriate affect. Intact judgment and insight. - Labs CBC & Chem 7: 03/18/21 05:08 03/18/21 05:08 Labs: Abnormal Lab Results - Last 24 Hours (Table) 03/17/21 03/17/21 03/18/21 Range/Units 17:18 20:44 05:08 WBC 16.40 H (4.50-10.00) X 10*3/uL RBC 2.82 L (4.10-5.20) X 10*6/uL Hgb 10.2 L (12.0-15.0) g/dL Hct 31.1 L (37.2-46.3) % MCV 110.3 H (80.0-97.0) fL MCH 36.2 H (27.0-32.0) pg RDW 16.7 H (11.5-14.5) % Absolute Nucleated RBC 0.03 H (0.00-0.00) X 10*3/uL Immature Gran # 0.12 H (0.00-0.04) X 10*3/uL Neutrophils # 15.05 H (1.80-7.70) X 10*3/uL Lymphocytes # 0.70 L (0.90-5.00) X 10*3/uL Eosinophils # 0 L (0.04-0.35) X 10*3/uL NRBC/100 WBC Diff 0.2 H (0.0-0.0) /100 WBCS BUN/Creatinine Ratio (12.00-20.00) Ratio Glucose (70-110) mg/dL POC Glucose (mg/dL) 151 H 175 H (75-99) mg/dL 03/18/21 03/18/21 03/18/21 Range/Units 05:08 07:00 12:17 WBC (4.50-10.00) X 10*3/uL RBC (4.10-5.20) X 10*6/uL Hgb (12.0-15.0) g/dL Hct (37.2-46.3) % MCV (80.0-97.0) fL MCH (27.0-32.0) pg RDW (11.5-14.5) % Absolute Nucleated RBC (0.00-0.00) X 10*3/uL Immature Gran # (0.00-0.04) X 10*3/uL Neutrophils # (1.80-7.70) X 10*3/uL Lymphocytes # (0.90-5.00) X 10*3/uL Eosinophils # (0.04-0.35) X 10*3/uL NRBC/100 WBC Diff (0.0-0.0) /100 WBCS BUN/Creatinine Ratio 30.00 H (12.00-20.00) Ratio Glucose 155 H (70-110) mg/dL POC Glucose (mg/dL) 153 H 158 H (75-99) mg/dL Assessment and Plan Plan: Assessment: #1. shortness of breaths with secondary hypoxic respiratory failure currently on 6 L of oxygen by nasal cannula. Presentation is consistent with progression of IPF with development of diffuse but the fibrotic changes. Superinfection is felt to be unlikely. So his other cardiac possibilities. Patient was in the hospital about 3 weeks ago and she was discharged home on oxygen and she is coming in for the same. Chest x-ray showing diffuse bilateral pulmonary fibrotic changes. #2. IPF with mild to moderate restrictive lung disease and FVC of 69% of predicted based on a previous spirometry that was done in 2019. The patient has been maintained on Ofev over the past few years regarding her IPF. #3. shortness of breath secondary to above #4. acute hypoxic respiratory failure secondary to above #5. history of breast cancer with a previous lumpectomy followed by radiation therapy back in 2014 and the patient is been disease-free #6. hypertension #7. hypothyroidism #8. hyperlipidemia #9. chronic acid reflux #10. chronic back pain Plan: Continue IV steroids Continue nebulized DuoNeb Continue antibiotics GI and DVT prophylaxis We will obtain CTA chest to rule out possibility of pulmonary embolism We'll obtain COVID-19 antibody test We'll continue to follow I performed a history & physical examination of the patient and discussed their management with my nurse practitioner, Claudia Catherine. I reviewed the nurse practitioner's note and agree with the documented findings and plan of care. Lung sounds are positive for diffuse crackles. The findings and the impression was discussed with the patient. I attest to the documentation by the nurse practitioner. Time with Patient: Less than 30
--- NOTE | 2021-03-18 14:03 | CT ---
EXAMINATION TYPE: CT chest angio for PE DATE OF EXAM: 03/18/2021 COMPARISON: 02/19/2021 HISTORY: Dyspnbea, pulmonary fibrosis CT DLP: 280.20 mGycm Automated exposure control for dose reduction was used. CONTRAST: CT Chest for pulmonary embolism performed with with IV Contrast, patient injected with 100 mL of Isov ue 370. FINDINGS: LUNGS: There are groundglass infiltrates seen diffusely within both lungs. Coarsened interlobular sep aaliyah thickening suggest chronic interstitial lung disease there is evidence of bronchiectasis and carey ges of COPD. Linear hyperdensity seen involving the right lung suggests possible previous surgery cor relate clinically. MEDIASTINUM: There is evidence of pneumomediastinum. Small amount of pneumopericardium noted. Air ext ends within the anterior mediastinum on the left just above the level of the diaphragm. Atherosclerot ic changes aorta. No evidence of aneurysm OTHER: Postsurgical changes involving the gallbladder fossa. Hypertrophic and degenerative change of the spine. Calcified nodule involving the left breast be correlated with mammogram IMPRESSION: 1. Interval development of pneumomediastinum. Report called to the patient's nurse Keisha at 1:56 PM 02/19/2021. 2. Progressive groundglass infiltrate correlate for pneumonitis or pulmonary edema. 3. Diffuse COPD, bronchiectasis and changes of chronic interstitial lung disease 4. There is a 2 cm nodule within the left breast with multiple calcifications for which mammogram is recommended.
--- NOTE | 2021-03-18 15:00 | P.PN ---
Progress Note - Text Progress Note Date: 03/18/21 This is a 80-year-old female was recently admitted with COPD acute exacerbation and is being closely monitored. Patient will require a bedside commode upon discharge as the patient is room combined due to her extended weakness and COPD history along with pulmonary fibrosis. Prescriptions provided the case management.
[2021-03-18 17:22] LABS: Glucose,Whole Blood 201 mg/dL (75-99)
--- NOTE | 2021-03-18 18:47 | PN ---
PROGRESS NOTE DATE OF SERVICE: 03/18/2021 This 80-year-old woman who was admitted with asthma, COPD exacerbation is being closely monitored. Patient has been given steroids. The patient needs to be in the hospital for more than 2 nights for the evaluation and treatment of the multiple complex medical issues. Patient had a chest CTA which was reviewed personally by me showed interval development of pneumomediastinum and progressive ground glass infiltrates suggestive of pneumonia, pulmonary edema also noted, diffuse COPD and pulmonary fibrosis also noted. The patient is basically room bound also. The patient had extreme shortness of breath. CT showed bilateral interstitial shadows. PAST MEDICAL HISTORY: Reviewed. REVIEW OF SYSTEMS: CARDIOVASCULAR SYSTEM: No angina or palpitations. RESPIRATION: As mentioned earlier. GI as mentioned earlier. : No dysuria. NERVOUS SYSTEM: No numbness or weakness. CURRENT MEDICATIONS: Reviewed and include: DuoNeb q.i.d. and p.r.n., Xanax. Norvasc, aspirin, Tessalon, Symbicort, Rocephin. Other medications reviewed. PHYSICAL EXAM: The patient is alert and oriented times three. Pulse is 90, blood pressure 130/60, respirations 16, temperature 97.4, pulse ox 92 percent on 6 L. HEENT: Conjunctivae normal. NECK: No JVD. CARDIOVASCULAR SYSTEM: S1, S2 muffled. RESPIRATORY SYSTEM: Breath sounds diminished at the bases. A few scattered rhonchi and crackles. ABDOMEN: Soft, nontender. LEGS are no edema. No swelling. NERVOUS SYSTEM: No focal deficits. LAB STUDIES: WBC 16.5, hemoglobin 10.2. Accu-Cheks noted. ASSESSMENT: 1. Acute asthma chronic obstructive pulmonary disease exacerbation with idiopathic pulmonary fibrosis, acute exacerbation with acute on chronic hypoxic respiratory failure. 2. Possible super added pneumonia or acute purulent tracheobronchitis. 3. History of recent pneumonia. 4. Intermediate development of pneumomediastinum. 5. Gastroesophageal reflux disease. 6. Hypertension. 7. Hyperlipidemia. 8. Hypothyroidism. 9. History of frequent diarrhea. 10.History of back surgery. 11.Gait dysfunction. 12.Degenerative joint disease. 13.History of cholecystectomy. 14.History of postoperative nausea, vomiting. 15.Increased WBC. 16.Elevated D-dimer. 17.Hyponatremia. 18.Elevated plasma lactic acid. 19.Elevated serum procalcitonin. RECOMMENDATIONS AND DISCUSSION: Recommend to continue current medications, management and symptomatic treatment. Continue steroids. Continue the antibiotics and the rest of medications. Prognosis guarded because of multiple complex medical issues. Closely follow with Dr. Ford. This patient is room confined due to her severe COPD and weakness and multiple other complex medical issues. The patient will need a commode. Case Management and to work on this. Prognosis guarded. MMODL / IJN: [id number] /
[2021-03-18] MEDS: amLODIPine 5 MG TAB PO SCH (20:18)
[2021-03-18] MEDS: lisinopriL 20 MG TAB PO SCH (20:18)
[2021-03-18] MEDS: MONTELUKAST 10 MG TAB PO SCH (20:19)
[2021-03-18] MEDS: SODIUM CHLORIDE 0.9% 1,000 ML IV SCH (20:22)
[2021-03-18 21:07] LABS: Glucose,Whole Blood 201 mg/dL (75-99)
[2021-03-19] MEDS: methylPREDNISolone SOD SUCCI 125 MG/2 ML VIAL IV SCH ×4 (02:23→20:36)
[2021-03-19] MEDS: LEVOTHYROXINE 75 MCG TAB PO SCH (05:26)
[2021-03-19] MEDS: LEVOTHYROXINE 100 MCG TAB PO SCH (05:26)
[2021-03-19 07:29] LABS: Glucose,Whole Blood 141 mg/dL (75-99)
[2021-03-19] MEDS: INSULIN ASPART (NovoLOG) 100 UNIT/ML VIAL SQ SCH ×4 (08:32→20:36)
[2021-03-19] MEDS: GABAPENTIN 400 MG CAP PO SCH ×3 (08:32→20:37)
[2021-03-19] MEDS: HEPARIN SODIUM,PORCINE/PF 5,000 UNIT/0.5 ML SYRINGE SQ SCH ×2 (08:32→20:36)
[2021-03-19] MEDS: MULTIVITAMINS, THERA 1 EACH TAB PO SCH (08:32)
[2021-03-19] MEDS: PANTOPRAZOLE 40 MG TABLET PO SCH (08:32)
[2021-03-19] MEDS: ASPIRIN 81 MG PO SCH (08:33)
[2021-03-19] MEDS: PRAVASTATIN SODIUM 20 MG TAB PO SCH (08:33)
[2021-03-19] MEDS: hydroCHLOROthiazide 25 MG TAB PO SCH (08:33)
[2021-03-19] MEDS: NINTEDANIB ESYLATE 100 MG PO SCH ×2 (08:33→20:37)
[2021-03-19] MEDS: IPRATROPIUM-ALBUTEROL 3 ML NEB INHALATION SCH ×3 (08:34→19:17)
[2021-03-19] MEDS: SYMBICORT 160-4.5 MCG INHALER INHALATION SCH ×2 (08:34→19:17)
--- NOTE | 2021-03-19 10:55 | CDI ---
Documentation Clarification Form Date: 03/19/2021 10:47:01 AM From: Antonia Mckeon CCS, CCDS Admit Date: 03/17/2021 10:28:00 AM Patient Name: Paris Jorgensen Visit Number: [id number] Discharge Date: ATTENTION: The Clinical Documentation Specialists (CDI) and [facility] Coding Staff appreciate your assistance in clarifying documentation. Please respond to the clarification below the line at the bottom and electronically sign. The CDI & [facility] Coding staff will review the response and follow-up if needed. Please note: Queries are made part of the Legal Health Record. If you have any questions, please contact the author of this message via ITS. Dr. Iza Myers: Asthma is documented in the 03/16 H/P, the 03/17 Pulmonary Consult and in subsequent Attending Physician Progress Notes as "Possible Asthma & COPD Acute Exacerbation." Additional clarification regarding the type of asthma is requested. History/risk factors per the 03/16 H/P: Asthma, COPD, Idiopathic Pulmonary Fibrosis, GERD, Hypertension, Hyperlipidemia and recent Pneumonia. Clinical Indicators: Presented from physician office with SOB. Recently admitted & treated for pneumonia, discharged home on antibiotics. Vital Signs 03/16: T 98.3, P 102, R 25, BP 104/59, PO 90 4Lnc, BMI: 30.9 LAB 03/16: WBC 17.7, Neut 16.4, Lymph 0.4, APTT 20.6, D Dimer 0.85, Na 136, BUN 24, Gluc 196, LA 3.6, total Bili 2.7, Procalcitonin 0.13. 03/16 COVID negative 03/16 CXR: Extensive chronic pulmonary infiltrates consistent with advanced pulmonary fibrosis. No pleural fluid seen to suggest heart failure. Heart and lungs overall not significantly different than last exam. 03/18 CT Chest: Interval development of pneumomediastinum. Progressive groundglass infiltrate correlate for pneumonitis or pulmonary edema. Diffuse COPD, bronchiectasis and changes of chronic interstitial lung disease. There is a 2 cm nodule within the left breast with multiple calcifications. Treatment 03/16: IV Rocephin, IV fluid 500 mls @ 1000 mls/hr q30M, INH Ventolin, INH Symbicort, INH Duoneb, heparin sq, IV Solumedrol, po Singulair Please clarify the type and severity of asthma, if known: [ ] Extrinsic asthma [ ] with exacerbation [ ] without exacerbation [ ] Intrinsic asthma [ ] with exacerbation [ ] without exacerbation [ ] Mild intermittent asthma [ ] with exacerbation [ ] without exacerbation [ ] Mild persistent asthma [ ] with exacerbation [ ] without exacerbation [ ] Moderate persistent asthma [ ] with exacerbation [ ] without exacerbation [ ] Severe persistent asthma [ ] with exacerbation [ ] without exacerbation [ ] Other, please specify ____ [ ] Unable to determine (Template Last Revised: December 2020) NO asthma MTDD
[2021-03-19 12:02] LABS: Glucose,Whole Blood 210 mg/dL (75-99)
--- NOTE | 2021-03-19 12:03 | P.PN ---
Subjective Progress Note Date: 03/19/21 Principal diagnosis: Dyspnea, pulmonary fibrosis This is a 80-year-old female patient with known history of pulmonary fibrosis was just hospitalized for acute exacerbation of chronic IPF and the patient is worsening her oxygenation with progression of fibrosis. She was treated and she was discharged home to be readmitted within 2-3 weeks for the same. He is having worsening shortness of breath and currently is on 6 L of oxygen by nasal cannula just x-ray showing diffuse but the pulmonary fibrotic changes. The patient with known history of IPF currently on Ofev . Last PFT from 2019 showed an FVC of 69% of predicted, lung capacity of 71% of predicted, diffusion capacit y of 39% of predicted. She ended up being on 02 recently. She also has obstructive sleep apnea. She has AHI of 18 and the patient is currently on a CPAP pressure of 8 cm of water. She has hypertension, hyperlipidemia, hypothyroidism. The patient is presenting to the hospital because of worsening shortness of breath. She has cough. Most of his sputum production. No fever. No chills. No exposures COVID-19. Her COVID-19 testing by PCR came back negative. Chest x-ray was consistent with pulmonary fibrosis. CT angiogram that was done during early February 2021 showed no evidence of any p ulmonary embolism. Nonspecific enlarged mediastinal and hilar lymph nodes. Interstitial fibrosis involving the peripheries in the lung bases along with patchy areas of groundglass pulmonary infiltrates suspicious for any superimposed infection/edema. She has a cardiac murmur. No previous history of cardio myopathy. No history of any coronary artery disease and no history of any cardiac arrhythmias. The patient has been fully vaccinated for COVID-19 which completed the vaccination in November 2020. On 03/18/2021 patient seen in follow-up on medical surgical floor, she is currently on 6 L of oxygen with a pulse ox of 91-93%, she's been afebrile overnight, lateral signs have been stable, she is short of breath with conversation and with any exertion, but appears to be in no acute distress. This had no acute events overnight, she tested negative for COVID-19, her CTA chest is pending to rule out possibility of pulmonary embolism. She remains on IV steroids at 60 mg every 6 hours of Solu-Medrol, she is on Rocephin for empiric antibiotic coverage, Symbicort and DuoNeb nebulized treatments. Today's labs have been reviewed showing white blood cell count is 16.4, hemoglobin of 10.2, electrolytes and renal profile unremarkable, urinalysis is negative, potassium level came back negative at 0.13, LFTs were within normal limits, proBNP was 157, troponin was negative at less than 0.012. On 03/19/2021 patient seen in follow-up on medical surgical floor. She is currently on 6 L of oxygen, denies any acute distress, she is short of breath with conversation and any exertion, but overall she states she is doing a little better. CTA chest was completed showing interval development of pneumomediastinum, progressive groundglass infiltrates consideration for pneumonitis or pulmonary edema, and changes of diffuse COPD, bronchiectasis, and chronic interstitial lung disease. Patient is on hydrochlorothiazide, she is on Rocephin and IV steroids. She is maintaining negative fluid balance, she is afebrile, her pulse ox is between 91-94% on 6 L, patient normally wears 5 L of oxygen at home. Objective - Vital Signs Vital signs: Vital Signs Temp 97.6 F 03/19/21 07:35 Pulse 88 03/19/21 11:58 Resp 21 03/19/21 07:35 BP 123/70 03/19/21 07:35 Pulse Ox 94 L 03/19/21 07:35 Intake & Output 03/18/21 03/19/21 03/19/21 18:59 06:59 18:59 Intake Total 620 180 Output Total 800 Balance 620 -800 180 Weight 76.657 kg Intake: Intake, IV Titration 120 Amount Sodium Chloride 0.9% 1, 120 000 ml @ 20 mls/hr IV . [facility] Rx#:[id number] Oral 500 180 Output: Urine 800 Other: Voiding Method Bedside Commode Bedside Commode Bedside Commode Diaper Diaper Diaper Incontinent Incontinent Incontinent External Catheter External Catheter External Catheter - Exam GENERAL EXAM: Alert, very pleasant, 80-year-old white female, 6 L of oxygen and pulse ox of 91-93% mildly short of breath with conversation and exertion, comfortable in no apparent distress. HEAD: Normocephalic/atraumatic. EYES: Normal reaction of pupils, equal size. Conjunctiva pink, sclera white. NOSE: Clear with pink turbinates. THROAT: No erythema or exudates. NECK: No masses, no JVD, no thyroid enlargement, no adenopathy. CHEST: No chest wall deformity. Symmetrical expansion. LUNGS: Equal air entry with diffuse coarse crackles CVS: Regular rate and rhythm, normal S1 and S2, no gallops, no murmurs, no rubs ABDOMEN: Soft, nontender. No hepatosplenomegaly, normal bowel sounds, no guarding or rigidity. EXTREMITIES: No clubbing, no edema, no cyanosis, 2+ pulses and upper and lower extremities. MUSCULOSKELETAL: Muscle strength and tone normal. SPINE: No scoliosis or deformity SKIN: No rashes CENTRAL NERVOUS SYSTEM: Alert and oriented -3. No focal deficits, tone is normal in all 4 extremities. PSYCHIATRIC: Alert and oriented -3. Appropriate affect. Intact judgment and insight. - Labs CBC & Chem 7: 03/18/21 05:08 03/18/21 05:08 Labs: Abnormal Lab Results - Last 24 Hours (Table) 03/18/21 03/18/21 03/18/21 Range/Units 12:17 17:19 20:59 POC Glucose (mg/dL) 158 H 201 H 201 H (75-99) mg/dL 03/19/21 Range/Units 07:13 POC Glucose (mg/dL) 141 H (75-99) mg/dL Assessment and Plan Plan: Assessment: #1. shortness of breaths with secondary hypoxic respiratory failure currently on 6 L of oxygen by nasal cannula. Presentation is consistent with progression of IPF with development of diffuse but the fibrotic changes. Superinfection is felt to be unlikely. So his other cardiac possibilities. Patient was in the hospital about 3 weeks ago and she was discharged home on oxygen and she is coming in for the same. Chest x-ray showing diffuse bilateral pulmonary fibrotic changes. CTA chest showed pneumomediastinum, and progressive groundglass infiltrates with consideration for pneumonitis or pulmonary edema, COPD, bronchiectasis and changes consistent with chronic ILD #2. IPF with mild to moderate restrictive lung disease and FVC of 69% of p redicted based on a previous spirometry that was done in 2019. The patient has been maintained on Ofev over the past few years regarding her IPF. #3. shortness of breath secondary to above #4. acute hypoxic respiratory failure secondary to above #5. history of breast cancer with a previous lumpectomy followed by radiation therapy back in 2014 and the patient is been disease-free #6. hypertension #7. hypothyroidism #8. hyperlipidemia #9. chronic acid reflux #10. chronic back pain Plan: CTA chest has been noted Continue IV steroids Continue hydrochlorothiazide Continue antibiotics Continue nebulized DuoNeb GI and DVT prophylaxis COVID-19 antibody test is pending We'll continue to follow I performed a history & physical examination of the patient and discussed their management with my nurse practitioner, Claudia Catherine. I reviewed the nurse practitioner's note and agree with the documented findings and plan of care. Lung sounds are positive for diffuse crackles. The findings and the impression was discussed with the patient. I attest to the documentation by the nurse anabella plasencia. Time with Patient: Less than 30
--- NOTE | 2021-03-19 14:43 | XR ---
EXAMINATION TYPE: XR chest 1V portable DATE OF EXAM: 03/19/2021 COMPARISON: CT chest 03/18/2021, chest x-ray 03/16/2021 HISTORY: Abnormal chest x-ray, pulmonary fibrosis, pneumomediastinum TECHNIQUE: Single frontal view of the chest is obtained. FINDINGS: Pneumomediastinum changes are again seen. There is bilateral airspace disease, groundglass opacity, prominence interstitium similar to prior exam. No evident pneumothorax or pleural effusion. The heart is enlarged. Patient is rotated. IMPRESSION: Findings are similar to prior exam. Bilateral airspace disease. Cardiomegaly. Pneumomedi astinum.
--- NOTE | 2021-03-19 16:00 | PN ---
PROGRESS NOTE DATE OF SERVICE: 03/19/2021 This 80-year-old woman was admitted with COPD, acute exacerbation also had possible pulmonary fibrosis exacerbation. The patient's serum procalcitonin also elevated. The patient underwent a CT of the chest yesterday which showed interval development of pneumomediastinum. Pulmonary is following the patient closely. No chest pain. No palpitations. No fever. The patient is extremely short of breath. The patient is on high dose of nasal cannula. PAST MEDICAL HISTORY: Reviewed. REVIEW OF SYSTEMS: CARDIOVASCULAR: No angina. RESPIRATORY: As mentioned earlier. GI: As mentioned earlier. : No dysuria. NERVOUS SYSTEM: No numbness, weakness. CURRENT MEDICATIONS: Reviewed and include: DuoNeb, Xanax, Norvasc, aspirin, Tessalon, Symbicort, Rocephin, Neurontin, heparin, NovoLog, Synthroid, Imodium and Solu-Medrol. PHYSICAL EXAMINATION: Patient is alert, oriented times three. Pulse is 96. Blood pressure 126/72, respiration 21, temperature 97.6, pulse ox 94% on 6 L. HEENT: Conjunctivae normal. NECK: No JVD. CARDIOVASCULAR: S1, S2 muffled. RESPIRATION: Breath sounds diminished in the bases. A few scattered rhonchi and crackles. Expiratory wheezing present. ABDOMEN: Soft, nontender. LEGS: No edema. No swelling. NERVOUS SYSTEM: No focal deficits. LABS: WBC 16.4, hemoglobin is 10.2, glucose 201. ASSESSMENT: 1. Acute asthma, chronic obstructive pulmonary disease exacerbation. 2. Acute idiopathic pulmonary fibrosis, acute exacerbation. 3. Acute on chronic hypoxic respiratory failure. 4. Possible super added pneumonia. 5. Acute purulent tracheobronchitis. 6. Pneumomediastinum in the CT scan of the chest. 7. History of recent pneumonia. 8. Gastroesophageal reflux disease. 9. Hypertension. 10.Hyperlipidemia. 11.Hypothyroidism. 12.History of frequent diarrhea. 13.History of back surgery. 14.Gait dysfunction. 15.Degenerative joint disease. 16.History of cholecystectomy. 17.History of postop nausea, vomiting. 18.Increased WBC. 19.Elevated D-dimer. 20.Gait dysfunction. 21.Hyponatremia. 22.Elevated plasma lactic acid. 23.Elevated serum procalcitonin. 24.FULL CODE. RECOMMENDATIONS AND DISCUSSION: In this 74-year-old woman who presented with multiple complex medical issues, at this time, I recommend continue the current medications, management and symptomatic treatment. Continue the bronchodilators. Continue steroids. Otherwise, I would also recommend repeat labs. Closely follow with Pulmonary. Prognosis guarded because of multiple complex medical issues. Further recommendations to follow. CHARLES / JLN: [id number] /
[2021-03-19] MEDS: SODIUM CHLORIDE 0.9% 1,000 ML IV SCH (16:24)
[2021-03-19 17:13] LABS: Glucose,Whole Blood 142 mg/dL (75-99)
[2021-03-19 20:20] LABS: Glucose,Whole Blood 234 mg/dL (75-99)
[2021-03-19] MEDS: lisinopriL 20 MG TAB PO SCH (20:36)
[2021-03-19] MEDS: amLODIPine 5 MG TAB PO SCH (20:36)
[2021-03-19] MEDS: MONTELUKAST 10 MG TAB PO SCH (20:37)
[2021-03-19] MEDS: ALPRAZolam 0.25 MG TAB PO PRN (20:44)
[2021-03-20] MEDS: methylPREDNISolone SOD SUCCI 125 MG/2 ML VIAL IV SCH ×4 (03:01→20:30)
[2021-03-20] MEDS: LEVOTHYROXINE 75 MCG TAB PO SCH (05:19)
[2021-03-20] MEDS: LEVOTHYROXINE 100 MCG TAB PO SCH (05:19)
[2021-03-20] MEDS: IPRATROPIUM-ALBUTEROL 3 ML NEB INHALATION SCH ×3 (07:25→19:31)
[2021-03-20] MEDS: SYMBICORT 160-4.5 MCG INHALER INHALATION SCH ×2 (07:26→19:32)
[2021-03-20 07:32] LABS: Glucose,Whole Blood 142 mg/dL (75-99)
--- NOTE | 2021-03-20 08:19 | XR ---
EXAMINATION TYPE: XR chest 1V portable DATE OF EXAM: 03/20/2021 COMPARISON: 03/19/2021 INDICATION: IPF pneumomediastinum TECHNIQUE: Single frontal view of the chest is obtained. FINDINGS: The heart size is prominent. The pulmonary vasculature is indistinct. There is diffuse increased lung markings bilaterally. Findings may be worsening. Degree of inspiratio n is more limited on the current exam. Previous pneumomediastinum is less well visualized. No expansion of the pneumomediastinum is identifi ed. IMPRESSION: 1. Worsening bilateral lung infiltrates.
[2021-03-20] MEDS: HEPARIN SODIUM,PORCINE/PF 5,000 UNIT/0.5 ML SYRINGE SQ SCH ×2 (09:03→20:29)
[2021-03-20] MEDS: hydroCHLOROthiazide 25 MG TAB PO SCH (09:03)
[2021-03-20] MEDS: MULTIVITAMINS, THERA 1 EACH TAB PO SCH (09:03)
[2021-03-20] MEDS: GABAPENTIN 400 MG CAP PO SCH ×3 (09:03→20:28)
[2021-03-20] MEDS: ASPIRIN 81 MG PO SCH (09:03)
[2021-03-20] MEDS: PANTOPRAZOLE 40 MG TABLET PO SCH (09:03)
[2021-03-20] MEDS: PRAVASTATIN SODIUM 20 MG TAB PO SCH (09:03)
[2021-03-20] MEDS: INSULIN ASPART (NovoLOG) 100 UNIT/ML VIAL SQ SCH ×4 (09:04→20:30)
[2021-03-20] MEDS: NINTEDANIB ESYLATE 100 MG PO SCH ×2 (09:05→20:30)
[2021-03-20] MEDS: ALPRAZolam 0.25 MG TAB PO PRN (09:13)
[2021-03-20] MEDS ORDERED: FUROSEMIDE 10 MG/ML 4 ML VIAL IV STA (11:08)
[2021-03-20 11:44] LABS: Glucose,Whole Blood 175 mg/dL (75-99)
[2021-03-20] MEDS: SENNOSIDES 8.6 MG TAB PO PRN (12:13)
--- NOTE | 2021-03-20 12:54 | P.PN ---
Subjective Progress Note Date: 03/20/21 Principal diagnosis: Dyspnea, pulmonary fibrosis This is a 80-year-old female patient with known history of pulmonary fibrosis was just hospitalized for acute exacerbation of chronic IPF and the patient is worsening her oxygenation with progression of fibrosis. She was treated and she was discharged home to be readmitted within 2-3 weeks for the same. He is having worsening shortness of breath and currently is on 6 L of oxygen by nasal cannula just x-ray showing diffuse but the pulmonary fibrotic changes. The patient with known history of IPF currently on Ofev . Last PFT from 2019 showed an FVC of 69% of predicted, lung capacity of 71% of predicted, diffusion capacit y of 39% of predicted. She ended up being on 02 recently. She also has obstructive sleep apnea. She has AHI of 18 and the patient is currently on a CPAP pressure of 8 cm of water. She has hypertension, hyperlipidemia, hypothyroidism. The patient is presenting to the hospital because of worsening shortness of breath. She has cough. Most of his sputum production. No fever. No chills. No exposures COVID-19. Her COVID-19 testing by PCR came back negative. Chest x-ray was consistent with pulmonary fibrosis. CT angiogram that was done during early February 2021 showed no evidence of any p ulmonary embolism. Nonspecific enlarged mediastinal and hilar lymph nodes. Interstitial fibrosis involving the peripheries in the lung bases along with patchy areas of groundglass pulmonary infiltrates suspicious for any superimposed infection/edema. She has a cardiac murmur. No previous history of cardio myopathy. No history of any coronary artery disease and no history of any cardiac arrhythmias. The patient has been fully vaccinated for COVID-19 which completed the vaccination in November 2020. On 03/18/2021 patient seen in follow-up on medical surgical floor, she is currently on 6 L of oxygen with a pulse ox of 91-93%, she's been afebrile overnight, lateral signs have been stable, she is short of breath with conversation and with any exertion, but appears to be in no acute distress. This had no acute events overnight, she tested negative for COVID-19, her CTA chest is pending to rule out possibility of pulmonary embolism. She remains on IV steroids at 60 mg every 6 hours of Solu-Medrol, she is on Rocephin for empiric antibiotic coverage, Symbicort and DuoNeb nebulized treatments. Today's labs have been reviewed showing white blood cell count is 16.4, hemoglobin of 10.2, electrolytes and renal profile unremarkable, urinalysis is negative, potassium level came back negative at 0.13, LFTs were within normal limits, proBNP was 157, troponin was negative at less than 0.012. On 03/19/2021 patient seen in follow-up on medical surgical floor. She is currently on 6 L of oxygen, denies any acute distress, she is short of breath with conversation and any exertion, but overall she states she is doing a little better. CTA chest was completed showing interval development of pneumomediastinum, progressive groundglass infiltrates consideration for pneumonitis or pulmonary edema, and changes of diffuse COPD, bronchiectasis, and chronic interstitial lung disease. Patient is on hydrochlorothiazide, she is on Rocephin and IV steroids. She is maintaining negative fluid balance, she is afebrile, her pulse ox is between 91-94% on 6 L, patient normally wears 5 L of oxygen at home. On 03/20/2021 patient seen in follow-up on medical surgical floor, she still remains on 6 L of oxygen and her pulse ox is 95%, she normally wears 5 L of oxygen at home. She states her breathing is a bit improved although still very dyspneic with any exertion. She states today she was able to get up and walk a few feet in the room. No complaint of chest discomfort, occasional cough, no phlegm production. No fever or chills. Patient received dose of Lasix today, he remains on hydrochlorothiazide, he remains on IV steroids and antibiotics. Objective - Vital Signs Vital signs: Vital Signs Temp 97.9 F 03/20/21 08:00 Pulse 89 03/20/21 11:38 Resp 22 03/20/21 08:00 BP 145/74 03/20/21 08:00 Pulse Ox 95 03/20/21 08:00 Intake & Output 03/19/21 03/20/21 03/20/21 18:59 06:59 18:59 Intake Total 654 240 Output Total 300 250 Balance 354 -250 240 Intake: Oral 654 240 Output: Urine 300 250 Other: Voiding Method Bedside Commode Bedside Commode Diaper Diaper Incontinent Incontinent External Catheter External Catheter # Voids 1 - Exam GENERAL EXAM: Alert, very pleasant, 80-year-old white female, 6 L of oxygen and pulse ox of 91-93% mildly short of breath with conversation and exertion, comfortable in no apparent distress. HEAD: Normocephalic/atraumatic. EYES: Normal reaction of pupils, equal size. Conjunctiva pink, sclera white. NOSE: Clear with pink turbinates. THROAT: No erythema or exudates. NECK: No masses, no JVD, no thyroid enlargement, no adenopathy. CHEST: No chest wall deformity. Symmetrical expansion. LUNGS: Equal air entry with diffuse coarse crackles CVS: Regular rate and rhythm, normal S1 and S2, no gallops, no murmurs, no rubs ABDOMEN: Soft, nontender. No hepatosplenomegaly, normal bowel sounds, no guarding or rigidity. EXTREMITIES: No clubbing, no edema, no cyanosis, 2+ pulses and upper and lower extremities. MUSCULOSKELETAL: Muscle strength and tone normal. SPINE: No scoliosis or deformity SKIN: No rashes CENTRAL NERVOUS SYSTEM: Alert and oriented -3. No focal deficits, tone is normal in all 4 extremities. PSYCHIATRIC: Alert and oriented -3. Appropriate affect. Intact judgment and insight. - Labs CBC & Chem 7: 03/18/21 05:08 03/18/21 05:08 Labs: Abnormal Lab Results - Last 24 Hours (Table) 03/19/21 03/19/21 03/20/21 Range/Units 17:06 20:18 07:18 POC Glucose (mg/dL) 142 H 234 H 142 H (75-99) mg/dL 03/20/21 Range/Units 11:41 POC Glucose (mg/dL) 175 H (75-99) mg/dL Assessment and Plan Plan: Assessment: #1. shortness of breaths with secondary hypoxic respiratory failure currently on 6 L of oxygen by nasal cannula. Presentation is consistent with progression of IPF with development of diffuse but the fibrotic changes. Superinfection is felt to be unlikely. So his other cardiac possibilities. Patient was in the hospital about 3 weeks ago and she was discharged home on oxygen and she is com ing in for the same. Chest x-ray showing diffuse bilateral pulmonary fibrotic changes. CTA chest showed pneumomediastinum, and progressive groundglass infiltrates with consideration for pneumonitis or pulmonary edema, COPD, bronchiectasis and changes consistent with chronic ILD #2. IPF with mild to moderate restrictive lung disease and FVC of 69% of predicted based on a previous spirometry that was done in 2019. The patient has been maintained on Ofev over the past few years regarding her IPF. #3. shortness of breath secondary to above #4. acute hypoxic respiratory failure secondary to above #5. history of breast cancer with a previous lumpectomy followed by radiation therapy back in 2014 and the patient is been disease-free #6. hypertension #7. hypothyroidism #8. hyperlipidemia #9. chronic acid reflux #10. chronic back pain Plan: Agree with the dose of Lasix Continue hydrochlorothiazide Continue steroids Follow-up basic labs tomorrow Patient is still quite dyspneic with any exertion She is working on obtaining home oxygen concentrator that we will provide oxygen above 5 L/m, meeting/event planner been notified and assist with home oxygen concentrator We'll continue to follow I performed a history & physical examination of the patient and discussed their management with my nurse practitioner, Claudia Catherine. I reviewed the nurse practitioner's note and agree with the documented findings and plan of care. Lung sounds are positive for diffuse crackles. The findings and the impression was discussed with the patient. I attest to the documentation by the nurse practitioner. Time with Patient: Less than 30
[2021-03-20 16:55] LABS: Glucose,Whole Blood 194 mg/dL (75-99)
[2021-03-20 17:05] LABS: ALT 31 U/L (4-34); AST 27 U/L (14-36); African American GFR (CKD) 79 (>60 ml/min/1.73 sqM); Albumin 3.4 g/dL (3.5-5.0); Albumin/Globulin Ratio 1.5; Alkaline Phosphatase 61 U/L (38-126); Anion Gap 5 mmol/L; Blood Urea Nitrogen 30 mg/dL (7-17); Calcium 8.6 mg/dL (8.4-10.2); Carbon Dioxide 33 mmol/L (22-30); Chloride 98 mmol/L (98-107); Globulin 2.3 g/dL; Glucose 209 mg/dL (74-99); Non-African American GFR(CKD) 68 (>60 ml/min/1.73 sqM); Potassium 3.3 mmol/L (3.5-5.1); Sodium 136 mmol/L (137-145); Total Bilirubin 1.3 mg/dL (0.2-1.3); Total Protein 5.7 g/dL (6.3-8.2)
--- NOTE | 2021-03-20 18:17 | PN ---
PROGRESS NOTE DATE OF SERVICE: 03/20/2021 This 80-year-old woman who was admitted with COPD acute exacerbation also had pulmonary fibrosis. The patient is being closely monitored. The patient is extremely short of breath at this time. The CT chest x-ray showed bilateral worsening pulmonary infiltrates at this time. Pulmonary is following the patient. Patient is on empiric steroids also at this time. Cultures are negative so far. PAST MEDICAL HISTORY: Reviewed. REVIEW OF SYSTEMS: CARDIOVASCULAR As mentioned earlier. RESPIRATORY As mentioned earlier. GI No nausea, vomiting, or diarrhea. No dysuria or hematuria. NERVOUS No numbness or weakness. MEDICATIONS: Reviewed and include DuoNeb, Xanax, Norvasc, aspirin, Symbicort. PHYSICAL EXAMINATION: Patient is alert and oriented x3. Pulse 93, blood pressure 140/72, respiration 20, temperature 97.8, pulse ox 98% on room air. HEENT: Conjunctivae normal. Oral mucosa moist. NECK: No jugular venous distention. No lymph node enlargement. CARDIOVASCULAR: S1, S2, muffled. No S3, no S4, RESPIRATORY: Diminished breath sounds at the bases. A few scattered rhonchi and basal crackles. ABDOMEN: Soft. NERVOUS SYSTEM: No focal deficits. LABS: Accu-Cheks are 124, 173, 78. WBC 16, hemoglobin 10.2. Other labs are noted. ASSESSMENT: 1. Acute asthma, COPD exacerbation. 2. Idiopathic pulmonary fibrosis acute exacerbation. 3. Acute on chronic hypoxic respiratory failure. 4. Possible superadded pneumonia. 5. Acute purulent tracheobronchitis. 6. Pneumomediastinum on the CT scan of the chest. 7. History of recent pneumonia. 8. GERD. 9. Hypertension. 10.Hyperlipidemia. 11.Hypothyroidism. 12.History of frequent diarrhea. 13.History of back surgery. 14.Gait dysfunction. 15.DJD. 16.History of cholecystectomy. 17.History of postoperative nausea, vomiting. 18.Increased WBC. 19.Elevated D-dimer. 20.Gait dysfunction. 21.Hyponatremia. 22.Elevated plasma lactic acid. 23.Elevated serum procalcitonin. 24.FULL CODE. RECOMMENDATIONS: Recommend to continue current management and symptomatic treatment. Otherwise, at this time I would also recommend blood and sputum cultures. Repeat labs will be ordered. Continue the antibiotics. Guarded prognosis because of multiple complex medical issues. MMODL / IJN: [id number] /
[2021-03-20] MEDS ORDERED: Potassium Replacement Protocol 1 EACH MISC MISCELLANE PRN (18:31)
[2021-03-20 20:02] LABS: Glucose,Whole Blood 226 mg/dL (75-99)
[2021-03-20] MEDS: lisinopriL 20 MG TAB PO SCH (20:29)
[2021-03-20] MEDS: POTASSIUM CHLORIDE ER 20 MEQ TAB.ER PO SCH ×2 (20:29→22:10)
[2021-03-20] MEDS: amLODIPine 5 MG TAB PO SCH (20:29)
[2021-03-20] MEDS: MONTELUKAST 10 MG TAB PO SCH (20:29)
[2021-03-20] MEDS: SODIUM CHLORIDE 0.9% 1,000 ML IV SCH (20:32)
[2021-03-21] MEDS: methylPREDNISolone SOD SUCCI 125 MG/2 ML VIAL IV SCH ×4 (02:36→20:40)
[2021-03-21] MEDS: LEVOTHYROXINE 100 MCG TAB PO SCH (05:08)
[2021-03-21] MEDS: LEVOTHYROXINE 75 MCG TAB PO SCH (05:08)
[2021-03-21 07:20] LABS: Glucose,Whole Blood 151 mg/dL (75-99)
[2021-03-21] MEDS: IPRATROPIUM-ALBUTEROL 3 ML NEB INHALATION SCH ×3 (08:21→20:27)
[2021-03-21] MEDS: SYMBICORT 160-4.5 MCG INHALER INHALATION SCH ×2 (08:21→20:27)
[2021-03-21] MEDS: INSULIN ASPART (NovoLOG) 100 UNIT/ML VIAL SQ SCH ×4 (08:29→20:38)
[2021-03-21] MEDS: GABAPENTIN 400 MG CAP PO SCH ×3 (08:31→20:39)
[2021-03-21] MEDS: hydroCHLOROthiazide 25 MG TAB PO SCH (08:32)
[2021-03-21] MEDS: PRAVASTATIN SODIUM 20 MG TAB PO SCH (08:32)
[2021-03-21] MEDS: ASPIRIN 81 MG PO SCH (08:32)
[2021-03-21] MEDS: HEPARIN SODIUM,PORCINE/PF 5,000 UNIT/0.5 ML SYRINGE SQ SCH ×2 (08:32→20:38)
[2021-03-21] MEDS: PANTOPRAZOLE 40 MG TABLET PO SCH (08:32)
[2021-03-21] MEDS: NINTEDANIB ESYLATE 100 MG PO SCH ×2 (08:33→20:39)
[2021-03-21] MEDS: MULTIVITAMINS, THERA 1 EACH TAB PO SCH (08:33)
[2021-03-21] MEDS: ALPRAZolam 0.25 MG TAB PO PRN (08:34)
[2021-03-21 10:31] LABS: Basophils # (A) 0.05 X 10*3/uL (0.00-0.10); Basophils % (A) 0.4 %; Eosinophils # (A) 0 X 10*3/uL (0.04-0.35); Eosinophils % (A) 0 %; HCT 32.1 % (37.2-46.3); HGB 10.4 g/dL (12.0-15.0); Lymphocytes # (A) 0.69 X 10*3/uL (0.90-5.00); Lymphocytes % (A) 5.6 %; MCH 36.6 pg (27.0-32.0); MCHC 32.4 g/dL (32.0-37.0); Mean Platelet Volume 12.5 fL (9.5-12.2); Monocytes # (A) 0.78 X 10*3/uL (0.20-1.00); Monocytes % (A) 6.4 %; Neutrophils # (A) 10.14 X 10*3/uL (1.80-7.70); Neutrophils % (A) 82.8 %; Platelet Count 200 X 10*3/uL (140-440); RBC 2.84 X 10*6/uL (4.10-5.20); RDW 16.8 % (11.5-14.5); WBC 12.25 X 10*3/uL (4.50-10.00)
--- NOTE | 2021-03-21 11:45 | P.PN ---
Subjective Progress Note Date: 03/21/21 Principal diagnosis: Dyspnea, pulmonary fibrosis This is a 80-year-old female patient with known history of pulmonary fibrosis was just hospitalized for acute exacerbation of chronic IPF and the patient is worsening her oxygenation with progression of fibrosis. She was treated and she was discharged home to be readmitted within 2-3 weeks for the same. He is having worsening shortness of breath and currently is on 6 L of oxygen by nasal cannula just x-ray showing diffuse but the pulmonary fibrotic changes. The patient with known history of IPF currently on Ofev . Last PFT from 2019 showed an FVC of 69% of predicted, lung capacity of 71% of predicted, diffusion capacit y of 39% of predicted. She ended up being on 02 recently. She also has obstructive sleep apnea. She has AHI of 18 and the patient is currently on a CPAP pressure of 8 cm of water. She has hypertension, hyperlipidemia, hypothyroidism. The patient is presenting to the hospital because of worsening shortness of breath. She has cough. Most of his sputum production. No fever. No chills. No exposures COVID-19. Her COVID-19 testing by PCR came back negative. Chest x-ray was consistent with pulmonary fibrosis. CT angiogram that was done during early February 2021 showed no evidence of any p ulmonary embolism. Nonspecific enlarged mediastinal and hilar lymph nodes. Interstitial fibrosis involving the peripheries in the lung bases along with patchy areas of groundglass pulmonary infiltrates suspicious for any superimposed infection/edema. She has a cardiac murmur. No previous history of cardio myopathy. No history of any coronary artery disease and no history of any cardiac arrhythmias. The patient has been fully vaccinated for COVID-19 which completed the vaccination in November 2020. On 03/18/2021 patient seen in follow-up on medical surgical floor, she is currently on 6 L of oxygen with a pulse ox of 91-93%, she's been afebrile overnight, lateral signs have been stable, she is short of breath with conversation and with any exertion, but appears to be in no acute distress. This had no acute events overnight, she tested negative for COVID-19, her CTA chest is pending to rule out possibility of pulmonary embolism. She remains on IV steroids at 60 mg every 6 hours of Solu-Medrol, she is on Rocephin for empiric antibiotic coverage, Symbicort and DuoNeb nebulized treatments. Today's labs have been reviewed showing white blood cell count is 16.4, hemoglobin of 10.2, electrolytes and renal profile unremarkable, urinalysis is negative, potassium level came back negative at 0.13, LFTs were within normal limits, proBNP was 157, troponin was negative at less than 0.012. On 03/19/2021 patient seen in follow-up on medical surgical floor. She is currently on 6 L of oxygen, denies any acute distress, she is short of breath with conversation and any exertion, but overall she states she is doing a little better. CTA chest was completed showing interval development of pneumomediastinum, progressive groundglass infiltrates consideration for pneumonitis or pulmonary edema, and changes of diffuse COPD, bronchiectasis, and chronic interstitial lung disease. Patient is on hydrochlorothiazide, she is on Rocephin and IV steroids. She is maintaining negative fluid balance, she is afebrile, her pulse ox is between 91-94% on 6 L, patient normally wears 5 L of oxygen at home. On 03/20/2021 patient seen in follow-up on medical surgical floor, she still remains on 6 L of oxygen and her pulse ox is 95%, she normally wears 5 L of oxygen at home. She states her breathing is a bit improved although still very dyspneic with any exertion. She states today she was able to get up and walk a few feet in the room. No complaint of chest discomfort, occasional cough, no phlegm production. No fever or chills. Patient received dose of Lasix today, he remains on hydrochlorothiazide, he remains on IV steroids and antibiotics. On 03/21/2021 patient seen in follow-up on medical surgical floor. Currently on 6 L of oxygen with a pulse ox of 97%, she states she is breathing easier, she is able to walk more in the room, in yesterday she was able to get up and walk short distances in the room 6 times with assistance. Discharge planning was consulted in regards to assistance with the concentrator that will provide oxygen up to 10 L at home, and patient is currently working with [facility] and she is anticipating to get a new concentrator for discharge that will provide oxygen up to 10 L. Acute events overnight, no fever or chills, no complaint of chest pain, yesterday she received a dose of IV diuretics, she remains on hydrochlorothiazide, she is -620 and no fluid balance over the last 24 hours. No new chest x-ray. Today's labs have been reviewed, her white blood cell count is improving, and is down to 12.2, hemoglobin is 10.4, BNP is pending for now. Patient remains on IV steroids 60 mg every 6 hours, empiric antibiotics, and nebulized bronchodilators. Objective - Vital Signs Vital signs: Vital Signs Temp 98.1 F 03/21/21 08:00 Pulse 92 03/21/21 08:33 Resp 22 03/21/21 08:00 BP 120/71 03/21/21 08:00 Pulse Ox 97 03/21/21 08:00 Intake & Output 03/20/21 03/21/21 03/21/21 18:59 06:59 18:59 Intake Total 240 240 Output Total 200 900 Balance 40 -660 Weight 76.657 kg Intake: Oral 240 240 Output: Urine 200 900 Other: Voiding Method Bedside Commode External Catheter Diaper Incontinent External Catheter # Voids 1 1 - Exam GENERAL EXAM: Alert, very pleasant, 80-year-old white female, 6 L of oxygen and pulse ox of 97% mildly short of breath with conversation and exertion, comfortable in no apparent distress. HEAD: Normocephalic/atraumatic. EYES: Normal reaction of pupils, equal size. Conjunctiva pink, sclera white. NOSE: Clear with pink turbinates. THROAT: No erythema or exudates. NECK: No masses, no JVD, no thyroid enlargement, no adenopathy. CHEST: No chest wall deformity. Symmetrical expansion. LUNGS: Equal air entry with diffuse coarse crackles CVS: Regular rate and rhythm, normal S1 and S2, no gallops, no murmurs, no rubs ABDOMEN: Soft, nontender. No hepatosplenomegaly, normal bowel sounds, no guarding or rigidity. EXTREMITIES: No clubbing, no edema, no cyanosis, 2+ pulses and upper and lower extremities. MUSCULOSKELETAL: Muscle strength and tone normal. SPINE: No scoliosis or deformity SKIN: No rashes CENTRAL NERVOUS SYSTEM: Alert and oriented -3. No focal deficits, tone is normal in all 4 extremities. PSYCHIATRIC: Alert and oriented -3. Appropriate affect. Intact judgment and insight. - Labs CBC & Chem 7: 03/21/21 04:38 03/20/21 16:13 Labs: Abnormal Lab Results - Last 24 Hours (Table) 03/20/21 03/20/21 03/20/21 Range/Units 11:41 16:13 16:54 WBC (4.50-10.00) X 10*3/uL RBC (4.10-5.20) X 10*6/uL Hgb (12.0-15.0) g/dL Hct (37.2-46.3) % MCV (80.0-97.0) fL MCH (27.0-32.0) pg RDW (11.5-14.5) % MPV (9.5-12.2) fL Absolute Nucleated RBC (0.00-0.00) X 10*3/uL Immature Gran # (0.00-0.04) X 10*3/uL Neutrophils # (1.80-7.70) X 10*3/uL Lymphocytes # (0.90-5.00) X 10*3/uL Eosinophils # (0.04-0.35) X 10*3/uL NRBC/100 WBC Diff (0.0-0.0) /100 WBCS Sodium 136 L (137-145) mmol/L Potassium 3.3 L (3.5-5.1) mmol/L Carbon Dioxide 33 H (22-30) mmol/L BUN 30 H (7-17) mg/dL Glucose 209 H (74-99) mg/dL POC Glucose (mg/dL) 175 H 194 H (75-99) mg/dL Total Protein 5.7 L (6.3-8.2) g/dL Albumin 3.4 L (3.5-5.0) g/dL 03/20/21 03/21/21 03/21/21 Range/Units 20:01 04:38 07:19 WBC 12.25 H (4.50-10.00) X 10*3/uL RBC 2.84 L (4.10-5.20) X 10*6/uL Hgb 10.4 L (12.0-15.0) g/dL Hct 32.1 L (37.2-46.3) % MCV 113.0 H (80.0-97.0) fL MCH 36.6 H (27.0-32.0) pg RDW 16.8 H (11.5-14.5) % MPV 12.5 H (9.5-12.2) fL Absolute Nucleated RBC 0.14 H (0.00-0.00) X 10*3/uL Immature Gran # 0.59 H (0.00-0.04) X 10*3/uL Neutrophils # 10.14 H (1.80-7.70) X 10*3/uL Lymphocytes # 0.69 L (0.90-5.00) X 10*3/uL Eosinophils # 0 L (0.04-0.35) X 10*3/uL NRBC/100 WBC Diff 1.1 H (0.0-0.0) /100 WBCS Sodium (137-145) mmol/L Potassium (3.5-5.1) mmol/L Carbon Dioxide (22-30) mmol/L BUN (7-17) mg/dL Glucose (74-99) mg/dL POC Glucose (mg/dL) 226 H 151 H (75-99) mg/dL Total Protein (6.3-8.2) g/dL Albumin (3.5-5.0) g/dL Assessment and Plan Plan: Assessment: #1. shortness of breaths with secondary hypoxic respiratory failure currently on 6 L of oxygen by nasal cannula. Presentation is consistent with progression of IPF with development of diffuse but the fibrotic changes. Superinfection is felt to be unlikely. So his other cardiac possibilities. Patient was in the hospital about 3 weeks ago and she was discharged home on oxygen and she is coming in for the same. Chest x-ray showing diffuse bilateral pulmonary f ibrotic changes. CTA chest showed pneumomediastinum, and progressive groundglass infiltrates with consideration for pneumonitis or pulmonary edema, COPD, bronchiectasis and changes consistent with chronic ILD #2. IPF with mild to moderate restrictive lung disease and FVC of 69% of predicted based on a previous spirometry that was done in 2019. The patient has been maintained on Ofev over the past few years regarding her IPF. #3. shortness of breath secondary to above #4. acute hypoxic respiratory failure secondary to above #5. history of breast cancer with a previous lumpectomy followed by radiation therapy back in 2014 and the patient is been disease-free #6. hypertension #7. hypothyroidism #8. hyperlipidemia #9. chronic acid reflux #10. chronic back pain Plan: Continue current treatment Continue steroids Increase activity as tolerated Patient has been approved for a replacement of her home concentrator for one that we will provide oxygen up to 10 L/m [facility] is working with the patient Not quite ready for discharge I performed a history & physical examination of the patient and discussed their management with my nurse practitioner, Claudia Catherine. I reviewed the nurse practitioner's note and agree with the documented findings and plan of care. Lung sounds are positive for diffuse crackles. The findings and the impression was discussed with the patient. I attest to the documentation by the nurse practitioner. Time with Patient: Less than 30
[2021-03-21 12:07] LABS: Glucose,Whole Blood 166 mg/dL (75-99)
[2021-03-21 13:16] LABS: African American GFR (CKD) 81.8 (60.0-200.0); Anion Gap 8.2 mmol/L (4.00-12.00); BUN/Creat Ratio 36.25 Ratio (12.00-20.00); Calcium 8.8 mg/dL (8.7-10.3); Carbon Dioxide 31.8 mmol/L (21.6-31.8); Non-African American GFR(CKD) 70.6 (60.0-200.0); Potassium 4.4 mmol/L (3.5-5.5)
[2021-03-21] MEDS: NYSTATIN 100,000 UNIT/ML SUSP 500,000 UNIT/5 ML CUP PO SCH ×3 (15:39→20:40)
[2021-03-21] MEDS: SENNOSIDES 8.6 MG TAB PO PRN (15:57)
[2021-03-21 17:32] LABS: Glucose,Whole Blood 160 mg/dL (75-99)
[2021-03-21] MEDS: SODIUM CHLORIDE 0.9% 1,000 ML IV SCH (19:09)
[2021-03-21 20:12] LABS: Glucose,Whole Blood 195 mg/dL (75-99)
--- NOTE | 2021-03-21 20:14 | PN ---
PROGRESS NOTE DATE OF SERVICE: 03/21/2021 This 80-year-old woman who was admitted with acute asthma, chronic obstructive pulmonary disease exacerbation also had idiopathic pulmonary fibrosis. The most recent chest x-ray showed some worsening and fluid overload after diuretics. The patient appears to be improving significantly. No chest pain. No palpitations. No fever. PHYSICAL EXAMINATION: Alert and pulse 82, blood pressure 119/70, respirations 16, temperature 97.2, pulse ox 99% on 6 L. HEENT: Conjunctivae normal. Oral mucosa moist. NECK: No jugular venous distention. No lymph node enlargement. CARDIOVASCULAR: S1, S2, muffled. No S3, no S4, RESPIRATORY: Diminished breath sounds at the bases. A few scattered rhonchi and crackles. ABDOMEN: Soft, nontender. LEGS: No edema, no swelling. NERVOUS: No focal deficits. LAB STUDIES: WBC 12.2, hemoglobin 10.4. Accu-Cheks noted. ASSESSMENT: 1. Acute asthma, chronic obstructive pulmonary disease acute exacerbation. 2. Idiopathic pulmonary fibrosis with acute exacerbation. 3. Acute on chronic hypoxic respiratory failure. 4. Possible super added pneumonia or acute purulent tracheobronchitis. 5. Pneumomediastinum in the CT scan of the chest. 6. History of recent pneumonia. 7. GERD. 8. Hypertension. 9. Hyperlipidemia. 10.Hypothyroidism. 11.History of frequent diarrhea. 12.History of back surgery. 13.Gait dysfunction. 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 15.History of cholecystectomy. 16.History of postoperative nausea and vomiting. 17.Increased WBC. 18.Elevated D-dimer. 19.Gait dysfunction. 20.Hyponatremia. 21.Elevated plasma lactic acid. 22.Elevated serum procalcitonin. 23.FULL CODE. RECOMMENDATIONS: Recommend to continue current management and symptomatic treatment. Otherwise, at this time I would recommend continue with continue the bronchodilators, steroids and closely follow with Dr. Ford. I would also recommend a followup chest x-ray tomorrow morning. Guarded prognosis. Further recommendations to follow. MMODL / IJN: [id number] /
[2021-03-21] MEDS: lisinopriL 20 MG TAB PO SCH (20:38)
[2021-03-21] MEDS: amLODIPine 5 MG TAB PO SCH (20:39)
[2021-03-21] MEDS: MONTELUKAST 10 MG TAB PO SCH (20:39)
[2021-03-22] MEDS: methylPREDNISolone SOD SUCCI 125 MG/2 ML VIAL IV SCH ×4 (03:20→21:02)
[2021-03-22] MEDS: LEVOTHYROXINE 100 MCG TAB PO SCH (05:46)
[2021-03-22] MEDS: LEVOTHYROXINE 75 MCG TAB PO SCH (05:46)
[2021-03-22 07:02] LABS: Glucose,Whole Blood 214 mg/dL (75-99)
[2021-03-22] MEDS: IPRATROPIUM-ALBUTEROL 3 ML NEB INHALATION SCH ×3 (07:33→19:21)
[2021-03-22] MEDS: SYMBICORT 160-4.5 MCG INHALER INHALATION SCH ×2 (07:33→19:21)
--- NOTE | 2021-03-22 07:34 | XR ---
EXAMINATION TYPE: XR chest 1V portable DATE OF EXAM: 03/22/2021 COMPARISON: 03/20/2021 HISTORY: Shortness of breath TECHNIQUE: Single frontal view of the chest is obtained. FINDINGS: There are diffuse predominantly interstitial opacities in both lungs unchanged compared to the prior study. There is no pneumothorax or large pleural effusion. Heart size is mildly prominent. The osseous struc tures are intact IMPRESSION: No interval change in the diffuse interstitial infiltrates
[2021-03-22] MEDS: HEPARIN SODIUM,PORCINE/PF 5,000 UNIT/0.5 ML SYRINGE SQ SCH ×2 (07:59→21:01)
[2021-03-22] MEDS: hydroCHLOROthiazide 25 MG TAB PO SCH (07:59)
[2021-03-22] MEDS: GABAPENTIN 400 MG CAP PO SCH ×3 (07:59→21:02)
[2021-03-22] MEDS: ASPIRIN 81 MG PO SCH (07:59)
[2021-03-22] MEDS: PANTOPRAZOLE 40 MG TABLET PO SCH (07:59)
[2021-03-22] MEDS: INSULIN ASPART (NovoLOG) 100 UNIT/ML VIAL SQ SCH ×4 (08:00→21:01)
[2021-03-22] MEDS: MULTIVITAMINS, THERA 1 EACH TAB PO SCH (08:00)
[2021-03-22] MEDS: NINTEDANIB ESYLATE 100 MG PO SCH ×2 (08:00→21:03)
[2021-03-22] MEDS: PRAVASTATIN SODIUM 20 MG TAB PO SCH (08:01)
[2021-03-22] MEDS: NYSTATIN 100,000 UNIT/ML SUSP 500,000 UNIT/5 ML CUP PO SCH ×4 (08:22→21:03)
--- NOTE | 2021-03-22 11:25 | P.PN ---
Subjective Progress Note Date: 03/22/21 Principal diagnosis: Dyspnea, pulmonary fibrosis This is a 80-year-old female patient with known history of pulmonary fibrosis was just hospitalized for acute exacerbation of chronic IPF and the patient is worsening her oxygenation with progression of fibrosis. She was treated and she was discharged home to be readmitted within 2-3 weeks for the same. He is having worsening shortness of breath and currently is on 6 L of oxygen by nasal cannula just x-ray showing diffuse but the pulmonary fibrotic changes. The patient with known history of IPF currently on Ofev . Last PFT from 2019 showed an FVC of 69% of predicted, lung capacity of 71% of predicted, diffusion capaci ty of 39% of predicted. She ended up being on 02 recently. She also has obstructive sleep apnea. She has AHI of 18 and the patient is currently on a CPAP pressure of 8 cm of water. She has hypertension, hyperlipidemia, hypothyroidism. The patient is presenting to the hospital because of worsening shortness of breath. She has cough. Most of his sputum production. No fever. No chills. No exposures COVID-19. Her COVID-19 testing by PCR came back negative. Chest x-ray was consistent with pulmonary fibrosis. CT angiogram that was done during early February 2021 showed no evidence of any pulmonary embolism. Nonspecific enlarged mediastinal and hilar lymph nodes. Interstitial fibrosis involving the peripheries in the lung bases along with patchy areas of groundglass pulmonary infiltrates suspicious for any superimposed infection/edema. She has a cardiac murmur. No previous history of cardio myopathy. No history of any coronary artery disease and no history of any cardiac arrhythmias. The patient has been fully vaccinated for COVID-19 which completed the vaccination in November 2020. On 03/18/2021 patient seen in follow-up on medical surgical floor, she is currently on 6 L of oxygen with a pulse ox of 91-93%, she's been afebrile overnight, lateral signs have been stable, she is short of breath with conversation and with any exertion, but appears to be in no acute distress. This had no acute events overnight, she tested negative for COVID-19, her CTA chest is pending to rule out possibility of pulmonary embolism. She remains on IV steroids at 60 mg every 6 hours of Solu-Medrol, she is on Rocephin for empiric antibiotic coverage, Symbicort and DuoNeb nebulized treatments. Today's labs have been reviewed showing white blood cell count is 16.4, hemoglobin of 10 .2, electrolytes and renal profile unremarkable, urinalysis is negative, potassium level came back negative at 0.13, LFTs were within normal limits, proBNP was 157, troponin was negative at less than 0.012. On 03/19/2021 patient seen in follow-up on medical surgical floor. She is currently on 6 L of oxygen, denies any acute distress, she is short of breath with conversation and any exertion, but overall she states she is doing a little better. CTA chest was completed showing interval development of pneumomediastinum, progressive groundglass infiltrates consideration for pneumonitis or pulmonary edema, and changes of diffuse COPD, bronchiectasis, and chronic interstitial lung disease. Patient is on hydrochlorothiazide, she is on Rocephin and IV steroids. She is maintaining negative fluid balance, she is afebrile, her pulse ox is between 91-94% on 6 L, patient normally wears 5 L of oxygen at home. On 03/20/2021 patient seen in follow-up on medical surgical floor, she still remains on 6 L of oxygen and her pulse ox is 95%, she normally wears 5 L of oxygen at home. She states her breathing is a bit improved although still very dyspneic with any exertion. She states today she was able to get up and walk a few feet in the room. No complaint of chest discomfort, occasional cough, no phlegm production. No fever or chills. Patient received dose of Lasix today, he remains on hydrochlorothiazide, he remains on IV steroids and antibiotics. On 03/21/2021 patient seen in follow-up on medical surgical floor. Currently on 6 L of oxygen with a pulse ox of 97%, she states she is breathing easier, she is able to walk more in the room, in yesterday she was able to get up and walk short distances in the room 6 times with assistance. Discharge planning was consulted in regards to assistance with the concentrator that will provide oxygen up to 10 L at home, and patient is currently working with [facility] and she is anticipating to get a new concentrator for discharge that will provide oxygen up to 10 L. Acute events overnight, no fever or chills, no complaint of chest pain, yesterday she received a dose of IV diuretics, she remains on hydrochlorothiazide, she is -620 and no fluid balance over the last 24 hours. No new chest x-ray. Today's labs have been reviewed, her white blood cell count is improving, and is down to 12.2, hemoglobin is 10.4, BNP is pending for now. Patient remains on IV steroids 60 mg every 6 hours, empiric antibiotics, and nebulized bronchodilators. The patient is seen today 03/22/2021 in follow-up on the regular medical floor. She is currently sitting up in bed. Awake and alert in no acute distress. She states her breathing is getting better. She is still on 6 L high flow nasal cannula to maintain O2 saturation in the 90s. Afebrile. Hemodynamically stable. Blood cultures reveal no growth. Glucose 214. She is continued on DuoNeb inhalations, Symbicort, IV Solu-Medrol, Singulair, Tessalon Perles. Empiric antibiotics in form of ceftriaxone. Heparin for DVT prophylaxis. Objective - Vital Signs Vital signs: Vital Signs Temp 97.7 F 03/22/21 07:57 Pulse 100 03/22/21 08:00 Resp 20 03/22/21 08:00 BP 129/69 03/22/21 07:57 Pulse Ox 94 L 03/22/21 07:57 Intake & Output 03/21/21 03/22/21 03/22/21 18:59 06:59 18:59 Intake Total 111 Output Total 400 Balance 111 -400 Intake: Oral 111 Output: Urine 400 Other: Voiding Method External Catheter External Catheter External Catheter # Voids 150 # Bowel Movements 1 - Exam GENERAL EXAM: Alert, pleasant 80-year-old female patient, on 6 L high flow nasal cannula, fairly comfortable in no apparent distress. HEAD: Normocephalic. EYES: Normal reaction of pupils, equal size. NOSE: Clear with pink turbinates. THROAT: No erythema or exudates. NECK: No masses, no JVD. CHEST: No chest wall deformity. LUNGS: Equal air entry with coarse crackles in bilateral bases. CVS: S1 and S2 normal with no audible murmur, regular rhythm. ABDOMEN: No hepatosplenomegaly, normal bowel sounds, no guarding or rigidity. SPINE: No scoliosis or deformity SKIN: No rashes CENTRAL NERVOUS SYSTEM: No focal deficits, tone is normal in all 4 extremities. EXTREMITIES: There is no peripheral edema. No clubbing, no cyanosis. Peripheral pulses are intact. - Labs CBC & Chem 7: 03/21/21 04:38 03/21/21 04:38 Labs: Abnormal Lab Results - Last 24 Hours (Table) 03/21/21 03/21/21 03/21/21 Range/Units 04:38 12:05 17:29 BUN 29.0 H (9.0-27.0) mg/dL BUN/Creatinine Ratio 36.25 H (12.00-20.00) Ratio Glucose 154 H (70-110) mg/dL POC Glucose (mg/dL) 166 H 160 H (75-99) mg/dL 03/21/21 03/22/21 Range/Units 20:09 07:01 BUN (9.0-27.0) mg/dL BUN/Creatinine Ratio (12.00-20.00) Ratio Glucose (70-110) mg/dL POC Glucose (mg/dL) 195 H 214 H (75-99) mg/dL Microbiology - Last 24 Hours (Table) 03/20/21 16:13 Blood Culture - Preliminary Blood No Growth after 24 hours Assessment and Plan Assessment: 1 Acute on chronic hypoxic respiratory failure secondary to IPF currently on 6 L of oxygen by nasal cannula. Presentation is consistent with progression of IPF with development of diffuse but the fibrotic changes. Superinfection is felt to be unlikely. So his other cardiac possibilities. Patient was in the hospital about 3 weeks ago and she was discharged home on oxygen and she is coming in for the same. Chest x-ray showing diffuse bilateral pulmonary fibrotic changes. CTA chest showed pneumomediastinum, and progressive groundglass infiltrates with consideration for pneumonitis or pulmonary edema, COPD, bronchiectasis and changes consistent with chronic ILD 2 IPF with mild to moderate restrictive lung disease and FVC of 69% of predicted based on a previous spirometry that was done in 2019. The patient has been maintained on Ofev over the past few years regarding her IPF. 3 Shortness of breath secondary to above 4 Acute hypoxic respiratory failure secondary to above 5 History of breast cancer with a previous lumpectomy followed by radiation therapy back in 2014 and the patient is been disease-free 6 Hypertension 7 Hypothyroidism 8 Hyperlipidemia 9 Chronic acid reflux 10 Chronic back pain Plan: The patient was seen and evaluated by Dr. Ford She is improved but not quite back to her baseline Continue current treatment plan We'll continue to follow I, the cosigning physician, performed a history & physical examination of the patient. Lungs sounds are coarse crackles in the posterior bases. Maintaining good O2 saturations in the 90s on 6 L high flow nasal cannula. I discussed the assessment and plan of care with my nurse practitioner, Barbara Wiggins. I attest to the above note as dictated by her.
[2021-03-22 12:05] LABS: Glucose,Whole Blood 170 mg/dL (75-99)
--- NOTE | 2021-03-22 14:51 | PN ---
PROGRESS NOTE DATE OF SERVICE: 03/22/2021 INTERVAL HISTORY: This is a 80-year-old woman who was admitted with acute asthma COPD acute exacerbation, also had idiopathic pulmonary fibrosis exacerbation. The patient is on 5 L nasal cannula. Most recent chest x-ray showed some improvement. Pulmonary Dr. Ford is following the patient. No chest pain. No palpitations. No fever. PHYSICAL EXAMINATION: GENERAL: Patient is alert and oriented times three. VITAL SIGNS: Pulse 100, blood pressure 190/69, respirations 20, temperature 97.7, pulse ox 94% on 6 liters. HEENT: Conjunctivae normal. NECK: No jugular venous distention. RESPIRATORY: Breath sounds diminished at the bases. A few scattered rhonchi and crackles. HEART: S1 and S2, muffled. ABDOMEN: Soft, no tenderness. EXTREMITIES: No edema, no swelling. NERVOUS: No focal deficits. LAB STUDIES: WBC 12.25, hemoglobin 10.4, sodium 142, potassium 4.4. ASSESSMENT: 1. Acute asthma chronic obstructive pulmonary disease exacerbation. 2. Idiopathic pulmonary fibrosis acute exacerbation. 3. Acute on chronic hypoxic respiratory failure. 4. Possible super pneumonia or acute purulent tracheobronchitis. 5. Pneumomediastinum in the CT scan of the chest, stable. 6. History of recent pneumonia. 7. Gastroesophageal reflux disease .. 8. Hypertension. 9. Hyperlipidemia. 10.Hypothyroidism. 11.History of frequent diarrhea. 12.History of back surgery. 13.Gait dysfunction. 14.History of degenerative joint disease. 15.History of cholecystectomy. 16.History of postop nausea and vomiting. 17.Increased WBC. 18.Elevated D-dimer. 19.Gait dysfunction. 20.Hyponatremia. 21.Elevated plasma lactic acid. 22.Elevated plasma serum procalcitonin. 23.FULL CODE. RECOMMENDATION AND DISCUSSION: Recommend to continue the current medications, continue with steroids, continue the antibiotics. Continue the rest of bronchodilators. Closely follow with Pulmonary. Guarded prognosis. Further recommendations to follow. MMODL / IJN: [id number] /
[2021-03-22 17:22] LABS: Glucose,Whole Blood 239 mg/dL (75-99)
[2021-03-22] MEDS ORDERED: IBUPROFEN 400 MG TAB PO STA (17:23)
[2021-03-22] MEDS: ALPRAZolam 0.25 MG TAB PO PRN (17:43)
[2021-03-22] MEDS: SODIUM CHLORIDE 0.9% 1,000 ML IV SCH (19:25)
[2021-03-22 20:30] LABS: Glucose,Whole Blood 194 mg/dL (75-99)
[2021-03-22] MEDS: amLODIPine 5 MG TAB PO SCH (21:02)
[2021-03-22] MEDS: lisinopriL 20 MG TAB PO SCH (21:02)
[2021-03-22] MEDS: MONTELUKAST 10 MG TAB PO SCH (21:02)
[2021-03-23] MEDS: methylPREDNISolone SOD SUCCI 125 MG/2 ML VIAL IV SCH ×4 (02:44→20:43)
[2021-03-23] MEDS: LEVOTHYROXINE 100 MCG TAB PO SCH (05:47)
[2021-03-23] MEDS: LEVOTHYROXINE 75 MCG TAB PO SCH (05:47)
[2021-03-23 07:25] LABS: Glucose,Whole Blood 182 mg/dL (75-99)
[2021-03-23] MEDS: MULTIVITAMINS, THERA 1 EACH TAB PO SCH (07:54)
[2021-03-23] MEDS: PANTOPRAZOLE 40 MG TABLET PO SCH (07:54)
[2021-03-23] MEDS: hydroCHLOROthiazide 25 MG TAB PO SCH (07:54)
[2021-03-23] MEDS: ASPIRIN 81 MG PO SCH (07:55)
[2021-03-23] MEDS: GABAPENTIN 400 MG CAP PO SCH ×3 (07:55→21:12)
[2021-03-23] MEDS: NINTEDANIB ESYLATE 100 MG PO SCH ×2 (07:55→20:45)
[2021-03-23] MEDS: HEPARIN SODIUM,PORCINE/PF 5,000 UNIT/0.5 ML SYRINGE SQ SCH ×2 (07:55→20:45)
[2021-03-23] MEDS: IPRATROPIUM-ALBUTEROL 3 ML NEB INHALATION SCH ×3 (07:58→21:01)
[2021-03-23] MEDS: SYMBICORT 160-4.5 MCG INHALER INHALATION SCH ×2 (07:58→21:01)
[2021-03-23] MEDS: PRAVASTATIN SODIUM 20 MG TAB PO SCH (08:22)
[2021-03-23] MEDS: ALPRAZolam 0.25 MG TAB PO PRN (08:22)
[2021-03-23] MEDS: NYSTATIN 100,000 UNIT/ML SUSP 500,000 UNIT/5 ML CUP PO SCH ×4 (08:22→20:49)
[2021-03-23] MEDS: INSULIN ASPART (NovoLOG) 100 UNIT/ML VIAL SQ SCH ×4 (08:27→20:44)
[2021-03-23 12:01] LABS: Glucose,Whole Blood 292 mg/dL (75-99)
--- NOTE | 2021-03-23 12:24 | P.PN ---
Subjective Progress Note Date: 03/23/21 Principal diagnosis: Dyspnea, pulmonary fibrosis This is a 80-year-old female patient with known history of pulmonary fibrosis was just hospitalized for acute exacerbation of chronic IPF and the patient is worsening her oxygenation with progression of fibrosis. She was treated and she was discharged home to be readmitted within 2-3 weeks for the same. He is having worsening shortness of breath and currently is on 6 L of oxygen by nasal cannula just x-ray showing diffuse but the pulmonary fibrotic changes. The patient with known history of IPF currently on Ofev . Last PFT from 2019 showed an FVC of 69% of predicted, lung capacity of 71% of predicted, diffusion capaci ty of 39% of predicted. She ended up being on 02 recently. She also has obstructive sleep apnea. She has AHI of 18 and the patient is currently on a CPAP pressure of 8 cm of water. She has hypertension, hyperlipidemia, hypothyroidism. The patient is presenting to the hospital because of worsening shortness of breath. She has cough. Most of his sputum production. No fever. No chills. No exposures COVID-19. Her COVID-19 testing by PCR came back negative. Chest x-ray was consistent with pulmonary fibrosis. CT angiogram that was done during early February 2021 showed no evidence of any pulmonary embolism. Nonspecific enlarged mediastinal and hilar lymph nodes. Interstitial fibrosis involving the peripheries in the lung bases along with patchy areas of groundglass pulmonary infiltrates suspicious for any superimposed infection/edema. She has a cardiac murmur. No previous history of cardio myopathy. No history of any coronary artery disease and no history of any cardiac arrhythmias. The patient has been fully vaccinated for COVID-19 which completed the vaccination in November 2020. On 03/18/2021 patient seen in follow-up on medical surgical floor, she is currently on 6 L of oxygen with a pulse ox of 91-93%, she's been afebrile overnight, lateral signs have been stable, she is short of breath with conversation and with any exertion, but appears to be in no acute distress. This had no acute events overnight, she tested negative for COVID-19, her CTA chest is pending to rule out possibility of pulmonary embolism. She remains on IV steroids at 60 mg every 6 hours of Solu-Medrol, she is on Rocephin for empiric antibiotic coverage, Symbicort and DuoNeb nebulized treatments. Today's labs have been reviewed showing white blood cell count is 16.4, hemoglobin of 10 .2, electrolytes and renal profile unremarkable, urinalysis is negative, potassium level came back negative at 0.13, LFTs were within normal limits, proBNP was 157, troponin was negative at less than 0.012. On 03/19/2021 patient seen in follow-up on medical surgical floor. She is currently on 6 L of oxygen, denies any acute distress, she is short of breath with conversation and any exertion, but overall she states she is doing a little better. CTA chest was completed showing interval development of pneumomediastinum, progressive groundglass infiltrates consideration for pneumonitis or pulmonary edema, and changes of diffuse COPD, bronchiectasis, and chronic interstitial lung disease. Patient is on hydrochlorothiazide, she is on Rocephin and IV steroids. She is maintaining negative fluid balance, she is afebrile, her pulse ox is between 91-94% on 6 L, patient normally wears 5 L of oxygen at home. On 03/20/2021 patient seen in follow-up on medical surgical floor, she still remains on 6 L of oxygen and her pulse ox is 95%, she normally wears 5 L of oxygen at home. She states her breathing is a bit improved although still very dyspneic with any exertion. She states today she was able to get up and walk a few feet in the room. No complaint of chest discomfort, occasional cough, no phlegm production. No fever or chills. Patient received dose of Lasix today, he remains on hydrochlorothiazide, he remains on IV steroids and antibiotics. On 03/21/2021 patient seen in follow-up on medical surgical floor. Currently on 6 L of oxygen with a pulse ox of 97%, she states she is breathing easier, she is able to walk more in the room, in yesterday she was able to get up and walk short distances in the room 6 times with assistance. Discharge planning was consulted in regards to assistance with the concentrator that will provide oxygen up to 10 L at home, and patient is currently working with [facility] and she is anticipating to get a new concentrator for discharge that will provide oxygen up to 10 L. Acute events overnight, no fever or chills, no complaint of chest pain, yesterday she received a dose of IV diuretics, she remains on hydrochlorothiazide, she is -620 and no fluid balance over the last 24 hours. No new chest x-ray. Today's labs have been reviewed, her white blood cell count is improving, and is down to 12.2, hemoglobin is 10.4, BNP is pending for now. Patient remains on IV steroids 60 mg every 6 hours, empiric antibiotics, and nebulized bronchodilators. The patient is seen today 03/22/2021 in follow-up on the regular medical floor. She is currently sitting up in bed. Awake and alert in no acute distress. She states her breathing is getting better. She is still on 6 L high flow nasal cannula to maintain O2 saturation in the 90s. Afebrile. Hemodynamically stable. Blood cultures reveal no growth. Glucose 214. She is continued on DuoNeb inhalations, Symbicort, IV Solu-Medrol, Singulair, Tessalon Perles. Empiric antibiotics in form of ceftriaxone. Heparin for DVT prophylaxis. The patient is seen today 03/23/2021 in follow-up on the regular medical floor. Resting comfortably in bed. Awake and alert in no acute distress. Maintaining good O2 saturation in the 90s on 6 L high flow nasal cannula. Blood cultures reveal no growth. Blood glucose 182. She is continued on DuoNeb inhalations, Symbicort, IV Solu-Medrol, Singulair, Tessalon Perles. Empiric antibiotics in form of ceftriaxone. Heparin for DVT prophylaxis. Objective - Vital Signs Vital signs: Vital Signs Temp 97.6 F 03/23/21 08:00 Pulse 80 03/23/21 11:10 Resp 18 03/23/21 08:00 BP 138/76 03/23/21 08:00 Pulse Ox 94 L 03/23/21 08:00 Intake & Output 03/22/21 03/23/21 03/23/21 18:59 06:59 18:59 Intake Total 200 Output Total 500 100 Balance -500 -100 200 Intake: Oral 200 Output: Urine 500 100 Other: Voiding Method External Catheter External Catheter External Catheter # Voids 3 4 - Exam GENERAL EXAM: Alert, pleasant 80-year-old female patient, on 6 L high flow nasal cannula, fairly comfortable in no apparent distress. HEAD: Normocephalic. EYES: Normal reaction of pupils, equal size. NOSE: Clear with pink turbinates. THROAT: No erythema or exudates. NECK: No masses, no JVD. CHEST: No chest wall deformity. LUNGS: Equal air entry with coarse crackles in bilateral bases. CVS: S1 and S2 normal with no audible murmur, regular rhythm. ABDOMEN: No hepatosplenomegaly, normal bowel sounds, no guarding or rigidity. SPINE: No scoliosis or deformity SKIN: No rashes CENTRAL NERVOUS SYSTEM: No focal deficits, tone is normal in all 4 extremities. EXTREMITIES: There is no peripheral edema. No clubbing, no cyanosis. Peripheral pulses are intact. - Labs CBC & Chem 7: 03/21/21 04:38 03/21/21 04:38 Labs: Abnormal Lab Results - Last 24 Hours (Table) 03/22/21 03/22/21 03/23/21 Range/Units 17:18 20:24 07:24 POC Glucose (mg/dL) 239 H 194 H 182 H (75-99) mg/dL 03/23/21 Range/Units 11:59 POC Glucose (mg/dL) 292 H (75-99) mg/dL Microbiology - Last 24 Hours (Table) 03/20/21 16:13 Blood Culture - Preliminary Blood No Growth after 48 hours Assessment and Plan Assessment: 1 Acute on chronic hypoxic respiratory failure secondary to IPF currently on 6 L of oxygen by nasal cannula. Presentation is consistent with progression of IPF with development of diffuse but the fibrotic changes. Superinfection is felt to be unlikely. So his other cardiac possibilities. Patient was in the hospital about 3 weeks ago and she was discharged home on oxygen and she is coming in for the same. Chest x-ray showing diffuse bilateral pulmonary fibrotic changes. CTA chest showed pneumomediastinum, and progressive groundglass infiltrates with consideration for pneumonitis or pulmonary edema, COPD, bronchiectasis and changes consistent with chronic ILD 2 IPF with mild to moderate restrictive lung disease and FVC of 69% of predicted based on a previous spirometry that was done in 2019. The patient has been maintained on Ofev over the past few years regarding her IPF. 3 Shortness of breath secondary to above 4 Acute hypoxic respiratory failure secondary to above 5 History of breast cancer with a previous lumpectomy followed by radiation therapy back in 2015 and the patient is been disease-free 6 Hypertension 7 Hypothyroidism 8 Hyperlipidemia 9 Chronic acid reflux 10 Chronic back pain Plan: The patient was seen and evaluated by Dr. Ford She is improved but not quite back to her baseline Continue current treatment plan Probable discharge in the a.m. We'll continue to follow I, the cosigning physician, performed a history & physical examination of the patient. Lungs sounds are coarse crackles in the posterior bases. Maintaining good O2 saturations in the 90s on 6 L high flow nasal cannula. I discussed the assessment and plan of care with my nurse practitioner, Barbara Wiggins. I attest to the above note as dictated by her.
[2021-03-23 17:24] LABS: Glucose,Whole Blood 233 mg/dL (75-99)
[2021-03-23] MEDS: SODIUM CHLORIDE 0.9% 1,000 ML IV SCH (19:52)
--- NOTE | 2021-03-23 19:54 | PN ---
PROGRESS NOTE DATE OF SERVICE: 03/23/2021 This 80-year-old woman was admitted with shortness of breath, interstitial pulmonary fibrosis, multiple other medical problems. The shortness of breath is slightly better. No chest pain. No palpitations. The patient is being arranged high-flow nasal oxygen at home. PHYSICAL EXAMINATION: Alert and oriented x3. Pulse 89, blood pressure 132/69, respiration 18, temperature 97.9, pulse ox 94% on room air. HEENT: Conjunctivae normal. Oral mucosa moist. NECK: No jugular venous distention. No lymph node enlargement. CARDIOVASCULAR: S1, S2, muffled. No S3, no S4, RESPIRATORY: Diminished breath sounds at the bases. A few scattered rhonchi and crackles. ABDOMEN: Soft, nontender. LEGS: No edema, no swelling. NERVOUS SYSTEM: No focal deficits. LABS: Glucose 292. ASSESSMENT: 1. Acute asthma or COPD acute exacerbation. 2. Idiopathic pulmonary fibrosis acute exacerbation. 3. Acute on chronic hypoxic respiratory failure. 4. Possible super added pneumonia or acute purulent tracheobronchitis, possibly Gram- negative. 5. Pneumomediastinum on the CT scan of the chest, stable. 6. History of recent pneumonia. 7. GERD. 8. Hypertension. 9. Hyperlipidemia. 10.Hypothyroidism. 11.History of frequent diarrhea. 12.History of back surgery. 13.Gait dysfunction. 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 15.History of cholecystectomy. 16.History of postop nausea, vomiting. 17.Increased WBC. 18.Elevated D-dimer. 19.Gait dysfunction. 20.Hyponatremia. 21.Elevated plasma lactic acid. 22.Elevated plasma serum prolactin. 23.FULL CODE. RECOMMENDATIONS: Recommend to continue current medications, symptomatic treatment. Otherwise, recommend repeat chest x-ray. Continue the rest of medications. Guarded prognosis. Possible discharge in the next 24 hours once stable. Further recommendations to follow. MMODL / IJN: [id number] /
[2021-03-23 20:20] LABS: Glucose,Whole Blood 208 mg/dL (75-99)
[2021-03-23] MEDS: lisinopriL 20 MG TAB PO SCH (20:44)
[2021-03-23] MEDS: MONTELUKAST 10 MG TAB PO SCH (20:44)
[2021-03-23] MEDS: amLODIPine 5 MG TAB PO SCH (20:44)
[2021-03-24] MEDS: methylPREDNISolone SOD SUCCI 125 MG/2 ML VIAL IV SCH ×2 (03:43→08:07)
[2021-03-24] MEDS: LEVOTHYROXINE 100 MCG TAB PO SCH (05:58)
[2021-03-24] MEDS: LEVOTHYROXINE 75 MCG TAB PO SCH (05:58)
--- NOTE | 2021-03-24 06:56 | XR ---
EXAMINATION TYPE: XR chest 1V portable DATE OF EXAM: 03/24/2021 CLINICAL HISTORY: Difficulty breathing and fatigue progress study. History of pulmonary fibrosis. TECHNIQUE: Single AP portable frontal view of the chest is obtained. COMPARISON: Chest x-ray from 2 days earlier and older studies FINDINGS: There is background chronic parenchymal change bilaterally with additional multifocal and c onfluent bilateral opacities. There is no pleural effusion or pneumothorax seen. The cardiac silhoue tte size is stable and mildly enlarged with ectatic thoracic aorta causing right-sided tracheal devia tion. The osseous structures remain intact. IMPRESSION: Background Chronic parenchymal fibrotic changes with bilateral multifocal and confluent opacities consistent with infiltrate and/or edema, possible ARDS. Findings fairly stable from most re cent x-ray with left upper lung findings noted slightly worsened.
[2021-03-24 07:01] LABS: Glucose,Whole Blood 188 mg/dL (75-99)
[2021-03-24] MEDS: SYMBICORT 160-4.5 MCG INHALER INHALATION SCH (07:13)
[2021-03-24] MEDS: IPRATROPIUM-ALBUTEROL 3 ML NEB INHALATION SCH ×2 (07:13→10:38)
[2021-03-24 07:52] VITALS: BP 125/75; PULSE 77; TEMP 97.8
[2021-03-24] MEDS: INSULIN ASPART (NovoLOG) 100 UNIT/ML VIAL SQ SCH (08:06)
[2021-03-24] MEDS: GABAPENTIN 400 MG CAP PO SCH (08:07)
[2021-03-24] MEDS: ASPIRIN 81 MG PO SCH (08:07)
[2021-03-24] MEDS: ALPRAZolam 0.25 MG TAB PO PRN (08:07)
[2021-03-24] MEDS: HEPARIN SODIUM,PORCINE/PF 5,000 UNIT/0.5 ML SYRINGE SQ SCH (08:07)
[2021-03-24] MEDS: hydroCHLOROthiazide 25 MG TAB PO SCH (08:07)
[2021-03-24] MEDS: PANTOPRAZOLE 40 MG TABLET PO SCH (08:07)
[2021-03-24] MEDS: NYSTATIN 100,000 UNIT/ML SUSP 500,000 UNIT/5 ML CUP PO SCH (08:08)
[2021-03-24] MEDS: PRAVASTATIN SODIUM 20 MG TAB PO SCH (08:08)
[2021-03-24] MEDS: MULTIVITAMINS, THERA 1 EACH TAB PO SCH (08:08)
[2021-03-24] MEDS: NINTEDANIB ESYLATE 100 MG PO SCH (08:13)
[2021-03-24 09:43] VITALS: RESP 16
--- NOTE | 2021-03-24 12:14 | P.PN ---
Subjective Progress Note Date: 03/24/21 Principal diagnosis: Dyspnea, pulmonary fibrosis This is a 80-year-old female patient with known history of pulmonary fibrosis was just hospitalized for acute exacerbation of chronic IPF and the patient is worsening her oxygenation with progression of fibrosis. She was treated and she was discharged home to be readmitted within 2-3 weeks for the same. He is having worsening shortness of breath and currently is on 6 L of oxygen by nasal cannula just x-ray showing diffuse but the pulmonary fibrotic changes. The patient with known history of IPF currently on Ofev . Last PFT from 2019 showed an FVC of 69% of predicted, lung capacity of 71% of predicted, diffusion capacit y of 39% of predicted. She ended up being on 02 recently. She also has obstructive sleep apnea. She has AHI of 18 and the patient is currently on a CPAP pressure of 8 cm of water. She has hypertension, hyperlipidemia, hypothyroidism. The patient is presenting to the hospital because of worsening shortness of breath. She has cough. Most of his sputum production. No fever. No chills. No exposures COVID-19. Her COVID-19 testing by PCR came back negative. Chest x-ray was consistent with pulmonary fibrosis. CT angiogram that was done during early February 2021 showed no evidence of any p ulmonary embolism. Nonspecific enlarged mediastinal and hilar lymph nodes. Interstitial fibrosis involving the peripheries in the lung bases along with patchy areas of groundglass pulmonary infiltrates suspicious for any superimposed infection/edema. She has a cardiac murmur. No previous history of cardio myopathy. No history of any coronary artery disease and no history of any cardiac arrhythmias. The patient has been fully vaccinated for COVID-19 which completed the vaccination in November 2020. On 03/18/2021 patient seen in follow-up on medical surgical floor, she is currently on 6 L of oxygen with a pulse ox of 91-93%, she's been afebrile overnight, lateral signs have been stable, she is short of breath with conversation and with any exertion, but appears to be in no acute distress. This had no acute events overnight, she tested negative for COVID-19, her CTA chest is pending to rule out possibility of pulmonary embolism. She remains on IV steroids at 60 mg every 6 hours of Solu-Medrol, she is on Rocephin for empiric antibiotic coverage, Symbicort and DuoNeb nebulized treatments. Today's labs have been reviewed showing white blood cell count is 16.4, hemoglobin of 10.2, electrolytes and renal profile unremarkable, urinalysis is negative, potassium level came back negative at 0.13, LFTs were within normal limits, proBNP was 157, troponin was negative at less than 0.012. On 03/19/2021 patient seen in follow-up on medical surgical floor. She is currently on 6 L of oxygen, denies any acute distress, she is short of breath with conversation and any exertion, but overall she states she is doing a little better. CTA chest was completed showing interval development of pneumomediastinum, progressive groundglass infiltrates consideration for pneumonitis or pulmonary edema, and changes of diffuse COPD, bronchiectasis, and chronic interstitial lung disease. Patient is on hydrochlorothiazide, she is on Rocephin and IV steroids. She is maintaining negative fluid balance, she is afebrile, her pulse ox is between 91-94% on 6 L, patient normally wears 5 L of oxygen at home. On 03/20/2021 patient seen in follow-up on medical surgical floor, she still remains on 6 L of oxygen and her pulse ox is 95%, she normally wears 5 L of oxygen at home. She states her breathing is a bit improved although still very dyspneic with any exertion. She states today she was able to get up and walk a few feet in the room. No complaint of chest discomfort, occasional cough, no phlegm production. No fever or chills. Patient received dose of Lasix today, he remains on hydrochlorothiazide, he remains on IV steroids and antibiotics. On 03/21/2021 patient seen in follow-up on medical surgical floor. Currently on 6 L of oxygen with a pulse ox of 97%, she states she is breathing easier, she is able to walk more in the room, in yesterday she was able to get up and walk short distances in the room 6 times with assistance. Discharge planning was consulted in regards to assistance with the concentrator that will provide oxygen up to 10 L at home, and patient is currently working with [facility] and she is anticipating to get a new concentrator for discharge that will provide oxygen up to 10 L. Acute events overnight, no fever or chills, no complaint of chest pain, yesterday she received a dose of IV diuretics, she remains on hydrochlorothiazide, she is -620 and no fluid balance over the last 24 hours. No new chest x-ray. Today's labs have been reviewed, her white blood cell count is improving, and is down to 12.2, hemoglobin is 10.4, BNP is pending for now. Patient remains on IV steroids 60 mg every 6 hours, empiric antibiotics, and nebulized bronchodilators. On 03/24/2021 patient seen in follow-up on medical surgical floor. She is awake and alert, in no acute distress, she still gets dyspneic with conversation or any exertion, but overall she feels that her breathing has been improving. She is currently on 6 L of oxygen per pulse ox is 94-96%, afebrile, hemodynamically she is stable, today's chest x-ray shows chronic parenchymal fibrotic changes with bilateral multifocal and confluent opacities consistent with infiltrate and/or edema and possibility of ARDS. The findings are stable compared most recent chest x-ray with the left upper lobe findings slightly worsened. No new labs today. She remains on Rocephin for empiric antibiotic coverage, she remains on IV steroids at 60 mg every 6 hours, Symbicort, and nebulized treatments. A wheelchair was delivered to her today, she is having the new concentrator delivered to her house. No acute events overnight, discharge is anticipated today, patient has a and son at home who are able to help her. Objective - Vital Signs Vital signs: Vital Signs Temp 97.8 F 03/24/21 07:51 Pulse 77 03/24/21 07:51 Resp 16 03/24/21 08:00 BP 125/75 03/24/21 07:51 Pulse Ox 95 03/24/21 07:51 Intake & Output 03/23/21 03/24/21 03/24/21 18:59 06:59 18:59 Intake Total 560 Output Total 700 600 Balance -140 -600 Intake: Oral 560 Output: Urine 700 600 Other: Voiding Method External Catheter External Catheter - Exam GENERAL EXAM: Alert, very pleasant, 80-year-old white female, 6 L of oxygen and pulse ox of 97% mildly short of breath with conversation and exertion, comfortable in no apparent distress. HEAD: Normocephalic/atraumatic. EYES: Normal reaction of pupils, equal size. Conjunctiva pink, sclera white. NOSE: Clear with pink turbinates. THROAT: No erythema or exudates. NECK: No masses, no JVD, no thyroid enlargement, no adenopathy. CHEST: No chest wall deformity. Symmetrical expansion. LUNGS: Equal air entry with diffuse coarse crackles CVS: Regular rate and rhythm, normal S1 and S2, no gallops, no murmurs, no rubs ABDOMEN: Soft, nontender. No hepatosplenomegaly, normal bowel sounds, no guarding or rigidity. EXTREMITIES: No clubbing, no edema, no cyanosis, 2+ pulses and upper and lower extremities. MUSCULOSKELETAL: Muscle strength and tone normal. SPINE: No scoliosis or deformity SKIN: No rashes CENTRAL NERVOUS SYSTEM: Alert and oriented -3. No focal deficits, tone is normal in all 4 extremities. PSYCHIATRIC: Alert and oriented -3. Appropriate affect. Intact judgment and insight. - Labs CBC & Chem 7: 03/21/21 04:38 03/21/21 04:38 Labs: Abnormal Lab Results - Last 24 Hours (Table) 03/23/21 03/23/21 03/24/21 Range/Units 17:22 20:16 07:00 POC Glucose (mg/dL) 233 H 208 H 188 H (75-99) mg/dL Microbiology - Last 24 Hours (Table) 03/20/21 16:13 Blood Culture - Preliminary Blood No Growth after 72 hours Assessment and Plan Plan: Assessment: #1. shortness of breaths with secondary hypoxic respiratory failure currently on 6 L of oxygen by nasal cannula. Presentation is consistent with progression of IPF with development of diffuse but the fibrotic changes. Superinfection is felt to be unlikely. So his other cardiac possibilities. Patient was in the hospital about 3 weeks ago and she was discharged home on oxygen and she is coming in for the same. Chest x-ray showing diffuse bilateral pulmonary fibrot ic changes. CTA chest showed pneumomediastinum, and progressive groundglass infiltrates with consideration for pneumonitis or pulmonary edema, COPD, bronchiectasis and changes consistent with chronic ILD #2. IPF with mild to moderate restrictive lung disease and FVC of 69% of predicted based on a previous spirometry that was done in 2019. The patient has been maintained on Ofev over the past few years regarding her IPF. #3. shortness of breath secondary to above #4. acute hypoxic respiratory failure secondary to above #5. history of breast cancer with a previous lumpectomy followed by radiation therapy back in 2014 and the patient is been disease-free #6. hypertension #7. hypothyroidism #8. hyperlipidemia #9. chronic acid reflux #10. chronic back pain Plan: From pulmonary perspective patient can be considered for discharge Patient can complete prednisone taper She completed 5 day course of Ceftin She can continue on nebulized breathing treatments as needed at home Concentrator is being delivered to her house they can provide oxygen up to 10 L/m Overall prognosis is poor and guarded She'll follow-up with Dr. Mujica in the office in 1-2 week I performed a history & physical examination of the patient and discussed their management with my nurse practitioner, Claudia Catherine. I reviewed the nurse practitioner's note and agree with the documented findings and plan of care. Lung sounds are positive for diffuse crackles. The findings and the impression was discussed with the patient. I attest to the documentation by the nurse practitioner. Time with Patient: Less than 30
--- NOTE | 2021-03-25 14:27 | P.DS ---
Providers Date of admission: 03/17/21 10:28 Expected date of discharge: 03/24/21 Attending physician: Tre Acosta MD Consults: 03/16/21 18:23 Consult Physician Stat Consulting Provider: Iza Myers Consult Reason/Comments: Pulmonary fibrosis. Dyspnea Do you want consulting provider notified?: Yes Primary care physician: Jovita Diaz Hospital Course: Final diagnosis Acute asthma or COPD acute exacerbation Idiopathic pulmonary fibrosis, acute exacerbation Acute on chronic hypoxic respiratory failure Possible super added pneumonia or acute purulent tracheobronchitis, possibly gram-negative Pneumomediastinum on the computed tomography scan of the chest, stable History of recent pneumonia GERD Hypertension Hyperlipidemia Hypothyroidism history of frequent diarrhea history of back surgery gait dysfunction history of degenerative joint disease history of cholecystectomy history of postop nausea and vomiting Increased white blood count Elevated d-dimer Gait dysfunction hyponatremia Elevated plasma lactic acid Elevated plasma serum prolactin Full code Discharge disposition Patient is being discharged in a stable condition with guarded prognosis to home. [facility] setting. Patient will follow-up with Dr. Jovita Diaz in the outpatient setting upon discharge. Patient will also follow-up with pulmonary Dr. Mujica in the outpatient setting as discussed and scheduled. Patient to continue with the prednisone taper along with oral Ceftin 500 mg twice daily for the next 5 days and continued breathing inhalational treatments upon discharge. Total time taken is greater than 35 minutes. Hospital course This is a 80-year-old female who was recently admitted with shortness of breath, interstitial pulmonary fibrosis along with multiple other medical problems and was being closely monitored. Pulmonary following the patient. Patient instructed to follow-up with pulmonary outpatient an appointment has been made. Patient will continue with oxygen via nasal cannula upon discharge secondary to COPD and pulmonary fibrosis. Patient will also continue with oral Ceftin 500 mg twice daily for the next 5 days along with a prednisone taper and continued breathing inhalational treatments. Instructed to follow-up with primary care provider Dr. Jovita Diaz upon discharge. Patient will have [facility]. Patient is requesting to go home today. Currently no reports of chest pain, worsening shortness of breath, or palpitations. Patient is afebrile. No reports of nausea or vomiting and patient is tolerating diet. Patient will be discharged home today. Guarded prognosis. On exam vital signs are stable. Cardio S1, S2 are muffled. Respiratory system shows diminished breath sounds at the bases with no wheezing or rhonchi noted. Abdomen is soft and nontender. Nervous system shows focal deficits. Please refer to medication reconciliation sheet for a list of medications. Patient Condition at Discharge: Fair Plan - Discharge Summary New Discharge Prescriptions: New Cefuroxime Axetil [Ceftin] 500 mg PO BID 5 Days #10 tab Ipratropium-Albuterol Nebulize [Duoneb 0.5 mg-3 mg/3 ml Soln] 3 ml INHALATION RT-TID PRN ml PRN Reason: Shortness Of Breath Or Wheezing Ipratropium-Albuterol Nebulize [Duoneb 0.5 mg-3 mg/3 ml Soln] 3 ml INHALATION RT-TID 30 Days #120 ml Nystatin 100,000 Unit/ml Susp [Mycostatin Oral Susp] 500,000 unit PO QID 7 Days #140 ml predniSONE 10 mg PO DIRECTED #30 tab Continue Omeprazole 20 mg PO DAILY amLODIPine BESYLATE/BENAZEPRIL [Lotrel 5-40 MG] 1 cap PO DAILY Multivitamins, Thera [Multivitamin (formulary)] 1 tab PO DAILY Gabapentin 800 mg PO TID Montelukast Sodium [Singulair] 10 mg PO HS Loperamide [Imodium] 2 mg PO QID PRN PRN Reason: Diarrhea Nintedanib Esylate [Ofev] 100 mg PO BID EPINEPHrine [Epipen 2-Shin] 0.3 mg IM ONCE PRN PRN Reason: Anaphylaxis Cyanocobalamin (Vitamin B-12) [Vitamin B-12] 1,000 mcg PO DAILY Ergocalciferol (Vitamin D2) [Drisdol (50,000 Iu)] 1,250 mcg PO Q14D Biotin 10,000 mcg PO DAILY Pravastatin Sodium [Pravachol] 20 mg PO DAILY Levothyroxine Sodium [Synthroid] 175 mcg PO DAILY Aspirin EC [Ecotrin Low Dose] 81 mg PO DAILY hydroCHLOROthiazide [Hydrodiuril] 25 mg PO DAILY Fluticasone Propion/Salmeterol [Fluticasone-Salmeterol 500-50] 1 puff INHALATION RT-BID Benzonatate [Tessalon Perles] 200 mg PO TID PRN PRN Reason: Cough Albuterol Sulfate [Ventolin HFA] 2 puff INHALATION RT-QID PRN PRN Reason: Shortness Of Breath Vitamin C 2500mcg 2,500 mcg PO DAILY ALPRAZolam [Xanax] 0.25 mg PO TID PRN #12 tab PRN Reason: Anxiety Budesonide/Formoterol Fumarate [Symbicort 160-4.5 Mcg Inhaler] 2 puff INHALATION RT-BID Discontinued predniSONE 10 mg PO DIRECTED predniSONE See Taper PO DIRECTED #55 tab Discharge Medication List Gabapentin 800 mg PO TID 09/26/17 [History] Montelukast Sodium [Singulair] 10 mg PO HS 09/26/17 [History] Multivitamins, Thera [Multivitamin (formulary)] 1 tab PO DAILY 09/26/17 [History] Omeprazole 20 mg PO DAILY 09/26/17 [History] amLODIPine BESYLATE/BENAZEPRIL [Lotrel 5-40 MG] 1 cap PO DAILY 09/26/17 [Hist ory] Cyanocobalamin (Vitamin B-12) [Vitamin B-12] 1,000 mcg PO DAILY 03/12/19 [History] EPINEPHrine [Epipen 2-Shin] 0.3 mg IM ONCE PRN 03/12/19 [History] Loperamide [Imodium] 2 mg PO QID PRN 03/12/19 [History] Nintedanib Esylate [Ofev] 100 mg PO BID 03/12/19 [History] Aspirin EC [Ecotrin Low Dose] 81 mg PO DAILY 11/16/20 [History] Biotin 10,000 mcg PO DAILY 11/16/20 [History] Ergocalciferol (Vitamin D2) [Drisdol (50,000 Iu)] 1,250 mcg PO Q14D 11/16/20 [History] Fluticasone Propion/Salmeterol [Fluticasone-Salmeterol 500-50] 1 puff INHALATION RT-BID 11/16/20 [History] Levothyroxine Sodium [Synthroid] 175 mcg PO DAILY 11/16/20 [History] Pravastatin Sodium [Pravachol] 20 mg PO DAILY 11/16/20 [History] hydroCHLOROthiazide [Hydrodiuril] 25 mg PO DAILY 11/16/20 [History] Albuterol Sulfate [Ventolin HFA] 2 puff INHALATION RT-QID PRN 02/19/21 [History] Vitamin C 2500mcg 2,500 mcg PO DAILY 02/19/21 [History] ALPRAZolam [Xanax] 0.25 mg PO TID PRN #12 tab 02/27/21 [Rx] Benzonatate [Tessalon Perles] 200 mg PO TID PRN 03/16/21 [History] Budesonide/Formoterol Fumarate [Symbicort 160-4.5 Mcg Inhaler] 2 puff INHALATION RT-BID 03/16/21 [History] Cefuroxime Axetil [Ceftin] 500 mg PO BID 5 Days #10 tab 03/24/21 [Rx] Ipratropium-Albuterol Nebulize [Duoneb 0.5 mg-3 mg/3 ml Soln] 3 ml INHALATION RT-TID 30 Days #120 ml 03/24/21 [Rx] Ipratropium-Albuterol Nebulize [Duoneb 0.5 mg-3 mg/3 ml Soln] 3 ml INHALATION RT-TID PRN ml 03/24/21 [Rx] Nystatin 100,000 Unit/ml Susp [Mycostatin Oral Susp] 500,000 unit PO QID 7 Days #140 ml 03/24/21 [Rx] predniSONE 10 mg PO DIRECTED #30 tab 03/24/21 [Rx] Follow up Appointment(s)/Referral(s): [employer] [NON-STAFF] - 1-2 Days (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, [NON-STAFF] - 1-2 Days Ambulatory/Diagnostic Orders: Complete Blood Count w/diff [LAB.AMB] Time Frame: 2 Days, Location: None Selected Patient Instructions/Handouts: Pulmonary Fibrosis (GEN), COPD (Chronic Obstructive Pulmonary Disease) (IP), Heart Catheterization (GEN) Activity/Diet/Wound Care/Special Instructions: Activity Limited until follow-up Follow-up with primary care provider upon discharge Follow-up pulmonary outpatient Continue with antibiotics until finished Continue with prednisone taper Continue with breathing inhalational treatments Repeat labs in 2-3 days Continue heart healthy diet Discharge Disposition: HOME WITH HOME HEALTH SERVICES
--- NOTE | 2021-03-31 08:36 | ED ---
SOB HPI - General Chief Complaint: Shortness of Breath Stated Complaint: SOB Time Seen by Provider: 03/16/21 15:26 Source: patient Mode of arrival: wheelchair Limitations: no limitations - History of Present Illness Initial Comments: This patient is 80-year-old woman who has history of pulmonary fibrosis. She had recently been in the hospital, was subsequently discharged and she states over the past day or so she is having worsening of her shortness of breath. His oxygen at 5 L she has had turned this up. Patient has not noted fever. She is not having productive cough. No chest pain. No leg pains or edema. She has not noted change in urination or bowel movements. MD Complaint: shortness of breath, cough -: hour(s) Consistency: constant Improves With: nothing Worsens With: exertion Known History Of: other (Pulmonary fibrosis) Associated Symptoms: denies other symptoms Treatments Prior to Arrival: oxygen, bronchodilator - Related Data Home Medications Medication Instructions Recorded Confirmed Gabapentin 800 mg PO TID 09/26/17 03/29/21 Montelukast Sodium [Singulair] 10 mg PO HS 09/26/17 03/29/21 Multivitamins, Thera [Multivitamin 1 tab PO DAILY 09/26/17 03/29/21 (formulary)] Omeprazole 20 mg PO DAILY 09/26/17 03/29/21 amLODIPine BESYLATE/BENAZEPRIL 1 cap PO DAILY 09/26/17 03/29/21 [Lotrel 5-40 MG] Cyanocobalamin (Vitamin B-12) 1,000 mcg PO DAILY 03/12/19 03/29/21 [Vitamin B-12] EPINEPHrine [Epipen 2-Shin] 0.3 mg IM ONCE PRN 03/12/19 03/29/21 Loperamide [Imodium] 2 mg PO QID PRN 03/12/19 03/29/21 Nintedanib Esylate [Ofev] 100 mg PO BID 03/12/19 03/29/21 Aspirin EC [Ecotrin Low Dose] 81 mg PO DAILY 11/16/20 03/29/21 Biotin 10,000 mcg PO DAILY 11/16/20 03/29/21 Ergocalciferol (Vitamin D2) 1,250 mcg PO Q14D 11/16/20 03/29/21 [Drisdol (50,000 Iu)] Fluticasone Propion/Salmeterol 1 puff INHALATION RT-BID 11/16/20 03/29/21 [Fluticasone-Salmeterol 500-50] Levothyroxine Sodium [Synthroid] 175 mcg PO DAILY 11/16/20 03/29/21 Pravastatin Sodium [Pravachol] 20 mg PO DAILY 11/16/20 03/29/21 hydroCHLOROthiazide [Hydrodiuril] 25 mg PO DAILY 11/16/20 03/29/21 Albuterol Sulfate [Ventolin HFA] 2 puff INHALATION RT-QID PRN 02/19/21 03/29/21 Vitamin C 2500mcg 2,500 mcg PO DAILY 02/19/21 03/29/21 Budesonide/Formoterol Fumarate 2 puff INHALATION RT-BID 03/16/21 03/29/21 [Symbicort 160-4.5 Mcg Inhaler] Previous Rx's Medication Instructions Recorded ALPRAZolam [Xanax] 0.25 mg PO TID PRN #12 tab 02/27/21 Cefuroxime Axetil [Ceftin] 500 mg PO BID 5 Days #10 tab 03/24/21 Ipratropium-Albuterol Nebulize 3 ml INHALATION RT-TID 30 Days 03/24/21 [Duoneb 0.5 mg-3 mg/3 ml Soln] #120 ml Ipratropium-Albuterol Nebulize 3 ml INHALATION RT-TID PRN ml 03/24/21 [Duoneb 0.5 mg-3 mg/3 ml Soln] Nystatin 100,000 Unit/ml Susp 500,000 unit PO QID 7 Days #140 ml 03/24/21 [Mycostatin Oral Susp] Allergies Allergy/AdvReac Type Severity Reaction Status Date / Time meperidine [From Demerol] Allergy Unknown Verified 03/29/21 17:54 Childhood morphine Allergy Unknown Verified 03/29/21 17:54 Childhood Sulfa (Sulfonamide Allergy Unknown Verified 03/29/21 17:54 Antibiotics) Childhood Review of Systems ROS Statement: Those systems with pertinent positive or pertinent negative responses have been documented in the HPI. ROS Other: All systems not noted in ROS Statement are negative. Constitutional: Denies: fever, chills, weakness Respiratory: Reports: cough, dyspnea. Denies: wheezes, hemoptysis Cardiovascular: Denies: chest pain, palpitations, edema, syncope Gastrointestinal: Denies: abdominal pain, vomiting, diarrhea Genitourinary: Denies: dysuria, hematuria Musculoskeletal: Denies: back pain Skin: Denies: rash Neurological: Denies: headache, weakness, numbness Past Medical History Past Medical History: Asthma, Cancer, COPD, GERD/Reflux, Hyperlipidemia, Hypertension, Thyroid Disorder Additional Past Medical History / Comment(s): COPD, IPF and the patient is currently on treatment with Ofev , freq diarrhea-states "SE to Ofev", freq nausea,idiopathic pulmonary fibrosis, Breast cancer WITH 36 tx's RADIATION 2004- DO NOT USE LEFT Side, neuropathy maye legs and feet,chronic back pain History of Any Multi-Drug Resistant Organisms: None Reported Past Surgical History: Back Surgery, Breast Surgery, Cholecystectomy, Joint Replacement, Orthopedic Surgery Additional Past Surgical History / Comment(s): left breast lumpectomy,lami nectomies x2,rt knee replaced lung biopsy Past Anesthesia/Blood Transfusion Reactions: Motion Sickness, Postoperative Nausea & Vomiting (PONV) Past Psychological History: No Psychological Hx Reported Smoking Status: Never smoker Past Alcohol Use History: None Reported Past Drug Use History: None Reported - Past Family History Mother Family Medical History: No Reported History General Exam Limitations: no limitations General appearance: alert, in distress Head exam: Present: atraumatic, normocephalic Eye exam: Present: normal appearance. Absent: scleral icterus, conjunctival injection ENT exam: Present: normal oropharynx Neck exam: Present: normal inspection Respiratory exam: Present: respiratory distress (Tachypnea), rales (Dry crackles throughout), accessory muscle use. Absent: wheezes, rhonchi, stridor, decreased breath sounds Cardiovascular Exam: Present: normal rhythm, tachycardia (Rate 104 at my exam), systolic murmur. Absent: diastolic murmur, rubs, gallop GI/Abdominal exam: Present: soft. Absent: distended, tenderness, guarding, rebound, rigid, mass, pulsatile mass Extremities exam: Present: normal inspection, normal capillary refill. Absent: pedal edema, calf tenderness Back exam: Present: normal inspection. Absent: CVA tenderness (R), CVA tenderness (L) Neurological exam: Present: alert Skin exam: Present: warm, dry, intact, normal color. Absent: rash Course Vital Signs 03/16/21 03/16/21 03/16/21 15:21 15:40 17:50 Temperature 98.3 F 98.4 F Pulse Rate 102 H 92 Pulse Rate [ Pulse Oximetery ] Respiratory 25 H 30 H 18 Rate Blood Pressure 104/59 112/70 Blood Pressure [Left Arm] O2 Sat by Pulse 90 L 92 L Oximetry 03/16/21 03/16/21 03/16/21 18:33 19:38 20:00 Temperature 97.9 F Pulse Rate 87 Pulse Rate [ 89 Pulse Oximetery ] Respiratory 22 18 Rate Blood Pressure 118/65 Blood Pressure 110/65 [Left Arm] O2 Sat by Pulse 95 93 L 92 L Oximetry Procedures - [place] Protocol (Time Out) Nurse: Hao Schulz Medical Decision Making - Medical Decision Making Patient is 80-year-old woman who appears to be having exacerbation of her underlying pulmonary fibrosis. There is possible infiltrate, but patient has not had fever, no purulent sputum. Will admit the patient for further therapy and also had pro-calcitonin rule out infection. Also consultation for pulmonology. - Lab Data Result diagrams: 03/21/21 04:38 03/21/21 04:38 Lab Results 03/16/21 03/16/21 03/16/21 Range/Units 16:45 16:45 16:45 WBC 17.7 H (3.8-10.6) k/uL RBC 3.58 L (3.80-5.40) m/uL Hgb 12.4 (11.4-16.0) gm/dL Hct 40.0 (34.0-46.0) % MCV 111.6 H (80.0-100.0) fL MCH 34.6 (25.0-35.0) pg MCHC 31.0 (31.0-37.0) g/dL RDW 19.0 H (11.5-15.5) % Plt Count 251 (150-450) k/uL MPV 10.0 Immature Gran % (Auto) % Absolute Nucleated RBC (0.00-0.00) X 10*3/uL Neutrophils % 92 % Lymphocytes % 2 % Monocytes % 4 % Eosinophils % 0 % Basophils % 0 % Immature Gran # (0.00-0.04) X 10*3/uL Neutrophils # 16.4 H (1.3-7.7) k/uL Lymphocytes # 0.4 L (1.0-4.8) k/uL Monocytes # 0.7 (0-1.0) k/uL Eosinophils # 0.1 (0-0.7) k/uL Basophils # 0.0 (0-0.2) k/uL NRBC/100 WBC Diff (0.0-0.0) /100 WBCS Anisocytosis Slight Macrocytosis Marked A PT 10.1 (9.0-12.0) sec INR 0.9 (<1.2) APTT 20.6 L (22.0-30.0) sec D-Dimer 0.85 H (<0.60) mg/L FEU Sodium 136 L (137-145) mmol/L Potassium 4.4 (3.5-5.1) mmol/L Chloride 98 (98-107) mmol/L Carbon Dioxide 29 (22-30) mmol/L Anion Gap 9 mmol/L BUN 24 H (7-17) mg/dL Creatinine 0.73 (0.52-1.04) mg/dL Est GFR (CKD-EPI)AfAm >90 (>60 ml/min/1.73 sqM) Est GFR (CKD-EPI)NonAf 79 (>60 ml/min/1.73 sqM) BUN/Creatinine Ratio (12.00-20.00) Ratio Glucose 196 H (74-99) mg/dL POC Glucose (mg/dL) (75-99) mg/dL POC Glu Clin Nurse Spec ID Lactic Ac Sepsis Rflx Plasma Lactic Acid Rodney (0.7-2.0) mmol/L Calcium 10.2 (8.4-10.2) mg/dL Magnesium 1.6 (1.6-2.3) mg/dL Total Bilirubin 2.7 H (0.2-1.3) mg/dL AST 31 (14-36) U/L ALT 27 (4-34) U/L Alkaline Phosphatase 81 (38-126) U/L Troponin I (0.000-0.034) ng/mL NT-Pro-B Natriuret Pep pg/mL Total Protein 6.5 (6.3-8.2) g/dL Albumin 3.8 (3.5-5.0) g/dL Procalcitonin (0.02-0.09) ng/mL Urine Color Urine Appearance (Clear) Urine pH (5.0-8.0) Ur Specific [place] (1.001-1.035) Urine Protein (Negative) Urine Glucose (UA) (Negative) Urine Ketones (Negative) Urine Blood (Negative) Urine Nitrite (Negative) Urine Bilirubin (Negative) Urine Urobilinogen (<2.0) mg/dL Ur Leukocyte Esterase (Negative) Coronavirus (PCR) (Not Detectd) 03/16/21 03/16/21 03/16/21 Range/Units 16:45 16:45 16:45 WBC (3.8-10.6) k/uL RBC (3.80-5.40) m/uL Hgb (11.4-16.0) gm/dL Hct (34.0-46.0) % MCV (80.0-100.0) fL MCH (25.0-35.0) pg MCHC (31.0-37.0) g/dL RDW (11.5-15.5) % Plt Count (150-450) k/uL MPV Immature Gran % (Auto) % Absolute Nucleated RBC (0.00-0.00) X 10*3/uL Neutrophils % % Lymphocytes % % Monocytes % % Eosinophils % % Basophils % % Immature Gran # (0.00-0.04) X 10*3/uL Neutrophils # (1.3-7.7) k/uL Lymphocytes # (1.0-4.8) k/uL Monocytes # (0-1.0) k/uL Eosinophils # (0-0.7) k/uL Basophils # (0-0.2) k/uL NRBC/100 WBC Diff (0.0-0.0) /100 WBCS Anisocytosis Macrocytosis PT (9.0-12.0) sec INR (<1.2) APTT (22.0-30.0) sec D-Dimer (<0.60) mg/L FEU Sodium (137-145) mmol/L Potassium (3.5-5.1) mmol/L Chloride (98-107) mmol/L Carbon Dioxide (22-30) mmol/L Anion Gap mmol/L BUN (7-17) mg/dL Creatinine (0.52-1.04) mg/dL Est GFR (CKD-EPI)AfAm (>60 ml/min/1.73 sqM) Est GFR (CKD-EPI)NonAf (>60 ml/min/1.73 sqM) BUN/Creatinine Ratio (12.00-20.00) Ratio Glucose (74-99) mg/dL POC Glucose (mg/dL) (75-99) mg/dL POC Glu Clin Nurse Spec ID Lactic Ac Sepsis Rflx Plasma Lactic Acid Rodney 3.6 H* (0.7-2.0) mmol/L Calcium (8.4-10.2) mg/dL Magnesium (1.6-2.3) mg/dL Total Bilirubin (0.2-1.3) mg/dL AST (14-36) U/L ALT (4-34) U/L Alkaline Phosphatase (38-126) U/L Troponin I <0.012 (0.000-0.034) ng/mL NT-Pro-B Natriuret Pep 157 pg/mL Total Protein (6.3-8.2) g/dL Albumin (3.5-5.0) g/dL Procalcitonin (0.02-0.09) ng/mL Urine Color Urine Appearance (Clear) Urine pH (5.0-8.0) Ur Specific [place] (1.001-1.035) Urine Protein (Negative) Urine Glucose (UA) (Negative) Urine Ketones (Negative) Urine Blood (Negative) Urine Nitrite (Negative) Urine Bilirubin (Negative) Urine Urobilinogen (<2.0) mg/dL Ur Leukocyte Esterase (Negative) Coronavirus (PCR) (Not Detectd) 03/16/21 03/16/21 03/16/21 Range/Units 17:22 17:35 18:57 WBC (3.8-10.6) k/uL RBC (3.80-5.40) m/uL Hgb (11.4-16.0) gm/dL Hct (34.0-46.0) % MCV (80.0-100.0) fL MCH (25.0-35.0) pg MCHC (31.0-37.0) g/dL RDW (11.5-15.5) % Plt Count (150-450) k/uL MPV Immature Gran % (Auto) % Absolute Nucleated RBC (0.00-0.00) X 10*3/uL Neutrophils % % Lymphocytes % % Monocytes % % Eosinophils % % Basophils % % Immature Gran # (0.00-0.04) X 10*3/uL Neutrophils # (1.3-7.7) k/uL Lymphocytes # (1.0-4.8) k/uL Monocytes # (0-1.0) k/uL Eosinophils # (0-0.7) k/uL Basophils # (0-0.2) k/uL NRBC/100 WBC Diff (0.0-0.0) /100 WBCS Anisocytosis Macrocytosis PT (9.0-12.0) sec INR (<1.2) APTT (22.0-30.0) sec D-Dimer (<0.60) mg/L FEU Sodium (137-145) mmol/L Potassium (3.5-5.1) mmol/L Chloride (98-107) mmol/L Carbon Dioxide (22-30) mmol/L Anion Gap mmol/L BUN (7-17) mg/dL Creatinine (0.52-1.04) mg/dL Est GFR (CKD-EPI)AfAm (>60 ml/min/1.73 sqM) Est GFR (CKD-EPI)NonAf (>60 ml/min/1.73 sqM) BUN/Creatinine Ratio (12.00-20.00) Ratio Glucose (74-99) mg/dL POC Glucose (mg/dL) (75-99) mg/dL POC Glu Clin Nurse Spec ID Lactic Ac Sepsis Rflx Y Plasma Lactic Acid Rodney (0.7-2.0) mmol/L Calcium (8.4-10.2) mg/dL Magnesium (1.6-2.3) mg/dL Total Bilirubin (0.2-1.3) mg/dL AST (14-36) U/L ALT (4-34) U/L Alkaline Phosphatase (38-126) U/L Troponin I (0.000-0.034) ng/mL NT-Pro-B Natriuret Pep pg/mL Total Protein (6.3-8.2) g/dL Albumin (3.5-5.0) g/dL Procalcitonin 0.13 H (0.02-0.09) ng/mL Urine Color Urine Appearance (Clear) Urine pH (5.0-8.0) Ur Specific [place] (1.001-1.035) Urine Protein (Negative) Urine Glucose (UA) (Negative) Urine Ketones (Negative) Urine Blood (Negative) Urine Nitrite (Negative) Urine Bilirubin (Negative) Urine Urobilinogen (<2.0) mg/dL Ur Leukocyte Esterase (Negative) Coronavirus (PCR) Not Detected (Not Detectd) 03/16/21 03/16/21 03/17/21 Range/Units 20:22 21:04 05:00 WBC (3.8-10.6) k/uL RBC (3.80-5.40) m/uL Hgb (11.4-16.0) gm/dL Hct (34.0-46.0) % MCV (80.0-100.0) fL MCH (25.0-35.0) pg MCHC (31.0-37.0) g/dL RDW (11.5-15.5) % Plt Count (150-450) k/uL MPV Immature Gran % (Auto) % Absolute Nucleated RBC (0.00-0.00) X 10*3/uL Neutrophils % % Lymphocytes % % Monocytes % % Eosinophils % % Basophils % % Immature Gran # (0.00-0.04) X 10*3/uL Neutrophils # (1.3-7.7) k/uL Lymphocytes # (1.0-4.8) k/uL Monocytes # (0-1.0) k/uL Eosinophils # (0-0.7) k/uL Basophils # (0-0.2) k/uL NRBC/100 WBC Diff (0.0-0.0) /100 WBCS Anisocytosis Macrocytosis PT (9.0-12.0) sec INR (<1.2) APTT (22.0-30.0) sec D-Dimer (<0.60) mg/L FEU Sodium (137-145) mmol/L Potassium (3.5-5.1) mmol/L Chloride (98-107) mmol/L Carbon Dioxide (22-30) mmol/L Anion Gap mmol/L BUN (7-17) mg/dL Creatinine (0.52-1.04) mg/dL Est GFR (CKD-EPI)AfAm (>60 ml/min/1.73 sqM) Est GFR (CKD-EPI)NonAf (>60 ml/min/1.73 sqM) BUN/Creatinine Ratio (12.00-20.00) Ratio Glucose (74-99) mg/dL POC Glucose (mg/dL) 115 H (75-99) mg/dL POC Glu Clin Nurse Spec ID Lactic Ac Sepsis Rflx Plasma Lactic Acid Rodney 1.5 (0.7-2.0) mmol/L Calcium (8.4-10.2) mg/dL Magnesium (1.6-2.3) mg/dL Total Bilirubin (0.2-1.3) mg/dL AST (14-36) U/L ALT (4-34) U/L Alkaline Phosphatase (38-126) U/L Troponin I (0.000-0.034) ng/mL NT-Pro-B Natriuret Pep pg/mL Total Protein (6.3-8.2) g/dL Albumin (3.5-5.0) g/dL Procalcitonin (0.02-0.09) ng/mL Urine Color Yellow Urine Appearance Clear (Clear) Urine pH 6.5 (5.0-8.0) Ur Specific [place] 1.012 (1.001-1.035) Urine Protein Negative (Negative) Urine Glucose (UA) Negative (Negative) Urine Ketones Negative (Negative) Urine Blood Negative (Negative) Urine Nitrite Negative (Negative) Urine Bilirubin Negative (Negative) Urine Urobilinogen 2.0 (<2.0) mg/dL Ur Leukocyte Esterase Negative (Negative) Coronavirus (PCR) (Not Detectd) 03/17/21 03/17/21 03/17/21 Range/Units 05:36 05:36 07:00 WBC 8.23 (3.8-10.6) k/uL RBC 3.05 L (3.80-5.40) m/uL Hgb 11.0 L (11.4-16.0) gm/dL Hct 33.8 L (34.0-46.0) % MCV 110.8 H (80.0-100.0) fL MCH 36.1 H (25.0-35.0) pg MCHC 32.5 (31.0-37.0) g/dL RDW 17.0 H (11.5-15.5) % Plt Count 185 (150-450) k/uL MPV 12.3 H Immature Gran % (Auto) 0.6 % Absolute Nucleated RBC 0.02 H (0.00-0.00) X 10*3/uL Neutrophils % 92.7 % Lymphocytes % 5.0 % Monocytes % 1.6 % Eosinophils % 0 % Basophils % 0.1 % Immature Gran # 0.05 H (0.00-0.04) X 10*3/uL Neutrophils # 7.63 (1.3-7.7) k/uL Lymphocytes # 0.41 L (1.0-4.8) k/uL Monocytes # 0.13 L (0-1.0) k/uL Eosinophils # 0 L (0-0.7) k/uL Basophils # 0.01 (0-0.2) k/uL NRBC/100 WBC Diff 0.2 H (0.0-0.0) /100 WBCS Anisocytosis Macrocytosis PT (9.0-12.0) sec INR (<1.2) APTT (22.0-30.0) sec D-Dimer (<0.60) mg/L FEU Sodium 140 (137-145) mmol/L Potassium 4.3 (3.5-5.1) mmol/L Chloride 103 (98-107) mmol/L Carbon Dioxide 25.9 (22-30) mmol/L Anion Gap 11.10 mmol/L BUN 17.0 (7-17) mg/dL Creatinine 0.5 L (0.52-1.04) mg/dL Est GFR (CKD-EPI)AfAm 107.4 (>60 ml/min/1.73 sqM) Est GFR (CKD-EPI)NonAf 92.7 (>60 ml/min/1.73 sqM) BUN/Creatinine Ratio 34.00 H (12.00-20.00) Ratio Glucose 160 H (74-99) mg/dL POC Glucose (mg/dL) 155 H (75-99) mg/dL POC Glu Clin Nurse Spec ID Shereen Alberts Lactic Ac Sepsis Rflx Plasma Lactic Acid Rodney (0.7-2.0) mmol/L Calcium 8.9 (8.4-10.2) mg/dL Magnesium (1.6-2.3) mg/dL Total Bilirubin (0.2-1.3) mg/dL AST (14-36) U/L ALT (4-34) U/L Alkaline Phosphatase (38-126) U/L Troponin I (0.000-0.034) ng/mL NT-Pro-B Natriuret Pep pg/mL Total Protein (6.3-8.2) g/dL Albumin (3.5-5.0) g/dL Procalcitonin (0.02-0.09) ng/mL Urine Color Urine Appearance (Clear) Urine pH (5.0-8.0) Ur Specific [place] (1.001-1.035) Urine Protein (Negative) Urine Glucose (UA) (Negative) Urine Ketones (Negative) Urine Blood (Negative) Urine Nitrite (Negative) Urine Bilirubin (Negative) Urine Urobilinogen (<2.0) mg/dL Ur Leukocyte Esterase (Negative) Coronavirus (PCR) (Not Detectd) Disposition Clinical Impression: Interstitial lung disease Disposition: ADMITTED IP TO THIS HOSP Condition: Fair
== END 2021-03-24 12:55 | disposition home health service (06) | DRG 190 ==
LOC: EC 15:18 → 6NMEDSUR 18:19 → OBSVTOIN 03-17 10:28
PROVIDERS: ADMIT Internal Medicine; ATTEND Internal Medicine
DX: J44.0 Chronic obstructive pulmonary disease with (acute) lower respiratory infection (principal); J96.21 Acute and chronic respiratory failure with hypoxia; J15.6 Pneumonia due to other Gram-negative bacteria; E87.1 Hypo-osmolality and hyponatremia; J84.112 Idiopathic pulmonary fibrosis; J44.1 Chronic obstructive pulmonary disease with (acute) exacerbation; J20.9 Acute bronchitis, unspecified; Z20.822 Contact with and (suspected) exposure to COVID-19; E87.70 Fluid overload, unspecified; E78.5 Hyperlipidemia, unspecified; I10 Essential (primary) hypertension; E03.9 Hypothyroidism, unspecified; G57.93 Unspecified mononeuropathy of bilateral lower limbs; K21.9 Gastro-esophageal reflux disease without esophagitis; M54.9 Dorsalgia, unspecified; G89.29 Other chronic pain; M47.9 Spondylosis, unspecified; G47.33 Obstructive sleep apnea (adult) (pediatric); M19.90 Unspecified osteoarthritis, unspecified site; R32 Unspecified urinary incontinence; R26.9 Unspecified abnormalities of gait and mobility; Z79.82 Long term (current) use of aspirin; Z79.51 Long term (current) use of inhaled steroids; Z79.890 Hormone replacement therapy; Z79.899 Other long term (current) drug therapy; Z88.5 Allergy status to narcotic agent; Z88.2 Allergy status to sulfonamides; Z85.3 Personal history of malignant neoplasm of breast; Z92.3 Personal history of irradiation; Z96.651 Presence of right artificial knee joint; Z90.49 Acquired absence of other specified parts of digestive tract; Z90.12 Acquired absence of left breast and nipple; Z87.39 Personal history of other diseases of the musculoskeletal system and connective tissue; Z87.01 Personal history of pneumonia (recurrent); Z98.890 Other specified postprocedural states
CPT/HCPCS: 36415; 71045; 71046; 71275; 80048; 80053; 81003; 83605; 83735; 83880; 84145; 84484; 85025; 85379; 85610; 85730; 86769; 87040; 87635; 93005; 94640; 94760; 96374; 99285

== ENCOUNTER 2021-03-29 17:03 | Inpatient (IN) | payer MEDICARE ==
--- NOTE | 2021-03-29 17:29 | ED ---
SOB HPI - General Chief Complaint: Shortness of Breath Stated Complaint: CARY Time Seen by Provider: 03/29/21 17:05 Source: patient, EMS, RN notes reviewed, old records reviewed Mode of arrival: EMS Limitations: no limitations - History of Present Illness Initial Comments: This is an 80-year-old female history of COPD and recent admission for pneumonia and bronchitis who presents with complaints of shortness of breath getting progressively worse over last week. She denies any overt fevers chills or sweats she states her home medications are helping she was found to have hypoxemia. She was 89% on room air went to 100% on oxygen but however with mi nimal exertion dropped on the 65%. She is very anxious upon arrival by EMS. No complaints of fevers chills sweats other symptoms MD Complaint: shortness of breath - Related Data Home Medications Medication Instructions Recorded Confirmed Gabapentin 800 mg PO TID 09/26/17 03/29/21 Montelukast Sodium [Singulair] 10 mg PO HS 09/26/17 03/29/21 Multivitamins, Thera [Multivitamin 1 tab PO DAILY 09/26/17 03/29/21 (formulary)] Omeprazole 20 mg PO DAILY 09/26/17 03/29/21 amLODIPine BESYLATE/BENAZEPRIL 1 cap PO DAILY 09/26/17 03/29/21 [Lotrel 5-40 MG] Cyanocobalamin (Vitamin B-12) 1,000 mcg PO DAILY 03/12/19 03/29/21 [Vitamin B-12] EPINEPHrine [Epipen 2-Shin] 0.3 mg IM ONCE PRN 03/12/19 03/29/21 Loperamide [Imodium] 2 mg PO QID PRN 03/12/19 03/29/21 Nintedanib Esylate [Ofev] 100 mg PO BID 03/12/19 03/29/21 Aspirin EC [Ecotrin Low Dose] 81 mg PO DAILY 11/16/20 03/29/21 Biotin 10,000 mcg PO DAILY 11/16/20 03/29/21 Ergocalciferol (Vitamin D2) 1,250 mcg PO Q14D 11/16/20 03/29/21 [Drisdol (50,000 Iu)] Fluticasone Propion/Salmeterol 1 puff INHALATION RT-BID 11/16/20 03/29/21 [Fluticasone-Salmeterol 500-50] Levothyroxine Sodium [Synthroid] 175 mcg PO DAILY 11/16/20 03/29/21 Pravastatin Sodium [Pravachol] 20 mg PO DAILY 11/16/20 03/29/21 hydroCHLOROthiazide [Hydrodiuril] 25 mg PO DAILY 11/16/20 03/29/21 Albuterol Sulfate [Ventolin HFA] 2 puff INHALATION RT-QID PRN 02/19/21 03/29/21 Vitamin C 2500mcg 2,500 mcg PO DAILY 02/19/21 03/29/21 Budesonide/Formoterol Fumarate 2 puff INHALATION RT-BID 03/16/21 03/29/21 [Symbicort 160-4.5 Mcg Inhaler] Previous Rx's Medication Instructions Recorded ALPRAZolam [Xanax] 0.25 mg PO TID PRN #12 tab 02/27/21 Cefuroxime Axetil [Ceftin] 500 mg PO BID 5 Days #10 tab 03/24/21 Ipratropium-Albuterol Nebulize 3 ml INHALATION RT-TID 30 Days 03/24/21 [Duoneb 0.5 mg-3 mg/3 ml Soln] #120 ml Ipratropium-Albuterol Nebulize 3 ml INHALATION RT-TID PRN ml 03/24/21 [Duoneb 0.5 mg-3 mg/3 ml Soln] Nystatin 100,000 Unit/ml Susp 500,000 unit PO QID 7 Days #140 ml 03/24/21 [Mycostatin Oral Susp] Allergies Allergy/AdvReac Type Severity Reaction Status Date / Time meperidine [From Demerol] Allergy Unknown Verified 03/29/21 17:54 Childhood morphine Allergy Unknown Verified 03/29/21 17:54 Childhood Sulfa (Sulfonamide Allergy Unknown Verified 03/29/21 17:54 Antibiotics) Childhood Review of Systems ROS Statement: Those systems with pertinent positive or pertinent negative responses have been documented in the HPI. ROS Other: All systems not noted in ROS Statement are negative. Past Medical History Past Medical History: Asthma, Cancer, COPD, GERD/Reflux, Hyperlipidemia, Hypertension, Thyroid Disorder Additional Past Medical History / Comment(s): COPD, IPF and the patient is currently on treatment with Ofev , freq diarrhea-states "SE to Ofev", freq nausea,idiopathic pulmonary fibrosis, Breast cancer WITH 36 tx's RADIATION 2005- DO NOT USE LEFT Side, neuropathy maye legs and feet,chronic back pain History of Any Multi-Drug Resistant Organisms: None Reported Past Surgical History: Back Surgery, Breast Surgery, Cholecystectomy, Joint Replacement, Orthopedic Surgery Additional Past Surgical History / Comment(s): left breast lumpectomy,laminectomies x2,rt knee replaced lung biopsy Past Anesthesia/Blood Transfusion Reactions: Motion Sickness, Postoperative Nausea & Vomiting (PONV) Past Psychological History: No Psychological Hx Reported Smoking Status: Never smoker Past Alcohol Use History: None Reported Past Drug Use History: None Reported - Past Family History Mother Family Medical History: No Reported History General Exam - General Exam Comments Initial Comments: Is a well-developed well-nourished awake alert oriented 3 female she does demonstrate audible wheezing Limitations: no limitations General appearance: alert, anxious Head exam: Present: atraumatic, normocephalic, normal inspection Eye exam: Present: normal appearance, PERRL, EOMI. Absent: scleral icterus, conjunctival injection, periorbital swelling ENT exam: Present: normal exam, mucous membranes moist Neck exam: Present: normal inspection, full ROM, other (No stridor JVD or bruits). Absent: tenderness, meningismus, lymphadenopathy Respiratory exam: Present: wheezes, decreased breath sounds. Absent: respiratory distress, rales, rhonchi, stridor Cardiovascular Exam: Present: regular rate, normal rhythm, normal heart sounds. Absent: systolic murmur, diastolic murmur, rubs, gallop, clicks GI/Abdominal exam: Present: soft, normal bowel sounds. Absent: distended, tenderness, guarding, rebound, rigid Extremities exam: Present: normal inspection, full ROM, normal capillary refill. Absent: tenderness, pedal edema, joint swelling, calf tenderness Back exam: Present: normal inspection Neurological exam: Present: alert, oriented X3, CN II-XII intact Psychiatric exam: Present: normal affect, normal mood Skin exam: Present: warm, dry, intact, normal color. Absent: rash Course Vital Signs 03/29/21 03/29/21 17:08 18:07 Temperature 98.3 F Pulse Rate 88 Respiratory 18 20 Rate Blood Pressure 152/114 O2 Sat by Pulse 98 Oximetry Medical Decision Making - Medical Decision Making I did discuss findings with the patient family as well as with Dr. Solitario are up. Patient be admitted with pulmonary consultation. Evidence pneumonia with hypoxemic episode. Patient requests no steroids. Given at this point. Ad ditionally patient does have a mildly elevated troponin and d-dimer. He also demonstrates chronic renal insufficiency. - Lab Data Result diagrams: 03/29/21 17:25 03/29/21 17:25 Lab Results 03/29/21 03/29/21 03/29/21 Range/Units 17:25 17:25 17:25 WBC 18.2 H (3.8-10.6) k/uL RBC 3.29 L (3.80-5.40) m/uL Hgb 12.0 (11.4-16.0) gm/dL Hct 36.1 (34.0-46.0) % MCV 109.8 H (80.0-100.0) fL MCH 36.6 H (25.0-35.0) pg MCHC 33.3 (31.0-37.0) g/dL RDW 19.1 H (11.5-15.5) % Plt Count 152 (150-450) k/uL MPV 11.1 Neutrophils % 84 % Lymphocytes % 7 % Monocytes % 6 % Eosinophils % 1 % Basophils % 0 % Neutrophils # 15.3 H (1.3-7.7) k/uL Lymphocytes # 1.3 (1.0-4.8) k/uL Monocytes # 1.0 (0-1.0) k/uL Eosinophils # 0.2 (0-0.7) k/uL Basophils # 0.1 (0-0.2) k/uL Anisocytosis Slight Macrocytosis Marked A PT 10.7 (9.0-12.0) sec INR 1.0 (<1.2) APTT 22.1 (22.0-30.0) sec D-Dimer 0.64 H (<0.60) mg/L FEU Sodium 136 L (137-145) mmol/L Potassium 3.3 L (3.5-5.1) mmol/L Chloride 98 (98-107) mmol/L Carbon Dioxide 33 H (22-30) mmol/L Anion Gap 5 mmol/L BUN 15 (7-17) mg/dL Creatinine 0.42 L (0.52-1.04) mg/dL Est GFR (CKD-EPI)AfAm >90 (>60 ml/min/1.73 sqM) Est GFR (CKD-EPI)NonAf >90 (>60 ml/min/1.73 sqM) Glucose 110 H (74-99) mg/dL Plasma Lactic Acid Rodney (0.7-2.0) mmol/L Calcium 8.8 (8.4-10.2) mg/dL Magnesium 1.7 (1.6-2.3) mg/dL Total Bilirubin 3.4 H (0.2-1.3) mg/dL AST 35 (14-36) U/L ALT 44 H (4-34) U/L Alkaline Phosphatase 58 (38-126) U/L Creatine Kinase 46 (30-135) U/L Troponin I (0.000-0.034) ng/mL NT-Pro-B Natriuret Pep pg/mL Total Protein 5.5 L (6.3-8.2) g/dL Albumin 3.1 L (3.5-5.0) g/dL Coronavirus (PCR) (Not Detectd) 03/29/21 03/29/21 03/29/21 Range/Units 17:25 17:25 17:25 WBC (3.8-10.6) k/uL RBC (3.80-5.40) m/uL Hgb (11.4-16.0) gm/dL Hct (34.0-46.0) % MCV (80.0-100.0) fL MCH (25.0-35.0) pg MCHC (31.0-37.0) g/dL RDW (11.5-15.5) % Plt Count (150-450) k/uL MPV Neutrophils % % Lymphocytes % % Monocytes % % Eosinophils % % Basophils % % Neutrophils # (1.3-7.7) k/uL Lymphocytes # (1.0-4.8) k/uL Monocytes # (0-1.0) k/uL Eosinophils # (0-0.7) k/uL Basophils # (0-0.2) k/uL Anisocytosis Macrocytosis PT (9.0-12.0) sec INR (<1.2) APTT (22.0-30.0) sec D-Dimer (<0.60) mg/L FEU Sodium (137-145) mmol/L Potassium (3.5-5.1) mmol/L Chloride (98-107) mmol/L Carbon Dioxide (22-30) mmol/L Anion Gap mmol/L BUN (7-17) mg/dL Creatinine (0.52-1.04) mg/dL Est GFR (CKD-EPI)AfAm (>60 ml/min/1.73 sqM) Est GFR (CKD-EPI)NonAf (>60 ml/min/1.73 sqM) Glucose (74-99) mg/dL Plasma Lactic Acid Rodney 1.7 (0.7-2.0) mmol/L Calcium (8.4-10.2) mg/dL Magnesium (1.6-2.3) mg/dL Total Bilirubin (0.2-1.3) mg/dL AST (14-36) U/L ALT (4-34) U/L Alkaline Phosphatase (38-126) U/L Creatine Kinase (30-135) U/L Troponin I 0.037 H* (0.000-0.034) ng/mL NT-Pro-B Natriuret Pep 131 pg/mL Total Protein (6.3-8.2) g/dL Albumin (3.5-5.0) g/dL Coronavirus (PCR) (Not Detectd) 03/29/21 Range/Units 17:33 WBC (3.8-10.6) k/uL RBC (3.80-5.40) m/uL Hgb (11.4-16.0) gm/dL Hct (34.0-46.0) % MCV (80.0-100.0) fL MCH (25.0-35.0) pg MCHC (31.0-37.0) g/dL RDW (11.5-15.5) % Plt Count (150-450) k/uL MPV Neutrophils % % Lymphocytes % % Monocytes % % Eosinophils % % Basophils % % Neutrophils # (1.3-7.7) k/uL Lymphocytes # (1.0-4.8) k/uL Monocytes # (0-1.0) k/uL Eosinophils # (0-0.7) k/uL Basophils # (0-0.2) k/uL Anisocytosis Macrocytosis PT (9.0-12.0) sec INR (<1.2) APTT (22.0-30.0) sec D-Dimer (<0.60) mg/L FEU Sodium (137-145) mmol/L Potassium (3.5-5.1) mmol/L Chloride (98-107) mmol/L Carbon Dioxide (22-30) mmol/L Anion Gap mmol/L BUN (7-17) mg/dL Creatinine (0.52-1.04) mg/dL Est GFR (CKD-EPI)AfAm (>60 ml/min/1.73 sqM) Est GFR (CKD-EPI)NonAf (>60 ml/min/1.73 sqM) Glucose (74-99) mg/dL Plasma Lactic Acid Rodney (0.7-2.0) mmol/L Calcium (8.4-10.2) mg/dL Magnesium (1.6-2.3) mg/dL Total Bilirubin (0.2-1.3) mg/dL AST (14-36) U/L ALT (4-34) U/L Alkaline Phosphatase (38-126) U/L Creatine Kinase (30-135) U/L Troponin I (0.000-0.034) ng/mL NT-Pro-B Natriuret Pep pg/mL Total Protein (6.3-8.2) g/dL Albumin (3.5-5.0) g/dL Coronavirus (PCR) Not Detected (Not Detectd) - EKG Data -: EKG Interpreted by Mi EKG Comments: Sinus tachycardia rate 107 appear interval 156 QRS 90 QT/QTC 342/456 possible left atrial larger reaction the ventricular hypertrophy nonspecific ST configur ation - Radiology Data Radiology results: report reviewed (Imaging reviewed evidence of interstitial infiltrates unclear whether change from previous x-rays), image reviewed Disposition Clinical Impression: Pneumonia, Hypoxemia, Chronic renal insufficiency, Dehydration, COPD (chronic obstructive pulmonary disease) Disposition: ADMITTED IP TO THIS HOSP Condition: Fair Referrals: Jovita Diaz MD [Primary Care Provider] - 1-2 days
[2021-03-29 17:35] LABS: Anisocytosis Slight; Basophils # (A) 0.1 k/uL (0-0.2); Basophils % (A) 0 %; Eosinophils # (A) 0.2 k/uL (0-0.7); Eosinophils % (A) 1 %; HCT 36.1 % (34.0-46.0); Lymphocytes # (A) 1.3 k/uL (1.0-4.8); Lymphocytes % (A) 7 %; MCH 36.6 pg (25.0-35.0); MCHC 33.3 g/dL (31.0-37.0); MCV 109.8 fL (80.0-100.0); Macrocytosis Marked; Mean Platelet Volume 11.1; Monocytes % (A) 6 %; Neutrophils # (A) 15.3 k/uL (1.3-7.7); Neutrophils % (A) 84 %; Platelet Count 152 k/uL (150-450); RBC 3.29 m/uL (3.80-5.40); RDW 19.1 % (11.5-15.5); WBC 18.2 k/uL (3.8-10.6)
[2021-03-29 17:47] LABS: ALT 44 U/L (4-34); AST 35 U/L (14-36); African American GFR (CKD) >90 (>60 ml/min/1.73 sqM); Albumin 3.1 g/dL (3.5-5.0); Alkaline Phosphatase 58 U/L (38-126); Anion Gap 5 mmol/L; Blood Urea Nitrogen 15 mg/dL (7-17); Calcium 8.8 mg/dL (8.4-10.2); Carbon Dioxide 33 mmol/L (22-30); Chloride 98 mmol/L (98-107); Creatine Kinase 46 U/L (30-135); Glucose 110 mg/dL (74-99); Magnesium 1.7 mg/dL (1.6-2.3); Non-African American GFR(CKD) >90 (>60 ml/min/1.73 sqM); Potassium 3.3 mmol/L (3.5-5.1); Sodium 136 mmol/L (137-145); Total Bilirubin 3.4 mg/dL (0.2-1.3); Total Protein 5.5 g/dL (6.3-8.2)
[2021-03-29 17:58] LABS: Partial Thromboplastin Time 22.1 sec (22.0-30.0); Prothrombin Time 10.7 sec (9.0-12.0)
--- NOTE | 2021-03-29 18:11 | XR ---
EXAMINATION TYPE: XR chest 2V DATE OF EXAM: 03/29/2021 COMPARISON: 03/24/2021 HISTORY: Pulmonary fibrosis. Short of breath. TECHNIQUE: 2 views FINDINGS: There is extensive coarse interstitial infiltrate throughout the lungs. There is poor inspi ration. Heart size is normal. There are chest leads. Bony thorax is intact. IMPRESSION: Extensive pulmonary interstitial pneumonia. Disc is consistent with primary fibrosis and not changed compared to recent exam.
[2021-03-29] MEDS ORDERED: PIPERACILLIN-TAZOBACTAM 3.375 GM in SODIUM CHLORIDE 0.9% 100 ML IVPB STA (19:48)
[2021-03-29] MEDS ORDERED: PNEUMONIA PROTOCOL UTILIZED 1 EACH MISC PO PRN (19:48)
[2021-03-29] MEDS ORDERED: LEVOFLOXACIN 750MG-D5W PMX 750 MG in DEXTROSE/WATER 1 150ML.BAG IVPB STA (19:48)
--- NOTE | 2021-03-29 19:55 | ED ---
Medical Decision Making - Medical Decision Making The patient does not have chronic renal insufficiency - Lab Data Result diagrams: 03/29/21 17:25 03/29/21 17:25 Lab Results 03/29/21 03/29/21 03/29/21 Range/Units 17:25 17:25 17:25 WBC 18.2 H (3.8-10.6) k/uL RBC 3.29 L (3.80-5.40) m/uL Hgb 12.0 (11.4-16.0) gm/dL Hct 36.1 (34.0-46.0) % MCV 109.8 H (80.0-100.0) fL MCH 36.6 H (25.0-35.0) pg MCHC 33.3 (31.0-37.0) g/dL RDW 19.1 H (11.5-15.5) % Plt Count 152 (150-450) k/uL MPV 11.1 Neutrophils % 84 % Lymphocytes % 7 % Monocytes % 6 % Eosinophils % 1 % Basophils % 0 % Neutrophils # 15.3 H (1.3-7.7) k/uL Lymphocytes # 1.3 (1.0-4.8) k/uL Monocytes # 1.0 (0-1.0) k/uL Eosinophils # 0.2 (0-0.7) k/uL Basophils # 0.1 (0-0.2) k/uL Anisocytosis Slight Macrocytosis Marked A PT 10.7 (9.0-12.0) sec INR 1.0 (<1.2) APTT 22.1 (22.0-30.0) sec D-Dimer 0.64 H (<0.60) mg/L FEU Sodium 136 L (137-145) mmol/L Potassium 3.3 L (3.5-5.1) mmol/L Chloride 98 (98-107) mmol/L Carbon Dioxide 33 H (22-30) mmol/L Anion Gap 5 mmol/L BUN 15 (7-17) mg/dL Creatinine 0.42 L (0.52-1.04) mg/dL Est GFR (CKD-EPI)AfAm >90 (>60 ml/min/1.73 sqM) Est GFR (CKD-EPI)NonAf >90 (>60 ml/min/1.73 sqM) Glucose 110 H (74-99) mg/dL Plasma Lactic Acid Rodney (0.7-2.0) mmol/L Calcium 8.8 (8.4-10.2) mg/dL Magnesium 1.7 (1.6-2.3) mg/dL Total Bilirubin 3.4 H (0.2-1.3) mg/dL AST 35 (14-36) U/L ALT 44 H (4-34) U/L Alkaline Phosphatase 58 (38-126) U/L Creatine Kinase 46 (30-135) U/L Troponin I (0.000-0.034) ng/mL NT-Pro-B Natriuret Pep pg/mL Total Protein 5.5 L (6.3-8.2) g/dL Albumin 3.1 L (3.5-5.0) g/dL Coronavirus (PCR) (Not Detectd) 03/29/21 03/29/21 03/29/21 Range/Units 17:25 17:25 17:25 WBC (3.8-10.6) k/uL RBC (3.80-5.40) m/uL Hgb (11.4-16.0) gm/dL Hct (34.0-46.0) % MCV (80.0-100.0) fL MCH (25.0-35.0) pg MCHC (31.0-37.0) g/dL RDW (11.5-15.5) % Plt Count (150-450) k/uL MPV Neutrophils % % Lymphocytes % % Monocytes % % Eosinophils % % Basophils % % Neutrophils # (1.3-7.7) k/uL Lymphocytes # (1.0-4.8) k/uL Monocytes # (0-1.0) k/uL Eosinophils # (0-0.7) k/uL Basophils # (0-0.2) k/uL Anisocytosis Macrocytosis PT (9.0-12.0) sec INR (<1.2) APTT (22.0-30.0) sec D-Dimer (<0.60) mg/L FEU Sodium (137-145) mmol/L Potassium (3.5-5.1) mmol/L Chloride (98-107) mmol/L Carbon Dioxide (22-30) mmol/L Anion Gap mmol/L BUN (7-17) mg/dL Creatinine (0.52-1.04) mg/dL Est GFR (CKD-EPI)AfAm (>60 ml/min/1.73 sqM) Est GFR (CKD-EPI)NonAf (>60 ml/min/1.73 sqM) Glucose (74-99) mg/dL Plasma Lactic Acid Rodney 1.7 (0.7-2.0) mmol/L Calcium (8.4-10.2) mg/dL Magnesium (1.6-2.3) mg/dL Total Bilirubin (0.2-1.3) mg/dL AST (14-36) U/L ALT (4-34) U/L Alkaline Phosphatase (38-126) U/L Creatine Kinase (30-135) U/L Troponin I 0.037 H* (0.000-0.034) ng/mL NT-Pro-B Natriuret Pep 131 pg/mL Total Protein (6.3-8.2) g/dL Albumin (3.5-5.0) g/dL Coronavirus (PCR) (Not Detectd) 03/29/21 Range/Units 17:33 WBC (3.8-10.6) k/uL RBC (3.80-5.40) m/uL Hgb (11.4-16.0) gm/dL Hct (34.0-46.0) % MCV (80.0-100.0) fL MCH (25.0-35.0) pg MCHC (31.0-37.0) g/dL RDW (11.5-15.5) % Plt Count (150-450) k/uL MPV Neutrophils % % Lymphocytes % % Monocytes % % Eosinophils % % Basophils % % Neutrophils # (1.3-7.7) k/uL Lymphocytes # (1.0-4.8) k/uL Monocytes # (0-1.0) k/uL Eosinophils # (0-0.7) k/uL Basophils # (0-0.2) k/uL Anisocytosis Macrocytosis PT (9.0-12.0) sec INR (<1.2) APTT (22.0-30.0) sec D-Dimer (<0.60) mg/L FEU Sodium (137-145) mmol/L Potassium (3.5-5.1) mmol/L Chloride (98-107) mmol/L Carbon Dioxide (22-30) mmol/L Anion Gap mmol/L BUN (7-17) mg/dL Creatinine (0.52-1.04) mg/dL Est GFR (CKD-EPI)AfAm (>60 ml/min/1.73 sqM) Est GFR (CKD-EPI)NonAf (>60 ml/min/1.73 sqM) Glucose (74-99) mg/dL Plasma Lactic Acid Rodney (0.7-2.0) mmol/L Calcium (8.4-10.2) mg/dL Magnesium (1.6-2.3) mg/dL Total Bilirubin (0.2-1.3) mg/dL AST (14-36) U/L ALT (4-34) U/L Alkaline Phosphatase (38-126) U/L Creatine Kinase (30-135) U/L Troponin I (0.000-0.034) ng/mL NT-Pro-B Natriuret Pep pg/mL Total Protein (6.3-8.2) g/dL Albumin (3.5-5.0) g/dL Coronavirus (PCR) Not Detected (Not Detectd) Disposition Clinical Impression: Pneumonia, Hypoxemia, Dehydration, COPD (chronic obstructive pulmonary disease) Disposition: ADMITTED IP TO THIS HOSP Condition: Fair Referrals: Jovita Diaz MD [Primary Care Provider] - 1-2 days Procedures - Bruce Protocol (Time Out) Nurse: David Arora
[2021-03-29] MEDS ORDERED: IPRATROPIUM-ALBUTEROL 3 ML NEB INHALATION SCH (20:00)
[2021-03-29] MEDS ORDERED: NON FORMULARY DRUG (Fluticasone Propion/Salmeterol [Fluticasone-Salmeterol 500-50] 1 EACH INHALATION SCH (20:00)
[2021-03-29] MEDS: SODIUM CHLORIDE 0.9% 1,000 ML IV SCH (20:20)
[2021-03-29] MEDS: SYMBICORT 160-4.5 MCG INHALER INHALATION SCH (20:23)
[2021-03-29] MEDS ORDERED: IPRATROPIUM-ALBUTEROL 3 ML NEB INHALATION PRN (20:26)
[2021-03-29] MEDS: GABAPENTIN 400 MG CAP PO SCH (22:21)
[2021-03-29] MEDS: MONTELUKAST 10 MG TAB PO SCH (22:21)
[2021-03-29] MEDS: NYSTATIN 100,000 UNIT/ML SUSP 500,000 UNIT/5 ML CUP PO SCH (22:45)
[2021-03-29] MEDS: [UNRECOGNIZED DRUG - OTHER] PO SCH (22:45)
[2021-03-30] MEDS ORDERED: ACETAMINOPHEN TAB 325 MG TAB PO PRN (01:38)
[2021-03-30] MEDS ORDERED: Potassium Replacement Protocol 1 EACH MISC MISCELLANE PRN (04:34)
[2021-03-30] MEDS: POTASSIUM CHLORIDE ER 20 MEQ TAB.ER PO SCH ×2 (06:16→09:23)
[2021-03-30] MEDS: LEVOTHYROXINE 88 MCG TAB PO SCH (06:16)
[2021-03-30] MEDS: PANTOPRAZOLE 40 MG TABLET PO SCH (06:16)
[2021-03-30] MEDS: SODIUM CHLORIDE 0.9% 1,000 ML IV SCH ×2 (06:17→17:27)
--- NOTE | 2021-03-30 07:46 | XR ---
EXAMINATION TYPE: XR chest 2V DATE OF EXAM: 03/30/2021 COMPARISON: 03/29/2021 HISTORY: 80-year-old female pneumonia follow-up TECHNIQUE: AP and lateral views FINDINGS: Heart is borderline enlarged. Diffuse bilateral airspace opacities relatively similar prior. No sizab le effusion. IMPRESSION: Cardiomegaly and continued diffuse bilateral airspace disease.
[2021-03-30] MEDS ORDERED: PIPERACILLIN-TAZOBACTAM 3.375 GM in SODIUM CHLORIDE 0.9% 100 ML IVPB SCH (08:00)
--- NOTE | 2021-03-30 08:42 | P.CRDCN ---
History of Present Illness Consult date: 03/30/21 History of present illness: HISTORY OF PRESENT ILLNESS: This is a 80-year-old female with a past medical history significant for pulmonary fibrosis, home oxygen use, COPD, GERD, hypertension, and hyperlipidemia. Patient follows in the office with Dr. Rosario. We have been asked to see the patient in consultation for elevated troponins. Patient examined at the bedside. Patient was recently admitted to the hospital secondary to pneumonia. Patient presented back to the hospital with worsening shortness of breath. Patient is currently on 6 L nasal cannula. Patient states she does not want to take steroids. Patient denies any chest pain or pressure. Patient underwent echocardiogram on 02/20/2021 revealing ejection fraction 55-60%, mild aortic regurgitation, mild mitral regurgitation, moderate tricuspid regurgitation, and severe pulmonary hypertension. Patient also underwent Lexiscan stress test in September 2020 which was negative for reversible ischemia. EKG reveals sinus tachycardia with PACs. Right axis deviation. Heart rate 107. Chest xray cardiomegaly and continued diffuse bilateral airspace disease Laboratory data: WBC 18.2. Hemoglobin 12.0. Platelet count 152. Sodium 136. Potassium 3.3. BUN 15. Creatinine 0.42. BNP 131. Troponin 0.037. 0.033. Current home cardiac medications include hydrochlorothiazide 25 mg daily, amlodipine/benazepril 5-40mg daily, pravastatin 20 mg daily, aspirin 81 mg daily REVIEW OF SYSTEMS: At the time of my exam: CONSTITUTIONAL: Denies fever or chills. HEENT: Denies blurred vision, vision changes, or eye pain. Denies hemoptysis CARDIOVASCULAR: Denies chest pain. Denies orthopnea. Denies PND. Denies palpitations RESPIRATORY: Reports shortness of breath. GASTROINTESTINAL: Denies abdominal pain. Denies nausea or vomiting. HEMATOLOGIC: Denies bleeding disorders. GENITOURINARY: Denies any blood in urine. SKIN: Denies pruitis. Denies rash. PHYSICAL EXAM: VITAL SIGNS: Reviewed. GENERAL: Well-developed in no acute distress. HEENT: Head is normocephalic. Pupils are equal, round. Sclerae anicteric. Mucous membranes of the mouth are moist. Neck supple. No JVD or thyromegaly LUNGS: Respirations even and unlabored. Lungs with decreased air exchange and expiratory wheezing HEART: Regular rate and rhythm. S1 and S2 heard. ABDOMEN: Soft. Nondistended. Nontender. EXTREMITIES: Normal range of motion. No clubbing or cyanosis. Peripheral pulses intact. No lower extremity edema NEUROLOGIC: Awake and alert. Oriented x 3. ASSESSMENT: Shortness of breath Pulmonary fibrosis with home o2 Acute exacerbation of COPD Recent hospitalization for pneumonia and bronchitis Chronic kidney disease Mildly abnormal troponins, not suggestive of ACS, may be secondary to CKD and/or type II WI related to hypoxia Valvular heart disease PLAN: No need to repeat echo as this was performed last month Continue home cardiac medications Pulmonary consulted for shortness of breath Further recommendations pending patient course Nurse practitioner note has been reviewed by physician. Signing provider agrees with the documented findings, assessment, and plan of care. Past Medical History Past Medical History: Asthma, Cancer, COPD, GERD/Reflux, Hyperlipidemia, Hypertension, Thyroid Disorder Additional Past Medical History / Comment(s): COPD, IPF and the patient is currently on treatment with Ofev , freq diarrhea-states "SE to Ofev", freq nausea,idiopathic pulmonary fibrosis, Breast cancer WITH 36 tx's RADIATION 2004- DO NOT USE LEFT Side, neuropathy maye legs and feet,chronic back pain History of Any Multi-Drug Resistant Organisms: None Reported Past Surgical History: Back Surgery, Breast Surgery, Cholecystectomy, Joint Replacement, Orthopedic Surgery Additional Past Surgical History / Comment(s): left breast lumpecto my,laminectomies x2,rt knee replaced lung biopsy Past Anesthesia/Blood Transfusion Reactions: Motion Sickness, Postoperative Nausea & Vomiting (PONV) Past Psychological History: No Psychological Hx Reported Smoking Status: Never smoker Past Alcohol Use History: None Reported Past Drug Use History: None Reported - Past Family History Mother Family Medical History: No Reported History Medications and Allergies Home Medications Medication Instructions Recorded Confirmed Type Gabapentin 800 mg PO TID 09/26/17 03/29/21 History Montelukast Sodium [Singulair] 10 mg PO HS 09/26/17 03/29/21 History Multivitamins, Thera [Multivitamin 1 tab PO DAILY 09/26/17 03/29/21 History (formulary)] Omeprazole 20 mg PO DAILY 09/26/17 03/29/21 History amLODIPine BESYLATE/BENAZEPRIL 1 cap PO DAILY 09/26/17 03/29/21 History [Lotrel 5-40 MG] Cyanocobalamin (Vitamin B-12) 1,000 mcg PO DAILY 03/12/19 03/29/21 History [Vitamin B-12] EPINEPHrine [Epipen 2-Shin] 0.3 mg IM ONCE PRN 03/12/19 03/29/21 History Loperamide [Imodium] 2 mg PO QID PRN 03/12/19 03/29/21 History Nintedanib Esylate [Ofev] 100 mg PO BID 03/12/19 03/29/21 History Aspirin EC [Ecotrin Low Dose] 81 mg PO DAILY 11/16/20 03/29/21 History Biotin 10,000 mcg PO DAILY 11/16/20 03/29/21 History Ergocalciferol (Vitamin D2) 1,250 mcg PO Q14D 11/16/20 03/29/21 History [Drisdol (50,000 Iu)] Fluticasone Propion/Salmeterol 1 puff INHALATION RT-BID 11/16/20 03/29/21 History [Fluticasone-Salmeterol 500-50] Levothyroxine Sodium [Synthroid] 175 mcg PO DAILY 11/16/20 03/29/21 History Pravastatin Sodium [Pravachol] 20 mg PO DAILY 11/16/20 03/29/21 History hydroCHLOROthiazide [Hydrodiuril] 25 mg PO DAILY 11/16/20 03/29/21 History Albuterol Sulfate [Ventolin HFA] 2 puff INHALATION RT-QID PRN 02/19/21 03/29/21 History Vitamin C 2500mcg 2,500 mcg PO DAILY 02/19/21 03/29/21 History ALPRAZolam [Xanax] 0.25 mg PO TID PRN #12 tab 02/27/21 03/29/21 Rx Budesonide/Formoterol Fumarate 2 puff INHALATION RT-BID 03/16/21 03/29/21 History [Symbicort 160-4.5 Mcg Inhaler] Cefuroxime Axetil [Ceftin] 500 mg PO BID 5 Days #10 tab 03/24/21 03/29/21 Rx Ipratropium-Albuterol Nebulize 3 ml INHALATION RT-TID 30 Days 03/24/21 03/29/21 Rx [Duoneb 0.5 mg-3 mg/3 ml Soln] #120 ml Ipratropium-Albuterol Nebulize 3 ml INHALATION RT-TID PRN ml 03/24/21 03/29/21 Rx [Duoneb 0.5 mg-3 mg/3 ml Soln] Nystatin 100,000 Unit/ml Susp 500,000 unit PO QID 7 Days #140 ml 03/24/21 03/29/21 Rx [Mycostatin Oral Susp] Allergies Allergy/AdvReac Type Severity Reaction Status Date / Time meperidine [From Demerol] Allergy Unknown Verified 03/29/21 17:54 Childhood morphine Allergy Unknown Verified 03/29/21 17:54 Childhood Sulfa (Sulfonamide Allergy Unknown Verified 03/29/21 17:54 Antibiotics) Childhood Physical Exam Vitals: Vital Signs Temp Pulse Pulse Resp BP BP Pulse Ox 03/30/21 04:00 97.7 F 68 18 106/56 97 03/30/21 02:00 97 22 03/29/21 21:30 98.5 F 97 22 113/61 94 L 03/29/21 20:46 98.2 F 99 20 109/66 96 03/29/21 20:35 90 03/29/21 20:25 91 03/29/21 20:00 81 20 133/67 99 03/29/21 19:00 90 20 121/71 97 03/29/21 18:07 20 03/29/21 18:00 109/69 03/29/21 17:31 92 L 03/29/21 17:29 96 03/29/21 17:08 98.3 F 88 18 152/114 98 Intake and Output 03/29/21 03/30/21 03/30/21 22:59 06:59 14:59 Intake Total 100 118 Balance 100 118 Intake: Intake, IV Titration 100 Amount Sodium Chloride 0.9% 1, 100 000 ml @ 100 mls/hr IV . Q10H [facility] Rx#:[id number] Oral 118 Other: Voiding Method External Catheter # Voids 1 Weight 79.379 kg 74.9 kg Results 03/29/21 17:25 03/29/21 17:25 Cardiac Enzymes 03/29/21 03/29/21 03/29/21 Range/Units 17:25 17:25 21:27 AST 35 (14-36) U/L Troponin I 0.037 H* 0.033 (0.000-0.034) ng/mL Coagulation 03/29/21 Range/Units 17:25 PT 10.7 (9.0-12.0) sec APTT 22.1 (22.0-30.0) sec CBC 03/29/21 Range/Units 17:25 WBC 18.2 H (3.8-10.6) k/uL RBC 3.29 L (3.80-5.40) m/uL Hgb 12.0 (11.4-16.0) gm/dL Hct 36.1 (34.0-46.0) % Plt Count 152 (150-450) k/uL Comprehensive Metabolic Panel 03/29/21 Range/Units 17:25 Sodium 136 L (137-145) mmol/L Potassium 3.3 L (3.5-5.1) mmol/L Chloride 98 (98-107) mmol/L Carbon Dioxide 33 H (22-30) mmol/L BUN 15 (7-17) mg/dL Creatinine 0.42 L (0.52-1.04) mg/dL Glucose 110 H (74-99) mg/dL Calcium 8.8 (8.4-10.2) mg/dL AST 35 (14-36) U/L ALT 44 H (4-34) U/L Alkaline Phosphatase 58 (38-126) U/L Total Protein 5.5 L (6.3-8.2) g/dL Albumin 3.1 L (3.5-5.0) g/dL Current Medications Generic Name Dose Route Start Last Admin Trade Name Freq PRN Reason Stop Dose Admin Acetaminophen 650 mg 03/30/21 01:38 03/30/21 01:42 Acetaminophen Tab 325 Mg Tab PO 650 mg Q6HR PRN Administration Fever and/ or Pain Albuterol/Ipratropium 3 ml 03/30/21 08:00 Ipratropium-Albuterol 3 Ml Neb INHALATION RT-QID MARTHA Albuterol/Ipratropium 3 ml 03/29/21 20:26 Ipratropium-Albuterol 3 Ml Neb INHALATION RT-Q4H PRN Shortness Of Breath Or Wheezing Alprazolam 0.25 mg 03/29/21 19:50 Alprazolam 0.25 Mg Tab PO TID PRN Anxiety Amlodipine Besylate 5 mg 03/30/21 09:00 Amlodipine 5 Mg Tab PO DAILY [facility] Ascorbic Acid 500 mg 03/30/21 09:00 Ascorbic Acid 500 Mg Tab PO DAILY [facility] Aspirin 81 mg 03/30/21 09:00 Aspirin 81 Mg PO DAILY [facility] Budesonide/Formoterol Fumarate 2 puff 03/29/21 20:00 03/29/21 20:23 Symbicort 160-4.5 Mcg Inhaler INHALATION 2 puff RT-BID MARTHA Administration Cyanocobalamin 1,000 mcg 03/30/21 09:00 Cyanocobalamin 500 Mcg Tab PO DAILY [facility] Ergocalciferol 1,250 mcg 04/01/21 09:00 Ergocalciferol 1,250 Mcg (50,000 Iu) Capsule PO Q14D [facility] Gabapentin 800 mg 03/29/21 22:00 03/29/21 22:21 Gabapentin 400 Mg Cap PO 800 mg TID MARTHA Administration Hydrochlorothiazide 25 mg 03/30/21 09:00 Hydrochlorothiazide 25 Mg Tab PO DAILY [facility] Sodium Chloride 1,000 mls @ 100 mls/hr 03/29/21 20:00 03/30/21 06:17 Saline 0.9% IV 100 mls/hr .Q10H MARTHA Administration Piperacillin Sod/Tazobactam 100 mls @ 25 mls/hr 03/30/21 08:00 Sod 3.375 gm/ Sodium Chloride IVPB 04/06/21 08:01 Q8HR [facility] Levofloxacin 750 mg 03/30/21 21:00 Levofloxacin 750 Mg Tab PO DAILY@2100 [facility] Levothyroxine Sodium 176 mcg 03/30/21 06:30 03/30/21 06:16 Levothyroxine 88 Mcg Tab PO 176 mcg DAILY@0630 [facility] Administration Lisinopril 40 mg 03/30/21 09:00 Lisinopril 20 Mg Tab PO DAILY [facility] Miscellaneous Information 1 each 03/29/21 19:48 Pneumonia Protocol Utilized 1 Each Misc PO ONCE PRN Per Protocol Miscellaneous Information 1 each 03/30/21 04:34 Potassium Replacement Protocol 1 Each Misc MISCELLANE DAILY PRN Per Protocol Protocol Montelukast Sodium 10 mg 03/29/21 21:00 03/29/21 22:21 Montelukast 10 Mg Tab PO 10 mg HS MARTHA Administration Multivitamins 1 each 03/30/21 09:00 Multivitamins, Thera 1 Each Tab PO DAILY [facility] Nintedanib Esylate [ 100 mg 03/29/21 21:00 03/29/21 22:45 Ofev] PO 100 mg BID MARTHA Administration Nystatin 500,000 unit 03/29/21 22:00 03/29/21 22:45 Nystatin 100,000 Unit/Ml Susp 500,000 Unit/5 Ml Cup PO Not Given QID MARTHA Pantoprazole Sodium 40 mg 03/30/21 07:30 03/30/21 06:16 Pantoprazole 40 Mg Tablet PO 40 mg [id number] MARTHA Administration Pravastatin Sodium 20 mg 03/30/21 09:00 Pravastatin Sodium 20 Mg Tab PO DAILY MARTHA Intake and Output 03/29/21 03/30/21 03/30/21 22:59 06:59 14:59 Intake Total 100 118 Balance 100 118 Intake: Intake, IV Titration 100 Amount Sodium Chloride 0.9% 1, 100 000 ml @ 100 mls/hr IV . Q10H [facility] Rx#:[id number] Oral 118 Other: Voiding Method External Catheter # Voids 1 Weight 79.379 kg 74.9 kg 03/29/21 17:25 03/29/21 17:25
[2021-03-30] MEDS: IPRATROPIUM-ALBUTEROL 3 ML NEB INHALATION SCH ×4 (08:52→19:55)
[2021-03-30] MEDS: SYMBICORT 160-4.5 MCG INHALER INHALATION SCH (08:52)
[2021-03-30] MEDS ORDERED: NON FORMULARY DRUG (Biotin [Biotin] 10,000 MCG Capsule) PO SCH (09:00)
[2021-03-30] MEDS: ASPIRIN 81 MG PO SCH (09:24)
[2021-03-30] MEDS: amLODIPine 5 MG TAB PO SCH (09:24)
[2021-03-30] MEDS: ASCORBIC ACID 500 MG TAB PO SCH (09:24)
[2021-03-30] MEDS: CYANOCOBALAMIN 500 MCG TAB PO SCH (09:24)
[2021-03-30] MEDS: lisinopriL 20 MG TAB PO SCH (09:25)
[2021-03-30] MEDS: MULTIVITAMINS, THERA 1 EACH TAB PO SCH (09:25)
[2021-03-30] MEDS: hydroCHLOROthiazide 25 MG TAB PO SCH (09:25)
[2021-03-30] MEDS: PRAVASTATIN SODIUM 20 MG TAB PO SCH (09:25)
[2021-03-30] MEDS: GABAPENTIN 400 MG CAP PO SCH ×3 (09:25→21:10)
[2021-03-30] MEDS: NYSTATIN 100,000 UNIT/ML SUSP 500,000 UNIT/5 ML CUP PO SCH ×4 (09:32→21:10)
[2021-03-30] MEDS: [UNRECOGNIZED DRUG - OTHER] PO SCH ×2 (09:32→21:10)
[2021-03-30] MEDS: ALPRAZolam 0.25 MG TAB PO PRN ×2 (11:11→19:53)
[2021-03-30 11:35] LABS: Appearance,Urine Clear (Clear); Bilirubin,Urine Negative (Negative); Blood,Urine Negative (Negative); Color,Urine Yellow; Glucose,Urine (UA) Negative (Negative); Ketones,Urine Negative (Negative); Leukocyte Esterase,Urine Negative (Negative); Nitrite,Urine Negative (Negative); Protein,Urine Negative (Negative); Specific Gravity,Urine 1.015 (1.001-1.035)
--- NOTE | 2021-03-30 12:28 | P.CNPUL ---
History of Present Illness Consult date: 03/30/21 Requesting physician: Eliana Mansfield Reason for consult: dyspnea, cough, hypoxemia, pulmonary fibrosis, pulmonary hypertension, abnormal CXR/CT Chief complaint: Worsening shortness of breath. History of present illness: Pulmonary consult dated 03/30/2021. 80-year-old female, well-known to me. She has a long-standing history of any peptic pulmonary fibrosis, biopsy proven. The patient was recently in the hospital with a exacerbation of her IPF. In addition, she does have COPD. The patient was discharged home, on some antibiotics and steroids. I forcefully, she complains of being more short of breath. She states that she would like to be discharged this time not to home, but to a rehab facility or care home. She realizes now that she cannot do it by herself at home. Currently, she is on 6 L nasal cannula. She's quite tachypneic and dyspneic. She does have conversational dyspnea. EMS brought her into the emergency room. When they arrived, she would had a saturation of about 65%. Currently, on 6 L, her saturations are in the high 80s and low 90s, with a blood pressure of 136/62, heart rate 86, respiratory rate 20-24 breaths per minute, and a temperature which is normal. Lab data includes a white count 18.2, hemoglobin 12, hematocrit 36.1, and a platelet count of 152,000. PT, INR, and PTT were all normal. D-dimer was a bit elevated at 0.64. Sodium 136, potassium 3.3, chloride 98, CO2 33, anion gap 5, BUN 15, creatinine 0.42. Troponins were 0.037 and 0.033. N-terminal proBNP was essentially normal. Urine was negative, and testing for coronavirus was also negative. Chest x-ray shows diffuse interstitial disease, which is unchanged from her prior x-ray 5 days earlier. Review of Systems REVIEW OF SYSTEMS: CONSTITUTIONAL: Weakness and fatigue. NEUROLOGIC: [ Negative.] HEENT: [ Negative.] CARDIAC: [Negative.] PULMONARY: Shortness of breath and chronic nonproductive cough. GI: [Negative.] : [Negative.] RHEUMATOLOGIC: [ Negative.] IMMUNOLOGIC: [ Negative.] ENDOCRINE: [Negative. ] DERMATOLOGIC: [Negative.] Past Medical History Past Medical History: Asthma, Cancer, COPD, GERD/Reflux, Hyperlipidemia, Hypertension, Thyroid Disorder Additional Past Medical History / Comment(s): COPD, IPF and the patient is currently on treatment with Ofev , freq diarrhea-states "SE to Ofev", freq nausea,idiopathic pulmonary fibrosis, Breast cancer WITH 36 tx's RADIATION 2004- DO NOT USE LEFT Side, neuropathy maye legs and feet,chronic back pain History of Any Multi-Drug Resistant Organisms: None Reported Past Surgical History: Back Surgery, Breast Surgery, Cholecystectomy, Joint Replacement, Orthopedic Surgery Additional Past Surgical History / Comment(s): left breast lumpecto my,laminectomies x2,rt knee replaced lung biopsy Past Anesthesia/Blood Transfusion Reactions: Motion Sickness, Postoperative Nausea & Vomiting (PONV) Past Psychological History: No Psychological Hx Reported Smoking Status: Never smoker Past Alcohol Use History: None Reported Past Drug Use History: None Reported - Past Family History Mother Family Medical History: No Reported History Medications and Allergies Home Medications Medication Instructions Recorded Confirmed Type Gabapentin 800 mg PO TID 09/26/17 03/29/21 History Montelukast Sodium [Singulair] 10 mg PO HS 09/26/17 03/29/21 History Multivitamins, Thera [Multivitamin 1 tab PO DAILY 09/26/17 03/29/21 History (formulary)] Omeprazole 20 mg PO DAILY 09/26/17 03/29/21 History amLODIPine BESYLATE/BENAZEPRIL 1 cap PO DAILY 09/26/17 03/29/21 History [Lotrel 5-40 MG] Cyanocobalamin (Vitamin B-12) 1,000 mcg PO DAILY 03/12/19 03/29/21 History [Vitamin B-12] EPINEPHrine [Epipen 2-Shin] 0.3 mg IM ONCE PRN 03/12/19 03/29/21 History Loperamide [Imodium] 2 mg PO QID PRN 03/12/19 03/29/21 History Nintedanib Esylate [Ofev] 100 mg PO BID 03/12/19 03/29/21 History Aspirin EC [Ecotrin Low Dose] 81 mg PO DAILY 11/16/20 03/29/21 History Biotin 10,000 mcg PO DAILY 11/16/20 03/29/21 History Ergocalciferol (Vitamin D2) 1,250 mcg PO Q14D 11/16/20 03/29/21 History [Drisdol (50,000 Iu)] Fluticasone Propion/Salmeterol 1 puff INHALATION RT-BID 11/16/20 03/29/21 History [Fluticasone-Salmeterol 500-50] Levothyroxine Sodium [Synthroid] 175 mcg PO DAILY 11/16/20 03/29/21 History Pravastatin Sodium [Pravachol] 20 mg PO DAILY 11/16/20 03/29/21 History hydroCHLOROthiazide [Hydrodiuril] 25 mg PO DAILY 11/16/20 03/29/21 History Albuterol Sulfate [Ventolin HFA] 2 puff INHALATION RT-QID PRN 02/19/21 03/29/21 History Vitamin C 2500mcg 2,500 mcg PO DAILY 02/19/21 03/29/21 History ALPRAZolam [Xanax] 0.25 mg PO TID PRN #12 tab 02/27/21 03/29/21 Rx Budesonide/Formoterol Fumarate 2 puff INHALATION RT-BID 03/16/21 03/29/21 History [Symbicort 160-4.5 Mcg Inhaler] Cefuroxime Axetil [Ceftin] 500 mg PO BID 5 Days #10 tab 03/24/21 03/29/21 Rx Ipratropium-Albuterol Nebulize 3 ml INHALATION RT-TID 30 Days 03/24/21 03/29/21 Rx [Duoneb 0.5 mg-3 mg/3 ml Soln] #120 ml Ipratropium-Albuterol Nebulize 3 ml INHALATION RT-TID PRN ml 03/24/21 03/29/21 Rx [Duoneb 0.5 mg-3 mg/3 ml Soln] Nystatin 100,000 Unit/ml Susp 500,000 unit PO QID 7 Days #140 ml 03/24/21 03/29/21 Rx [Mycostatin Oral Susp] Allergies Allergy/AdvReac Type Severity Reaction Status Date / Time meperidine [From Demerol] Allergy Unknown Verified 03/29/21 17:54 Childhood morphine Allergy Unknown Verified 03/29/21 17:54 Childhood Sulfa (Sulfonamide Allergy Unknown Verified 03/29/21 17:54 Antibiotics) Childhood Physical Exam Osteopathic Statement: *. No significant issues noted on an osteopathic structural exam other than those noted in the History and Physical/Consult. Vitals: Vital Signs Temp Pulse Pulse Resp BP BP Pulse Ox 03/30/21 11:35 97.8 F 86 19 136/62 92 L 03/30/21 09:08 86 03/30/21 08:55 80 03/30/21 08:00 98.4 F 78 21 126/65 91 L 03/30/21 04:00 97.7 F 68 18 106/56 97 03/30/21 02:00 97 22 03/29/21 21:30 98.5 F 97 22 113/61 94 L 03/29/21 20:46 98.2 F 99 20 109/66 96 03/29/21 20:35 90 03/29/21 20:25 91 03/29/21 20:00 81 20 133/67 99 03/29/21 19:00 90 20 121/71 97 03/29/21 18:07 20 03/29/21 18:00 109/69 03/29/21 17:31 92 L 03/29/21 17:29 96 03/29/21 17:08 98.3 F 88 18 152/114 98 Intake and Output 03/29/21 03/30/21 03/30/21 22:59 06:59 14:59 Intake Total 100 118 Output Total 325 Balance 100 -207 Intake: Intake, IV Titration 100 Amount Sodium Chloride 0.9% 1, 100 000 ml @ 100 mls/hr IV . Q10H [facility] Rx#:[id number] Oral 118 Output: Urine 325 Other: Voiding Method External Catheter External Catheter # Voids 1 1 Weight 79.379 kg 74.9 kg Oriented 3, short of breath, with conversational dyspnea. No audible wheezing. No use of accessory muscles. HEENT examination is grossly unremarkable. Nasal O2 in place. Neck supple. Full range of motion. No adenopathy thyromegaly or neck vein distention. Cardiovascular examination reveals regular rhythm rate. S1-S2 normal. No S3 or S4. No discernible murmur noted. Heart sounds are distant. Heart rate 86 bpm. Lungs reveal bibasilar crackles. No wheezes. Scattered rhonchi. She is definitely restricted in her breathing. Abdomen soft bowel sounds are heard. No masses or tenderness. Extremities are intact. No cyanosis clubbing or edema. Skin is without rash or lesion. Neurologic examination is brief but nonfocal. Results - Laboratory Findings CBC and BMP: 03/29/21 17:25 03/29/21 17:25 PT/INR, D-dimer PT 10.7 sec (9.0-12.0) 03/29/21 17: INR 1.0 (<1.2) 03/29/21 17: D-Dimer 0.64 mg/L FEU (<0.60) H 03/29/21 17:25 Abnormal lab findings: Abnormal Labs 03/29/21 03/29/21 03/29/21 17:25 17:25 17:25 WBC 18.2 H RBC 3.29 L MCV 109.8 H MCH 36.6 H RDW 19.1 H Neutrophils # 15.3 H Macrocytosis Marked A D-Dimer 0.64 H Sodium 136 L Potassium 3.3 L Carbon Dioxide 33 H Creatinine 0.42 L Glucose 110 H Total Bilirubin 3.4 H ALT 44 H Troponin I Total Protein 5.5 L Albumin 3.1 L 03/29/21 17:25 WBC RBC MCV MCH RDW Neutrophils # Macrocytosis D-Dimer Sodium Potassium Carbon Dioxide Creatinine Glucose Total Bilirubin ALT Troponin I 0.037 H* Total Protein Albumin - Diagnostic Findings Chest x-ray: image reviewed Assessment and Plan Assessment: Acute on chronic hypoxemic respiratory failure, secondary to biopsy proven idiopathic pulmonary fibrosis. The patient continues on OFEV. Recent prior admissions for a similar diagnosis. History of breast cancer, status post lumpectomy followed by radiation therapy. History of hypertension. History of hypothyroidism. History of hyperlipidemia. History of chronic acid reflux disease. History of chronic back pain. Plan: Plan dated 03/30/2021. The patient now realizes, that she cannot be discharged home again. She agrees to going to a rehab facility/care home. The patient also states that she's very frustrated with corticosteroids. I did explain to her that corticosteroids typically are not particularly helpful in this disease process. In addition, it's unlikely that she has a significant active infection. We will check a pro- calcitonin level. We did talk about CODE STATUS. She agrees now to be a DO NOT RESUSCITATE. Prognosis is very poor. Time with Patient: Greater than 30
--- NOTE | 2021-03-30 13:05 | P.HPIM ---
History of Present Illness H&P Date: 03/30/21 Chief Complaint: Shortness of breath Ms. Lopez is a 80-year-old female with a past medical history of interstitial pulmonary fibrosis, COPD, hypertension, hyperlipidemia, breast cancer status post surgery coming in with a chief complaint of difficulty in breathing. Patient was recently discharged from the hospital on 03/24/2021 to complete Ceftin and steroids. Patient states that she went home and was living all by herself, and difficulty in breathing progressed and that she was not able to take care of herself at home and so came in to the hospital for further evalua tion. She mentions that his she has been complaint with her steroids and antibiotics. Patient mentions about progressive worsening of her shortness of breath. She denies having any fevers chills or rigors at home. No chest pain or palpitations. She states that she feels anxious when she cannot breathe. Patient denies having any abdominal pain nausea vomiting or diarrhea. No headaches blurring of vision and slurred speech or weakness of her extremities. In the ER at the time of admission, her saturations went as low as 65%, this started on 6 L of nasal cannula and her saturations improved about 90. Temperature of 98.3, heart rate around 88, respiratory rate 18, blood pressure 152/114. She had a chest x-ray showing cardiomegaly and diffuse bilaterally testes disease. Labs at the time of admission white count of 18.2, hemoglobin 12, platelets 152. There is marked macrocytosis with MCV of 109.8. D-dimer 0.64, PT 10.7, INR 1, sodium 136, potassium 3.3, chloride 98, bicarbonate 30, BUN 15, creatinine 0.42. Barclay virus PCR negative urine negative for nitrites and leukocyte esterase. Review of Systems CONSTITUTIONAL: Generalized weakness and fatigue at baseline HEENT: No recent visual problems or hearing problems. Denied any sore throat. CARDIOVASCULAR: No orthopnea, PND, no palpitations, no syncope. PULMONARY: As per HPI GASTROINTESTINAL: No diarrhea, no nausea, no vomiting, no abdominal pain. NEUROLOGICAL: No headaches, no weakness, no numbness. HEMATOLOGICAL: Denies any bleeding or petechiae. GENITOURINARY: Denies any burning micturition, frequency, or urgency. MUSCULOSKELETAL/RHEUMATOLOGICAL: Denies any joint pain, swelling, or any muscle pain. ENDOCRINE: Denies any polyuria or polydipsia. All 13 review of systems done and negative except for the ones mentioned above Past Medical History Past Medical History: Asthma, Cancer, COPD, GERD/Reflux, Hyperlipidemia, Hypertension, Thyroid Disorder Additional Past Medical History / Comment(s): COPD, IPF and the patient is currently on treatment with Ofev , freq diarrhea-states "SE to Ofev", freq nausea,idiopathic pulmonary fibrosis, Breast cancer WITH 36 tx's RADIATION 2004- DO NOT USE LEFT Side, neuropathy maye legs and feet,chronic back pain History of Any Multi-Drug Resistant Organisms: None Reported Past Surgical History: Back Surgery, Breast Surgery, Cholecystectomy, Joint Replacement, Orthopedic Surgery Additional Past Surgical History / Comment(s): left breast lumpectomy,laminectomies x2,rt knee replaced lung biopsy Past Anesthesia/Blood Transfusion Reactions: Motion Sickness, Postoperative Nausea & Vomiting (PONV) Past Psychological History: No Psychological Hx Reported Smoking Status: Never smoker Past Alcohol Use History: None Reported Past Drug Use History: None Reported - Past Family History Mother Family Medical History: No Reported History Medications and Allergies Home Medications Medication Instructions Recorded Confirmed Type Gabapentin 800 mg PO TID 09/26/17 03/29/21 History Montelukast Sodium [Singulair] 10 mg PO HS 09/26/17 03/29/21 History Multivitamins, Thera [Multivitamin 1 tab PO DAILY 09/26/17 03/29/21 History (formulary)] Omeprazole 20 mg PO DAILY 09/26/17 03/29/21 History amLODIPine BESYLATE/BENAZEPRIL 1 cap PO DAILY 09/26/17 03/29/21 History [Lotrel 5-40 MG] Cyanocobalamin (Vitamin B-12) 1,000 mcg PO DAILY 03/12/19 03/29/21 History [Vitamin B-12] EPINEPHrine [Epipen 2-Shin] 0.3 mg IM ONCE PRN 03/12/19 03/29/21 History Loperamide [Imodium] 2 mg PO QID PRN 03/12/19 03/29/21 History Nintedanib Esylate [Ofev] 100 mg PO BID 03/12/19 03/29/21 History Aspirin EC [Ecotrin Low Dose] 81 mg PO DAILY 11/16/20 03/29/21 History Biotin 10,000 mcg PO DAILY 11/16/20 03/29/21 History Ergocalciferol (Vitamin D2) 1,250 mcg PO Q14D 11/16/20 03/29/21 History [Drisdol (50,000 Iu)] Fluticasone Propion/Salmeterol 1 puff INHALATION RT-BID 11/16/20 03/29/21 History [Fluticasone-Salmeterol 500-50] Levothyroxine Sodium [Synthroid] 175 mcg PO DAILY 11/16/20 03/29/21 History Pravastatin Sodium [Pravachol] 20 mg PO DAILY 11/16/20 03/29/21 History hydroCHLOROthiazide [Hydrodiuril] 25 mg PO DAILY 11/16/20 03/29/21 History Albuterol Sulfate [Ventolin HFA] 2 puff INHALATION RT-QID PRN 02/19/21 03/29/21 History Vitamin C 2500mcg 2,500 mcg PO DAILY 02/19/21 03/29/21 History ALPRAZolam [Xanax] 0.25 mg PO TID PRN #12 tab 02/27/21 03/29/21 Rx Budesonide/Formoterol Fumarate 2 puff INHALATION RT-BID 03/16/21 03/29/21 History [Symbicort 160-4.5 Mcg Inhaler] Cefuroxime Axetil [Ceftin] 500 mg PO BID 5 Days #10 tab 03/24/21 03/29/21 Rx Ipratropium-Albuterol Nebulize 3 ml INHALATION RT-TID 30 Days 03/24/21 03/29/21 Rx [Duoneb 0.5 mg-3 mg/3 ml Soln] #120 ml Ipratropium-Albuterol Nebulize 3 ml INHALATION RT-TID PRN ml 03/24/21 03/29/21 Rx [Duoneb 0.5 mg-3 mg/3 ml Soln] Nystatin 100,000 Unit/ml Susp 500,000 unit PO QID 7 Days #140 ml 03/24/21 03/29/21 Rx [Mycostatin Oral Susp] Allergies Allergy/AdvReac Type Severity Reaction Status Date / Time meperidine [From Demerol] Allergy Unknown Verified 03/29/21 17:54 Childhood morphine Allergy Unknown Verified 03/29/21 17:54 Childhood Sulfa (Sulfonamide Allergy Unknown Verified 03/29/21 17:54 Antibiotics) Childhood Physical Exam Vitals: Vital Signs Temp Pulse Pulse Resp BP BP Pulse Ox 03/30/21 09:08 86 03/30/21 08:55 80 03/30/21 08:00 98.4 F 78 21 126/65 91 L 03/30/21 04:00 97.7 F 68 18 106/56 97 03/30/21 02:00 97 22 03/29/21 21:30 98.5 F 97 22 113/61 94 L 03/29/21 20:46 98.2 F 99 20 109/66 96 03/29/21 20:35 90 03/29/21 20:25 91 03/29/21 20:00 81 20 133/67 99 03/29/21 19:00 90 20 121/71 97 03/29/21 18:07 20 03/29/21 18:00 109/69 03/29/21 17:31 92 L 03/29/21 17:29 96 03/29/21 17:08 98.3 F 88 18 152/114 98 Intake and Output 03/29/21 03/30/21 03/30/21 22:59 06:59 14:59 Intake Total 100 118 Balance 100 118 Intake: Intake, IV Titration 100 Amount Sodium Chloride 0.9% 1, 100 000 ml @ 100 mls/hr IV . Q10H ON LICENSE OF [facility] Rx#:[id number] Oral 118 Other: Voiding Method External Catheter External Catheter # Voids 1 1 Weight 79.379 kg 74.9 kg GENERAL: The patient is alert and oriented x3, not in any acute distress. -Patient looks weak and deconditioned HEENT: Pupils are round and equally reacting to light. EOMI. No scleral icterus. No conjunctival pallor. Normocephalic, atraumatic. No pharyngeal erythema. No thyromegaly. CARDIOVASCULAR: S1 and S2 present. No murmurs, rubs, or gallops. PULMONARY: Tachypnea. Decreased breath sounds bilaterally. Coarse crackles bilaterally ABDOMEN: Soft, mild tenderness, nondistended, normoactive bowel sounds. No pa lpable organomegaly. MUSCULOSKELETAL: No joint swelling or deformity. EXTREMITIES: No cyanosis, clubbing, or pedal edema. NEUROLOGICAL: Gross neurological examination did not reveal any focal deficits. SKIN: No rashes. No petechiae Results CBC & Chem 7: 03/29/21 17:25 03/29/21 17:25 Labs: Abnormal Lab Results - Last 24 Hours (Table) 03/29/21 03/29/21 03/29/21 Range/Units 17:25 17:25 17:25 WBC 18.2 H (3.8-10.6) k/uL RBC 3.29 L (3.80-5.40) m/uL MCV 109.8 H (80.0-100.0) fL MCH 36.6 H (25.0-35.0) pg RDW 19.1 H (11.5-15.5) % Neutrophils # 15.3 H (1.3-7.7) k/uL Macrocytosis Marked A D-Dimer 0.64 H (<0.60) mg/L FEU Sodium 136 L (137-145) mmol/L Potassium 3.3 L (3.5-5.1) mmol/L Carbon Dioxide 33 H (22-30) mmol/L Creatinine 0.42 L (0.52-1.04) mg/dL Glucose 110 H (74-99) mg/dL Total Bilirubin 3.4 H (0.2-1.3) mg/dL ALT 44 H (4-34) U/L Troponin I (0.000-0.034) ng/mL Total Protein 5.5 L (6.3-8.2) g/dL Albumin 3.1 L (3.5-5.0) g/dL 03/29/21 Range/Units 17:25 WBC (3.8-10.6) k/uL RBC (3.80-5.40) m/uL MCV (80.0-100.0) fL MCH (25.0-35.0) pg RDW (11.5-15.5) % Neutrophils # (1.3-7.7) k/uL Macrocytosis D-Dimer (<0.60) mg/L FEU Sodium (137-145) mmol/L Potassium (3.5-5.1) mmol/L Carbon Dioxide (22-30) mmol/L Creatinine (0.52-1.04) mg/dL Glucose (74-99) mg/dL Total Bilirubin (0.2-1.3) mg/dL ALT (4-34) U/L Troponin I 0.037 H* (0.000-0.034) ng/mL Total Protein (6.3-8.2) g/dL Albumin (3.5-5.0) g/dL Thrombosis Risk Factor Assmnt - Choose All That Apply Any of the Below Risk Factors Present?: Yes Each Factor Represents 1 point: Abnormal pulmonary function (COPD), Obesity (BMI >25) Other Risk Factors: Yes Each Risk Factor Represents 3 Points: Age 75 years or older Other congenital or acquired thrombophilia - If yes, enter type in comment: No Thrombosis Risk Factor Assessment Total Risk Factor Score: 5 Thrombosis Risk Factor Assessment Level: High Risk Assessment and Plan Assessment: ASSESSMENT Acute on chronic hypoxic respiratory failure currently on 6 L of oxygen by nasal cannula. Presentation is consistent with progression of IPF with development of diffuse fibrotic changes. Superinfection is felt to be unlikely. Chest x-ray showing diffuse bilateral pulmonary fibrotic changes. IPF with mild to moderate restrictive lung disease and FVC of 69% of predicted based on a previous spirometry that was done in 2019. The patient has been maintained on OFEV over the past few years History of breast cancer with a previous lumpectomy followed by radiation therapy back in 2014 and the patient is been disease-free Hypertension Hypothyroidism Hyperlipidemia Chronic acid reflux Chronic back pain History of recent pneumonia Chronic debility Moderate protein calorie malnutrition PLAN: Patient has been started on breathing treatments and steroids. There is disease progression of idiopathic pulmonary fibrosis, infection less likely. Zosyn has been discontinued and we'll continue with levofloxacin for now. Patient has been restarted on her home medications. Overall prognosis is poor. She is in no code. Further recommendations to follow depending on the progress of the patient. corrections caseworker to be consulted for subacute rehab versus fdc placement.
[2021-03-30] MEDS: FORMOTEROL FUMARATE 20 MCG/2 ML NEBU INHALATION SCH (19:54)
[2021-03-30] MEDS: BUDESONIDE 1 MG/2 ML NEBU INHALATION SCH (19:55)
[2021-03-30] MEDS: LEVOFLOXACIN 750 MG TAB PO SCH (21:10)
[2021-03-30] MEDS: MONTELUKAST 10 MG TAB PO SCH (21:10)
[2021-03-31] MEDS: SODIUM CHLORIDE 0.9% 1,000 ML IV SCH ×2 (02:44→12:04)
[2021-03-31] MEDS: LEVOTHYROXINE 88 MCG TAB PO SCH (05:31)
[2021-03-31] MEDS: ALPRAZolam 0.25 MG TAB PO PRN ×2 (05:33→21:34)
[2021-03-31] MEDS: MULTIVITAMINS, THERA 1 EACH TAB PO SCH (08:09)
[2021-03-31] MEDS: GABAPENTIN 400 MG CAP PO SCH ×3 (08:09→21:12)
[2021-03-31] MEDS: PRAVASTATIN SODIUM 20 MG TAB PO SCH (08:09)
[2021-03-31] MEDS: hydroCHLOROthiazide 25 MG TAB PO SCH (08:09)
[2021-03-31] MEDS: ASCORBIC ACID 500 MG TAB PO SCH (08:10)
[2021-03-31] MEDS: ASPIRIN 81 MG PO SCH (08:10)
[2021-03-31] MEDS: ENOXAPARIN 40 MG/0.4 ML SYRINGE SQ SCH (08:10)
[2021-03-31] MEDS: CYANOCOBALAMIN 500 MCG TAB PO SCH (08:10)
[2021-03-31] MEDS: amLODIPine 5 MG TAB PO SCH (08:10)
[2021-03-31] MEDS: lisinopriL 20 MG TAB PO SCH (08:10)
[2021-03-31] MEDS: PANTOPRAZOLE 40 MG TABLET PO SCH (08:10)
[2021-03-31] MEDS: [UNRECOGNIZED DRUG - OTHER] PO SCH ×2 (08:11→21:12)
[2021-03-31] MEDS: NYSTATIN 100,000 UNIT/ML SUSP 500,000 UNIT/5 ML CUP PO SCH ×4 (08:11→21:12)
[2021-03-31 08:24] LABS: African American GFR (CKD) >90 (>60 ml/min/1.73 sqM); Anion Gap 6 mmol/L; Blood Urea Nitrogen 6 mg/dL (7-17); Calcium 7.9 mg/dL (8.4-10.2); Carbon Dioxide 27 mmol/L (22-30); Chloride 104 mmol/L (98-107); Glucose 93 mg/dL (74-99); Non-African American GFR(CKD) >90 (>60 ml/min/1.73 sqM); Potassium 3.3 mmol/L (3.5-5.1); Sodium 137 mmol/L (137-145)
[2021-03-31] MEDS: FORMOTEROL FUMARATE 20 MCG/2 ML NEBU INHALATION SCH ×2 (08:50→20:34)
[2021-03-31] MEDS: BUDESONIDE 1 MG/2 ML NEBU INHALATION SCH ×2 (08:50→20:33)
[2021-03-31] MEDS: IPRATROPIUM-ALBUTEROL 3 ML NEB INHALATION SCH ×4 (08:50→20:33)
[2021-03-31] MEDS ORDERED: predniSONE 10 MG TAB PO SCH (09:00)
[2021-03-31 09:19] LABS: Anisocytosis Slight; HCT 34.1 % (34.0-46.0); HGB 10.9 gm/dL (11.4-16.0); Hypochromasia Slight; MCH 36.4 pg (25.0-35.0); MCHC 31.8 g/dL (31.0-37.0); MCV 114.3 fL (80.0-100.0); Macrocytosis Marked; Mean Platelet Volume 10.5; Platelet Count 149 k/uL (150-450); RBC 2.99 m/uL (3.80-5.40); RDW 19.2 % (11.5-15.5); WBC 15.9 k/uL (3.8-10.6)
--- NOTE | 2021-03-31 11:39 | P.PN ---
Subjective Progress Note Date: 03/31/21 HISTORY OF PRESENT ILLNESS: This is a 80-year-old female with a past medical history significant for pulmonary fibrosis, home oxygen use, COPD, GERD, hypertension, and hyperlipidemia. Patient follows in the office with Dr. Rosario. We have been asked to see the patient in consultation for elevated troponins. Patient examined at the bedside. Patient was recently admitted to the hospital secondary to pneumonia. Patient presented back to the hospital with worsening shortness of breath. Patient is currently on 6 L nasal cannula. Patient states she does not want to take steroids. Patient denies any chest pain or pressure. Patient underwent echocardiogram on 02/20/2021 revealing ejection fraction 55-60%, mild aortic regurgitation, mild mitral regurgitation, moderate tricuspid reg urgitation, and severe pulmonary hypertension. Patient also underwent Lexiscan stress test in September 2020 which was negative for reversible ischemia. EKG reveals sinus tachycardia with PACs. Right axis deviation. Heart rate 107. Chest xray cardiomegaly and continued diffuse bilateral airspace disease Laboratory data: WBC 18.2. Hemoglobin 12.0. Platelet count 152. Sodium 136. Potassium 3.3. BUN 15. Creatinine 0.42. BNP 131. Troponin 0.037. 0.033. Current home cardiac medications include hydrochlorothiazide 25 mg daily, amlodipine/benazepril 5-40mg daily, pravastatin 20 mg daily, aspirin 81 mg daily 03/31/2021 Patient examined this morning at the bedside. She denies chest pain or pressure. She reports shortness of breath. She is on AIRVO. Blood pressure 136/87. Heart rate in the 70s. Monitor reveals sinus mechanism. PHYSICAL EXAM: VITAL SIGNS: Reviewed. GENERAL: Well-developed in no acute distress-appears short of breath with conversation. HEENT: Head is normocephalic. Pupils are equal, round. Sclerae anicteric. Mucous membranes of the mouth are moist. Neck supple. No JVD or thyromegaly LUNGS: Respirations even and unlabored. Lungs with decreased air exchange throughout. HEART: Regular rate and rhythm. S1 and S2 heard. ABDOMEN: Soft. Nondistended. Nontender. EXTREMITIES: Normal range of motion. No clubbing or cyanosis. Peripheral pulses intact. No lower extremity edema NEUROLOGIC: Awake and alert. Oriented x 3. ASSESSMENT: Shortness of breath Pulmonary fibrosis with home o2 Acute exacerbation of COPD Recent hospitalization for pneumonia and bronchitis Chronic kidney disease Mildly abnormal troponins, not suggestive of ACS, may be secondary to CKD and/or type II HI related to hypoxia Valvular heart disease PLAN: No need to repeat echo as this was performed last month Continue home cardiac medications Pulmonary following No further inpatient recommendations from a cardiac standpoint. We will sign off. Please reconsult if needed. Nurse practitioner note has been reviewed by physician. Signing provider agrees with the documented findings, assessment, and plan of care. Objective - Vital Signs Vital signs: Vital Signs Temp 98.0 F 03/31/21 07:55 Pulse 94 03/31/21 09:10 Resp 17 03/31/21 07:55 BP 136/87 03/31/21 07:55 Pulse Ox 95 03/31/21 10:01 Intake & Output 03/30/21 03/31/21 03/31/21 18:59 06:59 18:59 Intake Total 1168 450 Output Total 725 1100 Balance 443 -650 Weight 74.5 kg Intake: Intake, IV Titration 1050 Amount Levofloxacin 750Mg-D5w 150 Pmx 750 mg In Dextrose/ Water 1 150ml.bag @ 100 mls/hr IVPB ONCE STA Rx#: [id number] Piperacillin-Tazobactam 3 100 .375 gm In Sodium Chloride 0.9% 100 ml @ 25 mls/hr IVPB Q8HR [facility] Rx# :[id number] Sodium Chloride 0.9% 1, 800 000 ml @ 100 mls/hr IV . Q10H [facility] Rx#:[id number] Oral 118 450 Output: Urine 725 1100 Other: Voiding Method External Catheter External Catheter # Voids 1 - Labs CBC & Chem 7: 03/31/21 07:39 03/31/21 07:39 Labs: Abnormal Lab Results - Last 24 Hours (Table) 03/30/21 03/31/21 03/31/21 Range/Units 10:32 07:39 07:39 WBC 15.9 H (3.8-10.6) k/uL RBC 2.99 L (3.80-5.40) m/uL Hgb 10.9 L (11.4-16.0) gm/dL MCV 114.3 H (80.0-100.0) fL MCH 36.4 H (25.0-35.0) pg RDW 19.2 H (11.5-15.5) % Plt Count 149 L (150-450) k/uL Macrocytosis Marked A Potassium 3.3 L (3.5-5.1) mmol/L BUN 6 L (7-17) mg/dL Creatinine 0.44 L (0.52-1.04) mg/dL Calcium 7.9 L (8.4-10.2) mg/dL Procalcitonin 0.12 H (0.02-0.09) ng/mL Microbiology - Last 24 Hours (Table) 03/30/21 12:40 Gram Stain - Preliminary Sputum Sputum Culture - Preliminary 03/29/21 20:00 Blood Culture - Preliminary Blood No Growth after 24 hours 03/29/21 20:15 Blood Culture - Preliminary Blood No Growth after 24 hours
--- NOTE | 2021-03-31 13:23 | P.PN ---
Subjective Progress Note Date: 03/31/21 Principal diagnosis: Worsening shortness of breath, and worsening hypoxemia 80-year-old female, well-known to me. She has a long-standing history of any peptic pulmonary fibrosis, biopsy proven. The patient was recently in the hospital with a exacerbation of her IPF. In addition, she does have COPD. The patient was discharged home, on some antibiotics and steroids. I forcefully, she complains of being more short of breath. She states that she would like to be discharged this time not to home, but to a rehab facility or penitentiary. She realizes now that she cannot do it by herself at home. Currently, she is on 6 L nasal cannula. She's quite tachypneic and dyspneic. She does have conversational dyspnea. EMS brought her into the emergency room. When they arr ived, she would had a saturation of about 65%. Currently, on 6 L, her saturations are in the high 80s and low 90s, with a blood pressure of 136/62, heart rate 86, respiratory rate 20-24 breaths per minute, and a temperature which is normal. Lab data includes a white count 18.2, hemoglobin 12, chuy tocrit 36.1, and a platelet count of 152,000. PT, INR, and PTT were all normal. D-dimer was a bit elevated at 0.64. Sodium 136, potassium 3.3, chloride 98, CO2 33, anion gap 5, BUN 15, creatinine 0.42. Troponins were 0.037 and 0.033. N-terminal proBNP was essentially normal. Urine was negative, and testing for coronavirus was also negative. Chest x-ray shows diffuse interstitial disease, which is unchanged from her prior x-ray 5 days earlier. On 03/31/2021 patient seen in follow-up on medical surgical floor. Patient's oxygen requirement have been increasing since her admission, and this morning she was placed on 100% nonrebreather mask, and her pulse ox was 94%, she is increasingly more short of breath, and she was subsequently placed on Airvo on which she remains at 60 L and FiO2 of 90%. She is feeling much more comfortable on that right now. She still very short of breath at rest, and with any exertion. She is awake and alert, oriented 3. She is afebrile, hemodynamicall y stable. Last chest x-ray on 03/30/2021 showed cardiomegaly and continue diffuse bilateral airspace disease. Patient remains on prednisone 10 mg daily, Levaquin, and breathing treatments. Today's labs have been reviewed, her white blood cell count 15.9, hemoglobin is 10.9, pro calcitonin level was low at 0.12, troponins were 0.037 and 0.033, urinalysis was negative for any sign of infection, COVID-19 was ruled out. Blood and sputum cultures have been sent. Sputum culture showed moderate epithelial cells, rare gram-positive cocci and rare gram-positive bacilli, fungal culture is pending. Objective - Vital Signs Vital signs: Vital Signs Temp 98.0 F 03/31/21 07:55 Pulse 90 03/31/21 13:06 Resp 17 03/31/21 07:55 BP 136/87 03/31/21 07:55 Pulse Ox 95 03/31/21 10:01 Intake & Output 03/30/21 03/31/21 03/31/21 18:59 06:59 18:59 Intake Total 1168 450 Output Total 725 1100 Balance 443 -650 Weight 74.5 kg Intake: Intake, IV Titration 1050 Amount Levofloxacin 750Mg-D5w 150 Pmx 750 mg In Dextrose/ Water 1 150ml.bag @ 100 mls/hr IVPB ONCE [facility] Rx#: [id number] Piperacillin-Tazobactam 3 100 .375 gm In Sodium Chloride 0.9% 100 ml @ 25 mls/hr IVPB Q8HR [facility] Rx# :[id number] Sodium Chloride 0.9% 1, 800 000 ml @ 100 mls/hr IV . Q10H [facility] Rx#:[id number] Oral 118 450 Output: Urine 725 1100 Other: Voiding Method External Catheter External Catheter # Voids 1 - Exam GENERAL EXAM: Alert, very pleasant, 80-year-old white female, currently on Airvo at 60 L and FiO2 of 90% short of breath with conversation and exertion HEAD: Normocephalic/atraumatic. EYES: Normal reaction of pupils, equal size. Conjunctiva pink, sclera white. NOSE: Clear with pink turbinates. THROAT: No erythema or exudates. NECK: No masses, no JVD, no thyroid enlargement, no adenopathy. CHEST: No chest wall deformity. Symmetrical expansion. LUNGS: Equal air entry with diffuse coarse crackles CVS: Regular rate and rhythm, normal S1 and S2, no gallops, no murmurs, no rubs ABDOMEN: Soft, nontender. No hepatosplenomegaly, normal bowel sounds, no guarding or rigidity. EXTREMITIES: No clubbing, no edema, no cyanosis, 2+ pulses and upper and lower extremities. MUSCULOSKELETAL: Muscle strength and tone normal. SPINE: No scoliosis or deformity SKIN: No rashes CENTRAL NERVOUS SYSTEM: Alert and oriented -3. No focal deficits, tone is normal in all 4 extremities. PSYCHIATRIC: Alert and oriented -3. Appropriate affect. Intact judgment and insight. - Labs CBC & Chem 7: 03/31/21 07:39 03/31/21 07:39 Labs: Abnormal Lab Results - Last 24 Hours (Table) 03/30/21 03/31/21 03/31/21 Range/Units 10:32 07:39 07:39 WBC 15.9 H (3.8-10.6) k/uL RBC 2.99 L (3.80-5.40) m/uL Hgb 10.9 L (11.4-16.0) gm/dL MCV 114.3 H (80.0-100.0) fL MCH 36.4 H (25.0-35.0) pg RDW 19.2 H (11.5-15.5) % Plt Count 149 L (150-450) k/uL Macrocytosis Marked A Potassium 3.3 L (3.5-5.1) mmol/L BUN 6 L (7-17) mg/dL Creatinine 0.44 L (0.52-1.04) mg/dL Calcium 7.9 L (8.4-10.2) mg/dL Procalcitonin 0.12 H (0.02-0.09) ng/mL Microbiology - Last 24 Hours (Table) 03/30/21 12:40 Gram Stain - Preliminary Sputum Sputum Culture - Preliminary 03/29/21 20:00 Blood Culture - Preliminary Blood No Growth after 24 hours 03/29/21 20:15 Blood Culture - Preliminary Blood No Growth after 24 hours Assessment and Plan Plan: Assessment: #1. Acute on chronic hypoxemic respiratory failure secondary to acute exacer bation of idiopathic pulmonary fibrosis, COVID-19 has been ruled out, calcitonin level was low at 0.12 #2. Recent hospitalization related to the above #3. History of IPF with the most recent FVC of 69% of predicted, this is from 2019. Has been maintained on cooperative over the past few years #4. History of breast cancer with previous lumpectomy followed by radiation therapy in 2014 #5. Hypertension #6. Hypothyroidism #7. Hyperlipidemia #8. GERD/reflux #9. Chronic back pain Plan: Increase prednisone to 40 mg daily Continue nebulized bronchodilators and antibiotics Patient's condition has significantly declined in the last few months Oxygen requirement has significantly increased There has been progression in her pulmonary fibrosis It is likely that she will require palliative care hospice consultation Plan we'll continue supportive care Prognosis is extremely poor I performed a history & physical examination of the patient and discussed their management with my nurse practitioner, Claudia Catherine. I reviewed the nurse practitioner's note and agree with the documented findings and plan of care. Lung sounds are positive for diminished breath sounds with crackles throughout the lung bejarano. The findings and the impression was discussed with the patient. I attest to the documentation by the nurse practitioner. Time with Patient: Less than 30
--- NOTE | 2021-03-31 16:29 | P.PN ---
Subjective Progress Note Date: 03/31/21 Principal diagnosis: Acute on chronic hypoxemic respiratory failure secondary to acute exacerbation of idiopathic pulmonary fibrosis Ms. Lopez is a 80-year-old female with a past medical history of interstitial pulmonary fibrosis, COPD, hypertension, hyperlipidemia, breast cancer status post surgery coming in with a chief complaint of difficulty in breathing. Patient was recently discharged from the hospital on 03/24/2021 to complete Ceftin and steroids. Patient states that she went home and was living all by herself, and difficulty in breathing progressed and that she was not able to take care of herself at home and so came in to the hospital for further evaluation. She mentions that his she has been complaint with her steroids and antibiotics. Patient mentions about progressive worsening of her shortness of breath. She denies having any fevers chills or rigors at home. No chest pain or palpitations. She states that she feels anxious when she cannot breathe. Patient denies having any abdominal pain nausea vomiting or diarrhea. No headaches blurring of vision and slurred speech or weakness of her extremities. In the ER at the time of admission, her saturations went as low as 65%, this started on 6 L of nasal cannula and her saturations improved about 90. Temperature of 98.3, heart rate around 88, respiratory rate 18, blood pressure 152/114. She had a chest x-ray showing cardiomegaly and diffuse bilaterally testes disease. Labs at the time of admission white count of 18.2, hemoglobin 12, platelets 152. There is marked macrocytosis with MCV of 109.8. D-dimer 0.64, PT 10.7, INR 1, sodium 136, potassium 3.3, chloride 98, bicarbonate 30, BUN 15, creatinine 0.42. Barclay virus PCR negative urine negative for nitrites and leukocyte esterase. On 03/31/2021 - patient is seen and examined at the bedside. Overnight patient desaturated and she is placed on Airvo 90% FiO2 to maintain her saturations above 90%. She states that she is feeling comfortable with the Airvo, then a nonrebreather. Patient still is tachypneic and appears to be in mild respiratory distress. She denies having any chest pain or palpitations. On reviewing her vitals temperature of 99.2, heart rate 100, respiratory rate in low 20s, blood pressure 106/68. Patient's labs from this morning white count of 15.9, hemoglobin 10.9, platelets 149. Sodium 135, potassium 3.8, chloride 104, bicarbonate 27, BUN 6, creatinine 0.44. Urine analysis from yesterday negative for nitrites and leukocyte esterase. Patient's medications have been reviewed. Active Medications Acetaminophen (Acetaminophen Tab 325 Mg Tab) 650 mg PO Q6HR PRN Albuterol/Ipratropium (Ipratropium-Albuterol 3 Ml Neb) 3 ml INHALATION RT-QID [facility] Albuterol/Ipratropium (Ipratropium-Albuterol 3 Ml Neb) 3 ml INHALATION RT-Q4H PRN Alprazolam (Alprazolam 0.25 Mg Tab) 0.25 mg PO TID PRN Amlodipine Besylate (Amlodipine 5 Mg Tab) 5 mg PO DAILY [facility] Ascorbic Acid (Ascorbic Acid 500 Mg Tab) 500 mg PO DAILY [facility] Aspirin (Aspirin 81 Mg) 81 mg PO DAILY [facility] Budesonide (Budesonide 1 Mg/2 Ml Nebu) 1 mg INHALATION RT-BID [facility] Cyanocobalamin (Cyanocobalamin 500 Mcg Tab) 1,000 mcg PO DAILY [facility] Enoxaparin Sodium (Enoxaparin 40 Mg/0.4 Ml Syringe) 40 mg SQ DAILY [facility] Ergocalciferol (Ergocalciferol 1,250 Mcg (50,000 Iu) Capsule) 1,250 mcg PO Q14D [facility] Formoterol Fumarate (Formoterol Fumarate 20 Mcg/2 Ml Nebu) 20 mcg INHALATION RT-BID [facility] Gabapentin (Gabapentin 400 Mg Cap) 800 mg PO TID [facility] Hydrochlorothiazide (Hydrochlorothiazide 25 Mg Tab) 25 mg PO DAILY [facility] Sodium Chloride (Saline 0.9%) 1,000 mls @ 100 mls/hr IV .Q10H [facility] Levofloxacin (Levofloxacin 750 Mg Tab) 750 mg PO DAILY@2100 [facility] Levothyroxine Sodium (Levothyroxine 88 Mcg Tab) 176 mcg PO DAILY@0630 [facility] Lisinopril (Lisinopril 20 Mg Tab) 40 mg PO DAILY [facility] Montelukast Sodium (Montelukast 10 Mg Tab) 10 mg PO HS [facility] Multivitamins (Multivitamins, Thera 1 Each Tab) 1 each PO DAILY [facility] Nintedanib Esylate [ (Ofev]) 100 mg PO BID [facility] Nystatin (Nystatin 100,000 Unit/Ml Susp 500,000 Unit/5 Ml Cup) 500,000 unit PO QID [facility] Pantoprazole Sodium (Pantoprazole 40 Mg Tablet) 40 mg PO AC-BRKFST [facility] Pravastatin Sodium (Pravastatin Sodium 20 Mg Tab) 20 mg PO DAILY [facility] Prednisone (Prednisone 20 Mg Tab) 40 mg PO DAILY [facility] Objective - Vital Signs Vital signs: Vital Signs Temp 98.0 F 03/31/21 07:55 Pulse 90 03/31/21 12:55 Resp 17 03/31/21 07:55 BP 136/87 03/31/21 07:55 Pulse Ox 95 03/31/21 10:01 Intake & Output 03/30/21 03/31/21 03/31/21 18:59 06:59 18:59 Intake Total 1168 450 Output Total 725 1100 Balance 443 -650 Weight 74.5 kg Intake: Intake, IV Titration 1050 Amount Levofloxacin 750Mg-D5w 150 Pmx 750 mg In Dextrose/ Water 1 150ml.bag @ 100 mls/hr IVPB [facility] Rx#: [id number] Piperacillin-Tazobactam 3 100 .375 gm In Sodium Chloride 0.9% 100 ml @ 25 mls/hr IVPB Q8HR [facility] Rx# :[id number] Sodium Chloride 0.9% 1, 800 000 ml @ 100 mls/hr IV . Q10H [facility] Rx#:[id number] Oral 118 450 Output: Urine 725 1100 Other: Voiding Method External Catheter External Catheter # Voids 1 - Exam GENERAL: The patient is alert and oriented x3, not in any acute distress. -Patient looks weak and deconditioned HEENT: Pupils are round and equally reacting to light. EOMI. No scleral icterus. No conjunctival pallor. CARDIOVASCULAR: S1 and S2 present. No murmurs, rubs, or gallops. PULMONARY: Tachypnea. Decreased breath sounds bilaterally. Coarse crackles bilaterally ABDOMEN: Soft, mild tenderness, nondistended, normoactive bowel sounds. No palpable organomegaly. MUSCULOSKELETAL: No joint swelling or deformity. EXTREMITIES: Mild pedal edema. NEUROLOGICAL: Gross neurological examination did not reveal any focal deficits. SKIN: No rashes. No petechiae - Labs CBC & Chem 7: 03/31/21 07:39 03/31/21 07:39 Labs: Abnormal Lab Results - Last 24 Hours (Table) 03/30/21 03/31/21 03/31/21 Range/Units 10:32 07:39 07:39 WBC 15.9 H (3.8-10.6) k/uL RBC 2.99 L (3.80-5.40) m/uL Hgb 10.9 L (11.4-16.0) gm/dL MCV 114.3 H (80.0-100.0) fL MCH 36.4 H (25.0-35.0) pg RDW 19.2 H (11.5-15.5) % Plt Count 149 L (150-450) k/uL Macrocytosis Marked A Potassium 3.3 L (3.5-5.1) mmol/L BUN 6 L (7-17) mg/dL Creatinine 0.44 L (0.52-1.04) mg/dL Calcium 7.9 L (8.4-10.2) mg/dL Procalcitonin 0.12 H (0.02-0.09) ng/mL Microbiology - Last 24 Hours (Table) 03/30/21 12:40 Gram Stain - Preliminary Sputum Sputum Culture - Preliminary 03/29/21 20:00 Blood Culture - Preliminary Blood No Growth after 24 hours 03/29/21 20:15 Blood Culture - Preliminary Blood No Growth after 24 hours Assessment and Plan Assessment: ASSESSMENT Acute on chronic hypoxic respiratory failure currently on 6 L of oxygen by nasal cannula. Presentation is consistent with progression of IPF with development of diffuse fibrotic changes. Superinfection is felt to be unlikely. Chest x-ray showing diffuse bilateral pulmonary fibrotic changes. IPF with mild to moderate restrictive lung disease and FVC of 69% of predicted based on a previous spirometry that was done in 2019. The patient has been maintained on OFEV over the past few years History of breast cancer with a previous lumpectomy followed by radiation therapy back in 2014 and the patient is been disease-free Hypertension Hypothyroidism Hyperlipidemia Chronic acid reflux Chronic back pain History of recent pneumonia Chronic debility Moderate protein calorie malnutrition PLAN: Patient has been started on breathing treatments and steroids. There is disease progression of idiopathic pulmonary fibrosis, infection less likely. Zosyn has been discontinued andshe is on levofloxacin for now. Overall prognosis is very poor. She is in no code. Further recommendations to follow depending on the progress of the patient. 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 She is on no code.
[2021-03-31] MEDS: MONTELUKAST 10 MG TAB PO SCH (21:12)
[2021-03-31] MEDS: LEVOFLOXACIN 750 MG TAB PO SCH (21:34)
[2021-04-01] MEDS ORDERED: MELATONIN 3 MG TABLET PO PRN (01:40)
[2021-04-01] MEDS: LEVOTHYROXINE 88 MCG TAB PO SCH (03:32)
[2021-04-01] MEDS: ALPRAZolam 0.25 MG TAB PO PRN (03:32)
[2021-04-01] MEDS ORDERED: LORazepam 2 MG/ML INJ IV STA (04:00)
[2021-04-01] MEDS: SODIUM CHLORIDE 0.9% 1,000 ML IV SCH ×2 (05:22→09:23)
[2021-04-01] MEDS: CYANOCOBALAMIN 500 MCG TAB PO SCH (07:18)
[2021-04-01] MEDS: ASCORBIC ACID 500 MG TAB PO SCH (07:18)
[2021-04-01] MEDS: PANTOPRAZOLE 40 MG TABLET PO SCH (07:18)
[2021-04-01] MEDS: MULTIVITAMINS, THERA 1 EACH TAB PO SCH (07:19)
[2021-04-01] MEDS: NYSTATIN 100,000 UNIT/ML SUSP 500,000 UNIT/5 ML CUP PO SCH (07:19)
[2021-04-01] MEDS: ENOXAPARIN 40 MG/0.4 ML SYRINGE SQ SCH ×2 (07:33→07:40)
[2021-04-01] MEDS: FORMOTEROL FUMARATE 20 MCG/2 ML NEBU INHALATION SCH (07:40)
[2021-04-01] MEDS: BUDESONIDE 1 MG/2 ML NEBU INHALATION SCH (07:40)
[2021-04-01] MEDS: IPRATROPIUM-ALBUTEROL 3 ML NEB INHALATION SCH ×2 (07:40→10:38)
[2021-04-01] MEDS: GABAPENTIN 400 MG CAP PO SCH (07:42)
[2021-04-01] MEDS: amLODIPine 5 MG TAB PO SCH (07:42)
[2021-04-01] MEDS: ASPIRIN 81 MG PO SCH (07:42)
[2021-04-01] MEDS: PRAVASTATIN SODIUM 20 MG TAB PO SCH (07:42)
[2021-04-01] MEDS: hydroCHLOROthiazide 25 MG TAB PO SCH (07:43)
[2021-04-01] MEDS: lisinopriL 20 MG TAB PO SCH (07:44)
[2021-04-01] MEDS: [UNRECOGNIZED DRUG - OTHER] PO SCH (07:44)
[2021-04-01 08:33] LABS: Glucose,Whole Blood 134 mg/dL (75-99)
[2021-04-01 08:47] VITALS: TEMP 99.8
[2021-04-01] MEDS ORDERED: ERGOCALCIFEROL 1,250 MCG (50,000 IU) CAPSULE PO SCH (09:00)
[2021-04-01] MEDS ORDERED: predniSONE 20 MG TAB PO SCH (09:00)
[2021-04-01] MEDS ORDERED: FUROSEMIDE 10 MG/ML 10 ML VIAL IV STA (09:03)
[2021-04-01] MEDS ORDERED: MORPHINE SULFATE 4 MG/ML SYRINGE IVP STA (09:03)
[2021-04-01] MEDS ORDERED: methylPREDNISolone SOD SUCCI 125 MG/2 ML VIAL IV STA (09:03)
--- NOTE | 2021-04-01 09:13 | P.PN ---
Subjective Progress Note Date: 04/01/21 80-year-old female, well-known to me. She has a long-standing history of any peptic pulmonary fibrosis, biopsy proven. The patient was recently in the hospital with a exacerbation of her IPF. In addition, she does have COPD. The patient was discharged home, on some antibiotics and steroids. I forcefully, she complains of being more short of breath. She states that she would like to be discharged this time not to home, but to a rehab facility or fdc. She realizes now that she cannot do it by herself at home. Currently, she is on 6 L nasal cannula. She's quite tachypneic and dyspneic. She does have conversational dyspnea. EMS brought her into the emergency room. When they arrived, she would had a saturation of about 65%. Currently, on 6 L, her saturations are in the high 80s and low 90s, with a blood pressure of 136/62, heart rate 86, respiratory rate 20-24 breaths per minute, and a temperature which is normal. Lab data includes a white count 18.2, hemoglobin 12, hemato crit 36.1, and a platelet count of 152,000. PT, INR, and PTT were all normal. D-dimer was a bit elevated at 0.64. Sodium 136, potassium 3.3, chloride 98, CO2 33, anion gap 5, BUN 15, creatinine 0.42. Troponins were 0.037 and 0.033. N- terminal proBNP was essentially normal. Urine was negative, and testing for coronavirus was also negative. Chest x-ray shows diffuse interstitial disease, which is unchanged from her prior x-ray 5 days earlier. On 03/31/2021 patient seen in follow-up on medical surgical floor. Patient's oxygen requirement have been increasing since her admission, and this morning she was placed on 100% nonrebreather mask, and her pulse ox was 94%, she is increasingly more short of breath, and she was subsequently placed on Airvo on which she remains at 60 L and FiO2 of 90%. She is feeling much more comfortable on that right now. She still very short of breath at rest, and with any exertion. She is awake and alert, oriented 3. She is afebrile, hemodynamically stable. Last chest x-ray on 03/30/2021 showed cardiomegaly and continue diffuse bilateral airspace disease. Patient remains on prednisone 10 mg daily, Levaquin, and breathing treatments. Today's labs have been reviewed, her white blood cell count 15.9, hemoglobin is 10.9, pro calcitonin level was low at 0.12, troponins were 0.037 and 0.033, urinalysis was negative for any sign of infection, COVID-19 was ruled out. Blood and sputum cultures have been sent. Sputum culture showed moderate epithelial cells, rare gram-positive cocci and rare gram-positive bacilli, fungal culture is pending. 04/01/2021, the patient is being seen in the intensive care unit. As stated earlier, this is a case of IPF with progressive worsening in her oxygenation and the patient has been hospitalized on several occasions for acute hypoxic respiratory failure on top of her chronic hypoxic respiratory failure. At home she was on 6 L of oxygen by nasal cannula. She came in for another decompensation. I saw her on the medical floor yesterday and I started on high flow oxygen and she was on 6 L with an FiO2 of 90%. Overnight she decompensated. She became progressively more short of breath and hypoxic. As such, I made recommendations transfer the patient to the ICU. Nevertheless, knowing that she was a DNR/DNI CODE STATUS. She declined transfer. Earlier this morning, she accepted and she is currently in the intensive care unit on a BiPAP at a pressure of 12/5 cm of water with an FiO2 of 100%. The patient is arousable. She'll follow commands. She states that she wants to be made comfortable. The family is at the bedside and I had a discussion with . Unfortunately, she is struggling to breathe even when she is on the BiPAP. She is using some excessive muscle breathing. Earlier this morning, she was given a dose of Ativan 0.5 mg which helped and the effect has worn off. Her current respiratory rate is in the mid 30s. Pulse ox is 85% and degenerated tidal volumes around 660 with a minute ventilation of 27 L. She is using his abdominal muscles to breathe. Chest x-ray from this morning is pending for now. Labs are from yesterday. No new labs are available from today. She remains on Levaquin. Pro calcitonin was not aspirated from yesterday. Objective - Vital Signs Vital signs: Vital Signs Temp 99.8 F H 04/01/21 08:30 Pulse 105 H 04/01/21 08:30 Resp 47 H 04/01/21 08:30 BP 110/71 04/01/21 08:30 Pulse Ox 83 L 04/01/21 08:30 Intake & Output 03/31/21 04/01/21 04/01/21 18:59 06:59 18:59 Output Total 1000 Balance -1000 Weight 75 kg Output: Urine 1000 Other: Voiding Method External Catheter External Catheter # Voids 0 - Exam GENERAL EXAM: Alert, very pleasant, 80-year-old white female patient is in significant respiratory distress and the patient is currently on a BiPAP at a pressure of 12/5 cm of water with an FiO2 of 100%. She is arousable. She follows simple commands. She is refusing her medication. She is stating that she wants to go past. HEAD: Normocephalic/atraumatic. EYES: Normal reaction of pupils, equal size. Conjunctiva pink, sclera white. NOSE: Clear with pink turbinates. THROAT: No erythema or exudates. NECK: No masses, no JVD, no thyroid enlargement, no adenopathy. CHEST: No chest wall deformity. Symmetrical expansion. The patient is using excessive muscle breathing both chest and abdomen. LUNGS: Equal air entry with diffuse coarse crackles CVS: Regular rate and rhythm, normal S1 and S2, no gallops, no murmurs, no rubs ABDOMEN: Soft, nontender. No hepatosplenomegaly, normal bowel sounds, no guarding or rigidity. EXTREMITIES: No clubbing, no edema, no cyanosis, 2+ pulses and upper and lower extremities. MUSCULOSKELETAL: Muscle strength and tone normal. SPINE: No scoliosis or deformity SKIN: No rashes CENTRAL NERVOUS SYSTEM: Alert and oriented -3. No focal deficits, tone is normal in all 4 extremities. PSYCHIATRIC: Alert and oriented -3. The patient is quite anxious and apprehensive. - Labs CBC & Chem 7: 03/31/21 07:39 03/31/21 07:39 Labs: Abnormal Lab Results - Last 24 Hours (Table) 03/31/21 04/01/21 Range/Units 07:39 08:31 WBC 15.9 H (3.8-10.6) k/uL RBC 2.99 L (3.80-5.40) m/uL Hgb 10.9 L (11.4-16.0) gm/dL MCV 114.3 H (80.0-100.0) fL MCH 36.4 H (25.0-35.0) pg RDW 19.2 H (11.5-15.5) % Plt Count 149 L (150-450) k/uL Macrocytosis Marked A POC Glucose (mg/dL) 134 H (75-99) mg/dL Microbiology - Last 24 Hours (Table) 03/29/21 20:00 Blood Culture - Preliminary Blood No Growth after 48 hours 03/29/21 20:15 Blood Culture - Preliminary Blood No Growth after 48 hours Assessment and Plan Plan: #1. Acute on chronic hypoxemic respiratory failure secondary to acute exacerbation of idiopathic pulmonary fibrosis, COVID-19 has been ruled out, calcitonin level was low at 0.12. Based on overall clinical presentation, the patient has developed an acute exacerbation of IPF. This obviously a condition that there is a very poor prognosis. The patient has had several hospitalizations and other possibilities such as infections and pulmonary embolism has been ruled out in the cerebral CAT scans were done showed significant erosive changes in the lungs consistent with IPF with interval progression and signs of an acute exacerbation. Currently she failed high flow oxygen and she is on a BiPAP at a pressure of 12/5 cm of water. The patient is quite struggling with her breathing. She is a DNR/DNI CODE STATUS. #2. Recent hospitalization related to the above #3. History of IPF with the most recent FVC of 69% of predicted, this is from 2019. Has been maintained on cooperative over the past few years #4. History of breast cancer with previous lumpectomy followed by radiation t herapy in 2014 #5. Hypertension #6. Hypothyroidism #7. Hyperlipidemia #8. GERD/reflux #9. Chronic back pain Plan Obviously, this patient's condition decompensated significantly. The patient is currently in significant respiratory failure. She is currently on BiPAP which are going to continue. The patient has requested comfort care measures. The is agreeable and I've talked to him at the bedside. For now, I'm going to give her morphine to take away the feeling of breathlessness and control her anxiety and shortness of breath. At the same time, I'm going to give her a 60 mg Lasix IV push and 125 of Solu-Medrol. Within the next few hours, we'll make consider comfort care measures if her condition continues to decline and decompensated. Obviously this is a very poor prognosis. We'll continue to follow. We'll make further recommendations. We may possibly transition this patient with end-of-life care especially she doesn't respond to the above- mentioned treatment. Awaiting a stat chest x-ray.
--- NOTE | 2021-04-01 09:44 | XR ---
EXAMINATION TYPE: XR chest 1V portable DATE OF EXAM: 04/01/2021 COMPARISON: Chest x-ray 03/30/2021 HISTORY: Shortness of breath TECHNIQUE: Single frontal view of the chest is obtained. FINDINGS: Diffuse bilateral airspace disease may be somewhat more confluent, lung volumes are lower. No evident pneumothorax or pleural effusion. Heart is obscured but likely stable. Surgical clips pre sent in the right upper quadrant. There are overlying leads. IMPRESSION: Correlate for pneumonia, edema, suspect worsening of bilateral airspace disease
[2021-04-01 10:43] VITALS: BP 77/47
[2021-04-01] MEDS ORDERED: SCOPOLAMINE 1.5MG/72HR PATCH TRANSDERM SCH (10:45)
[2021-04-01] MEDS ORDERED: LORazepam 2 MG/ML INJ IV PRN (10:45)
[2021-04-01] MEDS ORDERED: MORPHINE SULFATE 4 MG/ML SYRINGE IV PRN (10:45)
[2021-04-01] MEDS ORDERED: MORPHINE SULFATE 2 MG/ML SYRINGE IV PRN (10:45)
[2021-04-01] MEDS ORDERED: MORPHINE SULFATE 4 MG/ML SYRINGE IVP ONE (10:45)
[2021-04-01 11:00] VITALS: PULSE 90; RESP 40
[2021-04-01] MEDS ORDERED: MORPHINE SULFATE (100 MG/2 ML) 100 MG in SODIUM CHLORIDE 0.9% 100 ML IV SCH (11:00)
[2021-04-01 11:17] LABS: Basophils # (A) 0.05 X 10*3/uL (0.00-0.10); Basophils % (A) 0.2 %; Eosinophils # (A) 0.07 X 10*3/uL (0.04-0.35); Eosinophils % (A) 0.3 %; HCT 29.8 % (37.2-46.3); HGB 9.6 g/dL (12.0-15.0); Lymphocytes # (A) 0.65 X 10*3/uL (0.90-5.00); Lymphocytes % (A) 2.6 %; MCH 37.1 pg (27.0-32.0); MCHC 32.2 g/dL (32.0-37.0); MCV 115.1 fL (80.0-97.0); Mean Platelet Volume 13.3 fL (9.5-12.2); Monocytes % (A) 5.5 %; Neutrophils # (A) 22.75 X 10*3/uL (1.80-7.70); Platelet Count 163 X 10*3/uL (140-440); RBC 2.59 X 10*6/uL (4.10-5.20); RDW 17.8 % (11.5-14.5); WBC 25.28 X 10*3/uL (4.50-10.00)
[2021-04-01 11:25] LABS: African American GFR (CKD) 107.4 (60.0-200.0); Anion Gap 9.8 mmol/L (4.00-12.00); Calcium 7.9 mg/dL (8.7-10.3); Carbon Dioxide 27.2 mmol/L (21.6-31.8); Non-African American GFR(CKD) 92.7 (60.0-200.0); Potassium 3.2 mmol/L (3.5-5.5)
--- NOTE | 2021-04-16 09:48 | P.PN ---
Subjective Progress Note Date: 04/01/21 Principal diagnosis: Acute on chronic hypoxemic respiratory failure secondary to acute exacerbation of idiopathic pulmonary fibrosis Ms. Lopez is a 80-year-old female with a past medical history of interstitial pulmonary fibrosis, COPD, hypertension, hyperlipidemia, breast cancer status post surgery coming in with a chief complaint of difficulty in breathing. Patient was recently discharged from the hospital on 03/24/2021 to complete Ceftin and steroids. Patient states that she went home and was living all by herself, and difficulty in breathing progressed and that she was not able to take care of herself at home and so came in to the hospital for further evaluation. She mentions that his she has been complaint with her steroids and antibiotics. Patient mentions about progressive worsening of her shortness of breath. She denies having any fevers chills or rigors at home. No chest pain or palpitations. She states that she feels anxious when she cannot breathe. Patient denies having any abdominal pain nausea vomiting or diarrhea. No headaches blurring of vision and slurred speech or weakness of her extremities. In the ER at the time of admission, her saturations went as low as 65%, this started on 6 L of nasal cannula and her saturations improved about 90. Temperature of 98.3, heart rate around 88, respiratory rate 18, blood pressure 152/114. She had a chest x-ray showing cardiomegaly and diffuse bilaterally testes disease. Labs at the time of admission white count of 18.2, hemoglobin 12, platelets 152. There is marked macrocytosis with MCV of 109.8. D-dimer 0.64, PT 10.7, INR 1, sodium 136, potassium 3.3, chloride 98, bicarbonate 30, BUN 15, creatinine 0.42. Barclay virus PCR negative urine negative for nitrites and leukocyte esterase. On 03/31/2021 - patient is seen and examined at the bedside. Overnight patient desaturated and she is placed on Airvo 90% FiO2 to maintain her saturations above 90%. She states that she is feeling comfortable with the Airvo, then a nonrebreather. Patient still is tachypneic and appears to be in mild respiratory distress. She denies having any chest pain or palpitations. On reviewing her vitals temperature of 99.2, heart rate 100, respiratory rate in low 20s, blood pressure 106/68. Patient's labs from this morning white count of 15.9, hemoglobin 10.9, platelets 149. Sodium 135, potassium 3.8, chloride 104, bicarbonate 27, BUN 6, creatinine 0.44. Urine analysis from yesterday negative for nitrites and leukocyte esterase. 04/01/2021 Patient is in the intensive care unit at this time. Patient does have decompensation with history of IPF and is progressively worsening. Patient was on high flow oxygen with FiO2 of 90%. Overnight patient decompensated and became progressively more short of breath and hypoxic. Seen by pulmonary and recommended transfer to ICU. Patient declined transfer. 8 elevated in the morning patient accepted to be transferred to ICU and was placed on BiPAP. She expresses concern with the intensive care team that she wants to be comfortable. Patient is awake alert and oriented. Patient is struggling with BiPAP and short of breath with using accessory muscles. Patient was given a dose of Ativan. Patient would like to be in comfort care. Discussed with the family at bedside. Chest x-ray showed correlate for pneumonia, edema suspect worsening bilateral airspace disease. Laboratory data showed worsening leukocytosis to 25 and potassium 3.2. Patient is on antibiotics in the form of Levaquin. Prognosis is poor. Patient's medications have been reviewed. Objective - Vital Signs Vital signs: Vital Signs Temp 99.8 F H 04/01/21 08:30 Pulse 90 04/01/21 10:51 Resp 40 H 04/01/21 10:51 BP 77/47 04/01/21 10:00 Pulse Ox 91 L 04/01/21 10:00 Intake & Output 03/31/21 04/01/21 04/01/21 18:59 06:59 18:59 Output Total 1000 0 Balance -1000 0 Weight 75 kg Output: Urine 1000 0 Other: Voiding Method External Catheter External Catheter # Voids 0 - Exam - Exam GENERAL: The patient is alert and oriented . Patient is on BiPAP and struggling to breathe and using accessory muscles.. -Patient looks weak and deconditioned HEENT: Pupils are round and equally reacting to light. EOMI. No scleral icterus. No conjunctival pallor. CARDIOVASCULAR: S1 and S2 present. No murmurs, rubs, or gallops. PULMONARY: Tachypnea. Decreased breath sounds bilaterally. Coarse crackles bilaterally ABDOMEN: Soft, mild tenderness, nondistended, normoactive bowel sounds. No palp able organomegaly. MUSCULOSKELETAL: No joint swelling or deformity. EXTREMITIES: Mild pedal edema. NEUROLOGICAL: Gross neurological examination did not reveal any focal deficits. SKIN: No rashes. No petechiae - Labs CBC & Chem 7: 04/01/21 05:39 04/01/21 05:39 Labs: Abnormal Lab Results - Last 24 Hours (Table) 04/01/21 Range/Units 08:31 POC Glucose (mg/dL) 134 H (75-99) mg/dL Microbiology - Last 24 Hours (Table) 03/30/21 12:40 Gram Stain - Final Sputum Sputum Culture - Final Eli albicans 03/29/21 20:00 Blood Culture - Preliminary Blood No Growth after 48 hours 03/29/21 20:15 Blood Culture - Preliminary Blood No Growth after 48 hours Assessment and Plan Assessment: Acute on chronic hypoxic respiratory failure. On BiPAP. Patient is on 6 L of oxygen by nasal cannula at home. Presentation is consistent with progression of IPF with development of diffuse fibrotic changes. Superinfection is felt to be unlikely. Chest x-ray showing diffuse bilateral pulmonary fibrotic changes. IPF with mild to moderate restrictive lung disease and FVC of 69% of predicted based on a previous spirometry that was done in 2019. The patient has been maintained on OFEV over the past few years History of breast cancer with a previous lumpectomy followed by radiation therapy back in 2014 and the patient is been disease-free Hypertension Hypothyroidism Hyperlipidemia Chronic acid reflux Chronic back pain History of recent pneumonia Chronic debility Moderate protein calorie malnutrition PLAN: Patient was transferred to MICU currently on BiPAP. Continued on breathing treatments and steroids. There is disease progression of idiopathic pulmonary fibrosis, infection less likely. Zosyn has been discontin ued andshe is on levofloxacin for now. Overall prognosis is very poor. She is in no code. Further recommendations to follow depending on the progress of the patient. Patient wishes to be in comfort care.. Time with Patient: Greater than 30
--- NOTE | 2021-04-16 09:54 | P.DS ---
Providers Date of admission: 03/29/21 19:48 Expected date of discharge: 04/01/21 Attending physician: Eliana Mansfield Consults: 03/29/21 19:48 Consult Physician Routine Consulting Provider: Ranjeet Mujica Consult Reason/Comments: Pneumonia, hypoxemia, COPD Do you want consulting provider notified?: Yes Primary care physician[facility] Course: diagnosis Acute on chronic hypoxic respiratory failure due to progression of idiopathic pulmonary fibrosis. Acute on chronic hypoxic respiratory failure. On BiPAP. Patient is on 6 L of oxygen by nasal cannula at home. Presentation is consistent with progression of IPF with development of diffuse fibrotic changes. Superinfection is felt to be unlikely. Chest x-ray showing diffuse bilateral pulmonary fibrotic changes. IPF with mild to moderate restrictive lung disease and FVC of 69% of predicted based on a previous spirometry that was done in 2019. The patient has been maintained on OFEV over the past few years History of breast cancer with a previous lumpectomy followed by radiation therapy back in 2014 and the patient is been disease-free Hypertension Hypothyroidism Hyperlipidemia Chronic acid reflux Chronic back pain History of recent pneumonia Chronic debility Moderate protein calorie malnutrition Hospital course Ms. Lopez is a 80-year-old female with a past medical history of interstitial pulmonary fibrosis, COPD, hypertension, hyperlipidemia, breast cancer status post surgery coming in with a chief complaint of difficulty in breathing. Patient was recently discharged from the hospital on 03/24/2021 to complete Ceftin and steroids. Patient states that she went home and was living all by herself, and difficulty in breathing progressed and that she was not able to take care of herself at home and so came in to the hospital for further evaluation. She mentions that his she has been complaint with her steroids and antibiotics. Patient mentions about progressive worsening of her shortness of breath. She denies having any fevers chills or rigors at home. No chest pain or palpitations. She states that she feels anxious when she cannot breathe. Patient denies having any abdominal pain nausea vomiting or diarrhea. No headaches blurring of vision and slurred speech or weakness of her extremities. In the ER at the time of admission, her saturations went as low as 65%, this started on 6 L of nasal cannula and her saturations improved about 90. Temperature of 98.3, heart rate around 88, respiratory rate 18, blood pressure 152/114. She had a chest x-ray showing cardiomegaly and diffuse bilaterally testes disease. Labs at the time of admission white count of 18.2, hemoglobin 12, platelets 152. There is marked macrocytosis with MCV of 109.8. D-dimer 0.64, PT 10.7, INR 1, sodium 136, potassium 3.3, chloride 98, bicarbonate 30, BUN 15, creatinine 0.42. Barclay virus PCR negative urine negative for nitrites and leukocyte esterase. On 03/31/2021 - patient is seen and examined at the bedside. Overnight patient desaturated and she is placed on Airvo 90% FiO2 to maintain her saturations above 90%. She states that she is feeling comfortable with the Airvo, then a nonrebreather. Patient still is tachypneic and appears to be in mild respiratory distress. She denies having any chest pain or palpitations. On reviewing her vitals temperature of 99.2, heart rate 100, respiratory rate in low 20s, blood pressure 106/68. Patient's labs from this morning white count of 15.9, hemoglobin 10.9, platelets 149. Sodium 135, potassium 3.8, chloride 104, bicarbonate 27, BUN 6, creatinine 0.44. Urine analysis from yesterday negative for nitrites and leukocyte esterase. 04/01/2021 Patient is in the intensive care unit at this time. Patient does have decompen sation with history of IPF and is progressively worsening. Patient was on high flow oxygen with FiO2 of 90%. Overnight patient decompensated and became progressively more short of breath and hypoxic. Seen by pulmonary and recommended transfer to ICU. Patient declined transfer. 8 elevated in the morning patient accepted to be transferred to ICU and was placed on BiPAP. She expresses concern with the intensive care team that she wants to be comfortable. Patient is awake alert and oriented. Patient is struggling with BiPAP and short of breath with using accessory muscles. Patient was given a dose of Ativan. Patient would like to be in comfort care. Discussed with the family at bedside. Chest x-ray showed correlate for pneumonia, edema suspect worsening bilateral airspace disease. Laboratory data showed worsening leukocytosis to 25 and potassium 3.2. Patient is on antibiotics in the form of Levaquin. Prognosis is poor. Patient was continued on comfort measures and at 1300. Family is at bedside and has been notified. Patient Condition at Discharge: Fair Plan - Discharge Summary Discharge Rx Participant: Yes New Discharge Prescriptions: No Action Omeprazole 20 mg PO DAILY amLODIPine BESYLATE/BENAZEPRIL [Lotrel 5-40 MG] 1 cap PO DAILY Multivitamins, Thera [Multivitamin (formulary)] 1 tab PO DAILY Gabapentin 800 mg PO TID Montelukast Sodium [Singulair] 10 mg PO HS Loperamide [Imodium] 2 mg PO QID PRN PRN Reason: Diarrhea Nintedanib Esylate [Ofev] 100 mg PO BID EPINEPHrine [Epipen 2-Shin] 0.3 mg IM ONCE PRN PRN Reason: Anaphylaxis Cyanocobalamin (Vitamin B-12) [Vitamin B-12] 1,000 mcg PO DAILY Ergocalciferol (Vitamin D2) [Drisdol (50,000 Iu)] 1,250 mcg PO Q14D Biotin 10,000 mcg PO DAILY Pravastatin Sodium [Pravachol] 20 mg PO DAILY Levothyroxine Sodium [Synthroid] 175 mcg PO DAILY Aspirin EC [Ecotrin Low Dose] 81 mg PO DAILY hydroCHLOROthiazide [Hydrodiuril] 25 mg PO DAILY Fluticasone Propion/Salmeterol [Fluticasone-Salmeterol 500-50] 1 puff INHALATION RT-BID Cefuroxime Axetil [Ceftin] 500 mg PO BID 5 Days #10 tab Ipratropium-Albuterol Nebulize [Duoneb 0.5 mg-3 mg/3 ml Soln] 3 ml INHALATION RT-TID PRN ml PRN Reason: Shortness Of Breath Or Wheezing Albuterol Sulfate [Ventolin HFA] 2 puff INHALATION RT-QID PRN PRN Reason: Shortness Of Breath Vitamin C 2500mcg 2,500 mcg PO DAILY ALPRAZolam [Xanax] 0.25 mg PO TID PRN #12 tab PRN Reason: Anxiety Budesonide/Formoterol Fumarate [Symbicort 160-4.5 Mcg Inhaler] 2 puff INHALATION RT-BID Ipratropium-Albuterol Nebulize [Duoneb 0.5 mg-3 mg/3 ml Soln] 3 ml INHALATION RT-TID 30 Days #120 ml Nystatin 100,000 Unit/ml Susp [Mycostatin Oral Susp] 500,000 unit PO QID 7 Days #140 ml Discharge Medication List Gabapentin 800 mg PO TID 09/26/17 [History] Montelukast Sodium [Singulair] 10 mg PO HS 09/26/17 [History] Multivitamins, Thera [Multivitamin (formulary)] 1 tab PO DAILY 09/26/17 [History] Omeprazole 20 mg PO DAILY 09/26/17 [History] amLODIPine BESYLATE/BENAZEPRIL [Lotrel 5-40 MG] 1 cap PO DAILY 09/26/17 [History] Cyanocobalamin (Vitamin B-12) [Vitamin B-12] 1,000 mcg PO DAILY 03/12/19 [History] EPINEPHrine [Epipen 2-Shin] 0.3 mg IM ONCE PRN 03/12/19 [History] Loperamide [Imodium] 2 mg PO QID PRN 03/12/19 [History] Nintedanib Esylate [Ofev] 100 mg PO BID 03/12/19 [History] Aspirin EC [Ecotrin Low Dose] 81 mg PO DAILY 11/16/20 [History] Biotin 10,000 mcg PO DAILY 11/16/20 [History] Ergocalciferol (Vitamin D2) [Drisdol (50,000 Iu)] 1,250 mcg PO Q14D 11/16/20 [History] Fluticasone Propion/Salmeterol [Fluticasone-Salmeterol 500-50] 1 puff INHALATION RT-BID 11/16/20 [History] Levothyroxine Sodium [Synthroid] 175 mcg PO DAILY 11/16/20 [History] Pravastatin Sodium [Pravachol] 20 mg PO DAILY 11/16/20 [History] hydroCHLOROthiazide [Hydrodiuril] 25 mg PO DAILY 11/16/20 [History] Albuterol Sulfate [Ventolin HFA] 2 puff INHALATION RT-QID PRN 02/19/21 [History] Vitamin C 2500mcg 2,500 mcg PO DAILY 02/19/21 [History] ALPRAZolam [Xanax] 0.25 mg PO TID PRN #12 tab 02/27/21 [Rx] Budesonide/Formoterol Fumarate [Symbicort 160-4.5 Mcg Inhaler] 2 puff INHALATION RT-BID 03/16/21 [History] Cefuroxime Axetil [Ceftin] 500 mg PO BID 5 Days #10 tab 03/24/21 [Rx] Ipratropium-Albuterol Nebulize [Duoneb 0.5 mg-3 mg/3 ml Soln] 3 ml INHALATION RT-TID 30 Days #120 ml 03/24/21 [Rx] Ipratropium-Albuterol Nebulize [Duoneb 0.5 mg-3 mg/3 ml Soln] 3 ml INHALATION RT-TID PRN ml 03/24/21 [Rx] Nystatin 100,000 Unit/ml Susp [Mycostatin Oral Susp] 500,000 unit PO QID 7 Days #140 ml 03/24/21 [Rx] Follow up Appointment(s)/Referral(s): Jovita Diaz MD [Primary Care Provider] - 1-2 days [facility] [NON-STAFF] - As Needed Discharge Disposition: - Preliminary Cause of Preliminary Cause of : Acute on chronic hypoxic respiratory failure due to progression of IPF
--- NOTE | 2021-04-22 18:14 | CDI ---
Documentation Clarification Form Date: 04/22/2021 05:58:48 PM From: Shabana Lemus RN, CCDS Admit Date: 03/29/2021 07:48:00 PM Patient Name: Paris Jorgensen Visit Number: [id number] Discharge Date: 04/01/2021 01:44:00 PM ATTENTION: The Clinical Documentation Specialists (CDI) and [facility] Coding Staff appreciate your assistance in clarifying documentation. Please respond to the clarification below the line at the bottom and electronically sign. The CDI & [facility] Coding staff will review the response and follow-up if needed. Please note: Queries are made part of the Legal Health Record. If you have any questions, please contact the author of this message via ITS. Dr. Fanny Matute Unspecified CKD is documented in the Cardiology Consult and Progress Note. Ass Attending MD Additional information regarding confirmation of diagnosis and clarification regarding the stage of CKD is requested. History/Risk Factors: 03/21/2021 Patients Historical BUN/CR/GFR: 29/.8/81.8 HTN, IPF, Breast CA with radiation, bilateral lower extremity neuropathy, pulmonary HTN, dehydration Clinical Indicators: 03/29 ED note: "The patient does not have chronic renal insufficiency." 03/30-03/31 Cardiology Consult and Progress note: "Recent hospitalization for pneumonia and bronchitis chronic kidney disease. Mildly abnormal troponins, not suggestive of ACS, may be secondary to CKD and/or type II NE related to hypoxia." 03/29-04/01 Current BUN: 15/6/8 CR: .042/.044/.5 GFR: >90 Treatment: Hydodiuril 25 mg Po Daily Zestril 40 mg Po Daily 0.9%NS @ 100 cc/hr. Please clarify the stage of the CKD, if known: [ ] CKD Ruled Out [ ] CKD Stage 1 (GFR > 90) [ ] CKD Stage 2 (GFR 60-89) [ ] CKD Stage 3 (GFR 30-59) [ ] CKD Stage 3a (GFR 45-59) [ ] CKD Stage 3b (GFR 30-44) [ ] Other, please specify [ ] Unable to determine (Template Last revised: November 2020) CKD Ruled Out MTDD
== END 2021-04-01 13:44 | disposition expired | DRG 196 ==
LOC: EC 17:03 → 3SCARD 19:48 → 4SSUR 03-30 23:18 → 2SICU 04-01 08:57
PROVIDERS: ADMIT Internal Medicine; ATTEND Internal Medicine
DX: J84.112 Idiopathic pulmonary fibrosis (principal); J96.21 Acute and chronic respiratory failure with hypoxia; I21.A1 Myocardial infarction type 2; J44.1 Chronic obstructive pulmonary disease with (acute) exacerbation; E44.0 Moderate protein-calorie malnutrition; E86.0 Dehydration; J98.4 Other disorders of lung; I27.20 Pulmonary hypertension, unspecified; Z51.5 Encounter for palliative care; Z66 Do not resuscitate; Z20.822 Contact with and (suspected) exposure to COVID-19; Z85.3 Personal history of malignant neoplasm of breast; E03.9 Hypothyroidism, unspecified; D75.89 Other specified diseases of blood and blood-forming organs; R00.0 Tachycardia, unspecified; R53.81 Other malaise; E78.5 Hyperlipidemia, unspecified; K21.9 Gastro-esophageal reflux disease without esophagitis; I08.3 Combined rheumatic disorders of mitral, aortic and tricuspid valves; G89.29 Other chronic pain; M54.9 Dorsalgia, unspecified; Z87.01 Personal history of pneumonia (recurrent); Z79.51 Long term (current) use of inhaled steroids; Z79.82 Long term (current) use of aspirin; Z79.890 Hormone replacement therapy; Z79.899 Other long term (current) drug therapy; Z92.3 Personal history of irradiation; Z88.5 Allergy status to narcotic agent; Z88.2 Allergy status to sulfonamides; Z88.8 Allergy status to other drugs, medicaments and biological substances; Z90.49 Acquired absence of other specified parts of digestive tract; Z68.30 Body mass index [BMI] 30.0-30.9, adult; Z99.81 Dependence on supplemental oxygen
CPT/HCPCS: 36415; 71045; 71046; 80048; 80053; 81003; 82550; 83605; 83735; 83880; 84145; 84484; 85025; 85379; 85610; 85730; 87040; 87070; 87205; 87635; 93005; 94640; 94660; 94760; 99285